=== PATIENT | male | born 2000 | race Caucasian/White ===

== ENCOUNTER → 2024-12-09 | Outpatient (CLI) | payer MEDICAID, SELFPAY ==
[2024-12-09 12:47] LABS: Hematocrit 39.8 % (40-54); Hemoglobin 13.5 g/dL (13.0-16.5); Immature Granulocytes Count 0.010 X10^3/uL (0.0-0.0); Mean Corp Hgb Conc 33.9 g/dL (32-36); Mean Corpuscular Volume 87.3 fL (80-94); Mean Platelet Vol. 11.1 fl (6.2-12.0); NRBC Flagged by Analyzer 0 % (0-5); Platelet Count 222 K/mm3 (150-450); RBC Distribution Width CV 13.4 % (11.6-14.6); RBC Distribution Width SD 43.0 fl (35.1-43.9); Red Blood Count 4.56 M/mm3 (4.6-6.2); White Blood Count 3.3 K/mm3 (4.4-11.0)
[2024-12-09 13:36] LABS: AST(SGOT) 21 U/L (<=37); Alanine Aminotransfer ALT/SGPT 11 U/L (<=46); Albumin, Serum 4.4 g/dL (3.5-5.0); Alkaline Phosphatase 80 U/L (40-129); Anion Gap 10 (5-15); BUN 10 mg/dL (4-19); BUN/Creat Ratio 13.2 RATIO (10-20); Calcium,Total 9.3 mg/dL (7.6-11.0); Carbon Dioxide 26.1 mmol/L (21.0-32.0); Chloride 104 mmol/L (98-108); Cholesterol 100 mg/dL (<=200); Globulin 3.2 g/dL (2.2-4.2); Glucose 78 mg/dL (70-99); Low Density Lipoprotein Calc. 45 mg/dL; Magnesium 2.0 mg/dL (1.5-2.2); Potassium 3.5 mmol/L (3.3-5.1); Triglycerides 78 mg/dL; Very Low Density Lipoprotein 16 mg/dL (5-40); cholesterol:hdl ratio screen 2.53
[2024-12-09 13:39] LABS: Ferritin 120 ng/mL (37-417); Vitamin B12 385 pg/mL (180-914); Vitamin D,25 Hydroxy 30.4 ng/mL (30-100)
== END | disposition home or self-care (01) ==
PROVIDERS: PCP Family Medicine; Visit Provider Family Medicine
DX: Z13.6 Encounter for screening for cardiovascular disorders (principal); R53.83 Other fatigue
CPT/HCPCS: 36415; 80053; 80061; 82306; 82607; 82728; 83036; 83735; 84402; 84403; 84443; 85025

== ENCOUNTER 2024-12-28 15:21 | Observation (INO) | payer MEDICAID, SELFPAY ==
[2024-12-28 15:22] VITALS: BP 128/86; PULSE 116; RESP 18; TEMP 36.8; O2SAT 95; BMI 20.2
--- OUTSIDE RECORDS SUMMARY | 2024-12-28 15:59 | XMS RPT_ITS | CCD ---
Author Organization [facility] Care Team Providers Care Assistant Chief Train Dispatcher Name Role Phone PROVIDER, UNKNOWN Unavailable Unavailable Brett Levin Unavailable Unavailable JAY FIERRO Unavailable Unavailable Mandeep Alvarez Primary Care Provider [phone] Mandeep Alvarez Primary Care Provider Juanyu Mandeep WISEMAN Primary Care Provider [phone] MANDEEP ALVAREZ Primary Care Unavailable Marcelino Meredith DO Primary Care Provider Unavailable Primary Care Provider UnavailJessica Rodriguez Primary Care Provider Unav ailable Cesar Bone DO Primary Care Provider CESAR BONE Primary Care Unavailable CESAR BONE Primary Care Unavailable EMY JACKSON Attending Unavailable SHAHNAZ HERNANDEZ Attending Unavailable CESAR BONE Primary Care Unavailable CESAR BONE Primary Care Unavailable JAYLEN GALLOWAY Admitting Unavailable JAYLEN GALLOWAY Attending Unavailable Unavailable Primary Care Provider UnavailHeather Spear DO Primary Care Provider Heather Lo DO Attending Provider Heather Fitzpatrick Attending Unavailable Heather Fitzpatrick Primary Care Unavailable DIOGENES BANKS Attending Unavailable Medications Current Medications Medication Drug Class(es) Dates Sig (Normalized) Sig (Original) acetaminophen 325 mg / oxyCODONE hydrochloride 5 mg oral tablet (12 sources) Opioid Agonist Start: 05-11-2023 End: 05-30-2023 take 1 tablet by mouth every six hours as needed for pain oxyCODONE-acetam inophen (Percocet) 5-325 MG tablet Indications: Pilonidal cyst Take 1 tablet by mouth every 6 hours as needed (Post-op pain) for up to 7 days. 28 tablet 0 05/23/2023 05/30/2023 Active amoxicillin 875 mg / clavulanate 125 mg oral tablet (3 sources) Penicillin-class Antibacterial Start: 03-31-2023 End: 04-07-2023 take 1 tablet by mouth twice daily amoxicillin-clav ulanate (Augmentin) 875-125 MG tablet Take 1 tablet by mouth 2 times daily for 7 days. 14 tablet 0 03/31/2023 04/07/2023 Active Start: 03-31-2021 End: 04-10-2021 take 1 tablet by mouth twice daily amoxicillin-clavulanate (AUGMENTIN) 875-125 MG per tablet Indications: Acute pharyngitis, unspecified etiology , Acute otitis media, bilateral Take 1 tablet by mouth 2 times daily for 10 days 20 tablet 0 03/31/2021 04/10/2021 Active 1.5 ml buprenorphine 200 mg/ml prefilled syringe (17 sources) Partial Opioid Agonist Start: 07-17-2024 SUBLOCADE 300 mg/1.5 mL injection 07/17/2024 Active Start: 02-11-2021 SUBLOCADE 100 mg/0.5 mL injection 02/11/2021 Active buprenorphine ER (Sublocade) 100 mg/0.5mL injection Inject 1 each under the skin every month to absorb continually. Was supposed to receive Monday/ Active Buprenorphine (S UBLOCADE SC) Inject into the skin every 30 days 0 Active cephalexin 500 mg oral capsule (8 sources) Cephalosporin Antibacterial Start: 03-07-2023 End: 03-17-2023 cephalexin (Keflex) 500 MG capsule Take 1 capsule (500 mg) by mouth in the morning and 1 capsule (500 mg) at noon and 1 capsule (500 mg) in the evening and 1 capsule (500 mg) before bedtime. Do all this for 10 days. 40 capsule 0 03/07/2023 03/17/2023 Active famotidine 20 mg oral tablet (10 sources) Histamine-2 Receptor Antagonist Start: 02-07-2021 End: 05-11-2023 take 1 tablet by mouth twice daily famotidine (PEPCID) 20 mg tablet Take 20 mg by mouth twice daily. 02/07/2021 Active Start: 01-31-2021 famotidine (PE PCID) tablet 20 mg Comment on above: Take 20 mg by mouth twice daily. metroNIDAZOLE 500 mg oral tablet (8 sources) Nitroimidazole Antimicrobial Start: End: take 1 tablet by mouth three times daily metroNIDAZOLE (Flagyl) 500 MG tablet Take 1 tablet (500 mg) by mouth 3 times daily for 10 days. 30 tablet 0 03/07/2023 03/17/2023 Active naproxen 500 mg oral tablet (4 sources) Nonsteroidal Anti-inflammatory Drug Start: End: take 1 tablet by mouth twice daily as needed for pain naproxen (Naprosyn) 500 MG tablet Take 1 tablet (500 mg) by mouth 2 times daily as needed for mild pain (1-3) for up to 15 days. 30 tablet 01/03/2024 01/18/2024 Active ofloxacin 3 mg/ml ophthalmic solution (1 source) Quinolone Antimicrobial Start: End: ofloxacin (Ocuflox) 0.3 % ophthalmic solution Indications: Acute conjunctivitis of left eye, unspecified acute conjunctivitis type Administer 1 drop into the left eye in the morning and 1 drop at noon and 1 drop in the evening and 1 drop before bedtime. Do all this for 7 days. 10 mL 11/12/2023 11/19/2023 Active penicillin v potassium 250 mg oral tablet (1 source) Start: End: take 2 tablets by mouth twice daily penicillin v potassium (VEETID) 250 MG tablet Take 2 tablets by mouth 2 times daily for 10 days 40 tablet 0 05/17/2020 05/27/2020 Active polyethylene glycol 3350 86271 mg powder for oral solution (2 sources) Osmotic Laxative Start: End: polyethylene glycol, PEG, 3350 (Glycolax) 17 GM/SCOOP powder Take 17 g by mouth daily for 7 days. 119 g 0 05/11/2023 05/18/2023 Active sulfamethoxazole 800 mg / trimethoprim 160 mg oral tablet (2 sources) Dihydrofolate Reductase Inhibitor Antibacterial, Sulfonamide Antimicrobial Start: take 1 tablet by mouth twice daily sulfamethoxazole-tri methoprim (BACTRIM DS;SEPTRA DS) 800-160 MG per tablet take 1 tablet by mouth twice a day 0 02/16/2021 Active thiamine 100 mg oral tablet (5 sources) Start: 017 take 1 tablet by mouth once daily thiamine 100 MG tablet Take 1 tablet by mouth daily 60 tablet 2 02/06/2017 Active Completed/Discontinued Medications Medication Drug Class(es) Dates Sig (Normalized) Sig (Original) acetaminophen 500 mg oral tablet (6 sources) Start: 05-11-2023 End: 05-11-2023 acetaminophen (Tylenol) tablet 1,000 mg Start: 01-25-2023 End: 01-25-2023 acetaminophen (Tylenol) tabl et 1,000 mg Start: 04-09-2021 End: 04-09-2021 acetaminophen (TYLENOL) tabl et 1,000 mg ALPRAZolam 0.25 mg disintegrating oral tablet (2 sources) Benzodiazepine Start: 05-11-2023 End: 05-11-2023 ALPRAZolam (Xanax) disintegrating tablet 0.25 mg baclofen 10 mg oral tablet (8 sources) gamma-Aminobutyric Acid-ergic Agonist Start: 07-26-2024 End: 07-29-2024 take 10 mg by mouth three times daily 10 mg, Oral, 3 times daily, First dose (after last modification) on Mon07/26/24 at 1400 Start: 08-22-2019 take 1 tablet by kendall th three times daily baclofen (LIORESAL) 10 MG tablet Take 1 tablet by mouth 3 times daily 21 tablet 0 08/22/2019 Active buprenorphine 8 mg / naloxone 2 mg sublingual film (10 sources) Partial Opioid Agonist, Opioid Antagonist Start: 03-08-2023 End: 03-15-2023 buprenorphine-naloxone (Suboxone) 8-2 MG per sublingual film Indications: Opioid use disorder Place 2 Film under the tongue daily for 7 days. 14 Film 0 03/08/2023 03/15/2023 Start: 03-08-2023 End: 03-08-2023 buprenorphine-naloxone (Subo xone) 8-2 MG per sublingual film 2 Film Start: 03-07-2023 End: 03-07-2023 buprenorphine-naloxone (Subo xone) 2-0.5 MG per sublingual film 2 Film calcium chloride 0.0014 meq/ml / potassium chloride 0.004 meq/ml / sodium chloride 0.103 meq/ml / sodium lactate 0.028 meq/ml injectable solution (4 sources) Start: 05-11-2023 End: 05-11-2023 lactated ringers infusion Cannabinoids (medical cannabis) (20 sources) End: 07-26-2024 take 1 dose by mouth once daily Cannabinoids (medical cannabis) Take 1 each by mouth 1 (one) time each day. 07/26/2024 Discontinued (Therapy completed) take 1 dose by mouth once daily Cannabinoids (medical cannabis) Take 1 each by mouth 1 (one) time each day. Active take 1 dose by mouth once daily Cannabinoids (medical cannabis) Take 1 each by mouth 1 (one) time each day. 0 Active cloNIDine hydrochloride 0.1 mg oral tablet (9 sources) Central alpha-2 Adrenergic Agonist Start: 07-26-2024 End: 07-29-2024 take 1 tablet by mouth every eight hours 0.1 mg, Oral, Every 8 hours, First dose (after last modification) on Mon07/26/24 at 1400, Hold if SBP Start: 07-26-2024 End: 07-26-2024 take 1 tablet by mouth every six hours as needed 0.1 mg, Oral, Every 6 hours PRN, withdrawal associated agitation, Starting on Mon07/26/24 at 0414, Hold for SBP LESS than 90 mmHg. Start: 07-26-2024 End: 07-26-2024 take 0.1 mg by mouth once 0.1 mg, Oral, Once, On Mon at 0020, For 1 dose Start: 08-10-2020 End: 08-10-2020 cloNIDine (CATAPRES) tablet 0.1 mg 1 ml dexamethasone phosphate 4 mg/ml injection (1 source) Corticosteroid Start: 05-17-2020 End: 05-17-2020 dexamethasone (DECADRON) injection 4 mg dicyclomine hydrochloride 20 mg oral tablet (3 sources) Anticholinergic Start: 07-26-2024 End: 07-29-2024 take 1 tablet by mouth every six hours as needed 20 mg, Oral, Every 6 hours PRN, abdominal cramping, Starting on Mon07/26/24 at 0414 Start: 08-10-2020 End: 08-10-2020 dicyclomine (BENTYL) capsule 10 mg 1 ml diphenhydrAMINE hydrochloride 50 mg/ml cartridge (2 sources) Histamine-1 Receptor Antagonist Start: 05-11-2023 End: 05-11-2023 diphenhydrAMINE (BENADryl) injection 12.5 mg 2 ml fentaNYL 0.05 mg/ml injection (4 sources) Opioid Agonist Start: 05-11-2023 End: 05-11-2023 fentaNYL (Sublimaze) injection 50 mcg Start: 05-11-2023 End: 05-11-2023 fentaNYL (Sublimaze) injecti on 25 mcg folic acid 1 mg oral tablet (2 sources) Start: 02-06-2017 End: 08-22-2019 take 1 tablet by mouth once daily folic acid (FOLVITE) 1 MG tablet Take 1 tablet by mouth daily 60 tablet 1 02/06/2017 08/22/2019 Discontinued (Stop Taking at Discharge) gabapentin 300 mg oral capsule (6 sources) Anti-epilepti c Agent Start: 07-26-2024 End: 07-29-2024 take 1 capsule by mouth every eight hours as needed 300 mg, Oral, Every 8 hours PRN, Neuropathic Pain, Starting on Mon07/26/24 at 0414 Start: 05-11-2023 End: 05-11-2023 gabapentin (Neurontin) capsu le 100 mg Start: 03-23-2017 End: 08-22-2019 take 1 capsule by mouth three times daily gabapentin (NEURONTIN) 300 MG capsule Take 1 capsule by mouth 3 times daily 90 capsule 0 03/23/2017 08/22/2019 Discontinued (Stop Taking at Discharge) hydrOXYzine pamoate 50 mg oral capsule (8 sources) Antihistamine Start: 07-26-2024 End: 07-29-2024 take 1 capsule by mouth every eight hours as needed for anxiety 50 mg, Oral, Every 8 hours PRN, anxiety, Lacrimation, Rhinorrhea, Starting on Mon07/26/24 at 0414 Start: 08-22-2019 take 1 tablet by kendall th every eight hours as needed for anxiety hydrOXYzine (ATARAX) 25 MG tablet Take 1 tablet by mouth every 8 hours as needed for Anxiety 30 tablet 0 08/22/2019 Active take 1 capsule by mo uth three times daily as needed hydrOXYzine (VISTARIL) 25 MG capsule Take 25 mg by mouth 3 times daily as needed for Itching 0 Active ibuprofen 400 mg oral tablet (8 sources) Nonsteroidal Anti-inflammatory Drug Start: 07-26-2024 End: 07-29-2024 take 1 tablet by mouth every eight hours as needed for pain 800 mg, Oral, Every 8 hours PRN, mild pain (1-3), myalgia, Starting on Mon07/26/24 at 0414, Administer with food. Start: 05-19-2023 End: 05-19-2023 ibuprofen tablet 600 mg Start: 01-25-2023 End: 01-25-2023 ibuprofen tablet 600 mg Start: 04-09-2021 End: 05-09-2021 take 1 tablet by mouth every six hours as needed for pain ibuprofen (IBU) 600 MG tablet Take 1 tablet by mouth every 6 hours as needed for Pain 20 tablet 0 04/09/2021 05/09/2021 Active iopamidol (Isovue-370) 76 % injection 100 mL (2 sources) Start: 01-25-2023 End: 01-25-2023 iopamidol (Isovue-370) 76 % injection 100 mL labetalol (Normodyne,Trandate) injection 5 mg (2 sources) Start: 05-11-2023 End: 05-11-2023 labetalol (Normodyne,Trandate) injection 5 mg 10 ml lidocaine hydrochloride 20 mg/ml injection (2 sources) Antiarrhythmic, Amide Local Anesthetic Start: 03-07-2023 End: 03-07-2023 lidocaine PF (Xylocaine) 2 % injection 10 mL loperamide hydrochloride 2 mg oral capsule (2 sources) Opioid Agonist Start: 07-26-2024 End: 07-29-2024 take 2 mg by mouth twice daily as needed for diarrhea 2 mg, Oral, 2 times daily PRN, diarrhea, Starting on Mon07/26/24 at 0415 methocarbamol 750 mg oral tablet (2 sources) Muscle Relaxant Start: 07-26-2024 End: 07-29-2024 take 1 tablet by mouth every six hours as needed 750 mg, Oral, Every 6 hours PRN, muscle spasms, myalgia, Starting on Mon07/26/24 at 0414 24 hr methylphenidate hydrochloride 18 mg extended release oral tablet (7 sources) Central Nervous System Stimulant End: 07-26-2024 take 1 tablet by mouth once daily in the morning methylphenidate ER (Concerta) 18 MG CR tablet Take 18 mg by mouth every morning. Do not crush, chew, or split. 07/26/2024 Discontinued (Therapy completed) 1 ml naloxone hydrochloride 0.4 mg/ml injection (6 sources) Opioid Antagonist Start: 07-26-2024 End: 07-29-2024 0.4 mg, IntraVENous, Every 5 min PRN, opioid reversal, respiratory depression, Starting on Mon07/26/24 at 0424, +++ For RR Start: 03-08-2023 End: 03-08-2023 naloxone (Narcan) 4 mg/0.1 m L nasal spray Administer 1 spray (4 mg) into affected nostril(s) Once for 1 dose. May repeat every 2-3 minutes if needed, alternating nostrils, until medical assistance becomes available. 1 each 0 03/08/2023 03/08/2023 Active NALOXONE OPIATE OVERDOSE KIT 1 each (1 source) Start: 08-10-2020 End: 08-10-2020 NALOXONE OPIATE OVERDOSE KIT 1 each 24 hr nicotine 0.583 mg/hr transdermal system (2 sources) Cholinergic Nicotinic Agonist Start: 07-26-2024 End: 07-29-2024 apply 1 dose transdermal route once daily at bedtime 1 patch, TransDERmal, Administer over 24 Hours, Daily, First dose on Mon07/26/24 at 1430, Apply new patch to nonhairy, clean, dry skin on the upper body or upper outer arm. Rotate patch sites. Notify Pharmacy if patient or provider prefers patch to be removed at bedtime and replaced in the morning. 2 ml ondansetron 2 mg/ml injection (3 sources) Serotonin-3 Receptor Antagonist Start: 05-11-2023 End: 05-11-2023 ondansetron (Zofran) injection 4 mg Start: 08-10-2020 End: 08-10-2020 ondansetron (ZOFRAN-ODT) dis integrating tablet 4 mg oxyCODONE hydrochloride 5 mg oral tablet (4 sources) Opioid Agonist Start: 05-11-2023 End: 05-11-2023 take 1 tablet by mouth every six hours as needed for pain oxyCODONE (Roxicodone) 5 MG immediate release tablet Indications: Pilonidal cyst Take 1 tablet (5 mg) by mouth every 6 hours as needed for severe pain (7-10) for up to 5 days. 15 tablet 0 05/11/2023 05/11/2023 Discontinued (Stop taking at discharge) Start: 05-11-2023 End: 05-11-2023 oxyCODONE (Roxicodone) immed iate release tablet 5 mg promethazine hydrochloride 25 mg oral tablet (2 sources) Phenothiazine Start: 07-26-2024 End: 07-29-2024 take 1 tablet by mouth every six hours as needed for nausea 25 mg, Oral, Every 6 hours PRN, nausea, Restless Leg Symptoms, Starting on Mon07/26/24 at 0414 5 ml sodium chloride 9 mg/ml injection (20 sources) Start: 05-11-2023 End: 05-11-2023 sodium chloride 0.9% (NS) flush 10 mL Start: 05-11-2023 End: 05-11-2023 sodium chloride 0.9% (NS) fl ush 10 mL Start: 05-11-2023 End: 05-11-2023 sodium chloride 0.9 % bolus 500 mL Start: 05-11-2023 End: 05-11-2023 sodium chloride 0.9 % infusi on Start: 05-11-2023 End: 05-11-2023 sodium chloride 0.9% (NS) fl ush 10 mL traZODone hydrochloride 50 mg oral tablet (6 sources) Serotonin Reuptake Inhibitor Start: 07-26-2024 End: 07-29-2024 take 50 mg by mouth once daily as needed for sleep 50 mg, Oral, Nightly PRN, sleep, Starting on Mon07/26/24 at 0414 Start: 08-22-2019 take 1 tablet by kendall th once daily as needed for sleep traZODone (DESYREL) 100 MG tablet Take 1 tablet by mouth nightly as needed for Sleep 30 tablet 0 08/22/2019 Active UNABLE TO FIND (20 sources) End: 07-26-2024 take 20 mg by mouth once daily, then take 20 mg by mouth once daily UNABLE TO FIND Take 20 mg by mouth daily. Suboxone 20 mg po daily 07/26/2024 Discontinued (Therapy completed) take 20 mg by mouth once daily, then take 20 mg by mouth once daily UNABLE TO FIND Take 20 mg by mouth daily . Suboxone 20 mg po daily Active take 20 mg by mouth once daily, then take 20 mg by mouth once daily UNABLE TO FIND Take 20 mg by mouth daily . Suboxone 20 mg po daily 0 Active Problems Active Problems Problem Classification Problem Date Documented Date Episodic/Chronic Acute and unspecified renal failure (5 sources) Acute injury of kidney; Translations: [LISA (acute kidney injury)] 01-27-2017 Delirium, dementia, and amnestic and other cognitive disorders (2 sources) Postconcussion syndrome; Translations: [Postconcussional syndrome] Onset: 03-06-2013 07-26-2024 Chronic Fracture of lower limb (2 sources) Closed fracture of metatarsal bone of left foot; Translations: [Fracture of unspecified metatarsal bone(s), left foot, initial encounter for closed fracture] Episodic Genitourinary symptoms and ill-defined conditions (9 sources) Pain in urethra; Translations: [Other symptoms and signs involving the genitourinary system] Onset: 02-23-2021 Episodic Mood disorders (2 sources) Episodic mood disorder; Translations: [Unspecified mood [affective] disorder] Onset: 01-07-2014 07-26-2024 Chronic Nausea and vomiting (1 source) Nausea, vomiting and diarrhea; Translations: [Nausea with vomiting, unspecified] Episodic Other aftercare (2 sources) Surgical follow-up; Translations: [Encounter for follow-up examination after completed treatment for conditions other than malignant neoplasm] 05-19-2023 Episodic Other infections; including parasitic (1 source) Worms in stool; Translations: [Helminthiasis, unspecified] Episodic Other nervous system disorders (2 sources) Poor concentration; Translations: [Attention and concentration deficit] Onset: 03-06-2013 07-26-2024 Chronic Other screening for suspected conditions (not mental disorders or infectious disease) (1 source) Encounter for screening for cardiovascular disorders; Translations: [Encounter for screening for cardiovascular disorders] Onset: 12-12-2024 Episodic Other skin disorders (2 sources) Localized swelling, mass and lump, neck; Translations: [Localized swelling, mass and lump, neck] Onset: 07-25-2024 Episodic Other skin disorders (8 sources) Mass of neck; Translations: [Localized swelling, mass and lump, neck] Onset: 07-26-2024 07-29-2024 Episodic Other skin disorders (5 sources) Generalized rash; Translations: [Generalized rash] 01-30-2017 Other upper respiratory infections (3 sources) Streptococcal sore throat; Translations: [Viral upper respiratory tract infection] 05-19-2023 Episodic Residual codes; unclassified (3 sources) Requires vaccination; Translations: [Need for immunization against viral hepatitis] Onset: 02-06-2017 02-06-2017 Skin and subcutaneous tissue infections (15 sources) Abscess; Translations: [Cutaneous abscess, unspecified] 01-25-2023 Episodic Substance-related disorders (20 sources) Intravenous drug user; Translations: [Polysubstance dependence] Onset: 01-25-2017 01-25-2017 Chronic Substance-related disorders (20 sources) Overdose of opiate; Translations: [Intravenous drug user] Onset: 01-25-2017 01-25-2017 Episodic Superficial injury; contusion (1 source) Contusion of hand; Translations: [Contusion of right hand, initial encounter] Episodic Unclassified (20 sources) Sepsis; Translations: [Blood poisoning] Onset: 01-26-2017 01-26-2017 Urinary tract infections (1 source) Recurrent urinary tract infection; Translations: [Urinary tract infection, site not specified] Episodic Past or Other Problems Problem Classification Problem Date Documented Date Episodic/Chronic Acute and unspecified renal failure (20 sources) Acute injury of kidney; Translations: [Acute kidney failure, unspecified] Onset: 01-27-2017 01-27-2017 Episodic Coma; stupor; and brain damage (20 sources) Drowsy; Translations: [Stupor] Onset: 01-26-2017 01-26-2017 Episodic Fluid and electrolyte disorders (20 sources) Hyponatremia; Translations: [Hypo-osmolality and hyponatremia] Onset: 01-24-2017 01-24-2017 Episodic Fracture of lower limb (20 sources) Closed fracture of fifth metatarsal bone; Translations: [Nondisplaced fracture of fifth metatarsal bone, right foot, subsequent encounter for fracture with routine healing] Onset: 04-20-2021 03-07-2022 Episodic Headache; including migraine (2 sources) Posttraumatic headache; Translations: [Post-traumatic headache, unspecified, not intractable] Onset: 03-06-2013 07-26-2024 Episodic Immunizations and screening for infectious disease (20 sources) Encounter for immunization; Translations: [Requires vaccination against viral hepatitis] Onset: 02-06-2017 02-06-2017 Episodic Inflammation; infection of eye (except that caused by tuberculosis or sexually transmitteddisease) (3 sources) Acute conjunctivitis of left eye; Translations: [Unspecified acute conjunctivitis, left eye] Onset: 11-12-2023 11-12-2023 Episodic Intracranial injury (2 sources) Concussion injury of body structure; Translations: [Concussion] Onset: 04-03-2013 07-26-2024 Episodic Mood disorders (2 sources) Mood disorders Onset: 07-26-2024 07-26-2024 Other connective tissue disease (20 sources) Traumatic rhabdomyolysis; Translations: [Traumatic ischemia of muscle, initial encounter] Onset: 01-27-2017 01-27-2017 Episodic Other liver diseases (20 sources) Elevated liver enzymes level; Translations: [Abnormal levels of other serum enzymes] Onset: 01-25-2017 01-25-2017 Episodic Other liver diseases (20 sources) Enzyme level - finding; Translations: [Transaminitis] Onset: 01-25-2017 01-25-2017 Episodic Other non-traumatic joint disorders (20 sources) Hip pain; Translations: [Pain in right hip] Onset: 01-24-2017 01-30-2017 Episodic Other skin disorders (20 sources) Drug-induced dermatosis; Translations: [Generalized skin eruption due to drugs and medicaments taken internally] Onset: 01-27-2017 01-27-2017 Episodic Other skin disorders (20 sources) Generalized rash; Translations: [Rash and other nonspecific skin eruption] Onset: 01-30-2017 01-30-2017 Episodic Other skin disorders (7 sources) Skin tag; Translations: [Other hypertrophic disorders of the skin] Onset: 02-23-2021 Episodic Poisoning by other medications and drugs (20 sources) Narcotic poisoning of undetermined intent; Translations: [Poisoning by unspecified narcotics, accidental (unintentional), initial encounter] Onset: 06-03-2018 06-03-2018 Episodic Residual codes; unclassified (20 sources) Altered mental status; Translations: [Altered mental status, unspecified] Onset: 01-24-2017 01-24-2017 Episodic Septicemia (except in labor) (20 sources) Sepsis; Translations: [Sepsis, unspecified organism] Onset: 01-24-2017 01-26-2017 Episodic Sexually transmitted infections (not HIV or hepatitis) (20 sources) Gonorrhea; Translations: [Gonococcal infection, unspecified] Onset: 01-27-2017 01-27-2017 Episodic Spondylosis; intervertebral disc disorders; other back problems (3 sources) Pain in the coccyx; Translations: [Sacrococcygeal disorders, not elsewhere classified] Onset: 11-21-2023 11-21-2023 Episodic Sprains and strains (4 sources) Sprain of right wrist; Translations: [Unspecified sprain of right wrist, initial encounter] Onset: 01-03-2024 01-03-2024 Episodic Viral infection (17 sources) Disease caused by 2019-nCoV; Translations: [COVID-19] Onset: 05-24-2023 05-24-2023 Episodic Results Test Name Value Interpretation Reference Range Facility [facility]ER[facility]DINE [facility] ([id number]) 2000 M Date Time Provider Department 12/19/24 SHELLEY LOYD During your visit today, we recorded the following information about you: Darrell Hoffmann LPN 12/19/2024 2:47 PM Signed New Pt to Neurology. Scheduled for Jan 22. Records scanned in chart, from Blanca Wray . Darrell Hoffmann LPN Allergies As of Date: 12/19/2024 (No Known Allergies) Date Reviewed: 10/31/2024 Reviewed by: Sary Sol MA - Fully Assessed Prescriptions as of 12/19/2024 - SUBLOCADE 300 mg/1.5 mL injection - famotidine (PEPCID) 20 mg tablet Take 20 mg by mouth twice daily. - SUBLOCADE 100 mg/0.5 mL injection Problem List As Of Date 12/19/2024 Noted Resolved Urethral pain [R39.89] 02/23/2021 Cutaneous skin tags [L91.8] 02/23/2021 Encounter Status:Closed by DARRELL HOFFMANN on 12/19/24 Normal [facility] Testosterone, Total / Freeon 12-16-2024 TESTOSTER,FREE 24.09 ng/dL Abnormal 5.00-21.00 [facility] Comment on above: Order Comment: N Performed By: #### L 500.4100, L501.9985, L506.1001, L503.6550, L501.5200, L3100.5310, L501.9520, L503.0106, L100.0100, L500.4050 #### [facility] [address] [place], [place], [phone] ([phone] TESTOSTER,TOTAL 1043 ng/dL High 264-916 [facility] Comment on above: Order Comment: N Result Comment: Adul t male reference interval is based on a population of healthy nonobese males (BMI <30) between 19 and 39 years old. Brett et.al. JCEM 2017,102;4769-0433. PMID: [id number]. Performed By: #### L 500.4100, L501.9985, L506.1001, L503.6550, L501.5200, L3100.5310, L501.9520, L503.0106, L100.0100, L500.4050 #### [facility] [address] [place], [place], [id number] TESTOSTERONE,%F 2.31 Normal 1.50-4.20 [facility] Comment on above: Order Comment: N Result Comment: Perf ormed at: [address] [id number] [employer]erial Installer: Reilly Garcias PhD, Phone: [phone] Performed at: [facility] [address] [id number] [employer] Installer: Itz Stanford MD, Phone: [phone] Performed By: #### L 500.4100, L501.9985, L506.1001, L503.6550, L501.5200, L3100.5310, L501.9520, L503.0106, L100.0100, L500.4050 #### [facility] [address] [place], [place], [id number] Absolute lymphocyte countOrd ered By: Heather Lo on 12-09-2024 Lymphocytes Auto (Unsp spec) [#/Vol] 1.51 10*3/uL 0.83-4.51 [facility] Absolute neutrophil countOrd ered By: Heather Lo on 12-09-2024 Neutrophils (Bld) [#/Vol] 1.2 10*3/uL Low 2.0-7.7 [facility] Anion gap in Serum or Plasma Ordered By: Heather Lo on 12-09-2024 Anion gap [Moles/Vol] 10 mmol/L 5-15 [facility] Automated lymphocyte count a s percentage of total leukocytesOrdered By: Heather Lo on 12-09-2024 Lymphocytes/100 WBC Auto (Unsp spec) 45.6 % High 19-41 [facility] BUN/creatinine ratioOrdered By: Heather Lo on 12-09-2024 Urea nitrogen/Creatinine [Mass ratio] 13.2 mg/mg 10-20 [facility] Basophil percentageOrdered B y: Heather Lo on 12-09-2024 Basophils/100 WBC (Bld) 2.1 % High 0-1 [facility] Bilirubin, totalOrdered By: Heather Lo on 12-09-2024 Bilirubin [Mass/Vol] 0.59 mg/dL 0.00-1.30 [facility] CBC W/Diff, Automatedon 11-20 Absolute Lymph 1.51 X10 3/uL Normal 0.83-4.51 [facility] Comment on above: Performed By: #### L 500.4100, L501.9985, L506.1001, L503.6550, L501.5200, L3100.5310, L501.9520, L503.0106, L100.0100, L500.4050 #### [facility] [address] [place], [address] ( Absolute Neut 1.2 X10 3/uL Low 2.0-7.7 [facility] Comment on above: Performed By: #### L 500.4100, L501.9985, L506.1001, L503.6550, L501.5200, L3100.5310, L501.9520, L503.0106, L100.0100, L500.4050 #### [facility] [address] [facility] [place], [address] (610) Basophils/100 WBC (Bld) 2.1 % High 0-1 [facility] Comment on above: Performed By: #### L 500.4100, L501.9985, L506.1001, L503.6550, L501.5200, L3100.5310, L501.9520, L503.0106, L100.0100, L500.4050 #### [facility] [address] [facility] [place], [address] (155) Eosinophils/100 WBC (Bld) 4.8 % Normal 0-5 [facility] Comment on above: Performed By: #### L 500.4100, L501.9985, L506.1001, L503.6550, L501.5200, L3100.5310, L501.9520, L503.0106, L100.0100, L500.4050 #### [facility] [address] [facility] [place], [address] (557) Erythrocyte distribution width (RBC) [Ratio] 13.4 % Normal 11.6-14.6 [facility] Comment on above: Performed By: #### L 500.4100, L501.9985, L506.1001, L503.6550, L501.5200, L3100.5310, L501.9520, L503.0106, L100.0100, L500.4050 #### [facility] [address] [place], [address] Hematocrit (Bld) [Volume fraction] 39.8 % Low 40-54 [facility] Comment on above: Performed By: #### L 500.4100, L501.9985, L506.1001, L503.6550, L501.5200, L3100.5310, L501.9520, L503.0106, L100.0100, L500.4050 #### [facility] [address] [facility] [place], [address] Hemoglobin (Bld) [Mass/Vol] 13.5 g/dL Normal 13.0-16.5 [facility] Comment on above: Performed By: #### L 500.4100, L501.9985, L506.1001, L503.6550, L501.5200, L3100.5310, L501.9520, L503.0106, L100.0100, L500.4050 #### [facility] [address] [facility] [place], [address] IG% 0.300 Normal 0.0-0.9 [facility] Comment on above: Result Comment: IG% - Immature Granulocytes (promyelocytes, myelocytes and metamyelocytes) > 1% indicates that a LEFT SHIFT is Present. Performed By: #### L 500.4100, L501.9985, L506.1001, L503.6550, L501.5200, L3100.5310, L501.9520, L503.0106, L100.0100, L500.4050 #### [facility] [address] [place], [address] Lymphocytes/100 WBC (Bld) 45.6 % High 19-41 [facility] Comment on above: Performed By: #### L 500.4100, L501.9985, L506.1001, L503.6550, L501.5200, L3100.5310, L501.9520, L503.0106, L100.0100, L500.4050 #### [facility] [address] [place], [address] MCH (RBC) [Entitic mass] 29.6 pg Normal 27.0-32.0 [facility] Comment on above: Performed By: #### L 500.4100, L501.9985, L506.1001, L503.6550, L501.5200, L3100.5310, L501.9520, L503.0106, L100.0100, L500.4050 #### [facility] [address] [facility] [place], [address] MCHC (RBC) [Mass/Vol] 33.9 g/dL Normal 32-36 [facility] Comment on above: Performed By: #### L 500.4100, L501.9985, L506.1001, L503.6550, L501.5200, L3100.5310, L501.9520, L503.0106, L100.0100, L500.4050 #### [facility] [address] [facility] [place], [address] MCV (RBC) [Entitic vol] 87.3 fL Normal 80-94 [facility] Comment on above: Performed By: #### L 500.4100, L501.9985, L506.1001, L503.6550, L501.5200, L3100.5310, L501.9520, L503.0106, L100.0100, L500.4050 #### [facility] [address] [place], [address] Monocytes/100 WBC (Bld) 11.5 % High 0-10 [facility] Comment on above: Performed By: #### L 500.4100, L501.9985, L506.1001, L503.6550, L501.5200, L3100.5310, L501.9520, L503.0106, L100.0100, L500.4050 #### [facility] [address] [place], [address] Neutrophils/100 WBC (Bld) 35.7 % Low 47-70 [facility] Comment on above: Performed By: #### L 500.4100, L501.9985, L506.1001, L503.6550, L501.5200, L3100.5310, L501.9520, L503.0106, L100.0100, L500.4050 #### [facility] [address] [facility] [place], [address] ([phone] Nucleated RBC (Bld) [#/Vol] 0 10*3/uL Normal 0-5 [facility] Comment on above: Performed By: #### L 500.4100, L501.9985, L506.1001, L503.6550, L501.5200, L3100.5310, L501.9520, L503.0106, L100.0100, L500.4050 #### [facility] [address] [facility] [place], [address] Platelet mean volume (Bld) [Entitic vol] 11.1 fL Normal 6.2-12.0 [facility] Comment on above: Performed By: #### L 500.4100, L501.9985, L506.1001, L503.6550, L501.5200, L3100.5310, L501.9520, L503.0106, L100.0100, L500.4050 #### [facility] [address] [facility] [place], [address] ([phone] Platelets (Bld) [#/Vol] 222 10*3/uL Normal 150-450 [facility] Comment on above: Performed By: #### L 500.4100, L501.9985, L506.1001, L503.6550, L501.5200, L3100.5310, L501.9520, L503.0106, L100.0100, L500.4050 #### [facility] [address] [place], [address] RBC (Bld) [#/Vol] 4.56 10*6/uL Low 4.6-6.2 [facility] Comment on above: Performed By: #### L 500.4100, L501.9985, L506.1001, L503.6550, L501.5200, L3100.5310, L501.9520, L503.0106, L100.0100, L500.4050 #### [facility] [address] [place], [address] (183) RDW SD 43.0 fl Normal 35.1-43.9 [facility] Comment on above: Performed By: #### L 500.4100, L501.9985, L506.1001, L503.6550, L501.5200, L3100.5310, L501.9520, L503.0106, L100.0100, L500.4050 #### [facility] [address] [place], [place], [phone] (303) WBC (Bld) [#/Vol] 3.3 10*3/uL Low 4.4-11.0 [facility] Comment on above: Performed By: #### L 500.4100, L501.9985, L506.1001, L503.6550, L501.5200, L3100.5310, L501.9520, L503.0106, L100.0100, L500.4050 #### [facility] [address] [facility] [place], [place], [phone] (720) Calculated very low density lipoprotein (VLDL) cholesterol measurementOrdered By: Heather Lo on 12-09-2024 Calculated very low density lipoprotein (VLDL) cholesterol measurement 16 mg/dL 5-40 [facility] Carbon dioxide, total [Moles /volume] in Central venous bloodOrdered By: Heather Lo on 12-09-2024 CO2 [Moles/Vol] 26.1 mmol/L 21.0-32.0 [facility] Chloride assayOrdered By: Andrew Lo on 12-09-2024 Chloride [Moles/Vol] 104 mmol/L 98-108 [facility] Comprehensive Metabolic Prof ilon 12-09-2024 Albumin [Mass/Vol] 4.4 g/dL Normal 3.5-5.0 [facility] Comment on above: Performed By: #### L 500.4100, L501.9985, L506.1001, L503.6550, L501.5200, L3100.5310, L501.9520, L503.0106, L100.0100, L500.4050 #### [facility] [address] [place], [place], [id number] Albumin/Globulin [Mass ratio] 1.4 {ratio} Normal 0.9-2.4 [facility] Comment on above: Performed By: #### L 500.4100, L501.9985, L506.1001, L503.6550, L501.5200, L3100.5310, L501.9520, L503.0106, L100.0100, L500.4050 #### [facility] [address] [place], [place], [id number] ALK PHOS 80 U/L Normal 40-129 [facility] Comment on above: Performed By: #### L 500.4100, L501.9985, L506.1001, L503.6550, L501.5200, L3100.5310, L501.9520, L503.0106, L100.0100, L500.4050 #### [facility] [address] [place], [place], [id number] ALT [Catalytic activity/Vol] 11 U/L Normal <=46 [facility] Comment on above: Performed By: #### L 500.4100, L501.9985, L506.1001, L503.6550, L501.5200, L3100.5310, L501.9520, L503.0106, L100.0100, L500.4050 #### [facility] [address] [place], [address] AST [Catalytic activity/Vol] 21 U/L Normal <=37 [facility] Comment on above: Performed By: #### L 500.4100, L501.9985, L506.1001, L503.6550, L501.5200, L3100.5310, L501.9520, L503.0106, L100.0100, L500.4050 #### [facility] [address] [place], [address] Bilirubin [Mass/Vol] 0.59 mg/dL Normal 0.00-1.30 [facility] Comment on above: Performed By: #### L 500.4100, L501.9985, L506.1001, L503.6550, L501.5200, L3100.5310, L501.9520, L503.0106, L100.0100, L500.4050 #### [facility] [address] [place], [address] BUN/CRE 13.2 RATIO Normal 10-20 [facility] Comment on above: Performed By: #### L 500.4100, L501.9985, L506.1001, L503.6550, L501.5200, L3100.5310, L501.9520, L503.0106, L100.0100, L500.4050 #### [facility] [address] [place], [address] Calcium [Mass/Vol] 9.3 mg/dL Normal 7.6-11.0 [facility] Comment on above: Performed By: #### L 500.4100, L501.9985, L506.1001, L503.6550, L501.5200, L3100.5310, L501.9520, L503.0106, L100.0100, L500.4050 #### [facility] [address] [place], [address] Chloride [Moles/Vol] 104 mmol/L Normal 98-108 [facility] Comment on above: Performed By: #### L 500.4100, L501.9985, L506.1001, L503.6550, L501.5200, L3100.5310, L501.9520, L503.0106, L100.0100, L500.4050 #### [facility] [address] [place], [place], [phone] (640) CO2 [Moles/Vol] 26.1 mmol/L Normal 21.0-32.0 [facility] Comment on above: Performed By: #### L 500.4100, L501.9985, L506.1001, L503.6550, L501.5200, L3100.5310, L501.9520, L503.0106, L100.0100, L500.4050 #### [facility] [address] [place], [place], [phone] (514) Creatinine [Mass/Vol] 0.74 mg/dL Normal 0.70-1.20 [facility] Comment on above: Performed By: #### L 500.4100, L501.9985, L506.1001, L503.6550, L501.5200, L3100.5310, L501.9520, L503.0106, L100.0100, L500.4050 #### [facility] [address] [place], [address] GAP 10 Normal 5-15 [facility] Comment on above: Performed By: #### L 500.4100, L501.9985, L506.1001, L503.6550, L501.5200, L3100.5310, L501.9520, L503.0106, L100.0100, L500.4050 #### [facility] [address] [place], [address] GFR/1.73 sq M.predicted among non-blacks MDRD (S/P/Bld) [Vol rate/Area] 128 mL/min/{1.73_m2} Normal >60 [facility] Comment on above: Result Comment: mL/m in/1.73m2 CKD-EPI Creatinine Equation (2020) Performed By: #### L 500.4100, L501.9985, L506.1001, L503.6550, L501.5200, L3100.5310, L501.9520, L503.0106, L100.0100, L500.4050 #### [facility] [address] [place], [address] Globulin (S) [Mass/Vol] 3.2 g/dL Normal 2.2-4.2 [facility] Comment on above: Performed By: #### L 500.4100, L501.9985, L506.1001, L503.6550, L501.5200, L3100.5310, L501.9520, L503.0106, L100.0100, L500.4050 #### [facility] [address] [place], [address] Glucose [Mass/Vol] 78 mg/dL Normal 70-99 [facility] Comment on above: Performed By: #### L 500.4100, L501.9985, L506.1001, L503.6550, L501.5200, L3100.5310, L501.9520, L503.0106, L100.0100, L500.4050 #### [facility] [address] [place], [address] Potassium [Moles/Vol] 3.5 mmol/L Normal 3.3-5.1 [facility] Comment on above: Performed By: #### L 500.4100, L501.9985, L506.1001, L503.6550, L501.5200, L3100.5310, L501.9520, L503.0106, L100.0100, L500.4050 #### [facility] [address] [place], [place], [id number] Sodium [Moles/Vol] 140 mmol/L Normal 133-145 [facility] Comment on above: Performed By: #### L 500.4100, L501.9985, L506.1001, L503.6550, L501.5200, L3100.5310, L501.9520, L503.0106, L100.0100, L500.4050 #### [facility] [address] [place], [address] T PROT 7.5 g/dL Normal 5.9-8.4 [facility] Comment on above: Performed By: #### L 500.4100, L501.9985, L506.1001, L503.6550, L501.5200, L3100.5310, L501.9520, L503.0106, L100.0100, L500.4050 #### [facility] [address] [place], [place], [id number] Urea nitrogen [Mass/Vol] 10 mg/dL Normal 4-19 [facility] Comment on above: Performed By: #### L 500.4100, L501.9985, L506.1001, L503.6550, L501.5200, L3100.5310, L501.9520, L503.0106, L100.0100, L500.4050 #### [facility] [address] [place], [place], [id number] Eosinophil percentageOrdered By: Heather Lo on 07-21-2025 Eosinophils/100 WBC (Bld) 4.8 % 0-5 [facility] Erythrocyte distribution wid th ratioOrdered By: Heather Lo on 12-09-2024 Erythrocyte distribution width (RBC) [Ratio] 13.4 % 11.6-14.6 [facility] Erythrocyte distribution wid th standard deviationOrdered By: Heathererin Lo on 12-09-2024 Erythrocyte distribution width (RBC) [Ratio] 43.0 fl 35.1-43.9 [facility] Ferritinon 12-09-2024 Ferritin [Mass/Vol] 120 ng/mL Normal 37-417 [facility] Comment on above: Performed By: #### L 500.4100, L501.9985, L506.1001, L503.6550, L501.5200, L3100.5310, L501.9520, L503.0106, L100.0100, L500.4050 #### [facility] [address] [place], [place], [id number] Glomerular filtration rate ( GFR) estimation/1.73 sq m using serum, plasma, or whole bOrdered By: Heather Lo on 12-09-2024 GFR/1.73 sq M.predicted among non-blacks MDRD (S/P/Bld) [Vol rate/Area] 128 mL/min/{1.73_m2} >60 [facility] Comment on above: mL/min/1.73m2 CKD-EP I Creatinine Equation (2020) Hematocrit Auto (Bld) [Volum e fraction]Ordered By: Heather Lo on 12-09-2024 Hematocrit (Bld) [Volume fraction] 39.8 % Low 40-54 [facility] Hemoglobin A1con 12-09-2024 HbA1c (Bld) [Mass fraction] 4.8 % Normal <=5.6 [facility] Comment on above: Result Comment: Norm al < 5.7 % Prediabetic 5.7 - 6.4 % Diabetic >or= 6.5 % Please note range changes. Performed By: #### L 500.4100, L501.9985, L506.1001, L503.6550, L501.5200, L3100.5310, L501.9520, L503.0106, L100.0100, L500.4050 #### [facility] [address] [place], [place], [phone] Hemoglobin A1c percentageOrd ered By: Heather Lo on 12-09-2024 HbA1c (Bld) [Mass fraction] 4.8 % <5.7 [facility] Comment on above: Normal < 5.7 % Predi abetic 5.7 - 6.4 % Diabetic >or= 6.5 % Please note range changes. Hemoglobin measurementOrdere d By: Heather oL on 12-09-2024 Hemoglobin (Bld) [Mass/Vol] 13.5 g/dL 13.0-16.5 [facility] Immature granulocytes/100 WB C Auto (Bld)Ordered By: Heather Lo on 12-09-2024 Immature granulocytes/100 WBC (Bld) 0.300 % 0.0-0.9 [facility] Comment on above: IG% - Immature Granu locytes (promyelocytes, myelocytes and metamyelocytes) > 1% indicates that a LEFT SHIFT is Present. LDL calc ser/plasOrdered By: Heather Lo on 12-09-2024 Cholesterol in LDL [Mass/Vol] 45 mg/dL [facility] Comment on above: Xgixemfumg=449-671 m g/dL & Higher Gbwk=158 mg/dL or greater Laboratory - Chemistry and C hemistry - challengeOrdered By: Heather Lo on 12-09-2024 AST [Catalytic activity/Vol] 21 U/L <38 [facility] Lipid Profileon 12-09-2024 CHOL:HDL 2.53 Normal [facility] Comment on above: Performed By: #### L 500.4100, L501.9985, L506.1001, L503.6550, L501.5200, L3100.5310, L501.9520, L503.0106, L100.0100, L500.4050 #### [facility] [address] [place], [place], [id number] Cholesterol [Mass/Vol] 100 mg/dL Normal <=200 [facility] Comment on above: Result Comment: Chol esterol level, Desirable <200 mg/dL Borderline high cholesterol 200-239 mg/dL High cholesterol >=240 mg/dL Recommendations of the NCEP Adult Treatment Panel for the following risk-cutoff thresholds for the [place] population. Performed By: #### L 500.4100, L501.9985, L506.1001, L503.6550, L501.5200, L3100.5310, L501.9520, L503.0106, L100.0100, L500.4050 #### [facility] [address] [place], [place], [phone] (534) Cholesterol in HDL [Mass/Vol] 40 mg/dL Normal [facility] Comment on above: Result Comment: Stella onal Cholesterol Education Program (NCEP) guidelines: <40 mg/dL: Low HDL-cholesterol (major risk factor for CHD) >= 60 mg/dL: High HDL-cholesterol (negative risk factor for CHD) HDL-cholesterol is affected by a number of factors, e.g. smoking, exercise, hormones, sex and age. Performed By: #### L 500.4100, L501.9985, L506.1001, L503.6550, L501.5200, L3100.5310, L501.9520, L503.0106, L100.0100, L500.4050 #### [facility] [address] [place], [place], [phone] (320) Cholesterol in LDL [Mass/Vol] 45 mg/dL Normal [facility] Comment on above: Result Comment: Bord pkkdag=678-105 mg/dL Higher Pbeo=957 mg/dL or greater Performed By: #### L 500.4100, L501.9985, L506.1001, L503.6550, L501.5200, L3100.5310, L501.9520, L503.0106, L100.0100, L500.4050 #### [facility] [address] [place], [place], [phone] (511) Cholesterol in VLDL [Mass/Vol] 16 mg/dL Normal 5-40 [facility] Comment on above: Performed By: #### L 500.4100, L501.9985, L506.1001, L503.6550, L501.5200, L3100.5310, L501.9520, L503.0106, L100.0100, L500.4050 #### [facility] [address] [place], [place], [phone] (555) Triglyceride [Mass/Vol] 78 mg/dL Normal [facility] Comment on above: Result Comment: The drugs N-Acetylcysteine and Metamizole may falsely depress this assay. Normal range: <150 mg/dL Borderline High: 150-199 mg/dL High: 200-499 mg/dL Very High: >500 mg/dL Performed By: #### L 500.4100, L501.9985, L506.1001, L503.6550, L501.5200, L3100.5310, L501.9520, L503.0106, L100.0100, L500.4050 #### [facility] [address] [place], [address] MCV (mean corpuscular volume ) determinationOrdered By: Heather Lo on 12-09-2024 MCV (RBC) [Entitic vol] 87.3 fL 80-94 [facility] Magnesiumon 12-09-2024 Magnesium [Mass/Vol] 2.0 mg/dL Normal 1.5-2.2 [facility] Comment on above: Performed By: #### L 500.4100, L501.9985, L506.1001, L503.6550, L501.5200, L3100.5310, L501.9520, L503.0106, L100.0100, L500.4050 #### [facility] [address] [place], [place], [id number] Magnesium measurement (mass/ volume)Ordered By: Heather Lo on 07-21-2025 Magnesium (Unsp spec) [Mass/Vol] 2.0 mg/dL 1.5-2.2 [facility] Mean corpuscular hemoglobin (MCH) determinationOrdered By: Heather Lo on 12-09-2024 MCH (RBC) [Entitic mass] 29.6 pg 27.0-32.0 [facility] Mean corpuscular hemoglobin concentration (MCHC) determinationOrdered By: Heather Lo on 12-09-2024 MCHC (RBC) [Mass/Vol] 33.9 g/dL 32-36 [facility] Mean platelet volume determi nationOrdered By: Heather Lo on 12-09-2024 Platelet mean volume (Bld) [Entitic vol] 11.1 fL 6.2-12.0 [facility] Monocyte percentageOrdered B y: Heather Lo on 12-09-2024 Monocytes/100 WBC (Bld) 11.5 % High 0-10 [facility] Neutrophil percentageOrdered By: Heather Lo on 12-09-2024 Neutrophils/100 WBC (Bld) 35.7 % Low 47-70 [facility] Nucleated red blood cell per centageOrdered By: Heather Lo on 12-09-2024 Nucleated RBC/100 WBC (Bld) [Ratio] 0 % 0-5 [facility] Platelet countOrdered By: Andrew Lo on 12-09-2024 Platelets (Bld) [#/Vol] 222 10*3/uL 150-450 [facility] Potassium measurement (mass/ volume)Ordered By: Heather Lo on 12-09-2024 Potassium (Unsp spec) [Mass/Vol] 3.5 mmol/L 3.3-5.1 [facility] RBC Auto (Bld) [#/Vol]Ordere d By: Heather Lo on 12-09-2024 RBC (Bld) [#/Vol] 4.56 10*6/uL Low 4.6-6.2 [facility] Screening total cholesterol/ high density lipoprotein (HDL) cholesterol ratioOrdered By: Heather Lo on 12-09-2024 Cholesterol.total/Choles terol in HDL [Mass ratio] 2.53 {ratio} [facility] Serum creatinine measurement (mass/volume)Ordered By: Heather Lo on 12-09-2024 Creatinine [Mass/Vol] 0.74 mg/dL 0.70-1.20 [facility] Serum globulin measurementOr dered By: Heather Lo on 12-09-2024 Globulin (S) [Mass/Vol] 3.2 g/dL 2.2-4.2 [facility] Serum glucose measurement (m ass/volume)Ordered By: Heather Lo on 12-09-2024 Glucose [Mass/Vol] 78 mg/dL 70-99 [facility] Serum or plasma alanine hol[place] otransferase (ALT) measurementOrdered By: Heather Lo on 12-09-2024 ALT [Catalytic activity/Vol] 11 U/L <47 [facility] Serum or plasma albumin stewart urement (mass/volume)Ordered By: Heather Lo on 12-09-2024 Albumin [Mass/Vol] 4.4 g/dL 3.5-5.0 [facility] Serum or plasma albumin/glob ulin mass ratioOrdered By: Heather Lo on 12-09-2024 Albumin/Globulin [Mass ratio] 1.4 {ratio} 0.9-2.4 [facility] Serum or plasma alkaline lauren sphatase measurementOrdered By: Heather Lo on 12-09-2024 ALP [Catalytic activity/Vol] 80 U/L 40-129 [facility] Serum or plasma calcium stewart urement (mass/volume)Ordered By: Heather Lo on 12-09-2024 Calcium [Mass/Vol] 9.3 mg/dL 7.6-11.0 [facility] Serum or plasma cholesterol in HDL measurement (mass/volume)Ordered By: Heather Lo on 12-09-2024 Cholesterol in HDL [Mass/Vol] 40 mg/dL >40 [facility] Comment on above: National Cholesterol Education Program (NCEP) guidelines:<40 mg/dL: Low HDL-cholesterol (major risk factor for CHD)>= 60 mg/dL: High HDL-cholesterol (negative risk factor for CHD)HDL-cholesterol is affected by a number of factors, e.g. smoking, exercise, hormones, sex and age. Serum or plasma cholesterol measurement (mass/volume)Ordered By: Heather Lo on 12-09-2024 Cholesterol [Mass/Vol] 100 mg/dL <201 [facility] Comment on above: Cholesterol level, D esirable <200 mg/dLBorderline high cholesterol 200-239 mg/dLHigh cholesterol >=240 mg/dLRecommendations of the NCEP Adult Treatment Panel for the following risk-cutoff thresholds for the [place] population. Serum or plasma ferritin davey surement (mass/volume)Ordered By: Heather Lo on 12-09-2024 Ferritin [Mass/Vol] 120 ng/mL 37-417 [facility] Serum or plasma urea nitroge n measurement (mass/volume)Ordered By: Heather Lo on 12-09-2024 Urea nitrogen [Mass/Vol] 10 mg/dL 4-19 [facility] Sodium levelOrdered By: Andrew Lo on 12-09-2024 Sodium [Moles/Vol] 140 mmol/L 133-145 [facility] TSH DL <= 0.005 mIU/L QnOrde red By: Heather Lo on 12-09-2024 TSH Qn 2.240 uIU/mL 0.300-4.200 [facility] Thyroid Stim Hormone (TSH)on 12-09-2024 TSH 2.240 uIU/mL Normal 0.300-4.200 [facility] Comment on above: Performed By: #### L 500.4100, L501.9985, L506.1001, L503.6550, L501.5200, L3100.5310, L501.9520, L503.0106, L100.0100, L500.4050 #### [facility] [place], [address] Total proteinOrdered By: Nohemi Lo on 12-09-2024 Protein [Mass/Vol] 7.5 g/dL 5.9-8.4 [facility] Triglycerides measurementOrd ered By: Heather Lo on 12-09-2024 Triglyceride [Mass/Vol] 78 mg/dL <199 [facility] Comment on above: The drugs N-Acetylcy steine and Metamizole may falsely depress this assay. Normal range: <150 mg/dLBorderline High: 150-199 mg/dLHigh: 200-499 mg/dLVery High: >500 mg/dL Vitamin B12on 12-09-2024 Cobalamin (Vitamin B12) [Mass/Vol] 385 pg/mL Normal 180-914 [facility] Comment on above: Performed By: #### L 500.4100, L501.9985, L506.1001, L503.6550, L501.5200, L3100.5310, L501.9520, L503.0106, L100.0100, L500.4050 #### [facility] [address] [place], [address] Vitamin B12 ser/plasOrdered By: Heather Lo on 12-09-2024 Cobalamin (Vitamin B12) [Mass/Vol] 385 pg/mL 180-914 [facility] Vitamin D,25 Hydroxyon 12-09 Vitamin D 25-OH 30.4 ng/mL Normal 30-100 [facility] Comment on above: Result Comment: Jessika min D Status Deficiency: <20 ng/mL (50nmol/L) Insufficiency: 20-30 ng/mL (50-75 nmol/L) Sufficiency: 30-100 ng/mL (75-250 nmol/L) Toxicity: >100 ng/mL (>250 nmol/L) Performed By: #### L 500.4100, L501.9985, L506.1001, L503.6550, L501.5200, L3100.5310, L501.9520, L503.0106, L100.0100, L500.4050 #### [facility] [address] [place], [place], [id number] White blood cell (WBC) count Ordered By: Heather Lo on 12-09-2024 WBC (Bld) [#/Vol] 3.3 10*3/uL Low 4.4-11.0 [facility] Bacteria Ur Culton Bacteria identified Cx Nom (U) CULTURE, URINE: No growth (<1,000 CFU/ml) Normal [facility] Comment on above: Performed By: #### 6 30-4 #### [facility] CLIA [id number] [address] [place] [address] [facility] C. trachomatis+N. gonorrhoea e DNA JAZMIN+probe Ql (Unsp spec)on 10-31-2024 C. trachomatis rRNA JAZMIN+probe Ql (Unsp spec) Not detected Normal Not detected [facility] Comment on above: Order Comment: Speci men Type: URINE SPECIMEN Ordering Facility: [facility] Address: [address] [place] [address] Performed By: #### T RVAMP, 26435-0 #### [facility] CLIA [id number] [address] [place] [address] [place] N. gonorrhoeae rRNA JAZMIN+probe Ql (Unsp spec) Not detected Normal Not detected [facility] Comment on above: Order Comment: Speci men Type: URINE SPECIMEN Ordering Facility: [facility] Address: [address] [place] [address] Performed By: #### T RVAMP, 21569-3 #### [facility] CLIA [id number] [address] [place] [address] [place] CNOVon 10-31-2024 CNOV Office Visit (UCWSTR ) GERALDINE KAISER ([id number]) 2000 M Date Time Provider Department 10/31/24 4:30 PM [facility] During your visit today, we recorded the following information about you: Temperature Pulse Respiration Blood pressure 98.8 degrees 104/minute 18/minute 111/80 Weight 72.8 kg Doigenes Banks APRN.[employer]BAN REDEVELOPMENT SPECIALIST 10/31/2024 4:55 PM Signed [facility] Subjective Geraldinelorelei Kaiser is a 24 year old male. Patient presents with: Urinary Problem: Cloudy urine, burning with urination, lower abd pain x2 days HPI Dysuria: - Onset: Recent. - Denies any associated discharge or odor. - Recent unprotected sexual intercourse with a known partner 3 weeks ago. - Denies known STIs in partner. Abdominal Pain: - Dull, crampy pain localized to the abdomen. - No other associated symptoms reported. Review of Systems Gastrointestinal: (+) abdominal pain Genitourinary: (+) dysuria, (-) genital discharge, (-) genital odor Objective BP 111/80 Pulse 104 Temp 37.1 ?C (98.8 ?F) Resp 18 Wt 72.8 kg (160 lb 7.9 oz) SpO2 98% BMI 20.06 kg/m? Physical Exam General: No acute distress. CV: Heart sounds normal. Resp: Breath sounds normal. Abd: Tenderness to palpation. on in mid lower and its a dull ache {1. Burning with urination (R30.0) - Dysuria and abdominal pain noted; no discharge or odor reported. - Recent history of unprotected sexual intercourse with a known partner; no known STIs in partner, but latency periods discussed. - Urinalysis dipstick test normal. - Ordered nucleic acid amplification tests (NAAT) for Chlamydia trachomatis, Neisseria gonorrhoeae, and Trichomonas vaginalis. - Advised patient to monitor for worsening abdominal pain and to seek emergency care if symptoms escalate. - Will initiate appropriate antimicrobial therapy if any STI tests return positive. - Patient understands and agrees with the plan. and Recording using ambient [employer] software for draft documentation of the visit was discussed with the patient/authorized publications sales representative; all questions welcomed and answered. Patient/authorized publications sales representative agreed to proceed History and Record Review External record(s) reviewed: no prior records. Disposition The patient was discharged. Procedures Allergies As of Date: 10/31/2024 (No Known Allergies) Date Reviewed: 10/31/2024 Reviewed by: Sary Sol MA - Fully Assessed Reason for Visit: Urinary Problem [252] Cmt: Cloudy urine, burning with urination, lower abd pain x2 days Primary Visit Diagnosis:Burning with urination [R30.0] Order(s):UA DIP, URINE (POC) [9439923] Order #: [id number]. #:[id number] BACTERIAL CULTURE, URINE [SQURCUL] Order #: [id number]. #:[id number] GONORRHEA/CHLAMYDIA NAAT [SQGCCT] Order #: [id number]. #:[id number] TRICHOMONAS VAGINALIS NAAT [SQTRVAMP] Order #: [id number] FUTURE TRICHOMONAS VAGINALIS NAAT [SQTRVAMP] Order #: [id number]. #:[id number] Prescriptions as of 10/31/2024 - SUBLOCADE 300 mg/1.5 mL injection - famotidine (PEPCID) 20 mg tablet Take 20 mg by mouth twice daily. - SUBLOCADE 100 mg/0.5 mL injection Problem List As Of Date 10/31/2024 Noted Resolved Urethral pain [R39.89] 02/23/2021 Cutaneous skin tags [L91.8] 02/23/2021 Encounter Status:Closed by DIOGENES BANKS on 10/31/24 Normal [facility] TRICHOMONAS VAGINALIS NAATon 10-31-2024 T. vaginalis DNA JAZMIN+probe Ql (Unsp spec) Not detected Normal Not detected [facility] Comment on above: Order Comment: Speci men Type: URINE SPECIMEN Ordering Facility: [facility] Address: [address] [place] [address] Performed By: #### T RVAMP, 69211-7 #### [facility] CLIA [id number] [address] [place] [address] [place] UA DIP, URINE (POC)on 2024 BILIRUBIN UA (POCT) Negative Negative [facility] CLARITY UA (POCT) Clear [facility] COLOR UA (POCT) Yellow [facility] GLUCOSE UA (POCT) Negative Negative mg/dL [facility] Hemoglobin Ql (U) Negative Negative [facility] KETONE UA (POCT) Negative Negative mg/dL [facility] LEUKOCYTES UA (POCT) Negative [facility] NIT[facility] (PO[facility]) Negative Negative [facility] PH UA (POCT) 7 4.5 - 8.0 [facility] Protein Ql (U) Negative Negative mg/dL [facility] SPECIFIC GRAVITY UA (POCT) 1.015 1.005 - 1.030 [facility] UROBILINOGEN UA (POCT) 0.2 Ignacia l E.U./dL [facility] Location:[facility], [address] [place] [address], [place], [place], [id number] [place] [address] POINT OF CARE [facility] [id number] 07-29-2024 [id number] RISK LEAD saw patient to discuss aftercare plans and treatment post discharge. Patient was reminded about appointments. Patient was provided information for [facility] to complete walk-in assessment and updated diagnostic assessment. Patient also provided phone number for [facility] and encouraged to make phone call in order to handle ongoing legal issues as well. Patient denied anything further at current time. Patient denied current SI/HI/AVH. Patient reported that their child's mother would be picking them up from the hospital and taking them back home. Patient denied needing anything further from [facility] at the time. YORDY informed patient's nurse about conversation. [facility] [phone] Social work consult placed for patient. After discussion of the 5 areas of SDH noted at current time. Social work consult cleared. [facility] - Microbiology an d Antimicrobial susceptibilityOrdered By: Mily Mcgregor on 07-29-2024 Reagin Ab RPR Ql (S) Non-Reactive Nonreactive S [facility] Nursing Noteon 07-29-2024 Nursing Note 1220pm: Patient discharged home at this time. Personal belongings returned and paperwork signed. Patient GF picking him up. Patein given follow up numbers for inpatient rehab, states he will do it himself. Denied SI/HI/AVH. Educated on increased risk of od due to medications in system, understands. No further questions at this time Left the unit ambulatory with staff. Normal [facility] Nursing Note Patient withdrawn to room. Independent with ADLs and ambulation, A&Ox4. Patient denies SI/HI/AVH thus far. Appetite, hygiene and sleep poor. Patient compliant with medications and treatment offered. Band aid to L side of neck covering mole patient is picking at and abrasion to R 2nd toe. Patient encouraged to attend meetings and alert staff to any changes or concerns. Will continue to monitor for safety. [facility] Reagin Ab RPR Ql (S)Ordered By: Mily Mcgregor on 07-29-2024 Interpretation and review of laboratory results [facility] 30on 07-28-2024 30 Problem: Potential for Substance Withdrawal Goal: Verbalizes signs/symptoms of withdrawal Outcome: Progressing Goal: Reports signs/symptoms of withdrawal Outcome: Progressing Goal: Free of withdrawal symptoms Outcome: Progressing Problem: Drug Abuse/Detox Goal: Will have no detox symptoms and will verbalize plan for changing drug-related behavior Outcome: Progressing Problem: Knowledge Deficit Goal: Patient/family/caregi tristin demonstrates understanding of disease process, treatment plan, medications, and discharge instructions Outcome: Progressing Problem: Potential for Compromised Skin Integrity Goal: Skin Integrity is Maintained or Improved Outcome: Progressing Goal: Nutritional status is improving Outcome: Progressing Problem: Urinary Incontinence Goal: Perineal skin integrity is maintained or improved Outcome: Progressing Normal [facility] Nursing Noteon 07-28-2024 Nursing Note Pt up independently. Mostly withdrawn to room except to use the phone. Pt calm and cooperative. No safety concerns noted. Pt denies SI/HI/AVH. Pt denies symptoms of withdrawal. Appetite good. Pt agreeable to make needs known to staff. COWS monitored. Safety checks continued. Normal [facility] Nursing Note Patient is A&O x4, cooperative, withdrawn to room. He is up steady, eating fair, compliant with medications. Activities encouraged. COWS monitored. Normal [facility] Nursing Note Pt remains withdrawn to room. Pt A&O X4 and independent. Pt cooperative with assessment and compliant with scheduled medication. Clonidine held d/t BP parameters. Appetite improving. Pt encouraged to make needs known to staff. COWS monitored. Safety checks continued. [facility] 30on 07-27-2024 30 Problem: Potential for Substance Withdrawal Goal: Verbalizes signs/symptoms of withdrawal Outcome: Progressing Goal: Reports signs/symptoms of withdrawal Outcome: Progressing Goal: Free of withdrawal symptoms Outcome: Progressing Problem: Drug Abuse/Detox Goal: Will have no detox symptoms and will verbalize plan for changing drug-related behavior Outcome: Progressing Problem: Knowledge Deficit Goal: Patient/family/caregi tristin demonstrates understanding of disease process, treatment plan, medications, and discharge instructions Outcome: Progressing Problem: Potential for Compromised Skin Integrity Goal: Skin Integrity is Maintained or Improved Outcome: Progressing Goal: Nutritional status is improving Outcome: Progressing Problem: Urinary Incontinence Goal: Perineal skin integrity is maintained or improved Outcome: Progressing Normal [facility] CHLAMYDIA/GONORRHEAon 2024 CHLAMYDIA/GONORRHEA NEISSERIA GONORRHOEA E DNA PROBE Reference Not Detected Not Detected CHLAMYDIA TRACHOMATIS DNA PROBE Reference Not Detected Not Detected ORDER COMMENTS: Methodology: real-time PCR This test is intended for medical purposes only and is not intended for the evaluation of suspected sexual abuse or for other forensic purposes. In certain contexts, culture may be required to meet applicable laws and regulations for diagnosis of C. trachomatis and N. gonorrhoeae infections. Per 2014 CDC recommmendations, this test does not include confirmation of positive results by an alternative nucleic acid target. A negative result does not exclude the possibility of infection. A result of invalid indicates that a new specimen should be collected if clinically indicated. Normal [facility] Comment on above: Performed By: #### L [id number] ####Gathering Machine Setter: KATINA SURESH ([id number])[facility] ([address] N. gonorrhoeae DNA JAZMIN+probe Ql (Cervical mucus)on 07-27-2024 C. trachomatis DNA JAZMIN+probe Ql (Unsp spec) Not detected Not Detected [facility] Interpretation and review of laboratory results Normal [place] N gonorrhoeae, DNA Probe Not detected Not Detec loco [place] Methodology: real-time PCR This test is intended for medical purposes only and is not intended for the evaluation of suspected sexual abuse or for other forensic purposes. In certain contexts, culture may be required to meet applicable laws and regulations for diagnosis of C. trachomatis and N. gonorrhoeae infections. Per 2014 CDC recommmendations, this test does not include confirmation of positive results by an alternative nucleic acid target. A negative result does not exclude the possibility of infection. A result of invalid indicates that a new specimen should be collected if clinically indicated. [facility] Nursing Noteon 07-27-2024 Nursing Note Patient is A&O x4, cooperative, withdrawn to room. He is up steady, eating fair, compliant with medications. Lab drawn and urine collected per order. Activities encouraged. COWS monitored. Normal [facility] Progress Noteon 07-27-2024 Progress Note Nutrition rescreen completed. Patient assigned a level 1. Normal [facility] RPR WITH REFLEX QUANTon RPR Non-Reactive Normal Nonreactive [facility] Comment on above: Performed By: #### L [id number] ####Gathering Machine Setter: KATINA SURESH ([id number])[facility] ([facility])[address] [place] [address] [id number] 07-26-2024 [id number] Behavioral Health Psycho-Social Assessment (Social Work) Date: 07/26/2024 Patient Name: Geraldine Kaiser : 2000 Identifying Information: Patient is a 24 year old male who was admitted for meth and fentanyl dependence and withdrawal. Presenting Problem: Patient has been using substances and was given an ultimatum that he would no longer have a place to stay if he did not get sober. Psychiatric History: Patient denied any psychiatric history. Substance Abuse/Use: Patient has a history of outpatient treatment and [facility] due to substance use. At age 20 he was admitted to [facility] for detox. As well as [facility]. He has not been able to maintain sobriety. Patient has been using fentanyl daily for the last 2 weeks 1-2 grams per day. Injecting in his arms. He swallowed a bag of fentanyl yesterday. He has also been using meth 2-3 grams per day. He used Klonopin once and smokes and vapes. He has a history of opiate use from the past. Patient first started using at age 12. Medical/Self-care Issues: Mass on left side of neck. Legal/Trauma/ History: Patient is currently charged with an F5 for Possession. He has been in and out of [facility] and [facility] for the last 12 months. No trauma or service. Family Constellation/Childho od History: Patient grew up in [place] with his parents and his 2 sisters. He is currently bouncing from couch to couch and was given an ultimatum that he needs to get sober if he wants to continue to have a place to stay. Education/Work: Client completed 9th grade. He is currently unemployed. Cultural/Spirituality /Leisure: Patient denied any christian affiliation. He enjoys hanging out with friends and playing with his son. Support Systems/Collateral Information: Patient identified his son's mom and his parents. C-SSRS Actual Attempt (Past 3 Months): No (No) Actual Attempt (Lifetime): No (No) Interrupted Attempts (Past 3 Months): No (No) Interrupted Attempts (Lifetime): No (No) Aborted or Self-Interrupted Attempt (Past 3 Months): No (No) Aborted or Self-Interrupted Attempt (Lifetime): No (No) Preparatory Acts or Behavior (Past 3 Months): No (No) Preparatory Acts or Behavior (Lifetime): No (No) Has subject engaged in non-suicidal self-injurious behavior? (Past 3 Months): No (No) Has subject engaged in non-suicidal self-injurious behavior? (Lifetime): No (No) Suicidal Ideation: (Patient denies being suicidal) Activating Events (Recent): Recent loss(es) or other significant negative event(s) (legal, financial, relationship, etc.) (Patient has been couch surfing and has been given an ultimatum to get sober.) Describe:: Patient has been couch surfing and has been given an ultimatum to get sober. (Patient has been couch surfing and has been given an ultimatum to get sober.) Treatment History: Not receiving treatment (Patient not recieving treatment.) Other Risk Factors: Patient could relapse. (Patient could relapse.) Clinical Status (Recent): Substance abuse or dependence (Patient has been using Fentanyl and Meth.) Protective Factors (Recent): Identifies reasons for living, Supportive social network or family (Patient identifies reasons for living.) Describe any suicidal, self-injurious or aggressive behavior (include dates): Patient denies suicidal ideations. No Homicidal ideations. (Patient denies suicidal ideations. No Homicidal ideations.) Plan: Patient would like to go to [facility]. He has made contact with them already. He is not amenable to going to others facilities. Patient encouraged to engage in all activities that are offered to them while they are on the unit. RISK LEAD will work to coordinate placement into [facility]. Comment: Please note this report has been produced using speech recognition software and may contain errors related to that system including errors in grammar, punctuation, and spelling, as well as words and phrases that may be inappropriate. If there are any questions or concerns please feel free to contact the dictating provider for clarification. Normal [facility] BUPRENORPHINE SCREENon 07-26 BUPRENORPHINE SCREEN-BUPR Positive Normal Negative [facility] Comment on above: Result Comment: DIAMOND Yang COMMENTS: Buprenorphine (Suboxone) has been screened for by Immunoassay at 5 ng/mL threshold. POSITIVE results are not confirmed by a more specific alternative method unless requested. If confirmation is needed, request confirmation under separate order. NOTE: These results are for medical treatment only. Analysis performed using non-forensic procedures. Performed By: #### L [id number] ####Gathering Machine Setter: KATINA SURESH ([id number])[facility] ([facility])[address] [place] [address] COMPLETE URINALYSISon 2024 BACTERIA (#/HPF) IN URINE Negative Normal Negative [facility] Comment on above: Performed By: #### L [id number] ####Gathering Machine Setter: KATINA SURESH ([id number])[facility] ([facility])[address] [place] [address] BILIRUBIN, TOTAL PRESENCE IN URINE Negative Normal Negative [facility] Comment on above: Performed By: #### L [id number] ####Gathering Machine Setter: KATINA SURESH ([id number])[facility] ([facility])[address] [place] [address] CALCIUM OXALATE CRYSTALS (#/HPF) IN URINE Few Abnormal Negative [facility] Comment on above: Performed By: #### L [id number] ####Gathering Machine Setter: KATINA SURESH ([id number])[facility] [place] [address] Clarity (U) Clear Normal Clear [facility] Comment on above: Performed By: #### L [id number] ####Gathering Machine Setter: KATINA SURESH ([id number])[facility] ([facility])[address] [place] [address] Color (U) Yellow Normal Lt. Yellow [facility] Comment on above: Performed By: #### L [id number] ####Gathering Machine Setter: KATINA SURESH ([id number])[facility] ([facility])[address] [place] [address] GLUCOSE (MG/DL) IN URINE Normal Normal Normal (<70 ) [facility] Comment on above: Performed By: #### L [id number] ####Gathering Machine Setter: KATINA SURESH ([id number])[facility] ([facility])[address] [place] [address] HEMOGLOBIN PRESENCE IN URINE Negative Normal Negative [facility] Comment on above: Performed By: #### L [id number] ####Gathering Machine Setter: KATINA SURESH ([id number])[facility] ([facility])[address] [place] [address] HYALINE CASTS (#/LPF) IN URINE SEDIMENT BY MICROSCOPY Negative Normal Negative [facility] Comment on above: Performed By: #### L [id number] ####Gathering Machine Setter: KATINA SURESH ([id number])[facility] ([facility])[address] [place] [address] Ketones Ql (U) Negative Normal Negative [facility] Comment on above: Performed By: #### L [id number] ####Gathering Machine Setter: KATINA SURESH ([id number])[facility] ([facility])[address] [place] [address] LEUKOCYTE ESTERASE PRESENCE IN URINE BY TEST STRIP 75 Cindy/uL Abnormal Negative [facility] Comment on above: Performed By: #### L [id number] ####Gathering Machine Setter: KATINA SURESH ([id number])[facility] [place] [address] [place] MUCUS (#/LPF) IN URINE SEDIMENT Few Normal Negative [facility] Comment on above: Performed By: #### L [id number] ####Gathering Machine Setter: KATINA SURESH ([id number])[facility] ([facility])[address] [place] [address] NITRITE PRESENCE IN URINE Negative Normal Negative [place] [facility] Comment on above: Performed By: #### L [id number] ####Gathering Machine Setter: KATINA SURESH ([id number])[facility] ([facility])[address] [place] [address] pH (U) 6.0 [pH] Normal 5.0-8.0 [place] [facility] Comment on above: Performed By: #### L [id number] ####Gathering Machine Setter: KATINA SURESH ([id number])[facility] ([facility])[address] [place] [address] Protein (U) [Mass/Vol] 30 mg/dL Abnormal Negative [facility] Comment on above: Performed By: #### L [id number] ####Gathering Machine Setter: KATINA SURESH ([id number])[facility] ([facility])[address] [place] [address] [place] RBC (#/HPF) IN URINE SEDIMENT 3-5 Abnormal 0-2 [place] [facility] Comment on above: Performed By: #### L [id number] ####Gathering Machine Setter: KATINA SURESH ([id number])[facility] ([facility])[address] [place] [address] Specific gravity (U) [Rel density] 1.018 Normal 1.005-1.030 [facility] Comment on above: Performed By: #### L [id number] ####Gathering Machine Setter: KATINA SURESH ([id number])[facility] ([facility])[address] [place] [address] [place] SPERMATOZOA (#/HPF) IN URINE SEDIMENT Many Abnormal Negative [place] [facility] Comment on above: Performed By: #### L [id number] ####Gathering Machine Setter: KATINA SURESH ([id number])[facility] ([facility])[address] [place] [address] [place] SQUAMOUS EPITHELIAL CELLS (#/HPF) IN URINE SEDIMENT Negative Normal 3-5 [facility] Comment on above: Performed By: #### L [id number] ####Gathering Machine Setter: KATINA SURESH ([id number])[facility] ([facility])[address] [place] [address] UROBILINOGEN (MG/DL) IN URINE Normal Normal Normal (0-1) [facility] Comment on above: Performed By: #### L [id number] ####Gathering Machine Setter: KATINA SURESH ([id number])[facility] ([facility])[address] [place] [address] WBC (LEUKOCYTE) (#/HPF) IN URINE SEDIMENT 6-10 Abnormal 0-5 [facility] Comment on above: Performed By: #### L [id number] ####Gathering Machine Setter: KATINA SURESH ([id number])[facility] ([facility])[address] [place] [address] DRUGS OF ABUSEon 07-26-2024 AMPHETAMINE SCREEN Positive Normal [facility] Comment on above: Performed By: #### L [id number] ####Gathering Machine Setter: KATINA SURESH ([id number])[facility] ([facility])[address] [place] [address] BARBITURATES SCREEN Negative Normal [facility] Comment on above: Performed By: #### L [id number] ####Gathering Machine Setter: KATINA SURESH ([id number])[facility] ([facility])[address] [place] [address] BENZODIAZEPINE SCREEN Negative Normal [facility] Comment on above: Performed By: #### L [id number] ####Gathering Machine Setter: KATINA SURESH ([id number])[facility] ([facility])[address] [place] [address] COCAINE METAB. SCREEN Negative Normal [facility] Comment on above: Performed By: #### L [id number] ####Gathering Machine Setter: KATINA SURESH ([id number])[facility] ([facility])[address] [place] [address] FENTANYL SCREEN, UR QUAL Positive Normal [facility] Comment on above: Result Comment: DIAMOND R COMMENTS: The expected value for all of the drugs listed above is Negative. The following drugs or drug groups have been screened for by Immunoassay at the following thresholds: Amphetamine class (1000 ng/mL) Barbiturates (200 ng/mL) Benzodiazepines (200 ng/mL) Cocaine (300 ng/mL) Methadone (300 ng/mL) Opiates (300 ng/mL) Oxycodone (100 ng/mL) PCP (25 ng/mL) Fentanyl (1.0 ng/ml) NOTE: These results are for medical treatment only. Analysis performed using non-forensic procedures. POSITIVE results are NOT confirmed by a more specific alternative method unless requested. If confirmation is needed, request confirmation under separate order. Performed By: #### L [id number] ####Gathering Machine Setter: KATINA SURESH ([id number])[facility] ([facility])[address] [place] [address] METHADONE SCREEN Negative [facility] Comment on above: Performed By: #### L [id number] ####Gathering Machine Setter: KATINA SURESH ([id number])[facility] ([facility])[address] [place] [address] OPIATES SCREEN Negative Normal [facility] Comment on above: Performed By: #### L [id number] ####Gathering Machine Setter: KATINA SURESH ([id number])[facility] ([facility])[address] [place] [address] OXYCODONE SCREEN Negative Normal [facility] Comment on above: Performed By: #### L [id number] ####Gathering Machine Setter: KATINA SURESH ([id number])[facility] ([facility])[address] [place] [address] PHENCYCLIDINE SCREEN Negative Normal [facility] Comment on above: Performed By: #### L [id number] ####Gathering Machine Setter: KATNIA SURESH ([id number])[facility])[address] [place] [address] ECG 12-LEADon 07-26-2024 ECG 12-LEAD IMPRESSION: Sinus tachycardia No change compared to previous ekg Electronically Signed On 07-26-2024 01:40:24 EST by Floyd Sweet [facility] ED Nursing Noteon 07-26-2024 ED Nursing Note Patient transported to 4E detox with protective services and transportation engineer. Stable on departure from Ed [facility] ED Nursing Note Transport present, protective services called for belongings check and transport to 4E [facility] ED Nursing Note Report called to KIM Wiggins on 4E Detox [facility] ED Nursing Note Warm blanket and pillow provided to patient Normal [facility] Hepatitis 1996 panel (S)on 0 07-26-2024 HAV IgM IA Ql Not detected Not Detected [facility] ealt HBV core IgM IA Ql Not detected Not Detected [facility] HBV surface Ag IA Ql Not detected Not Detected [place] HCV Ab IA Ql Not detected Not Detected [facility] alth Comment on above: Patients with DETECT ED Hepatitis C Ab results should have a new specimen submitted for supplemental testing with a Hepatitis C Quantitative RNA assay (viral load), if clinically indicated. Laboratory - Drug toxicology on 07-26-2024 Amphetamines Screen method >1000 ng/mL Ql (U) Positive [place] Barbiturates Screen method >200 ng/mL Ql (U) Negative [facility] Benzodiazepines Ql (U) Negative [facility] Methadone Screen Ql (U) Negative [facility] Opiates Screen Ql (U) Negative [facility] oxyCODONE Ql (U) Negative [facility] alth Phencyclidine Ql (U) Negative [facility] Laboratory - Microbiology an d Antimicrobial susceptibilityon 07-26-2024 HIV 1+2 Ab+HIV1 p24 Ag IA Ql Non-Reactive Nonreactive [place] Comment on above: The specimen was non -reactive for HIV-1 and HIV-2 antibodies and p24 antigen using an FDA-cleared 4th generation HIV test. Based on this non-reactive screen result, further reflexive testing was not indicated and was, therefore, not performed. No Panel Informationon 07-26 Interpretation and review of laboratory results Normal [facility] COCAINE METAB. SCREEN Negative [facility] FENTANYL SCREEN, UR QUAL Positive [place] The expected value for all of the drugs listed above is Negative. The following drugs or drug groups have been screened for by Immunoassay at the following thresholds: Amphetamine class (1000 ng/mL) Barbiturates (200 ng/mL) Benzodiazepines (200 ng/mL) Cocaine (300 ng/mL) Methadone (300 ng/mL) Opiates (300 ng/mL) Oxycodone (100 ng/mL) PCP (25 ng/mL) Fentanyl (1.0 ng/ml) NOTE: These results are for medical treatment only. Analysis performed using non-forensic procedures. POSITIVE results are NOT confirmed by a more specific alternative method unless requested. If confirmation is needed, request confirmation under separate order. [facility] P [place] 66 degrees [place] Interval 144 ms [place] QRS [place] 70 degrees [place] QRSD Interval 80 ms [facility] QT Interval 337 ms [place] QTC Interval 454 ms [place] T Wave [place] 59 degrees [place] Sinus tachycardia No change compared to previous ekg Electronically Signed On 07-26-2024 01:40:24 EST by Floyd Cobb M D - 07/26/2024 IMPRESSION: Sinus tachycardia No change compared to previous ekg Electronically Signed On 07-26-2024 01:40:24 EST by Floyd Sweet [facility] No Panel InformationOrdered By: Fabian Mai on 07-26-2024 BUPRENORPHINE SCREEN Positive Negative [facility] Buprenorphine (Suboxone) has been screened for by Immunoassay at 5 ng/mL threshold. POSITIVE results are not confirmed by a more specific alternative method unless requested. If confirmation is needed, request confirmation under separate order. NOTE: These results are for medical treatment only. Analysis performed using non-forensic procedures. [facility] Nursing Noteon 07-26-2024 Nursing Note Pt withdrawn to room , approached resting in bed. Pt A&O X4. Pt cooperative with assessment and compliant with scheduled medication. Clonidine held at this time, order parameters not met. Pt denies SI/HI/AVH. Pt independent with ADLs. Pt encouraged to make needs known to staff and notify nurse of changes in symptoms. COWS monitored. Safety checks continued. Normal [facility] Nursing Note Patient withdrawn to room. Patient startles easily, restless and has a difficult time keeping eyes open. Patient currently sitting on edge of bed rocking self. Denies SI/HI/AVH thus far. Compliant with medications and treatment offered. Appetite and sleep poor, hygiene adequate. Encouraged to approach staff with any changes or concerns. Will continue to monitor for safety. Normal [facility] Nursing Note Pt arrived from ER via wheelchair accompanied by security and transport. Pt steady on his feet at this time, Pt skin check completed upon arrival to unit. Pts skin check completed upon arrival to the unit, left 2nd toe has an abrasion covered with bandaid, and left side of neck has a mole that is sore and red that pt states he was picking at. Pt has been using fentanyl daily for the past 2 weeks unsure of how much but has been using it IN and injecting in bilateral arms, states he swallowed a bag of fentanyl yesterday and uses meth occasionally and vapes all day, states used klonopin one time and denies drinking for quite some time. Pt scores a COWS of 11 at this time medicated with clonidine, baclofen, gabapentin, and phenergan for symptoms. Pt denies any other current drug use , pt currently smokes cigarettes daily as well as vaping. Pt not feeling up to being oriented to unit at this time, ordered his breakfast and wants to lay down, pt can't remember the last time he has slept or had a BM. Pt educated to use the call light if he needs anything. Pt alert and oriented, med compliant, pt denies SI/HI/AVH, V&D. Pt encouraged to update staff with any change in condition. Will monitor pt for safety. Normal [facility] Urinalysis complete panel (U )Ordered By: Sunitha Street on 07-26-2024 Bacteria LM.HPF (Urine sed) [#/Area] Negative Negative /HPF [facility] Bilirubin Ql (U) Negative Negative mg/dL [place] Calcium oxalate crystals LM.HPF (Urine sed) [#/Area] Few Abnormal Negative /HPF [facility] Clarity (U) Clear Clear [facility] Color (U) Yellow Lt. Yellow [place] Epithelial cells.squamous LM.HPF (Urine sed) [#/Area] Negative [facility] Glucose Ql (U) Normal Normal (<70) mg/dL [place] Hemoglobin Ql (U) Negative Negative mg/dL [place] Hyaline casts Auto (Urine sed) [#/Area] Negative Negative /LPF [facility] Interpretation and review of laboratory results Abnormal [place] Ketones (U) [Mass/Vol] Negative Negat carlitos mg/dL [place] Leukocyte esterase Test strip Ql (U) 75 Abnormal Negative Cindy/uL [place] Mucus LM.HPF (Urine sed) [#/Area] Few Negative /LPF [place] Nitrite Ql (U) Negative Negative [facility] th pH (U) 6.0 [pH] 5.0 - 8.0 pH [place] Protein (U) [Mass/Vol] 30 mg/dL Abnormal Negative [facility] RBC LM.HPF (Urine sed) [#/Area] 3-5 Abnormal [place] Specific gravity (U) [Rel density] 1.018 1.005 - 1.030 [place] Spermatozoa LM.HPF (Urine sed) [#/Area] Many Abnormal Negative /HPF [facility] Urobilinogen (U) [Mass/Vol] Normal Normal (0-1) mg/dL [place] WBC LM.HPF (Urine sed) [#/Area] 6-10 Abnormal [facility] Vital signson 07-26-2024 Heart rate 109 /min bpm [place] BASIC METABOLIC PANELon Anion gap [Moles/Vol] 8 mmol/L Normal 3-13 [facility] Comment on above: Performed By: #### L [id number], LAB20, LAB15 ####Gathering Machine Setter: KATINA SURESH ([id number])[facility])[address] [place] [address] Calcium [Mass/Vol] 8.9 mg/dL Normal 8.4-10.2 [facility] Comment on above: Performed By: #### L AB46, LAB20, LAB15 ####Gathering Machine Setter: KATINA SURESH ([id number])[facility] ([facility])[address] [place] [address] [place] Chloride [Moles/Vol] 101 mmol/L Normal 98-107 [facility] Comment on above: Performed By: #### L AB46, LAB20, LAB15 ####Gathering Machine Setter: KATINA SURESH ([id number])[facility] ([facility])[address] [place] [address] [place] CO2 [Moles/Vol] 23 mmol/L Normal 22-29 [facility] Comment on above: Performed By: #### L AB46, LAB20, LAB15 ####Gathering Machine Setter: KATINA SURESH ([id number])[facility])[address] [place] [address] Creatinine [Mass/Vol] 0.83 mg/dL Normal 0.72-1.25 [facility] Comment on above: Performed By: #### L AB46, LAB20, LAB15 ####Gathering Machine Setter: KATINA SURESH ([id number])[facility])[address] [place] [address] GLOMERULAR FILTRATION RATE ML/MIN/1.73 SQ M.PREDICTED >90.0 Normal >60.0 [facility] Comment on above: Result Comment: Calc ulation based on the Chronic Kidney Disease Epidemiology Collaboration (CKD-EPI) equation refit without adjustment for race Performed By: #### L AB46, LAB20, LAB15 ####Gathering Machine Setter: KATINA SURESH ([id number])[facility])[address] [place] [address] Glucose [Mass/Vol] 115 mg/dL High 74-100 [facility] Comment on above: Performed By: #### L AB46, LAB20, LAB15 ####Gathering Machine Setter: KATINA SURESH ([id number])[address] Potassium [Moles/Vol] 3.8 mmol/L Normal 3.5-5.1 [facility] Comment on above: Result Comment: [facility] potassium values may be up to 0.5 mmol/L lower than serum values. Performed By: #### L AB46, LAB20, LAB15 ####Gathering Machine Setter: KATINA SURESH ([id number])[facility])[address] [place] [address] [place] Sodium [Moles/Vol] 132 mmol/L Low 136-145 [facility] Comment on above: Performed By: #### L AB46, LAB20, LAB15 ####Gathering Machine Setter: KATINA SURESH ([id number])[facility])[address] [place] [address] [place] Urea nitrogen [Mass/Vol] 11 mg/dL Normal 8-21 [place] [facility] Comment on above: Performed By: #### L AB46, LAB20, LAB15 ####Gathering Machine Setter: KATINA SURESH ([id number])[facility] ([facility])[address] Basic metabolic 1998 panelon 07-25-2024 Anion gap [Moles/Vol] 8 mmol/L 3 - 13 mmol/L [place] Calcium [Mass/Vol] 8.9 mg/dL 8.4 - 10. 2 mg/dL [place] Chloride [Moles/Vol] 101 mmol/L 98 - 10 7 mmol/L [place] CO2 [Moles/Vol] 23 mmol/L 22 - 29 mmol/L [place] Creatinine [Mass/Vol] 0.83 mg/dL 0.72 - 1.25 mg/dL [place] GFR/1.73 sq M.predicted (S/P/Bld) [Vol rate/Area] - PINF [place] Comment on above: Calculation based on the Chronic Kidney Disease Epidemiology Collaboration (CKD-EPI) equation refit without adjustment for race Glucose [Mass/Vol] 115 mg/dL High 74 - 100 mg/dL [place] Interpretation and review of laboratory results Abnormal [place] Potassium [Moles/Vol] 3.8 mmol/L 3.5 - 5.1 mmol/L [place] Comment on above: Plasma potassium june ues may be up to 0.5 mmol/L lower than serum values. Sodium [Moles/Vol] 132 mmol/L Low 136 - 145 mmol/L [facility] Urea nitrogen [Mass/Vol] 11 mg/dL 8 - 21 mg/d L [place] CBC W Auto Differential pane l (Bld)on 07-25-2024 Basophils (Bld) [#/Vol] 0 10*3/uL 0.0 - 0.2 10*3/uL [place] Basophils/100 WBC (Bld) 0.7 % 0.0 - 2.0 % [place] Eosinophils (Bld) [#/Vol] 0.1 10*3/uL 0.0 - 0.5 10*3/uL [place] Eosinophils/100 WBC (Bld) 1.6 % 0.0 - 6.0 % [facility] Erythrocyte distribution width (RBC) [Ratio] 13.5 % 11.5 - 15.0 % [place] Hematocrit (Bld) [Volume fraction] 38.1 % Low 40.0 - 52.0 % [place] Hemoglobin (Bld) [Mass/Vol] 12.9 g/dL Low 13.0 - 18.0 g/dL [place] Immature granulocytes (Bld) [#/Vol] 0 10*3/uL NINF - 0.1 10*3/uL [facility] Immature granulocytes/100 WBC (Bld) 0.2 % 0.0 - 2.0 % [place] Interpretation and review of laboratory results Abnormal [place] Lymphocytes (Bld) [#/Vol] 1.2 10*3/uL 1.0 - 4.3 10*3/uL [facility] Lymphocytes/100 WBC (Bld) 21.2 % 15.0 - 45.0 % [place] MCH (RBC) [Entitic mass] 29.3 pg 26. 0 - 34.0 pg [place] MCHC (RBC) [Mass/Vol] 33.9 % 30.5 - 36.0 % [place] MCV (RBC) [Entitic vol] 86.6 fL 77.0 - 99.0 fL [place] Monocytes (Bld) [#/Vol] 0.5 10*3/uL 0.0 - 0.9 10*3/uL [facility] Monocytes/100 WBC (Bld) 9.1 % 5.0 - 13.0 % [place] Neutrophils (Bld) [#/Vol] 3.7 10*3/uL 1.8 - 7.5 10*3/uL [facility] Neutrophils/100 WBC (Bld) 67.2 % 38.0 - 82.0 % [place] Nucleated RBC/100 WBC (Bld) [Ratio] 0 % [place] Platelet mean volume (Bld) [Entitic vol] 9.5 fL 9.0 - 12.7 fL [place] Platelets (Bld) [#/Vol] 190 10*3/uL 140 - 440 10*3/uL [place] RBC (Bld) [#/Vol] 4.4 10*6/uL 4.40 - 5.9 0 10*6/uL [facility] WBC (Bld) [#/Vol] 5.5 10*3/uL 3.6 - 10.7 10*3/uL [facility] CBC WITH AUTO DIFFERENTIALon 07-25-2024 Basophils (Bld) [#/Vol] 0.0 10*3/uL Normal 0.0-0.2 [facility] Comment on above: Performed By: #### L [id number] ####Gathering Machine Setter: KATINA SURESH ([id number])[facility])[address] [place] [address] Basophils/100 WBC (Bld) 0.7 % Normal 0.0-2.0 [facility] Comment on above: Performed By: #### L [id number] ####Gathering Machine Setter: KATINA SURESH ([id number])[facility])[address] [place] [address] Eosinophils (Bld) [#/Vol] 0.1 10*3/uL Normal 0.0-0.5 [facility] Comment on above: Performed By: #### L [id number] ####Gathering Machine Setter: KATINA SURESH ([id number])[facility])[address] [place] [address] Eosinophils/100 WBC (Bld) 1.6 % Normal 0.0-6.0 [facility] Comment on above: Performed By: #### L [id number] ####Gathering Machine Setter: KATINA SURESH ([id number])[facility])[address] [place] [address] Erythrocyte distribution width (RBC) [Ratio] 13.5 % Normal 11.5-15.0 [facility] Comment on above: Performed By: #### L [id number] ####Gathering Machine Setter: KATINA SURESH ([id number])[facility])[address] [place] [address] Hematocrit (Bld) [Volume fraction] 38.1 % Low 40.0-52.0 [facility] Comment on above: Performed By: #### L [id number] ####Gathering Machine Setter: KATINA [id number])[facility])[address] [place] [address] Hemoglobin (Bld) [Mass/Vol] 12.9 g/dL Low 13.0-18.0 [facility] Comment on above: Performed By: #### L [id number] ####Gathering Machine Setter: KATINA SURESH ([id number])[facility])[address] [place] [address] IMMATURE GRANS % 0.2 % Normal 0.0-2.0 [facility] Comment on above: Performed By: #### L [id number] ####Gathering Machine Setter: KATINA SURESH ([id number])[facility])[address] [place] [address] IMMATURE GRANS ABSOLUTE 0.0 10*3/uL Normal <0.1 [facility] Comment on above: Performed By: #### L [id number] ####Gathering Machine Setter: KATINA SURESH ([id number])[facility])[address] [place] [address] Lymphocytes (Bld) [#/Vol] 1.2 10*3/uL Normal 1.0-4.3 [facility] Comment on above: Performed By: #### L [id number] ####Gathering Machine Setter: KATINA SURESH ([id number])[facility])[address] [place] [address] Lymphocytes/100 WBC (Bld) 21.2 % Normal 15.0-45.0 [facility] Comment on above: Performed By: #### L [id number] ####Gathering Machine Setter: KATINA SURESH ([id number])[facility])[address] [place] [address] MCH (RBC) [Entitic mass] 29.3 pg Normal 26.0-34.0 [facility] Comment on above: Performed By: #### L [id number] ####Gathering Machine Setter: KATINA SURESH ([id number])[facility])[address] [place] [address] MCHC 33.9 % Normal 30.5-36.0 [facility] Comment on above: Performed By: #### L [id number] ####Gathering Machine Setter: KATINA SURESH ([id number])[facility] ([facility])[address] [place] [address] MCV (RBC) [Entitic vol] 86.6 fL Normal 77.0-99.0 [facility] Comment on above: Performed By: #### L [id number] ####Gathering Machine Setter: KATINA SURESH ([id number])[facility] ([facility])[address] [place] [address] Monocytes (Bld) [#/Vol] 0.5 10*3/uL Normal 0.0-0.9 [facility] Comment on above: Performed By: #### L [id number] ####Gathering Machine Setter: KATINA SURESH ([id number])[facility] ([facility])[address] [place] [address] Monocytes/100 WBC (Bld) 9.1 % Normal 5.0-13.0 [facility] Comment on above: Performed By: #### L [id number] ####Gathering Machine Setter: KATINA SURESH ([id number])[facility] ([facility])[address] [place] [address] NEUTROPHILS ABSOLUTE 3.7 10*3/uL Normal 1.8-7.5 [facility] Comment on above: Performed By: #### L [id number] ####Gathering Machine Setter: KATINA SURESH ([id number])[facility] ([facility])[address] [place] [address] Neutrophils/100 WBC (Bld) 67.2 % Normal 38.0-82.0 [facility] Comment on above: Performed By: #### L [id number] ####Gathering Machine Setter: KATINA SURESH ([id number])[facility])[address] [place] [address] NRBC 0.0 /100 WBCs Normal 0.0-2.0 [facility] Comment on above: Performed By: #### L [id number] ####Gathering Machine Setter: KATINA SURESH ([id number])[facility] ([facility])[address] [place] [address] Platelet mean volume (Bld) [Entitic vol] 9.5 fL Normal 9.0-12.7 [facility] Comment on above: Performed By: #### L [id number] ####Gathering Machine Setter: KATINA SURESH ([id number])[facility] ([facility])[address] [place] [address] Platelets (Bld) [#/Vol] 190 10*3/uL Normal 140-440 [facility] Comment on above: Performed By: #### L [id number] ####Gathering Machine Setter: KATINA SURESH ([id number])[facility] ([facility])[address] [place] [address] RBC (Bld) [#/Vol] 4.40 10*6/uL Normal 4.40-5.90 [facility] Comment on above: Performed By: #### L [id number] ####Gathering Machine Setter: KATINA SRUESH ([id number])[facility])[address] [place] [address] WBC (Bld) [#/Vol] 5.5 10*3/uL Normal 3.6-10.7 [facility] Comment on above: Performed By: #### L [id number] ####Gathering Machine Setter: KATINA SURESH ([id number])[facility])[address] [place] [address] ED Provider Noteon ED Provider Note Emergency Department Encounter [facility] EMERGENCY DEPT Patient: Geraldine Kaiser : 2000 Date of Evaluation: 07/25/2024 ED Supervising Physician: Floyd Sweet MD I personally evaluated Geraldine Kaiser and made/approved the management plan and take responsibility for the patient management. This will serve as my Supervisory note and shared attestation. I did perform a substantive portion of the visit including all aspects of the Medical Decision Making. I wore appropriate PPE for the entirety of this encounter. In brief, Geraldine Kaiser is a 24 y.o. that presents to the emergency department wanting detox from fentanyl, last use earlier today Focused exam: Heart tachycardic, appears fidgety Brief ED course/MDM: Medically cleared for detox admission Diagnostics interpreted by me: none I personally discussed the patient's management with other clinicians: Admitting team detox All diagnostic, treatment, and disposition decisions were made by myself in conjunction with the [facility]. For all further details of the patient's emergency department visit, please see their documentation. (Comment: Please note this report has been produced using speech recognition software and may contain errors related to that system including errors in grammar, punctuation, and spelling, as well as words and phrases that may be inappropriate. If there are any questions or concerns please feel free to contact the dictating provider for clarification.) Floyd Sweet MD [facility] Floyd Sweet MD 07/25/24 6590 [facility] ED Provider Note EMERGENCY DEPARTMENT ENCOUNTER Pt Name: Geraldine Kaiser Birthdate 2000 Date of evaluation: 07/25/2024 ED Provider: Marcelino Mathias, V[facility] - [employer] EDcare was supervised by Dr. Sweet who independently examined and evaluated the patient. Please see their attestation note for further details. CHIEF COMPLAINT Fentanyl detox Chief Complaint Patient presents with Addiction Problem Pt requesting detox from fentanyl last use was earlier today HISTORY OF PRESENT ILLNESS (Location/Symptom, Timing/Onset, Context/Setting, Quality, Duration, Modifying Factors, Severity) Note limiting factors. I wore appropriate PPE for the entirety of this encounter. HPI Geraldine Kaiser is a 24 y.o. who presents to the emergency department for evaluation treatment patient reported that he is seeking detox from fentanyl he last used earlier today he states that he normally snorts or smokes his of fentanyl and last normally uses about a half a gram to a gram a day. He denies any withdrawal symptoms such as nausea vomiting diarrhea. Patient has a history of drug abuse as well as polysubstance abuse rhabdomyolysis. He denies any other injury or illness. He denies any chest pain or shortness of breath he speaking in full sentences able to swallow his own secretions. Denies any fever or chills. Patient reports that he does not smoke cigarettes denies any alcohol or any illicit drug use with exception of polysubstance abuse and fentanyl. Nursing Notes were reviewed. Limitations to history: None Outside historians: None REVIEW OF SYSTEMS Review of Systems GENERAL: Denies weight change, fatigue, weakness, fever HEENT: Denies trauma, headache, dizziness, visual change, ear pain, hearing change, tinnitus, rhinorrhea CARDIAC: Denies hypertension, murmur, angina, palpations, dyspnea on exertion, edema RESPIRATORY: Denies shortness of breath, wheezing, cough, sputum, asthma, COPD GI: Denies nausea, vomiting, change in bowels, abdominal pain URINARY: Denies changes in frequency/urgency, hematuria, incontinence, flank pain MUSCULOSKELETAL: Denies weakness, pain, change in ROM, redness, swelling NEURO: Denies loss in sensation, tingling, tremors, weakness, fainting or seizures ENDO: Denies heat/cold intolerance, polyuria, polydipsia, or swelling around neck PSYCH: Denies changes in mood, anxiety, depression, tension, memory Pertinent positives and negatives as per HPI. PAST MEDICAL HISTORY Past Medical History: Diagnosis Date Drug abuse ([facility]) ([facility]) Polysubstance abuse ([facility]) ([facility]) Rhabdomyolysis 01/2017 SURGICAL HISTORY Past Surgical History: Procedure Laterality Date FOOT SURGERY Right pinning OTHER SURGICAL HISTORY 05/11/2023 PILONIDAL CYSTECTOMY VASCULAR SURGERY blood vessel on head WISDOM TOOTH EXTRACTION CURRENT MEDICATIONS Previous Medications CANNABINOIDS (MEDICAL CANNABIS) Take 1 each by mouth 1 (one) time each day. METHYLPHENIDATE ER (CONCERTA) 18 MG CR TABLET Take 18 mg by mouth every morning. Do not crush, chew, or split. UNABLE TO FIND Take 20 mg by mouth daily. Suboxone 20 mg po daily ALLERGIES Patient has no known allergies. FAMILY HISTORY Family History Problem Relation Name Age of Onset No Known Problems Mother No Known Problems Father Substance Abuse Mother's Brother SOCIAL HISTORY Social History Socioeconomic History Marital status: Single Tobacco Use Smoking status: Every Day Current packs/day: 0.50 Average packs/day: 0.5 packs/day for 8.0 years (4.0 ttl pk-yrs) Types: Cigarettes Smokeless tobacco: Never Tobacco comments: Quit smokinppd Vaping Use Vaping status: Every Day Substances: Nicotine Devices: Disposable Substance and Sexual Activity Alcohol use: Not Currently Drug use: Yes Frequency: 7.0 times per week Types: Opiates, Marijuana, Methamphetamines Comment: medical marijuana card; last opiate 03/03/2023, meth years Social History Narrative Merged History Encounter SCREENINGS PHYSICAL EXAM ED Triage Vitals Temp Pulse Resp BP -- -- -- -- SpO2 Temp src Heart Rate Source Patient Position -- -- -- -- BP Location FiO2 (%) -- -- Physical Exam Constitutional: Well developed, well nourished, no acute distress, non-toxic appearance Eyes: PERRL, conjunctiva normal HENT: Atraumatic, external ears normal, nose normal, oropharynx moist, no pharyngeal exudates. Neck- normal range of motion, no tenderness, supple Respiratory: No respiratory distress, normal breath sounds, no rales, no wheezing Cardiovascular: Normal rate, normal rhythm, no murmurs, no gallops, no rubs GI: Soft, nondistended, normal bowel sounds, nontender, no organomegaly, no mass, no rebound, no guarding : No costovertebral angle tenderness Musculoskeletal: No edema, no tenderness, no deformities. Back- no tenderness Integument: Well hydrated, no rash Lymphatic: No lymphadenopathy no (more content not included)... Normal [facility] ETHANOLon 07-25-2024 ETHANOL IN SER/PLAS <10 Normal <10 [facility] Comment on above: Result Comment: DIAMOND Yang COMMENTS: BAG GRADER depression is seen >100 mg/dL. NOTE: This result is for medical treatment only. Analysis performed using non-forensic procedures. Performed By: #### L AB46, LAB20, LAB15 ####Gathering Machine Setter: KATINA SURESH ([id number])[facility] ([address] Ethanol (Bld) [Mass/Vol]on 0 07-25-2024 Ethanol [Mass/Vol] mg/dL NINF - 10 mg/dL [place] Interpretation and review of laboratory results Normal [place] BAG GRADER depression is seen >100 mg/dL. NOTE: This result is for medical treatment only. Analysis performed using non-forensic procedures. [place] HEPATIC FUNCTION PANELon Albumin [Mass/Vol] 4.0 g/dL Normal 3.5-5.0 [facility] Comment on above: Performed By: #### L AB46, LAB20, LAB15 ####Gathering Machine Setter: KATINA SURESH ([id number])[facility] ([facility])[address] [place] [address] ALP [Catalytic activity/Vol] 53 U/L Normal 40-150 [facility] Comment on above: Performed By: #### L AB46, LAB20, LAB15 ####Gathering Machine Setter: KATINA SURESH ([id number])[facility] ([facility])[address] [place] [address] ALT [Catalytic activity/Vol] 21 U/L Normal <40 [facility] Comment on above: Performed By: #### L AB46, LAB20, LAB15 ####Gathering Machine Setter: KATINA SURESH ([id number])[facility] ([facility])[address] [place] [address] AST [Catalytic activity/Vol] 40 U/L High <34 [facility] Comment on above: Performed By: #### L AB46, LAB20, LAB15 ####Gathering Machine Setter: KATINA SURESH ([id number])[facility] ([facility])[address] [place] [address] Bilirubin [Mass/Vol] 0.8 mg/dL Normal <1.2 [facility] Comment on above: Performed By: #### L AB46, LAB20, LAB15 ####Gathering Machine Setter: KATINA SURESH ([id number])[facility] ([facility])[address] [place] [address] Bilirubin.indirect [Mass/Vol] 0.3 mg/dL Normal <0.5 [facility] Comment on above: Performed By: #### L AB46, LAB20, LAB15 ####Gathering Machine Setter: KATINA SURESH ([id number])[facility])[address] [place] [address] Protein [Mass/Vol] 7.2 g/dL Normal 6.4-8.3 [facility] Comment on above: Result Comment: Seru m protein values are higher than plasma values. Samples from recumbent persons are lower by up to 0.5 g/dL as compared to ambulatory persons. After 60 years values are lower by up to 0.2 g/dL. Performed By: #### L AB46, LAB20, LAB15 ####Gathering Machine Setter: KATINA SURESH ([id number])[facility])[address] [place] [address] HEPATITIS PANEL, ACUTEon HCV Ab IA Ql Not detected Normal Not Detected [facility] Comment on above: Result Comment: Xin ents with DETECTED Hepatitis C Ab results should have a new specimen submitted for supplemental testing with a Hepatitis C Quantitative RNA assay (viral load), if clinically indicated. Performed By: #### L [id number] ####Gathering Machine Setter: KATINA SURESH ([id number])[facility])[address] [place] [address] HEPATITIS A VIRUS AB, IGM Not detected Normal Not Detected [facility] Comment on above: Performed By: #### L [id number] ####Gathering Machine Setter: KATINA SURESH ([id number])[facility])[address] [place] [address] HEPATITIS B VIRUS CORE IGM AB Not detected Normal Not Detected [facility] Comment on above: Performed By: #### L AB551 ####Gathering Machine Setter: KATINA SURESH ([id number])[address] HEPATITIS B VIRUS SURFACE AG Not detected Normal Not Detected [facility] Comment on above: Performed By: #### L AB551 ####Gathering Machine Setter: KATINA SURESH ([id number])[facility])[address] [place] [address] HIV1,2 COMBO ANTIGEN-ANTIBOD Y SCREENon 07-25-2024 HIV 1,2 COMBO ANTIGEN/ANTIBODY Non-Reactive Normal Nonreactive [facility] Comment on above: Result Comment: The specimen was non-reactive for HIV-1 and HIV-2 antibodies and p24 antigen using an FDA-cleared 4th generation HIV test. Based on this non-reactive screen result, further reflexive testing was not indicated and was, therefore, not performed. Performed By: #### L [id number] ####Gathering Machine Setter: KATINA SURESH ([id number])[facility] ([facility])[address] [place] [address] Hepatic function 2000 panelo n 07-25-2024 Albumin [Mass/Vol] 4 g/dL 3.5 - 5.0 g/dL [place] ALP [Catalytic activity/Vol] 53 U/L 40 - 150 U/L [place] ALT [Catalytic activity/Vol] 21 U/L NINF - 40 U/L [place] AST [Catalytic activity/Vol] 40 U/L High NINF - 34 U/L [place] Bilirubin [Mass/Vol] 0.8 mg/dL NINF - 1.2 mg/dL [place] Bilirubin.conjugated [Mass/Vol] 0.3 mg/dL [facility] - [facility] mg/dL [place] Interpretation and review of laboratory results Abnormal [place] Protein [Mass/Vol] 7.2 g/dL 6.4 - 8.3 g/dL [place] Comment on above: Serum protein values are higher than plasma values. Samples from recumbent persons are lower by up to 0.5 g/dL as compared to ambulatory persons. After 60 years values are lower by up to 0.2 g/dL. [place] [facility] - Microbiology an d Antimicrobial susceptibilityOrdered By: Jacquelyn Kam on 07-25-2024 SARS-CoV-2 (COVID-19) Ag IA.rapid Ql (Resp) Negative Negative [place] Comment on above: A negative result do es not rule out the possibility of SARS-CoV-2 infection. NAAT-based methods should be considered for symptomatic patients presenting greater than seven days after onset of symptoms. Method: Lateral flow immunoassay. Fact sheets for healthcare providers and patients can be found at the following sites: https://www.fda.gov/media/437649/download https://www.fda.gov/media/652698/download No Panel Informationon 07-25 [place] SARS-COV-2 ANTIGENon 025 SARS-COV-2 ANTIGEN SARS-COV-2 ANTIGEN -BINAX Reference Negative Negative A negative result does not rule out the possibility of SARS-CoV-2 infection. NAAT-based methods should be considered for symptomatic patients presenting greater than seven days after onset of symptoms. Method: Lateral flow immunoassay. Fact sheets for healthcare providers and patients can be found at the following sites: https://www.[facility].gov/m edia/609288/download https://www.[facility].gov/ edia/313813/download [facility] Comment on above: Performed By: #### L [id number] ####Gathering Machine Setter: KATINA SURESH ([id number])[facility] ([facility])[address] [place] [address] SARS-CoV-2 (COVID-19) Ag IA. rapid Ql (Resp)Ordered By: Jacquelyn Kam on 07-25-2024 Interpretation and review of laboratory results [facility] Progress Noteon 01-04-2024 Progress Note Geraldine Kaiser was seen in [facility] ED on 01/03/2024 Reason:Sprain of right wrist ED visits in last yr:6 Hosp/ED adm risk %:69 Last [facility] Appointment: 05/24/2023 Next [facility] Appointment: Visit date not found Per ED discharge instructions: Take prescribed medications as ordered, follow up with PCP in three days Attempted to contact patient, check status and assist with follow up per discharge instructions with the following results: Sent [employer] message to patient [facility] ED Nursing Noteon 01-03-2024 ED Nursing Note Pt presents to ED c/ o right wrist pain after falling on his wrist one week ago. Normal [facility] ED Provider Noteon ED Provider Note [facility] ED eMERGENCY dEPARTMENT eNCOUnter Pt Name: Geraldine Kaiser Birthdate 2000 Date of evaluation: 01/03/2024 Provider: Katina Tavera PA-C CHIEF COMPLAINT Chief Complaint Patient presents with Wrist Injury Right Wrist HISTORY OF PRESENT ILLNESS (Location/Symptom, Timing/Onset,Context/ Setting, Quality, Duration, Modifying Factors, Severity) Note limiting factors. HPI Geraldine Kaiser is a 23 y.o. male who presents to the emergency department complaining of injury to the right wrist. Patient states he initially injured it about a month ago when he fell. He states it was only sore at the time and it was doing better until today when he was pulling out a heavy object and felt a snap in the wrist. He is now complaining of pain over the dorsal mid wrist. He is right-hand dominant. He has otherwise, recently, been well. Nursing Notes were reviewed. REVIEW OF SYSTEMS (2+ for4; 10+ for level 5) Review of Systems Constitutional: Negative for chills and fever. HENT: Negative for ear pain and sore throat. Eyes: Negative for pain and visual disturbance. Respiratory: Negative for cough and shortness of breath. Cardiovascular: Negative for chest pain and palpitations. Gastrointestinal: Negative for abdominal pain and vomiting. Genitourinary: Negative for dysuria and hematuria. Musculoskeletal: Negative for arthralgias and back pain. See history of present illness. Skin: Negative for color change and rash. Neurological: Negative for seizures and syncope. All other systems reviewed and are negative. PAST MEDICAL HISTORY Past Medical History: Diagnosis Date Drug abuse ([facility]) ([facility]) Polysubstance abuse ([facility]) ([facility]) Rhabdomyolysis 01/2017 SURGICALHISTORY Past Surgical History: Procedure Laterality Date FOOT SURGERY Right pinning OTHER SURGICAL HISTORY 05/11/2023 PILONIDAL CYSTECTOMY VASCULAR SURGERY blood vessel on head WISDOM TOOTH EXTRACTION CURRENT MEDICATIONS Discharge Medication List as of 01/03/2024 6:04 PM CONTINUE these medications which have NOT CHANGED Details Cannabinoids (medical cannabis) Take 1 each by mouth 1 (one) time each day., Historical Med methylphenidate ER (Concerta) 18 MG CR tablet Take 18 mg by mouth every morning. Do not crush, chew, or split., Historical Med UNABLE TO FIND Take 20 mg by mouth daily. Suboxone 20 mg po daily, Historical Med Patient has no known allergies. FAMILY HISTORY Family History Problem Relation Name Age of Onset No Known Problems Mother No Known Problems Father Substance Abuse Mother's Brother SOCIAL HISTORY Social History Socioeconomic History Marital status: Single Tobacco Use Smoking status: Every Day Current packs/day: 0.50 Average packs/day: 0.5 packs/day for 8.0 years (4.0 ttl pk-yrs) Types: Cigarettes Smokeless tobacco: Never Tobacco comments: Quit smokinppd Vaping Use Vaping status: Every Day Substances: Nicotine Devices: Disposable Substance and Sexual Activity Alcohol use: Not Currently Drug use: Yes Frequency: 7.0 times per week Types: Opiates, Marijuana, Methamphetamines Comment: medical marijuana card; last opiate 03/03/2023, meth years Social History Narrative Merged History Encounter SCREENINGS PHYSICAL EXAM (5+ for level 4, 8+ for level 5) @EDTRIAGEVSS@ Physical Exam Vitals and nursing note reviewed. Constitutional: General: He is not in acute distress. Appearance: Normal appearance. He is well-developed. HENT: Head: Normocephalic and atraumatic. Eyes: Conjunctiva/sclera: Conjunctivae normal. Cardiovascular: Rate and Rhythm: Normal rate and regular rhythm. Heart sounds: No murmur heard. Pulmonary: Effort: Pulmonary effort is normal. No respiratory distress. Breath sounds: Normal breath sounds. Musculoskeletal: General: No swelling. Comments: Examination of the right wrist reveals no obvious soft tissue edema or ecchymosis. No palpable bony deformity or crepitus. He has some tenderness on palpation over the middle dorsal wrist. Good range of motion with some discomfort with full extension and flexion. Distal sensory innervation is intact. Skin: General: Skin is warm and dry. Capillary Refill: Capillary refill takes less than 2 seconds. Neurological: Mental Status: He is alert. Psychiatric: Mood and Affect: Mood normal. DIAGNOSTIC RESULTS EKG (Per Emergency Physician): RADIOLOGY (Per EmergencyPhysician): Interpretation per the Radiologist below, if available at the time of this note: @EDRISRSLT@ : Labs Reviewed - No data to display All other labs were within normal range or not returned as of this dictation. EMERGENCY DEPARTMENT COURSE and DIFFERENTIALDIAGNOSIS /MDM: Vitals: Vitals: 01/03/24 1722 BP: 104/66 BP Location: Right arm Patient Position: Sitting Pulse: 75 Resp: 18 Temp: 37 ?C (98.6 ?F) TempSrc: Temporal SpO2: 98% Medications - No d (more content not included)... Normal [facility] XR Wrist - right 3 Viewson 0 01-03-2024 1. No acute osseous abnormality. Report Dictated on Electronically Signed By: Prasanth Mosqueda MD Electronically Signed Date/Time: 01/03/2024 5:42 PM EDT [facility] Patient Name: GERALDINE KAISER : 2000 Exam Date/Time: 01/03/2024 17:41 Procedure: XR WRIST 3+ VIEWS RIGHT Ordering Provider: TAVERA AMY Reason For Exam: TRAUMA RIGHT WRIST 3 VIEWS CLINICAL INDICATION: TRAUMA TECHNIQUE: 3 views of the right wrist. COMPARISON: None. FINDINGS: No acute fracture or dislocation. Probable old and healed fracture deformity in little finger metacarpal neck. Joint spaces maintained. Soft tissues grossly unremarkable. [facility] Prasanth Mosqueda MD - 01/03/2024 Patient Name: GERALDINE KAISER : 2000 Exam Date/Time: 01/03/2024 17:41 Procedure: XR WRIST 3+ VIEWS RIGHT Ordering Provider: TAVERA AMY Reason For Exam: TRAUMA RIGHT WRIST 3 VIEWS CLINICAL INDICATION: TRAUMA TECHNIQUE: 3 views of the right wrist. COMPARISON: None. FINDINGS: No acute fracture or dislocation. Probable old and healed fracture deformity in little finger metacarpal neck. Joint spaces maintained. Soft tissues grossly unremarkable. IMPRESSION: 1. No acute osseous abnormality. Report Dictated on Electronically Signed By: Prasanth Mosqueda MD Electronically Signed Date/Time: 01/03/2024 5:42 PM EDT [place] Radiology Study observation (narrative) [facility] alth XR Wrist - right 3 ViewsOrde red By: Prasanth Mosqueda on 01-03-2024 [facility] Work Phone: Office Visiton 11-21-2023 Follow-up visit [id number] Geraldine Kaiser Andreia 2000 M Date Provider Department Center 11/21/2023 [id number] HERNANDEZ [facility] COL None Family History Problem Relation Age of Onset No Known Problems Mother No Known Problems Father Substance Abuse Mother's Brother Family Status - Relation Status Age at Mother Alive Father Alive Mother's Brother Level of Service:10268 [place] OFFICE/OUTPATIENT ESTABLISHED LOW MDM 20 MIN Reason for Visit and Comments: Follow-up [013371] - Evaluation for pilonidal abscess OTHER [Other] - Pt unaccompanied Normal [facility] PATINSon 11-21-2023 PATINS -On exam do not see or feel an abscess. -no swelling, redness. -could be pain from scar -can soak in warm shower or bath, apply heat or ice as needed. -sitting for long periods sit on flat cushion or pillow -try to sit offsetting the area -do not recommend taking the antibiotics -if you notice redness, swelling, drainage, fevers contact office. Normal [facility] Progress Noteon 11-21-2023 Progress Note Onset pain for 2 weeks. Describes 2/10 on pain scale. Denies fevers, drainage. Normal [facility] Progress Note COLORECTAL SURGERY OFFICE VISIT PATIENT NAME: Geraldine Kaiser : 2000 TODAY'S DATE: 11/21/2023 Chief Complaint Patient presents with Follow-up Evaluation for pilonidal abscess OTHER Pt unaccompanied SUBJECTIVE: Geraldine Kaiser is a 23 y.o. male s/p pilonidal surgery 05/11/23 Has recurrent tailbone pain Onset pain for 2 weeks. Describes 2/10 on pain scale. Denies fevers, drainage. Review of Systems as documented Past Medical History: Diagnosis Date Drug abuse ([facility]) ([facility]) Polysubstance abuse ([facility]) ([facility]) Rhabdomyolysis 01/2017 Past Surgical History: Procedure Laterality Date FOOT SURGERY Right pinning OTHER SURGICAL HISTORY 05/11/2023 PILONIDAL CYSTECTOMY VASCULAR SURGERY blood vessel on head WISDOM TOOTH EXTRACTION Current Outpatient Medications on File Prior to Visit Medication Sig Dispense Refill Cannabinoids (medical cannabis) Take 1 each by mouth 1 (one) time each day. methylphenidate ER (Concerta) 18 MG CR tablet Take 18 mg by mouth every morning. Do not crush, chew, or split. UNABLE TO FIND Take 20 mg by mouth daily. Suboxone 20 mg po daily [] ofloxacin (Ocuflox) 0.3 % ophthalmic solution Administer 1 drop into the left eye in the morning and 1 drop at noon and 1 drop in the evening and 1 drop before bedtime. Do all this for 7 days. 10 mL 0 No current facility-administered medications on file prior to visit. Social History Socioeconomic History Marital status: Single Spouse name: Not on file Number of children: Not on file Years of education: Not on file Highest education level: Not on file Occupational History Not on file Tobacco Use Smoking status: Every Day Current packs/day: 0.50 Average packs/day: 0.5 packs/day for 8.0 years (4.0 ttl pk-yrs) Types: Cigarettes Smokeless tobacco: Never Tobacco comments: Quit smokinppd Vaping Use Vaping status: Every Day Substances: Nicotine Devices: Disposable Substance and Sexual Activity Alcohol use: Not Currently Drug use: Yes Frequency: 7.0 times per week Types: Opiates, Marijuana, Methamphetamines Comment: medical marijuana card; last opiate 03/03/2023, meth years Sexual activity: Not on file Other Topics Concern Not on file Social History Narrative Merged History Encounter Social Determinants of Health Financial Resource Strain: Not on file Food Insecurity: Not on file Transportation Needs: Not on file Physical Activity: Not on file Stress: Not on file Social Connections: Not on file Intimate Partner Violence: Not on file Housing Stability: Not on file Family History Problem Relation Name Age of Onset No Known Problems Mother No Known Problems Father Substance Abuse Mother's Brother Allergies: No Known Allergies OBJECTIVE: BP 122/78 (BP Location: Right arm, Patient Position: Sitting, BP Cuff Size: Small adult) Temp 36.9 ?C (98.5 ?F) (Oral) Ht 6' 2 (1.88 m) Wt 154 lb 9.6 oz (70.1 kg) BMI 19.85 kg/m? Physical Examination GENERAL: NAD, alert, oriented HEENT: Pupils equal, normal conjunctivae without scleral icterus PULMONARY: Normal respiratory effort, chest non-tender CARDIO: no edema PSYCHIATRIC: appropriate mood and judgement Tailbone: well healed scar from surgery No erythema No fluctuance No pain Exam chaperoned by female shipping and receiving assistant. ASSESSMENT/PLAN: Diagnosis Plan 1. Coccydynia S/p pilonidal surgery 05/11/23 Well healed scar No signs of infection or recurrent cyst/abscess Recommend not taking antibiotics rx'd elsewhere Ice or heating pad Soft cushion Tylenol/ibuprofen for pain Follow up if symptoms worsen or fail to improve. Shahnaz Hernandez MD [facility] Colorectal Surgery [address], [address] [place] [id number] p [phone] f [phone] [facility] 36on 11-17-2023 36 Patient contacted office, related recommendation patient verbalized understanding and will proceed as discussed. [facility] 36 Patient contacted office requesting an appointment. Per patient states his pilonidal has flared up. Patient c/o of pain, drainage, and discomfort. Per patient states he is in a rehab facility, and was advised to contact our office for an appt JACINTO. Patient currently on Z-pack for sinus infection. Informed patient that both our providers are in OR, and I would review with them and return call. Patient verbalized understanding and can be reached at [phone] ext. [phone] [facility] ED NOTEon 11-17-2023 ED NOTE HNO ID: [id number] Author: JOSUÉ TOVAR RN Service: ? Author Type: Registered Nurse Type: ED Notes Filed: 11/17/2023 11:38 Note Text: [facility] Expected date: Expected time: Means of arrival: Comments: CLOSED [facility] ED PROV NOTEon 11-17-2023 ED PROV NOTE HNO ID: [id number] Author: VIJI MARIE PA-C Service: Emergency Medicine Author Type: Physician Coal Loader Type: ED Provider Notes Filed: 11/17/2023 12:11 Note Text: ED Provider Note Patient Name: Geraldine Kaiser : 2000 SERVICE DATE: 11/17/23 History Patient presents with: Cyst: Pt presents to triage from drug rehab for pilonidal cyst. Pt says he has had this before and had it drained in April. Pt says that the rehab facility was putting it off until it was bad enough to be seen. Pt is having a hard time sitting down HPI patient is a 23-year-old male presenting to the emergency department with complaint of pilonidal cyst. He has had these drained in the past and has also had surgery. He states that he feels it is coming back as it is slightly painful again. He currently is in a rehab facility. He was placed on a Z-Garo but is aware that this will not improve the abscess. He thinks that he was called in another antibiotic by the physician at the rehab facility but is unsure of which kind and has not started it or filled it. He denies any fever chills nausea or vomiting. The area is not draining. No past medical history on file. No past surgical history on file. No family history on file. Social History Tobacco Use Smoking status: Every Day Smokeless tobacco: Never Substance and Sexual Activity Alcohol use: Not Currently Drug use: Not Currently Sexual activity: Yes ALLERGIES No Known Allergies Review of Systems Constitutional: Negative for chills and fever. Gastrointestinal: Negative for nausea and vomiting. Skin: Positive for wound. Physical Exam Vitals [11/17/23 1133] BP Pulse Temp Temp src Resp SpO2 Weight Height 122/85 (!) 104 36.7 ?C (98 ?F) Oral 18 99 % 68 kg (150 lb) -- Physical Exam Vitals and nursing note reviewed. Constitutional: General: He is not in acute distress. Appearance: Normal appearance. He is not ill-appearing or toxic-appearing. HENT: Head: Normocephalic. Eyes: Extraocular Movements: Extraocular movements intact. Cardiovascular: Rate and Rhythm: Normal rate. Pulmonary: Effort: Pulmonary effort is normal. Musculoskeletal: Cervical back: Normal range of motion. Skin: General: Skin is warm and dry. Comments: Mild tenderness to palpation and very mild erythema where the patient has an incision site from history of pilonidal cyst removal in the past no current drainage or fluctuance area does not extend to the perirectal region Neurological: General: No focal deficit present. Mental Status: He is alert. Psychiatric: Mood and Affect: Mood normal. Behavior: Behavior normal. Diagnostic Testing ED Labs Ordered and Reviewed - No data to display Procedures ED Course / Clinical Impression Clinical Impressions as of 11/17/23 1157 Pilonidal cyst MDM / Disposition / Plan Differential Diagnoses - pilonidal cyst Disposition The patient was discharged. Counseled patient regarding suspected diagnosis. 23-year-old male presents with concern for pilonidal cyst reappearance. On exam he has very mild tenderness and erythema to this area. There is no fluctuance or significant induration. It is not currently draining. I believe it is just beginning to form again at this time. He will be prescribed Keflex and Bactrim to take for the infection. He can take ibuprofen or Tylenol and apply warm compresses to the area. Follow-up with his surgeon as recommended. If he would develop any new or worsening symptoms he can report back to the emergency department. He was agreeable with the plan and all questions answered. Patient is stable for discharge. SIGNATURE: COSMO Khan KELCIE 11/17/[address] [facility] Office Visiton 11-12-2023 Follow-up visit [id number] Pepper Kaisernathan Andreia 2000 M Date Provider Department Center 11/12/2023 [id number] [facility] None Family History Problem Relation Age of Onset No Known Problems Mother No Known Problems Father Substance Abuse Mother's Brother Family Status - Relation Status Age at Mother Alive Father Alive Mother's Brother Level of Service:62551 [place] OFFICE/OUTPATIENT NEW LOW MDM 30 MINUTES Reason for Visit and Comments: Conjunctivitis [344108] - Left eye, itchy, x5days Normal [facility] Progress Noteon 11-12-2023 Progress Note [facility] [address] [facility] [address] Dept: [phone] Dept Loc: [phone] Subjective Chief Complaint Patient presents with Conjunctivitis Left eye, itchy, x5days Subjective HPI Geraldine Boswell Job is a 23 y.o. year old male who presents with left eye redness, drainage (cloudy and yellow), discomfort and itching for 4-5 days. Getting worse per patient. Using warm compresses. No vision changes. Denies contact lens wear. Review of Systems No Known Allergies Current Outpatient Medications on File Prior to Visit Medication Sig Dispense Refill Cannabinoids (medical cannabis) Take 1 each by mouth 1 (one) time each day. methylphenidate ER (Concerta) 18 MG CR tablet Take 18 mg by mouth every morning. Do not crush, chew, or split. UNABLE TO FIND Take 20 mg by mouth daily. Suboxone 20 mg po daily No current facility-administered medications on file prior to visit. Patient Active Problem List Diagnosis Opioid dependence in remission (HCC) Fentanyl dependence ([facility]) Closed nondisplaced fracture of fifth metatarsal bone of right foot with routine healing Opioid use disorder Opiate withdrawal (HCC) Narcotic overdose (HCC) Elevated liver enzymes Blood poisoning IV drug user Transaminitis Generalized rash Drug dermatitis Sepsis (HCC) Need for immunization against viral hepatitis LISA (acute kidney injury) (HCC) Traumatic rhabdomyolysis (HCC) Somnolence Hyponatremia Altered mental status Hip pain, bilateral Stupor Gonorrhea Polysubstance abuse (CMS/HCC) (HCC) COVID Social History Tobacco Use Smoking status: Every Day Current packs/day: 0.50 Average packs/day: 0.5 packs/day for 8.0 years (4.0 ttl pk-yrs) Types: Cigarettes Smokeless tobacco: Never Tobacco comments: Quit smokinppd Substance Use Topics Alcohol use: Not Currently Objective Objective BP 114/71 (BP Location: Left arm, Patient Position: Sitting, BP Cuff Size: Adult) Pulse 92 Temp 36.7 ?C (98.1 ?F) Ht 6' 2 (1.88 m) Wt 152 lb (68.9 kg) SpO2 100% BMI 19.52 kg/m? Physical Exam Eyes: General: Right eye: No discharge. Left eye: Discharge present. Extraocular Movements: Extraocular movements intact. Conjunctiva/sclera: Right eye: Right conjunctiva is not injected. Left eye: Left conjunctiva is injected. Pupils: Pupils are equal, round, and reactive to light. Assessment/Plan 1. Acute conjunctivitis of left eye, unspecified acute conjunctivitis type - ofloxacin (Ocuflox) 0.3 % ophthalmic solution; Administer 1 drop into the left eye in the morning and 1 drop at noon and 1 drop in the evening and 1 drop before bedtime. Do all this for 7 days., Starting 11/12/2023, Until 11/19/2023, Normal Start drops as above Good hand washing Patient advised to follow up in with ER, UC or PCP for new or worsening symptoms Patient has had multiple bouts of conjunctivitis advised he follow-up with eye specialists for check up Follow-up: Follow up if symptoms worsen or fail to improve. LEILANI Vasquez 11/12/2023 9:54 AM Normal [facility] 36on 08-16-2023 36 08/15/23- Patient reports pulling several hairs from his previous pilonidal surgical site. The area is otherwise doing well without concern. Reviewed behavior of pilonidal disease and instructed patient to continue to monitor the area for additional hairs. Hair removal in the area is recommended to help prevent recurrence. Will discuss with provider to identify the preferred method of hair removal and notify the patient once discussed. Patient verbalizes understanding and will await contact from the office. 08/16/23- Reviewed with provider, topical hair removal cream such as Lama is the recommended form of hair removal. N/A when contacting patient regarding this, LM informing patient that a [employer] message would be sent with the recommendation. Normal [facility] 36on 08-15-2023 36 ----- Message from Filomena Hamilton MA sent at 08/15/2023 11:26 AM EDT ----- Regarding: flare of pilonidal cyst patient of Dr. Hernandez, had surgery in May 13. Has pulled 15 hairs from one pore. Please call Normal [facility] Laboratory - Microbiology an d Antimicrobial susceptibilityon 05-19-2023 FLUAV RNA JAZMIN+probe Ql (Resp) Not detected Not Detected [place] FLUBV RNA JAZMIN+probe Ql (Resp) Not detected Not Detected [place] RSV RNA JAZMIN+probe Ql (Resp) Not detected Not Detected [place] SARS-CoV-2 (COVID-19) RNA JAZMIN+probe Ql (Resp) Detected Abnormal Not Detected [facility] SARS-CoV-2 (COVID-19) RNA JAZMIN+probe Ql (Unsp spec) Methodology: real-time, RT-PCR The SARS-CoV-2, Flu A/B, and RSV Combo assay is intended for in vitro diagnostic use under the FDA Emergency Use Authorization (EUA). This test has not been FDA cleared or approved. In compliance with this authorization, please visit www.fda.gov/media/200 570/download or www.fda.gov/media/844 317/download to access the applicable information sheets. [place] SARS-CoV-2, Flu A/B, and RSV Comboon 05-19-2023 Interpretation and review of laboratory results Abnormal [facility] CBC W Auto Differential pane l (Bld)on 03-07-2023 Basophils (Bld) [#/Vol] 0.1 10*3/uL 0.0 - 0.2 10*3/uL [facility] Basophils/100 WBC (Bld) 1.0 % 0.0 - 2.0 % [facility] Eosinophils (Bld) [#/Vol] 0.1 10*3/uL 0.0 - 0.5 10*3/uL [facility] Eosinophils/100 WBC (Bld) 1.0 % 1.0 - 6.0 % [place] Erythrocyte distribution width (RBC) [Ratio] 14.3 % 11.5 - 14.5 % [place] Hematocrit (Bld) [Volume fraction] 41.6 % 40.0 - 52.0 % [place] Hemoglobin (Bld) [Mass/Vol] 14.1 g/dL 13.0 - 18.0 g/dL [place] Interpretation and review of laboratory results Normal [place] Lymphocytes (Bld) [#/Vol] 2.4 10*3/uL 1.0 - 4.3 10*3/uL [place] Lymphocytes/100 WBC (Bld) 33.7 % 20.0 - 40.0 % [place] MCH (RBC) [Entitic mass] 30.6 pg 26. 0 - 34.0 pg [place] MCHC (RBC) [Mass/Vol] 33.9 % 32.0 - 36.0 % [place] MCV (RBC) [Entitic vol] 90.2 fL 80.0 - 98.0 fL [place] Monocytes (Bld) [#/Vol] 0.6 10*3/uL 0.0 - 0.8 10*3/uL [facility] Monocytes/100 WBC (Bld) 8.1 % 2.0 - 10.0 % [place] Neutrophils (Bld) [#/Vol] 4.0 10*3/uL 1.8 - 7.0 10*3/uL [facility] Neutrophils/100 WBC (Bld) 56.2 % 40.0 - 80.0 % [place] Nucleated RBC/100 WBC (Bld) [Ratio] 0.0 % [place] Platelet mean volume (Bld) [Entitic vol] 7.9 fL 7.4 - 12.4 fL [place] Platelets (Bld) [#/Vol] 223 10*3/uL 140 - 440 10*3/uL [place] RBC (Bld) [#/Vol] 4.61 10*6/uL 4.40 - 5.9 0 10*6/uL [place] WBC (Bld) [#/Vol] 7.1 10*3/uL 3.6 - 10.7 10*3/uL [facility] Comprehensive metabolic 2000 panelon 03-07-2023 Albumin [Mass/Vol] 4.6 g/dL 3.5 - 5.0 g/dL [place] ALP [Catalytic activity/Vol] 59 U/L 38 - 126 U/L [place] ALT [Catalytic activity/Vol] 21 U/L 0 - 49 U/L [place] Anion gap [Moles/Vol] 7 mmol/L 3 - 13 mmol/L [place] AST [Catalytic activity/Vol] 29 U/L 15 - 46 U/L [place] Bilirubin [Mass/Vol] 0.4 mg/dL 0.2 - 1 .3 mg/dL [place] Calcium [Mass/Vol] 8.9 mg/dL 8.4 - 10. 4 mg/dL [place] Chloride [Moles/Vol] 104 mmol/L 98 - 10 7 mmol/L [place] CO2 [Moles/Vol] 29 mmol/L 22 - 30 mmol/L [place] Creatinine [Mass/Vol] 0.70 mg/dL 0.66 - 1.25 mg/dL [place] GFR/1.73 sq M.predicted MDRD (S/P/Bld) [Vol rate/Area] - PINF [place] Comment on above: Calculation based on the Chronic Kidney Disease Epidemiology Collaboration (CKD-EPI) equation refit without adjustment for race Glucose [Mass/Vol] 93 mg/dL 70 - 100 mg/dL [place] Potassium [Moles/Vol] 4.0 mmol/L 3.5 - 5.1 mmol/L [place] Protein [Mass/Vol] 8.0 g/dL 6.3 - 8.2 g/dL [place] Sodium [Moles/Vol] 139 mmol/L 135 - 145 mmol/L [place] Urea nitrogen [Mass/Vol] 14 mg/dL 9 - 20 mg/d L [place] Ethanol (Bld) [Mass/Vol]on 1 Ethanol [Mass/Vol] g/dL 0.000 - 0 .010 g/dL [place] Laboratory - Drug toxicology Ordered By: Karsten Dobson on 03-07-2023 Amphetamines Screen method >1000 ng/mL Ql (U) Negative [place] Barbiturates Screen method >200 ng/mL Ql (U) Negative [facility] Benzodiazepines Ql (U) Negative [facility] Methadone Screen Ql (U) Negative [facility] Opiates Screen Ql (U) Negative [facility] oxyCODONE Ql (U) Negative [facility] Phencyclidine Ql (U) Negative [facility] No Panel InformationOrdered By: Karsten Dobson on 03-07-2023 COCAINE METAB. SCREEN Negative [facility] The expected value for all of the drugs listed above is Negative. The following drugs or drug groups have been screened for by Immunoassay at the following thresholds: Amphetamine class (1000 ng/mL) Barbiturates (200 ng/mL) Benzodiazepines (200 ng/mL) Cocaine (300 ng/mL) Methadone (300 ng/mL) Opiates (300 ng/mL) Oxycodone (100 ng/mL) PCP (25 ng/mL) NOTE: These results are for medical treatment only. Analysis performed using non-forensic procedures. POSITIVE results are NOT confirmed by a more specific alternative method unless requested. If confirmation is needed, request confirmation under separate order. [facility] No Panel Informationon 03-07 Interpretation and review of laboratory results Normal [facility] CBC W Auto Differential pane l (Bld)Ordered By: Karsten Dobson on 01-25-2023 Basophils (Bld) [#/Vol] 0.1 10*3/uL 0.0 - 0.2 10*3/uL [place] Basophils/100 WBC (Bld) 2.1 % High 0.0 - 2.0 % [place] Eosinophils (Bld) [#/Vol] 0.3 10*3/uL 0.0 - 0.5 10*3/uL [place] Eosinophils/100 WBC (Bld) 6.1 % High 1.0 - 6.0 % [place] Erythrocyte distribution width (RBC) [Ratio] 13.5 % 11.5 - 14.5 % [place] Hematocrit (Bld) [Volume fraction] 38.6 % Low 40.0 - 52.0 % [place] Hemoglobin (Bld) [Mass/Vol] 13.5 g/dL 13.0 - 18.0 g/dL [facility] Interpretation and review of laboratory results Abnormal [facility] Lymphocytes (Bld) [#/Vol] 2.4 10*3/uL 1.0 - 4.3 10*3/uL [facility] Lymphocytes/100 WBC (Bld) 44.1 % High 20.0 - 40.0 % [facility] MCH (RBC) [Entitic mass] 31.3 pg 26. 0 - 34.0 pg [facility] MCHC (RBC) [Mass/Vol] 34.9 % 32.0 - 36.0 % [facility] MCV (RBC) [Entitic vol] 89.7 fL 80.0 - 98.0 fL [facility] Monocytes (Bld) [#/Vol] 0.4 10*3/uL 0.0 - 0.8 10*3/uL [facility] Monocytes/100 WBC (Bld) 7.2 % 2.0 - 10.0 % [facility] Neutrophils (Bld) [#/Vol] 2.2 10*3/uL 1.8 - 7.0 10*3/uL [facility] Neutrophils/100 WBC (Bld) 40.5 % 40.0 - 80.0 % [facility] Nucleated RBC/100 WBC (Bld) [Ratio] 0.0 % [facility] Platelet mean volume (Bld) [Entitic vol] 8.5 fL 7.4 - 12.4 fL [facility] Platelets (Bld) [#/Vol] 203 10*3/uL 140 - 440 10*3/uL [facility] RBC (Bld) [#/Vol] 4.31 10*6/uL Low 4.40 - 5.9 0 10*6/uL [facility] WBC (Bld) [#/Vol] 5.5 10*3/uL 3.6 - 10.7 10*3/uL [facility] CT Pelvis W contrast Ot[place] 1. No abscess seen. Report Dictated on Electronically Signed By: Kameron Padilla MD Electronically Signed Date/Time: 01/25/2023 11:30 PM [facility] Patient Name: GERALDINE KAISER : 2000 Exam Date/Time: 01/25/2023 23:20 Procedure: CT PELVIS W IV CONTRAST Ordering Provider: MCGRATH JOSHUA Reason For Exam: Anal/rectal abscess CT PELVIS W IV CONTRAST CLINICAL INDICATION: Anal/rectal abscess TECHNIQUE: IV contrast enhanced CT scan of the pelvis with multiplanar reformations. Dose reduction was employed with automated exposure control. COMPARISON: None FINDINGS: No bowel obstruction. No acute inflammatory process. No perianal or perirectal abscess seen. [facility] Kameron Padilla MD - 01/25/2023 Patient Name: GERALDINE KAISER : 2000 Exam Date/Time: 01/25/2023 23:20 Procedure: CT PELVIS W IV CONTRAST Ordering Provider: MCGRATH JOSHUA Reason For Exam: Anal/rectal abscess CT PELVIS W IV CONTRAST CLINICAL INDICATION: Anal/rectal abscess TECHNIQUE: IV contrast enhanced CT scan of the pelvis with multiplanar reformations. Dose reduction was employed with automated exposure control. COMPARISON: None FINDINGS: No bowel obstruction. No acute inflammatory process. No perianal or perirectal abscess seen. IMPRESSION: 1. No abscess seen. Report Dictated on Electronically Signed By: Kameron Padilla MD Electronically Signed Date/Time: 01/25/2023 11:30 PM EDT [place] Radiology Study observation (narrative) [facility] CT Pelvis W contrast IVOrder ed By: Kameron Padilla on 01-25-2023 [place] Work Phone: Comprehensive metabolic 2000 panelon 01-25-2023 Albumin [Mass/Vol] 4.5 g/dL 3.5 - 5.0 g/dL [place] ALP [Catalytic activity/Vol] 101 U/L 38 - 126 U/L [place] ALT [Catalytic activity/Vol] 19 U/L 0 - 49 U/L [place] Anion gap [Moles/Vol] 6 mmol/L 3 - 13 mmol/L [place] AST [Catalytic activity/Vol] 32 U/L 15 - 46 U/L [place] Bilirubin [Mass/Vol] 0.4 mg/dL 0.2 - 1 .3 mg/dL [place] Calcium [Mass/Vol] 8.8 mg/dL 8.4 - 10. 4 mg/dL [place] Chloride [Moles/Vol] 103 mmol/L 98 - 10 7 mmol/L [place] CO2 [Moles/Vol] 28 mmol/L 22 - 30 mmol/L [place] Creatinine [Mass/Vol] 0.81 mg/dL 0.66 - 1.25 mg/dL [place] GFR/1.73 sq M.predicted MDRD (S/P/Bld) [Vol rate/Area] - PINF [place] Comment on above: Calculation based on the Chronic Kidney Disease Epidemiology Collaboration (CKD-EPI) equation refit without adjustment for race Glucose [Mass/Vol] 73 mg/dL 70 - 100 mg/dL [place] Interpretation and review of laboratory results Normal [place] Potassium [Moles/Vol] 4.5 mmol/L 3.5 - 5.1 mmol/L [place] Protein [Mass/Vol] 7.6 g/dL 6.3 - 8.2 g/dL [place] Sodium [Moles/Vol] 137 mmol/L 135 - 145 mmol/L [place] Urea nitrogen [Mass/Vol] 17 mg/dL 9 - 20 mg/d L [facility] No Panel Informationon 01-25 Darryl Heller DO 01/26/2023 4:00 AM Incision and Drainage Performed by: Darryl Heller DO Authorized by: Karsten Mcgrath MD Consent: Consent obtained: Verbal Consent given by: Patient Risks discussed: Bleeding, incomplete drainage, pain, damage to other organs and infection Alternatives discussed: No treatment [place] protocol: Patient identity confirmed: Verbally with patient Location: Type: Abscess Size: Pustule (2mm) Location: Anogenital Anogenital location: Gluteal cleft Pre-procedure details: Skin preparation: Chlorhexidine with alcohol Sedation: Sedation type: None Anesthesia: Anesthesia method: None Procedure type: Complexity: Simple Procedure details: Ultrasound guidance: no Needle aspiration: yes Needle size: 20 G Drainage: Bloody and purulent Drainage amount: Scant Packing materials: None Post-procedure details: Procedure completion: Tolerated well, no immediate complications [facility] CR Foot Complete 3+ Views Daniel barton 04-09-2021 CR Foot Complete 3+ Views Right Patient Name: GERALDINE [facility] Diagnostic Radiology ACCESSION EXAM DATE/TIME PROCEDURE ORDERING PROVIDER [id number] 04/09/2021 19:07 EST CR Foot Complete 3+ DANIELLA DONOVAN, DAFNE Fan. Views Right CPT code 80728 Reason For Exam (CR Foot Complete 3+ Views Right) fall pain to the lateral aspect of foot pain below 5th Report Examination: Right foot Clinical Indication: fall pain to the lateral aspect of foot pain below 5th Comparison: None Findings: AP, lateral, and oblique views of the right foot. There is nondisplaced but incomplete transverse fracture of the proximal fifth metatarsal diaphysis. Normal age-appropriate bone mineralization. Bones are in normal anatomic alignment. Gross preservation of the tarsal arch. There is no evidence for radiopaque foreign body. There is minimal first metatarsal phalangeal joint space narrowing with tiny osteophytes. The visualized soft tissues are within normal limits. Impression: Transverse nondisplaced proximal diaphysis fracture fifth metatarsal. Report Dictated on Final Dictated: 04/09/2021 7:10 pm Dictating Physician: MD AMAYA ANTHONY J Signed Date and Time: 04/09/2021 7:12 pm Signed by: MD AMAYA ANTHONY J Transcribed Date and Time: 04/09/2021 7:10 Normal [facility] ED Provider [facility] Patient: Grealdine Kaiser : 2000 Date of Evaluation: 04/09/2021 ED [place] Provider: VANITA Gross CNP Chief Complaint Chief Complaint Patient presents with ? Foot Pain patient stepped off mound of dirt and landed wrong on foot. states felt pop and snap, this happened at noon. [place] I was wearing a n95 mask for the entirety of this encounter. Does this patient come from an ECF, SNF, Rehab, Skilled Nursing or other Congregate setting: no (If yes to above patient needs a Covid-19 test) Geraldine Kaiser is a 20 y.o. male who presents to the emergency department patient states today he jumped 4 foot off of a dirt pile and landed on the right lateral aspect of his right foot. He states he has pain in this area. He states the pain is an 8 out of 10 describes it as a dull burning sensation. Patient states that he did not strike his head he is not on blood thinners. ROS: Review of Systems Constitutional: Negative for chills and fever. HENT: Negative for congestion, ear pain and sore throat. Eyes: Negative for visual disturbance. Respiratory: Negative for cough, shortness of breath and wheezing. Gastrointestinal: Negative for abdominal distention, abdominal pain and nausea. Genitourinary: Negative for dysuria, flank pain and frequency. Musculoskeletal: Right foot pain after fall Skin: Negative for color change and rash. Neurological: Negative for dizziness, weakness, numbness and headaches. All other systems reviewed and are negative. At least 10 systemsreviewed and otherwise acutely negative except as in the [place]. Past History Past Medical History: Diagnosis Date ? Drug abuse (HCC) ? Polysubstance abuse (HCC) ? Rhabdomyolysis 01/2017 No past surgical history on file. Social History Socioeconomic History ? Marital status: Single Spouse name: Not on file ? Number of children: 0 ? Years of education: Dropped out in the 9th grade, did get a GED ? Highest education level: Not on file Occupational History Employer: [employer] Tobacco Use ? Smoking status: Current Every Day Smoker Packs/day: 1.00 Types: Cigarettes ? Smokeless tobacco: Never Used ? Tobacco comment: 1ppd Vaping Use ? Vaping Use: Never used Substance and Sexual Activity ? Alcohol use: Not Currently Comment: once a week ? Drug use: Not Currently Types: Opiates , Methamphetamines (Crystal Meth) Comment: fentanyl 01/24/2017, 08/10/20 supposed to be a Xanax bar, 08/11/20- states snorting 0.5g fentanyl daily ? Sexual activity: Yes Other Topics Concern ? Not on file Social History Narrative Merged History Encounter Social Determinants of Health Financial Resource Strain: ? Difficulty of Paying Living Expenses: Not on file Food Insecurity: ? Worried About Running Out of Food in the Last Year: Not on file ? Ran Out of Food in the Last Year: Not on file Transportation Needs: ? Lack of Transportation (Medical): Not on file ? Lack of Transportation (Non-Medical): Not on file Physical Activity: ? Days of Exercise per Week: Not on file ? Minutes of Exercise per Session: Not on file Stress: ? Feeling of Stress : Not on file Social Connections: ? Frequency of Communication with Friends and Family: Not on file ? Frequency of Social Gatherings with Friends and Family: Not on file ? Attends Advent Services: Not on file ? Active Member of Clubs or Organizations: Not on file ? Attends Club or Organization Meetings: Not on file ? Marital Status: Not on file Intimate Partner Violence: ? Fear of Current or Ex-Partner: Not on file ? Emotionally Abused: Not on file ? Physically Abused: Not on file ? Sexually Abused: Not on file Housing Stability: ? Unable to Pay for Housing in the Last Year: Not on file ? Number of Places Lived in the Last Year: Not on file ? Unstable Housing in the Last Year: Not on file Medications/Allergies Previous Medications AMOXICILLIN-CLAVULANA TE (AUGMENTIN) 875-125 MG PER TABLET Take 1 tablet by mouth 2 times daily for 10 days BUPRENORPHINE (SUBLOCADE SC) Inject into the skin every 30 days BUPRENORPHINE 100 MG/0.5ML SOSY INJECTION BUPRENORPHINE ER (BUPRENORPHINE) 100 MG/0.5ML SOSY INJECTION FAMOTIDINE (PEPCID) 20 MG TABLET Take 20 mg by mouth 2 times daily SULFAMETHOXAZOLE-TRIM ETHOPRIM (BACTRIM DS;SEPTRA DS) 800-160 MG PER TABLET take 1 tablet by mouth twice a day No Known Allergies Physical Exam ED Triage Vitals [04/09/21 1748] BP Temp Temp Source Pulse Resp SpO2 Height Weight 122/71 99.5 ?F (37.5 ?C) Temporal 110 18 99 % -- -- Physical Exam Vitals and nursing note reviewed. Constitutional: Appearance: He is well-developed. HENT: Head: Normocephalic. Right Ear: Tympanic membrane normal. Left Ear: Tympanic membrane normal. Nose: Nose normal. Mouth/Throat: Mouth: Mucous membranes are moist. Eyes: Pupils: Pupils are equal (more content not included)... Normal [facility] No Panel Informationon 04-09 Patient Name: GERALDINE [facility] Diagnostic Radiology ACCESSION EXAM DATE/TIME PROCEDURE ORDERING PROVIDER [id number] 04/09/2021 19:07 EST CR Foot Complete 3+ DANIELLA DONOVAN BETH A. Views Right CPT code 27366 Reason For Exam (CR Foot Complete 3+ Views Right) fall pain to the lateral aspect of foot pain below 5th Report Examination: Right foot Clinical Indication: fall pain to the lateral aspect of foot pain below 5th Comparison: None Findings: AP, lateral, and oblique views of the right foot. There is nondisplaced but incomplete transverse fracture of the proximal fifth metatarsal diaphysis. Normal age-appropriate bone mineralization. Bones are in normal anatomic alignment. Gross preservation of the tarsal arch. There is no evidence for radiopaque foreign body. There is minimal first metatarsal phalangeal joint space narrowing with tiny osteophytes. The visualized soft tissues are within normal limits. Impression: Transverse nondisplaced proximal diaphysis fracture fifth metatarsal. Report Dictated on --- Final --- Dictated: 04/09/2021 7:10 pm Dictating Physician: MD AMAYA ANTHONY J Signed Date and Time: 04/09/2021 7:12 pm Signed by: MD AMAYA ANTHONY J Transcribed Date and Time: 04/09/2021 7:10 [facility] Carlos Amaya MD - 04/09/2021 Patient Name: GERALDINE [facility] Diagnostic Radiology ACCESSION EXAM DATE/TIME PROCEDURE ORDERING PROVIDER [id number] 04/09/2021 19:07 EST CR Foot Complete 3+ DANIELLA DONOVAN BETH A. Views Right CPT code 13415 Reason For Exam (CR Foot Complete 3+ Views Right) fall pain to the lateral aspect of foot pain below 5th Report Examination: Right foot Clinical Indication: fall pain to the lateral aspect of foot pain below 5th Comparison: None Findings: AP, lateral, and oblique views of the right foot. There is nondisplaced but incomplete transverse fracture of the proximal fifth metatarsal diaphysis. Normal age-appropriate bone mineralization. Bones are in normal anatomic alignment. Gross preservation of the tarsal arch. There is no evidence for radiopaque foreign body. There is minimal first metatarsal phalangeal joint space narrowing with tiny osteophytes. The visualized soft tissues are within normal limits. Impression: Transverse nondisplaced proximal diaphysis fracture fifth metatarsal. Report Dictated on --- Final --- Dictated: 04/09/2021 7:10 pm Dictating Physician: MD AMAYA ANTHONY J Signed Date and Time: 04/09/2021 7:12 pm Signed by: MD AMAYA ANTHONY J Transcribed Date and Time: 04/09/2021 7:10 [facility] Work Phone: Radiology Study observation (narrative) [facility] Work Phone: No Panel InformationOrdered By: Carlos Amaya on 04-09-2021 [facility] Work Phone: Laboratory - Urinalysison Protein Ql (U) Negative Negative mg/dL [facility] No Panel Informationon 02-23 BILIRUBIN UA (POCT) Negative Negative [facility] CLARITY UA (POCT) Clear [facility] COLOR UA (POCT) Yellow [facility] GLUCOSE UA (POCT) Negative Negative mg/dL [facility] HEMOGLOBIN/BLOOD UA (POCT) Negative Negative [facility] KETONE UA (POCT) Negative Negative mg/dL [facility] LEUKOCYTES UA (POCT) Negative Negative [facility] NITRITE UA (POCT) Negative Negative [facility] PH UA (POCT) 6.0 4.5 - 8.0 [facility] SPECIFIC GRAVITY UA (POCT) 1.015 1.005 - 1.030 [facility] UROBILINOGEN UA (POCT) 0.2 E.U./dL Ignacia l E.U./dL [facility] Ova Parasite Exam, Fecalon 0 02-04-2021 Ova Parasite, Interp Negative Normal Negative [facility] Comment on above: Result Comment: INTE RPRETIVE INFORMATION: Ova and Parasite, Fecal Method for identification of Ova and Parasites includes wet mount and trichrome stains. Due to the various shedding cycles of many parasites, three separate stool specimens collected over a 5-7-day period are recommended for ova and parasite examination. A single negative result does not rule out the possibility of a parasitic infection. The ova and parasite exam does not specifically detect Cryptosporidium, Cyclospora, Cystoisospora, and Microsporidia. For additional test information refer to [employer] consult, [email or web address] Performed By: [employer] [address] [place] [id number] [employer]: Nichelle Vallejo MD Performed By: #### O VPO #### The performing lab is in the report. GASTROINTESTINAL PCR PANELon 02-01-2021 GASTROINTESTINAL PCR PANEL GASTROINTESTINAL PCR PANEL --> Status: F NEGATIVE: No targets were detected by the [employer] Mobile Gastrointestinal PCR Panel. _ The [employer] Gastrointestinal PCR Panel can detect the following targets: Campylobacter, Plesiomonas shigelloides, Salmonella, Vibrio species, Vibrio cholerae, Yersinia enterocolitica, Shiga toxin-producing E coli (STEC) including E coli O157, Enterotoxigenic E coli (ETEC), Shigella/Enteroinvasi ve E coli (EIEC), Cryptosporidium, Cyclospora cayetanensis, Entamoeba histolytica, Giardia lamblia, Adenovirus F 40/41, Astrovirus, Norovirus GI/GII, Rotavirus A, Sapovirus Gastrointestinal PCR Panel. _ The [employer] Gastrointestinal PCR Panel can detect the following targets: Campylobacter, Plesiomonas shigelloides, Salmonella, Vibrio species, Vibrio cholerae, Yersinia enterocolitica, Shiga toxin-producing E coli (STEC) including E coli O157, Enterotoxigenic E coli (ETEC), Shigella/Enteroinvasi ve E coli (EIEC), Cryptosporidium, Cyclospora cayetanensis, Entamoeba histolytica, Giardia lamblia, Adenovirus F 40/41, Astrovirus, Norovirus GI/GII, Rotavirus A, Sapovirus Normal [facility] Comment on above: Performed By: #### B FGI #### [facility] [address] [place] [id number] Comp Metabolic Panelon 01-31 ALT [Catalytic activity/Vol] 16 U/L Normal 0-49 [facility] Comment on above: Result Comment: The ALT test is performed by an updated assay method. Please note that the reference intervals have been changed and are now sex specific. Performed By: #### C MP3, LIPA4, HEMOG #### [facility] [address] [place] [address] Calcium [Mass/Vol] 8.9 mg/dL Normal 8.4-10.4 [facility] Comment on above: Performed By: #### C MP3, LIPA4, HEMOG #### [facility] [address] [place] [address] Glucose [Mass/Vol] 73 mg/dL Normal 70-100 [facility] Comment on above: Performed By: #### C MP3, LIPA4, HEMOG #### [facility] [address] [place] [address] ALP [Catalytic activity/Vol] 60 U/L Normal 38-126 [facility] Comment on above: Performed By: #### C MP3, LIPA4, HEMOG #### [facility] [address] [place] [address] Anion gap [Moles/Vol] 7 mmol/L Normal 3-13 [facility] Comment on above: Performed By: #### C MP3, LIPA4, HEMOG #### [facility] [address] [place] [address] AST [Catalytic activity/Vol] 32 U/L Normal 15-46 [facility] Comment on above: Performed By: #### C MP3, LIPA4, HEMOG #### [facility] [address] [place] [address] Bilirubin [Mass/Vol] 0.5 mg/dL Normal 0.2-1.3 [facility] Comment on above: Performed By: #### C MP3, LIPA4, HEMOG #### [facility] [address] [place] [address] CO2 [Moles/Vol] 30 mmol/L Normal 22-30 [facility] Comment on above: Performed By: #### C MP3, LIPA4, HEMOG #### [facility] [address] [place] [address] Creatinine [Mass/Vol] 0.74 mg/dL Normal 0.52-1.25 [facility] Comment on above: Performed By: #### C MP3, LIPA4, HEMOG #### [facility] [address] [place] [address] eGFR OTHER > 90.0 Normal >60 [facility] Comment on above: Result Comment: KDIG O guidelines provide the following GFR categories: Stage GFR(ml/min/1.73 m2) Terms G1 >=90 Normal or high G2 60-89 Mildly decreased* G3a 45-59 Mildly to moderately decreased G3b 30-44 Moderately to severely decreased G4 15-29 Severely decreased G5 <15 Kidney failure *Relative to young adult level. In the absence of evidence of kidney damage, neither GFR category G1 nor G2 fulfill the criteria for CKD. The CKD-EPI equation is validated in individuals 18 years of age and older. Currently the best equation for estimating glomerular filtration rate (GFR) from serum creatinine in children is the Bedside Phillips equation. It is less accurate in patients with extremes of muscle mass, restriction of dietary protein, ingestion of creatine, extra-renal metabolism of creatinine, or treatment with medications that affect renal tubular creatinine secretion. Performed By: #### C MP3, LIPA4, HEMOG #### [facility] [address] [place] [address] GFR/1.73 sq M.predicted among blacks MDRD (S/P/Bld) [Vol rate/Area] mL/min/{1.73_m2} Normal >60 [facility] Comment on above: Performed By: #### C MP3, LIPA4, HEMOG #### [facility] [address] [place] [address] Protein [Mass/Vol] 7.5 g/dL Normal 6.3-8.2 [facility] Comment on above: Performed By: #### C MP3, LIPA4, HEMOG #### [facility] [address] [place] [address] Urea nitrogen [Mass/Vol] 7 mg/dL Normal 7-17 [facility] Comment on above: Performed By: #### C MP3, LIPA4, HEMOG #### [facility] [address] [place] [address] Potassium [Moles/Vol] 4.0 mmol/L Normal 3.5-5.1 [facility] Comment on above: Performed By: #### C MP3, LIPA4, HEMOG #### [facility] [address] [place] [address] Sodium [Moles/Vol] 140 mmol/L Normal 135-145 [facility] Comment on above: Performed By: #### C MP3, LIPA4, HEMOG #### [facility] [address] [place] [address] Albumin [Mass/Vol] 4.3 g/dL Normal 3.5-5.0 [facility] Comment on above: Performed By: #### C MP3, LIPA4, HEMOG #### [facility] [address] [place] [address] Chloride [Moles/Vol] 103 mmol/L Normal 98-107 [facility] Comment on above: Performed By: #### C MP3, LIPA4, HEMOG #### [facility] [address] [place] [address] Comprehensive Metabolic Pane lOrdered By: Mayo Yang on 01-31-2021 Albumin [Mass/Vol] 4.3 g/dL 3.5 - 5.0 g/dL [facility] Work Phone: [phone] ALP (Bld) [Catalytic activity/Vol] 60 U/L 38 - 126 U/L [facility] Work Phone: [phone] ALT [Catalytic activity/Vol] 16 U/L 0 - 49 U/L [facility] Work Phone: [phone] Comment on above: The ALT test is perf ormed by an updated assay method. Please note that the reference intervals have been changed and are now sex specific. Anion gap [Moles/Vol] 7 mmol/L 3 - 13 mmol/L [facility] Work Phone: [phone] AST [Catalytic activity/Vol] 32 U/L 15 - 46 U/L [facility] Work Phone: [phone] Bilirubin [Mass/Vol] 0.5 mg/dL 0.2 - 1 .3 mg/dL [facility] Work Phone: [phone] Calcium [Mass/Vol] 8.9 mg/dL 8.4 - 10. 4 mg/dL [facility] Work Phone: [phone] Chloride [Moles/Vol] 103 mmol/L 98 - 10 7 mmol/L [facility] Work Phone: [phone] [Moles/Vol] 30 mmol/L 22 - 30 mmol/L [facility] Work Phone: [phone] Creatinine [Mass/Vol] 0.74 mg/dL 0.52 - 1.25 mg/dL [facility] Work Phone: [phone] IF NonAfrican Danish >90.0 >60 mL/min [facility] Work Phone: [phone] Comment on above: KDIGO guidelines pro vide the following GFR categories: Stage GFR(ml/min/1.73 m2) Terms G1 >=90 Normal or high G2 60-89 Mildly decreased* G3a 45-59 Mildly to moderately decreased G3b 30-44 Moderately to severely decreased G4 15-29 Severely decreased G5 <15 Kidney failure *Relative to young adult level. In the absence of evidence of kidney damage, neither GFR category G1 nor G2 fulfill the criteria for CKD. The CKD-EPI equation is validated in individuals 18 years of age and older. Currently the best equation for estimating glomerular filtration rate (GFR) from serum creatinine in children is the Bedside Phillips equation. It is less accurate in patients with extremes of muscle mass, restriction of dietary protein, ingestion of creatine, extra-renal metabolism of creatinine, or treatment with medications that affect renal tubular creatinine secretion. Free PSA/Total PSA [Mass fraction] 7.5 g/dL 6.3 - 8.2 g/dL [facility] Work Phone: [phone] GFR/1.73 sq M.predicted among blacks MDRD (S/P/Bld) [Vol rate/Area] mL/min/{1.73_m2} >60 mL/min [facility] Work Phone: [phone] Glucose [Mass/Vol] 73 mg/dL 70 - 100 mg/dL [facility] Work Phone: [phone] Potassium [Moles/Vol] 4.0 mmol/L 3.5 - 5.1 mmol/L [facility] Work Phone: [phone] Sodium [Moles/Vol] 140 mmol/L 135 - 145 mmol/L [facility] Work Phone: Urea nitrogen (BldV) [Mass/Vol] 7 mg/dL 7 - 17 mg/dL [facility] Work Phone: ED Provider Noteon ED Provider Note [facility] Patient: Geraldine Kaiser : 2000 Date of Evaluation: 01/31/2021 ED Provider: Mayo Yang MD Note: I wore a N95 mask and gloves during this encounter CHIEF COMPLAINT: Worm in stool HPI: Geraldine Kaiser is a 20 y.o. male with PMH including polysubstance abuse, currently on Sublocade, denies current drug use, presents with concern for a worm in his stool. Patient reports for last month and a half he has had intermittent nausea and vomiting, as well as watery bowel movement including 1 episode per day, he reports several days ago he appreciated a sec reporting consultant his stool while having a bowel movement, he reports he had to pull a 3 foot white warm out of his rectum while having a bowel movement, it subsequently moved while in the toilet, he presents for evaluation of parasite in his stool. Patient endorses mild epigastric abdominal cramping, otherwise denies abdominal pain, denies hematochezia or melena, denies recent travel, denies chest pain, cough, shortness of breath, palpitations, lightheadedness or dizziness, numbness or weakness throughout the extremities, rash. Patient denies alleviating or exacerbating factors. Patient denies scrotal swelling or testicular pain, denies penile lesions or discharge. REVIEW OF SYSTEMS: 10 systems reviewed and otherwise acutely negative except as per HPI. HISTORIES: PAST MEDICAL HISTORY: as per HPI SOCIAL HISTORY: Endorses history of tobacco use, former opiate and methamphetamine use, denies alcohol use MEDICATIONS: Nursing notes and EMR reviewed ALLERGIES: Nursing notes and EMR reviewed PHYSICAL EXAM: ED Triage Vitals BP Temp Temp src Pulse Resp SpO2 Height Weight -- -- -- -- -- -- -- -- Vital signs: reviewed, as documented General: no apparent distress, well appearing Eyes: no conjunctival injection, eyes tracking HEENT: airway patent, mucous membranes moist Cardiovascular: regular rhythm, normal rate Respiratory: non-labored breathing, breath sounds clear Gastrointestinal: soft, non-distended, non-tender to palpation throughout including epigastric region, no rigidity bending or guarding Extremities: no obvious deformity, non edematous Integumentary: warm, dry Neurologic: alert, no obvious neurologic deficits Medications - No data to display MEDICAL DECISION MAKING: Geraldine Kaiser is a 20 y.o. male who presents as above, with concern for a worm in his stool, as well as 1-1/2 months of nausea vomiting and watery bowel movement, and epigastric cramping. Presentation concerning for possible GI parasite, peptic ulcer, gastritis. Patient's abdominal exam is benign, clinically low suspicion for an acute intra-abdominal process. Patient is having 1 watery bowel movement per day, clinically do not suspect C. difficile colitis. Discussed with patient, will obtain laboratory evaluation including CMP, lipase, CBC, as well as stool studies including ova and parasite. We will treat symptoms with Pepcid. Labs obtained, reviewed, notable for no significant lecture light disturbances, no renal dysfunction, unremarkable LFTs and lipase, no leukocytosis, hemoglobin within normal limits Patient was able to provide a sample for stool studies. Patient informed of findings, management options discussed, patient comfortable and in agreement with plan for discharge, will place GI referral, recommend call tomorrow to arrange an outpatient appointment, additionally recommend follow-up PCP in 3 to 5 days, patient will follow-up on stool studies as an outpatient, with strict return precautions discussed, will prescribe Pepcid, patient in agree with plan, stable for discharge. DIAGNOSIS: Nausea vomiting diarrhea, worms in stool DISPOSITION: Discharged Comment: Please note this report has been produced using speech recognition software and may contain errors related to that system including errors in grammar, punctuation, and spelling, as well as words and phrases that may be inappropriate. If there are any questions or concerns please feel free to contact the dictating provider for clarification. Mayo Yang MD [employer] Mayo Yang MD 01/31/212057 Normal [facility] Hemogramon 01-31-2021 Erythrocyte distribution width (RBC) [Ratio] 14.4 % Normal 11.5-14.5 [facility] [facility] Comment on above: Performed By: #### C MP3, LIPA4, HEMOG #### [facility] [address] [place] [address] Hematocrit (Bld) [Volume fraction] 40.5 % Normal 40.0-52.0 [facility] Comment on above: Performed By: #### C MP3, LIPA4, HEMOG #### [facility] [address] [place] [address] Hemoglobin (Bld) [Mass/Vol] 13.6 g/dL Normal 13.0-18.0 [facility] Comment on above: Performed By: #### C MP3, LIPA4, HEMOG #### [facility] [address] [place] [address] MCH (RBC) [Entitic mass] 30.3 pg Normal 26.0-34.0 [facility] Comment on above: Performed By: #### C MP3, LIPA4, HEMOG #### [facility] [address] [place] [address] MCHC 33.5 % Normal 32.0-36.0 [facility] Comment on above: Performed By: #### C MP3, LIPA4, HEMOG #### [facility] [address] [place] [address] MCV (RBC) [Entitic vol] 90.7 fL Normal 80.0-98.0 [facility] Comment on above: Performed By: #### C MP3, LIPA4, HEMOG #### [facility] [address] [place] [address] Platelet mean volume (Bld) [Entitic vol] 8.4 fL Normal 7.4-10.4 [facility] Comment on above: Performed By: #### C MP3, LIPA4, HEMOG #### [facility] [address] [place] [address] Platelets (Bld) [#/Vol] 218 10*3/uL Normal 140-440 [facility] Comment on above: Performed By: #### C MP3, LIPA4, HEMOG #### [facility] [address] [place] [address] RBC (Bld) [#/Vol] 4.47 10*6/uL Normal 4.40-5.90 [facility] Comment on above: Performed By: #### C MP3, LIPA4, HEMOG #### [facility] [address] [place] [address] WBC (Bld) [#/Vol] 5.2 10*3/uL Normal 3.6-10.7 [email or web address] Comment on above: Performed By: #### C MP3, LIPA4, HEMOG #### [facility] [address] [place] [address] Hemogram (CBC)Ordered By: Senia Yang on 01-31-2021 Hematocrit (Bld) [Volume fraction] 40.5 % 40.0 - 52.0 % [facility] Work Phone: 1 Hemoglobin.gastrointesti nal spec 1 Ql (Stl) 13.6 g/dL 13.0 - 18.0 g/dL [facility] Work Phone: 1) MCH (RBC) [Entitic mass] 30.3 pg 26. 0 - 34.[address] [facility] [facility] Work Phone: MCHC (RBC) [Mass/Vol] 33.5 % 32.0 - 36.0 % [facility] Work Phone: 1 MCV (RBC) [Entitic vol] 90.7 fL 80.0 - 98.0 fL [facility] Work Phone: 1 Platelet distribution width (Bld) [Ratio] 14.4 % 11.5 - 14.5 % [facility] Work Phone: ) Platelet mean volume (Bld) [Entitic vol] 8.4 fL 7.4 - 10.4 fL [facility] Work Phone: 1) 22 Platelets (Bld) [#/Vol] 218 10*3/uL 140 - 440 10*3/uL [facility] Work Phone: ) 22 RBC (Bld) [#/Vol] 4.47 10*6/uL 4.40 - 5.9 0 10*6/uL [facility] Work Phone: WBC (Bld) [#/Vol] 5.2 10*3/uL 3.6 - 10.7 10*3/uL [facility] Work Phone: 1 Test Performed by [facility], [address] [place], [place] [address] [facility] Work Phone: [phone] [facility] Work Phone: Lipaseon 01-31-2021 Lipase [Catalytic activity/Vol] 48 U/L Normal 23-300 [facility] Comment on above: Performed By: #### C MP3, LIPA4, HEMOG #### [facility] [address] [place] [address] LipaseOrdered By: Mayo riggins on 01-31-2021 Lipase [Catalytic activity/Vol] 48 U/L 23 - 300 U/L [facility] Work Phone: [phone] No Panel InformationOrdered By: Mayo Yang on 01-31-2021 Test Performed by [facility], [address] [place], [place] [address] [facility] Work Phone: [phone] [facility] Work Phone: XR HAND RIGHT (MIN 3 VIEWS)o n 09-21-2020 XR HAND RIGHT (MIN 3 VIEWS) EXAMINATION: XR HAND RIGHT (MIN 3 VIEWS) HISTORY: Hand injury. Punched floor. TECHNIQUE: XR HAND RIGHT (MIN 3 VIEWS) COMPARISON: None RESULT: Nondisplaced mildly angulated fracture involving the distal fifth metacarpal neck, which may be have a chronic component. Associated soft tissue swelling. Tiny avulsed fracture fragment adjacent to the fifth MCP joint. No other significant abnormality. IMPRESSION: Fracture involving the distal fifth metacarpal neck, which may have chronic component. Tiny avulsed fracture fragment adjacent to the fifth MCP joint. Interpreted by: Nas Smith MD Signed by: Nas Smith MD 09/21/20 Final result Normal [facility] Add on test from HISon 08-12 Add on test from HIS Accepted Normal [facility] Comment on above: Result Comment: Spec imen available & acceptable for analysis. Performed By: #### A DDON #### [facility] [address] [place] [address] Complete Urinalysison 2020 Appearance (U) Clear Normal Clear [facility] Comment on above: Result Comment: . Performed By: #### D RGA4, ARABELLAU, CUA2 #### [facility] [address] [place], [place] Bilirubin,Urine Negative Normal Negative [facility] Comment on above: Result Comment: . Performed By: #### D RGA4, FENTU, CUA2 #### [facility] [address] [place], [place] Color (U) Light-Yellow Normal Lt. Yellow [facility] Comment on above: Result Comment: . Performed By: #### D RGA4, FENTU, CUA2 #### [place] [address] [address] [place], [place] Glucose Ql (U) Normal Normal Normal (<70) [facility] Comment on above: Result Comment: . Performed By: #### D RGAngelina, ARABELLAU, CUA2 #### [place] [address] [address] [place], [place] Ketone,Urine 20 mg/dL Abnormal Negative [facility] Comment on above: Result Comment: . Performed By: #### D RGAngelina, ARABELLAU, CUA2 #### [place] [address] [address] [place], [place] Leukocytes,Urine Negative Normal Negative [facility] Comment on above: Result Comment: . Performed By: #### D ODILIA, ARABELLAU, CUA2 #### [place] [address] [address] [place], [place] Nitrites,Urine Negative Normal Negative [facility] Comment on above: Result Comment: . Performed By: #### Andreia HARTLEY, ARABELLAU, CUA2 #### [place] [address] [address] [place], [place] Occult Blood,Urine Negative Normal Negative [facility] Comment on above: Result Comment: . Performed By: #### D RGAngelina, FENTU, CUA2 #### [place] [address] [address] [place], [place] pH,Urine 6.0 Normal 5.0-8.0 [facility] Comment on above: Result Comment: . Performed By: #### D RGAngelina, ARABELLAU, CUA2 #### [place] [address] [address] [place], [place] Specific [place],Urine 1.007 Normal 1.005 - 1.030 [facility] Comment on above: Result Comment: . Performed By: #### AMANDA PINTO CUA2 #### [facility] [address] [place], [place] Total Protein,Urine Negative Normal Negative [facility] Comment on above: Result Comment: . Performed By: #### AMANDA PINTO CUA2 #### [facility] [address] [place], [place] Urobilinogen,Urine Normal Normal Normal (0-1) [facility] Comment on above: Result Comment: . Performed By: #### AMANDA PINTO CUA2 #### [facility] [address] [place], [place] Drugs of Abuseon 08-12-2020 Phencyclidine (PCP), Ur Negative Normal [facility] Comment on above: Result Comment: The expected value for all of the drugs listed above is Negative. The following drugs or drug groups have been screened for by Immunoassay at the following thresholds: Amphetamine class (1000 ng/mL), Barbiturates (200 ng/mL), Benzodiazepines (200 ng/mL), Cocaine (300 ng/mL), Methadone (300 ng/mL), Opiates (300 ng/mL), Oxycodone (100 ng/mL), and PCP (25 ng/mL). NOTE: These results are for medical treatment only. Analysis performed using non-forensic procedures. POSITIVE results are NOT confirmed by a more specific alternative method unless requested. If confirmation is needed, request confirmation under separate order. Performed By: #### AMANDA PINTO CUA2 #### [facility] [address] [facility], [place] Methadone, Ur Negative Normal [facility] Comment on above: Performed By: #### AMANDA PINTO CUA2 #### [place] [address] [address] [place], [place] Cocaine, Ur Negative Normal [facility] Comment on above: Performed By: #### AMANDA PINTO CUA2 #### [place] [address] [address] [facility], [place] Opiates, Ur Negative Normal [facility] Comment on above: Performed By: #### D RGA4, FENTU, CUA2 #### [facility] [address] [facility], [place] Barbiturates, Ur Negative Normal [facility] Comment on above: Performed By: #### D RGA4, FENTU, CUA2 #### [facility] [address] [facility], [place] Amphetamines, Ur Negative Normal [facility] Comment on above: Performed By: #### D RGA4, FENTU, CUA2 #### [facility] [address] [facility], [place] Benzodiazepines, Ur Negative Normal [facility] Comment on above: Performed By: #### D RGA4, FENTU, CUA2 #### [facility] [address] [facility], [place] Fentanyl Screen, Urineon Fentanyl Screen, Urn Positive Normal Negative [facility] Comment on above: Result Comment: Fent anyl has been screened for by Immunoassay at a 2ng/ml threshold. POSITIVE results are not confirmed by a more specific alternative method unless requested. If confirmation is needed, request confirmation under separate order. NOTE: These results are for medical treatment only. Analysis performed using non-forensic procedures. Performed By: #### D RGA4, FENTU, CUA2 #### [facility] [address] [facility], [place] [id number] 08-12-2020 SARS-CoV-2 (COVID-19) RNA JAZMIN+probe Ql (Unsp spec) SARS-CoV-2 --> Status: F Not Detected. Expected Result: Not Detected _ Real-time, RT-PCR performed on the [employer] System by the [facility]. Negative results do not preclude SARS-CoV-2 infection and should not be used as the sole basis for treatment or other patient management decisions. This assay was developed by [employer] and distributed under an Emergency Use Authorization (EUA) granted by the FDA for the qualitative detection of SARS-CoV-2 nucleic acid. Expected Result: Not Detected _ Real-time, RT-PCR performed on the [employer] System by the [facility]. Negative results do not preclude SARS-CoV-2 infection and should not be used as the sole basis for treatment or other patient management decisions. This assay was developed by [employer] and distributed under an Emergency Use Authorization (EUA) granted by the FDA for the qualitative detection of SARS-CoV-2 nucleic acid. Normal [facility] Comment on above: Performed By: #### C OVID ####[facility] [place], [place] Comp Metabolic Panelon 08-11 ALT [Catalytic activity/Vol] 17 U/L Normal 0-49 [facility] Comment on above: Result Comment: The ALT test is performed by an updated assay method. Please note that the reference intervals have been changed and are now sex specific. Performed By: #### E TOH4, HEMDF, CMP3 #### [facility] [address] [place], [place] Calcium [Mass/Vol] 9.6 mg/dL Normal 8.4-10.4 [facility] Comment on above: Performed By: #### E TOH4, HEMDF, CMP3 #### [facility] [address] [place], [place] Glucose [Mass/Vol] 136 mg/dL High 70-100 [facility] Comment on above: Performed By: #### E TOH4, HEMDF, CMP3 #### [facility] [address] [place], [place] ALP [Catalytic activity/Vol] 65 U/L Normal 38-126 [facility] Comment on above: Performed By: #### E TOH4, HEMDF, CMP3 #### [facility] [address] [place], [place] Anion gap [Moles/Vol] 10 mmol/L Normal 3-13 [facility] Comment on above: Performed By: #### E TOH4, HEMDF, CMP3 #### [facility] [address] [place], [place] AST [Catalytic activity/Vol] 31 U/L Normal 15-46 [facility] Comment on above: Performed By: #### E TOH4, HEMDF, CMP3 #### [facility] [address] [place], [place] Bilirubin [Mass/Vol] 1.4 mg/dL High 0.2-1.3 [facility] Comment on above: Performed By: #### E TOH4, HEMDF, CMP3 #### [facility] [address] [place], [place] CO2 [Moles/Vol] 29 mmol/L Normal 22-30 [facility] Comment on above: Performed By: #### E TOH4, HEMDF, CMP3 #### [place] [address] [address] [place], [place] Creatinine [Mass/Vol] 0.81 mg/dL Normal 0.52-1.25 [facility] Comment on above: Performed By: #### E TOH4, HEMDF, CMP3 #### [place] [address] [address] [place], [place] eGFR OTHER > 90.0 Normal >60 [facility] Comment on above: Result Comment: KDIG O guidelines provide the following GFR categories: Stage GFR(ml/min/1.73 m2) Terms G1 >=90 Normal or high G2 60-89 Mildly decreased* G3a 45-59 Mildly to moderately decreased G3b 30-44 Moderately to severely decreased G4 15-29 Severely decreased G5 <15 Kidney failure *Relative to young adult level. In the absence of evidence of kidney damage, neither GFR category G1 nor G2 fulfill the criteria for CKD. The CKD-EPI equation is validated in individuals 18 years of age and older. Currently the best equation for estimating glomerular filtration rate (GFR) from serum creatinine in children is the Bedside Phillips equation. It is less accurate in patients with extremes of muscle mass, restriction of dietary protein, ingestion of creatine, extra-renal metabolism of creatinine, or treatment with medications that affect renal tubular creatinine secretion. Performed By: #### E TOH4, HEMDF, CMP3 #### [facility] [address] [place], [place] GFR/1.73 sq M.predicted among blacks MDRD (S/P/Bld) [Vol rate/Area] mL/min/{1.73_m2} Normal >60 [facility] Comment on above: Performed By: #### E TOH4 HEMDF, CMP3 #### [place] [address] [address] [place], [place] Protein [Mass/Vol] 8.4 g/dL High 6.3-8.2 [facility] Comment on above: Performed By: #### E TOH4, HEMDF, CMP3 #### [place] [address] [address] [place], [place] Urea nitrogen [Mass/Vol] 15 mg/dL Normal 7-20 [facility] Comment on above: Performed By: #### E TOEdmond HEMDF, CMP3 #### [address] [place], [place] Potassium [Moles/Vol] 3.8 mmol/L Normal 3.5-5.1 [facility] Comment on above: Performed By: #### E TOEdmond HEMDF, CMP3 #### [place] [address] [address] [place], [place] Sodium [Moles/Vol] 137 mmol/L Normal 135-145 [facility] Comment on above: Performed By: #### E TOEdmond HEMMURALI, CMP3 #### [place] [address] [address] [place], [place] Albumin [Mass/Vol] 4.9 g/dL Normal 3.5-5.0 [facility] Comment on above: Performed By: #### E TOEdmond HEMDF, CMP3 #### [place] [address] [address] [place], [place] Chloride [Moles/Vol] 98 mmol/L Normal 98-107 [facility] Comment on above: Performed By: #### E TOEdmond HEMDF, CMP3 #### [address] [place], [place] Drugs of Abuseon 08-11-2020 Oxycodone/Oxymorphine,Ur Negative Normal [facility] Comment on above: Performed By: #### D RGA4, ARABELLAU, CUA2 #### [place] [address] [place] [address] ED Provider Noteon ED Provider Note [facility] EMERGENCY DEPT EMERGENCY DEPARTMENT ENCOUNTER Pt Name: Geraldine Kaiser Birthdate 2000 Date of evaluation: 08/11/2020 Provider: Tali Anderson PA-C ED care was supervised by Dr. Mcghee who independently examined and evaluated the patient. Please see their attestation note for further details. CHIEF COMPLAINT Chief Complaint Patient presents with ? Addiction Problem pt would like help with detox from fentanyl. pt states last use was Monday night. pt states snorting appox 0.5g per day. HISTORY OF PRESENT ILLNESS I wore a N95 respirator covered by a surgical mask and gloves for the entirety of this encounter. HPI Geraldine Kaiser is a 20 y.o. 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 Patient states that he utilizes approximately 0.5 g of fentanyl intranasally daily. He states that last use occurred x2 days ago. He has been using fentanyl for multiple years. He has underwent inpatient detox in the past, approximately 1 year ago at [facility]. He is experiencing symptoms of withdrawal at this time including restlessness, restless legs, yawning, chills. Aside from fentanyl use, patient does utilize daily tobacco as well as intermittent alcohol consumption. He denies any daily alcohol use. Denies any additional illicit substance use or IV drug use. Denies any suicidal homicidal ideation. No auditory or visual hallucinations. Patient denies any additional systemic concerns at this time. Denies fever, chest pain, dyspnea, cough, hemoptysis, palpitations, abdominal pain, nausea, vomiting, diarrhea, headache, dizziness or syncope. No additional concern. Nursing Notes were reviewed and confirmed as correct. REVIEW OF SYSTEMS Review of Systems This patient's personal and family past medical history as stated in HPI and otherwise negative. ROS as stated in HPI otherwise negative, a total of 10 systems reviewed. PAST MEDICAL HISTORY Past Medical History: Diagnosis Date ? Drug abuse (HCC) ? Polysubstance abuse (HCC) ? Rhabdomyolysis 01/2017 SURGICAL HISTORY History reviewed. No pertinent surgical history. CURRENTMEDICATIONS Previous Medications BACLOFEN (LIORESAL) 10 MG TABLET Take 1 tablet by mouth 3 times daily HYDROXYZINE (ATARAX) 25 MG TABLET Take 1 tablet by mouth every 8 hours as needed for Anxiety THIAMINE 100 MG TABLET Take 1 tablet by mouth daily TRAZODONE (DESYREL) 100 MG TABLET Take 1 tablet by mouth nightly as needed for Sleep ALLERGIES Patient has no known allergies. FAMILY HISTORY Family History Problem Relation Age of Onset ? Substance Abuse Maternal Uncle SOCIAL HISTORY Social History Socioeconomic History ? Marital status: Single Spouse name: None ? Number of children: 0 ? Years of education: Dropped out in the 9th grade, did get a GED ? Highest education level: None Occupational History Employer: [employer] Social Needs ? Financial resource strain: None ? Food insecurity Worry: None Inability: None ? Transportation needs Medical: None Non-medical: None Tobacco Use ? Smoking status: Current Every Day Smoker Packs/day: 1.00 Types: Cigarettes ? Smokeless tobacco: Never Used ? Tobacco comment: 1ppd Substance and Sexual Activity ? Alcohol use: Not Currently Comment: once a week ? Drug use: Yes Types: Opiates , Methamphetamines Comment: fentanyl 01/24/2017, 08/10/20 supposed to be a [employer], 08/11/20- states snorting 0.5g fentanyl daily ? Sexual activity: Yes Lifestyle ? Physical activity Days per week: None Minutes per session: None ? Stress: None Relationships ? Social connections Talks on phone: None Gets together: None Attends christian service: None Active member of club or organization: None Attends meetings of clubs or organizations: None Relationship status: None ? Intimate partner violence Fear of current or ex partner: None Emotionally abused: None Physically abused: None Forced sexual activity: None Other Topics Concern ? None Social History Narrative Merged History Encounter SCREENINGS [place] Coma Scale Eye Opening: Spontaneous Best Verbal Response: Oriented Best Motor Response: Obeys commands [place] Coma Scale Score: 15 PHYSICAL EXAM ED Triage Vitals BP Temp Temp Source Pulse Resp SpO2 Height Weight 08/11/20 1843 08/11/20 18408/11/20 18408/11/20 18408/11/20 1843 08/11/20 1843 08/11/20 1842 08/11/20 184 131/83 98.8 ?F (37.1 ?C) Temporal 106 18 99 % 6' 3 (1.905 m) 180 lb (81.6 kg) Physical Exam Constitutional: Patient is AAO x3. Well-nourished early aged old male who is resting comfortably in bed, no acute distress, non-toxic in appearance. Vitals as stated above. HEENT: Head appears atraumatic and normocephalic. Neck is supple. Mucosa is moist and pink. Uvula and t (more content not included)... Normal [facility] ED Provider Note Emergency Department Encounter [facility] EMERGENCY DEPT Patient: Geraldine Kaiser : 2000 Date of Evaluation: 08/11/2020 ED Supervising Physician: Mariella Mcghee MD I independently examined and evaluated Geraldine Kaiser. In brief, Geraldine Kaiser is a 20 y.o. male that presents to the emergency department for help with detox. He states that he snorts 0.5 g per day of fentanyl. He denies any hallucinations, chest pain, or shortness of breath. He endorses chills, shakes, and feels as if he is withdrawing. His last use was 2 days ago. Focused exam: patient resting comfortably and asleep upon my entry into the room. There is a very slight tremor. Tachycardic. Lungs with good aeration bilaterally. Brief ED course/MDM: MAT nurse asked to evaluate the patient for detox. We'll administer medications and assist with detox. All diagnostic, treatment, and disposition decisions were made by myself in conjunction with the [facility]. For all further details of the patient's emergency department visit, please see their documentation. (Please note that portions of this note may have been completed with a voice recognition program. Efforts were made to edit the dictations but occasionally words are mis-transcribed.) Mraiella Mcghee MD [employer] Mariella Mcghee MD 08/11/20 7257 Normal [facility] Ethanol Serum/Plasmaon 08-11 Ethanol-Serum/Plasma < 0.010 Normal 0.000-0.010 [facility] Comment on above: Result Comment: NOTE : This result is for medical treatment only. Analysis performed using non-forensic procedures. Performed By: #### E TOH4, HEMDF, CMP3 #### [place] [address] [place] [id number] Hemogram w/ Autodiffon 08-11 Abs Baso Cnt 0.1 10*3/uL Normal 0.0-0.2 [facility] Comment on above: Performed By: #### E TOH4, HEMDF, CMP3 #### [place] [address] [address] [place], [place] Abs Neutrophile Cnt 3.5 10*3/uL Normal 1.8-7.0 [facility] Comment on above: Performed By: #### E TOH4, HEMDF, CMP3 #### [address] Basophils/100 WBC (Bld) 1.1 % Normal 0.0-2.0 [facility] Comment on above: Performed By: #### E TOH4, HEMDF, CMP3 #### [address] Eosinophils (Bld) [#/Vol] 0.0 10*3/uL Normal 0.0-0.5 [facility] Comment on above: Performed By: #### E TOH4, HEMDF, CMP3 #### [address] Eosinophils/100 WBC (Bld) 0.3 % Low 1.0-6.0 [facility] Comment on above: Performed By: #### E TOH4, HEMDF, CMP3 #### [address] Erythrocyte distribution width (RBC) [Ratio] 14.6 % High 11.5-14.5 [facility] Comment on above: Performed By: #### E TOH4, HEMDF, CMP3 #### [address] Granulocytes/100 WBC (Bld) 66.2 % Normal 40.0-80.0 [facility] Comment on above: Performed By: #### E TOH4, HEMDF, CMP3 #### [address] Hematocrit (Bld) [Volume fraction] 47.0 % Normal 40.0-52.0 [facility] Comment on above: Performed By: #### E TOEdmond HEMMURALI CMP3 #### [place] [address] [address] [place], [place] Hemoglobin (Bld) [Mass/Vol] 16.2 g/dL Normal 13.0-18.0 [facility] Comment on above: Performed By: #### E TOEdmond HEMMURALI, CMP3 #### [place] [address] [address] [place], [place] Lymphocytes (Bld) [#/Vol] 1.1 10*3/uL Normal 1.0-4.3 [facility] Comment on above: Performed By: #### E TOEdmond HEMMURALI, CMP3 #### [address] Lymphocytes/100 WBC (Bld) 21.7 % Normal 20.0-40.0 [facility] Comment on above: Performed By: #### E TOEdmond HEMMURALI, CMP3 #### [place] [address] [address] [place], [place] MCH (RBC) [Entitic mass] 31.7 pg Normal 26.0-34.0 [facility] Comment on above: Performed By: #### E TOEdmond HEMMURALI, CMP3 #### [place] [address] [address] [place], [place] MCHC 34.6 % Normal 32.0-36.0 [facility] Comment on above: Performed By: #### E TOEdmond HEMMURALI, CMP3 #### [place] [address] [address] [place], [place] MCV (RBC) [Entitic vol] 91.8 fL Normal 80.0-98.0 [facility] Comment on above: Performed By: #### E TOEdmond HEMDF, CMP3 #### [place] [address] [address] [place], [place] Monocytes (Bld) [#/Vol] 0.6 10*3/uL Normal 0.0-0.8 [facility] Comment on above: Performed By: #### E TOH4, HEMDF, CMP3 #### [facility] [address] [place], [place] Monocytes/100 WBC (Bld) 10.7 % High 2.0-10.0 [facility] Comment on above: Performed By: #### E TOH4, HEMDF, CMP3 #### [facility] [address] [place], [place] Platelet mean volume (Bld) [Entitic vol] 8.6 fL Normal 7.4-10.4 [facility] Comment on above: Performed By: #### E TOH4, HEMDF, CMP3 #### [place] [address] [address] [place], [place] Platelets (Bld) [#/Vol] 264 10*3/uL Normal 140-440 [facility] Comment on above: Performed By: #### E TOH4, HEMDF, CMP3 #### [place] [address] [address] [place], [place] RBC (Bld) [#/Vol] 5.11 10*6/uL Normal 4.40-5.90 [facility] Comment on above: Performed By: #### E TOH4, HEMDF, CMP3 #### [place] [address] [place], [place] WBC (Bld) [#/Vol] 5.2 10*3/uL Normal 3.6-10.7 [facility] Comment on above: Performed By: #### E TOH4, HEMDF, CMP3 #### [place] [address] [address] [place], [place] ED Provider Noteon ED Provider Note [facility] ED EMERGENCY DEPARTMENT ENCOUNTER Pt Name: Geraldine Kaiser Birthdate 2000 Date of evaluation: 08/10/2020 Provider: Jose Guardado, DO CHIEF COMPLAINT Chief Complaint Patient presents with ? Drug Overdose HISTORY OF PRESENT ILLNESS (Location/Symptom, Timing/Onset, Context/Setting, Quality, Duration, Modifying Factors, Severity) Note limiting factors. I wore a mask for the entirety of this encounter. Geraldine Kaiser is a 20 y.o. male who presents to the emergency department after opiate overdose. Patient's girlfriend found him cyanotic, agonal respirations, dispatch instructed her to start CPR. PD arrived and administered 4 mg of intranasal Narcan which woke him up. Patient was initially going to refuse transport when EMS arrived so EMS reported that they gave him 2 mg of intramuscular Narcan, which then caused him to have increased withdrawal symptoms. Patient is complaining of chills as well as nausea currently. States he must have used too much. States he snorted the opiates. Denies shooting up. Denies any other chest pain, shortness of breath, fever, chills, weakness, numbness, abdominal pain, nausea, vomiting. Nursing Notes were reviewed. REVIEW OF SYSTEMS (2+ for level 4; 10+ for level 5) 14 systems reviewed and otherwise acutely negative except as in the [place]. PAST MEDICAL HISTORY Past Medical History: Diagnosis Date ? Drug abuse (HCC) ? Polysubstance abuse (HCC) ? Rhabdomyolysis 01/2017 SURGICAL HISTORY History reviewed. No pertinent surgical history. CURRENT MEDICATIONS Current Discharge Medication List CONTINUE these medications which have NOT CHANGED Details traZODone (DESYREL) 100 MG tablet Take 1 tablet by mouth nightly as needed for Sleep Qty: 30 tablet, Refills: 0 Comments: Refills to be directed to PCP baclofen (LIORESAL) 10 MG tablet Take 1 tablet by mouth 3 times daily Qty: 21 tablet, Refills: 0 hydrOXYzine (ATARAX) 25 MG tablet Take 1 tablet by mouth every 8 hours as needed for Anxiety Qty: 30 tablet, Refills: 0 thiamine 100 MG tablet Take 1 tablet by mouth daily Qty: 60 tablet, Refills: 2 ALLERGIES Patient has no known allergies. FAMILY HISTORY Family History Problem Relation Age of Onset ? Substance Abuse Maternal Uncle SOCIAL HISTORY Social History Socioeconomic History ? Marital status: Single Spouse name: None ? Number of children: 0 ? Years of education: Dropped out in the 9th grade, did get a GED ? Highest education level: None Occupational History Employer: [employer] Social Needs ? Financial resource strain: None ? Food insecurity Worry: None Inability: None ? Transportation needs Medical: None Non-medical: None Tobacco Use ? Smoking status: Current Every Day Smoker Packs/day: 1.00 Types: Cigarettes ? Smokeless tobacco: Never Used ? Tobacco comment: 1ppd Substance and Sexual Activity ? Alcohol use: Yes Comment: once a week ? Drug use: Yes Types: Opiates , Methamphetamines Comment: fentanyl 01/24/2017, 08/10/20 supposed to be a Xanax bar ? Sexual activity: Yes Lifestyle ? Physical activity Days per week: None Minutes per session: None ? Stress: None Relationships ? Social connections Talks on phone: None Gets together: None Attends christian service: None Active member of club or organization: None Attends meetings of clubs or organizations: None Relationship status: None ? Intimate partner violence Fear of current or ex partner: None Emotionally abused: None Physically abused: None Forced sexual activity: None Other Topics Concern ? None Social History Narrative Merged History Encounter SCREENINGS [place] Coma Scale Eye Opening: Spontaneous Best Verbal Response: Oriented Best Motor Response: Obeys commands [place] Coma Scale Score: 15 PHYSICAL EXAM (up to 7 for level 4, 8 or more for level 5) ED Triage Vitals [08/10/20 0434] BP Temp Temp Source Pulse Resp SpO2 Height Weight 129/75 98.9 ?F (37.2 ?C) Oral 103 16 100 % 6' 3 (1.905 m) 170 lb (77.1 kg) CONSTITUTIONAL: AOx4, no apparent distress, appears stated age HEAD: normocephalic, atraumatic EYES: PERRL, EOMI ENT: moist mucous membranes, uvula midline NECK: supple, symmetric BACK: symmetric LUNGS: clear to auscultation bilaterally CARDIOVASCULAR: regular rate and rhythm, no murmurs, rubs or gallops ABDOMEN: soft, non-tender, non-distended with normal active bowel sounds : deferred NEUROLOGIC: MAEx4, no focal sensory or motor deficits MUSCULOSKELETAL: no clubbing, cyanosis or edema SKIN: no exposed rash DIAGNOSTIC RESULTS EKG (Per Emergency Physician): RADIOLOGY (Per Emergency Physician): No results found. Interpretation per the Radiologist below, if available at the time of this note: No results found. ED BEDSIDE ULTRASOUND: Performed by ED Physician - none LABS: Labs Reviewed - No data to display All oth (more content not included)... Normal [facility] C. Trachomatis / N. Gonorrho eae, DNAon 01-28-2020 C. trachomatis DNA JAZMIN+probe Ql (Genital specimen) NOT Detected Chlamydia trachomatis Nucleic Acid NOT Detected by DNA Amplification using the Programmrid System. Culture is the only recommended test in medical-legal cases such as suspected child abuse or molestation. [place] N. gonorrhoeae DNA JAZMIN+probe Ql (Unsp spec) NOT Detected Neisseria gonorrhoeae Nucleic Acid NOT Detected by DNA Amplification using the CepLUBB-TEXid System. Culture is the only recommended test in medical-legal cases such as suspected child abuse or molestation. [place] HIV Screenon 01-28-2020 HIV 1+2 [id number] AG, EIA NONREACTIVE Nonreactive NA [place] Comment on above: Results obtained usi ng the FDA cleared 4th generation HIV test. This test detects antibodies to HIV1, HIV2, HIV Group O, and the presence of the HIV-1 p24 antigen. A Non-Reactive re- sult indicates the patient is negative for both HIV antibody and HIV p24 antigen. All reactive results will undergo reflex confirmation testing at an additional charge. Hepatic Function Panelon Albumin [Mass/Vol] 4.1 g/dL 3.5 - 5 g/dL [place] ALP [Catalytic activity/Vol] 75 U/L 38 - 126 U/L [place] ALT [Catalytic activity/Vol] 18 U/L 0 - 49 U/L [place] Comment on above: The ALT test is perf ormed by an updated assay method. Please note that the reference intervals have been changed and are now sex specific. AST [Catalytic activity/Vol] 33 U/L 15 - 46 U/L [place] Bilirubin Ql (U) 0.7 mg/dL 0.2 - 1.3 mg/dL [place] Bilirubin.direct [Mass/Vol] 0.0 mg/dL 0 - 0.3 mg/dL [place] Protein [Mass/Vol] 7.3 g/dL 6.3 - 8.2 g/dL [place] Test Performed by [facility], [address] [place] [address] [place] Otheron 01-28-2020 Test Performed by [facility], [address] [place] [address] [place] Urinalysison 01-28-2020 Appearance (U) Clear Clear NA [place] Comment on above: . Bilirubin Urine Negative Negative mg/dL [place] Comment on above: . Color (U) YELLOW Lt. Yellow NA [place] Comment on above: . Glucose, Ur Normal Normal (<70) mg/dL [place] Comment on above: . Interpretation and review of laboratory results Abnormal [place] Ketones Ql (U) Negative Negative mg/dL [place] Comment on above: . LEUKOCYTES, UA Negative Negative Cindy/uL [place] Comment on above: . Nitrite, Urine Negative Negative [place] Comment on above: . Occult Blood,Urine Negative Negative mg/dL [place] Comment on above: . pH (U) 6.0 [pH] [place] Comment on above: . Protein (U) [Mass/Vol] Negative Negat carlitos mg/dL [place] Comment on above: . Specific [place], Urine <1.005 Abnormal [place] Comment on above: . Urobilinogen, Urine Normal Normal ( 0-1) mg/dL [place] Comment on above: . Test Performed by [facility], [address] [place] [address] [place] CBC Auto Differentialon 04-0 Absolute Baso # 0.1 10*3/uL 0 - 0.2 10*3/uL [place] Absolute Neut # 2.3 10*3/uL 1.8 - 7 10*3/uL [place] Basophils/100 WBC (Bld) 1.3 % 0 - 2 % [place] Eosinophils (Bld) [#/Vol] 0.2 10*3/uL 0 - 0.5 10*3/uL [place] Eosinophils/100 WBC (Bld) 4.7 % 1 - 6 % [place] Erythrocyte distribution width (RBC) [Ratio] 13.7 % 11.5 - 14.5 % [place] Granulocytes/100 WBC (Bld) 44.5 % 40 - 80 % [place] Hematocrit (Bld) [Volume fraction] 44.2 % 40 - 52 % [place] Hemoglobin (Bld) [Mass/Vol] 14.7 g/dL 13 - 18 g/dL [place] Lymphocytes (Bld) [#/Vol] 2.0 10*3/uL 1 - 4.3 10*3/uL [place] Lymphocytes/100 WBC (Bld) 39.5 % 20 - 40 % [place] MCH (RBC) [Entitic mass] 29.9 pg 26 - 34 pg [place] MCHC (RBC) [Mass/Vol] 33.2 % 32 - 36 % [place] MCV (RBC) [Entitic vol] 90.2 fL 80 - 98 fL [place] Monocytes (Bld) [#/Vol] 0.5 10*3/uL 0 - 0.8 10*3/uL [place] Monocytes/100 WBC (Bld) 10.0 % 2 - 10 % [place] Platelet mean volume (Bld) [Entitic vol] 9.1 fL 7.4 - 10.4 fL [place] Platelets (Bld) [#/Vol] 213 10*3/uL 140 - 440 10*3/uL [place] RBC (Bld) [#/Vol] 4.90 10*6/uL 4.4 - 5.9 10*6/uL [place] WBC (Bld) [#/Vol] 5.1 10*3/uL 3.6 - 10.7 10*3/uL [place] Test Performed by [id number] [place] [address] Comprehensive Metabolic Pane l w/ Reflex to MGon 08-22-2019 Albumin [Mass/Vol] 3.7 g/dL 3.5 - 5 g/dL [place] ALP [Catalytic activity/Vol] 75 U/L 38 - 126 U/L [place] ALT [Catalytic activity/Vol] 29 U/L 0 - 49 U/L [place] Comment on above: The ALT test is perf ormed by an updated assay method. Please note that the reference intervals have been changed and are now sex specific. Anion gap [Moles/Vol] 5 mmol/L [place] AST [Catalytic activity/Vol] 67 U/L High 15 - 46 U/L [place] Bilirubin Ql (U) 0.3 mg/dL 0.2 - 1.3 mg/dL [place] Calcium [Mass/Vol] 9.0 mg/dL 8.4 - 10. 4 mg/dL [place] Chloride [Moles/Vol] 105 mmol/L 98 - 10 7 mmol/L [place] CO2 [Moles/Vol] 26 mmol/L 22 - 30 mmol/L [place] Creatinine [Mass/Vol] 0.77 mg/dL 0.52 - 1.25 mg/dL [place] EGFR IF NonAfrican Danish >60.0 >60 mL/min [place] Comment on above: Source- MDRD equatio n with creatinine calibration to IDMS(NKDEP) eGFR not recommended for drug dose adjustment GFR/1.73 sq M predicted among blacks MDRD (S/P/Bld) [Vol rate/Area] mL/min/{1.73_m2} >60 mL/min [place] Glucose [Mass/Vol] 102 mg/dL High 70 - 100 mg/dL [place] Interpretation and review of laboratory results Abnormal [place] Potassium [Moles/Vol] 4.0 mmol/L 3.5 - 5.1 mmol/L [place] Protein [Mass/Vol] 7.2 g/dL 6.3 - 8.2 g/dL [place] Sodium [Moles/Vol] 136 mmol/L 135 - 145 mmol/L [place] Urea nitrogen [Mass/Vol] 10 mg/dL 7 - 20 mg/d L [place] Test Performed by [facility], [address] [place] [address] [place] Basic Metabolic Panelon 07-21 Anion gap [Moles/Vol] 12 mmol/L [place] Calcium [Mass/Vol] 9.3 mg/dL 8.4 - 10. 4 mg/dL [place] Chloride [Moles/Vol] 94 mmol/L Low 98 - 10 7 mmol/L [place] CO2 [Moles/Vol] 26 mmol/L 22 - 30 mmol/L [place] Creatinine [Mass/Vol] 0.92 mg/dL 0.52 - 1.25 mg/dL [place] EGFR IF NonAfrican [place] >60.0 >60 mL/min [place] Comment on above: Source- MDRD equatio n with creatinine calibration to IDMS(NKDEP) eGFR not recommended for drug dose adjustment GFR/1.73 sq M predicted among blacks MDRD (S/P/Bld) [Vol rate/Area] mL/min/{1.73_m2} >60 mL/min [place] Glucose [Mass/Vol] 176 mg/dL High 70 - 100 mg/dL [place] Potassium [Moles/Vol] 3.3 mmol/L Low 3.5 - 5.1 mmol/L [place] Sodium [Moles/Vol] 132 mmol/L Low 135 - 145 mmol/L [place] Urea nitrogen [Mass/Vol] 11 mg/dL 7 - 20 mg/d L [place] CKon 08-17-2019 Total CK 79 U/L 30 - 170 U/L [place] Test Performed by [facility], [address] [place] [address] [place] Ethanolon 08-17-2019 Ethanol Lvl <0.010 0 - 0.01 g/dL [place] Comment on above: NOTE: This result is for medical treatment only. Analysis performed using non-forensic procedures. Fentanyl, Urineon 08-17-2019 Fentanyl Positive Negative NA [place] Comment on above: Fentanyl has been sc reened for by Immunoassay at a 2ng/ml threshold. POSITIVE results are not confirmed by a more specific alternative method unless requested. If confirmation is needed, request confirmation under separate order. NOTE: These results are for medical treatment only. Analysis performed using non-forensic procedures. Test Performed by [facility], [address] [place] [id number] [place] Hepatic Function Panelon Albumin [Mass/Vol] 5.0 g/dL 3.5 - 5 g/dL [place] ALP [Catalytic activity/Vol] 58 U/L 38 - 126 U/L [place] ALT [Catalytic activity/Vol] 18 U/L 0 - 49 U/L [place] Comment on above: The ALT test is perf ormed by an updated assay method. Please note that the reference intervals have been changed and are now sex specific. AST [Catalytic activity/Vol] 27 U/L 15 - 46 U/L [place] Bilirubin Ql (U) 1.4 mg/dL High 0.2 - 1.3 mg/dL [place] Bilirubin.direct [Mass/Vol] 0.0 mg/dL 0 - 0.3 mg/dL [place] Protein [Mass/Vol] 8.3 g/dL High 6.3 - 8.2 g/dL [place] Otheron 08-17-2019 Interpretation and review of laboratory results Abnormal [place] Test Performed by [facility], [address] [place] [address] [place] Urine Drug Screenon 08-17-19 20 Amphetamines, urine Positive [place] Barbiturates, Ur Negative [place] Benzodiazepine Ur Qual Negative [place] Cocaine Metabolites, Ur Negative [place] Methadone, Urine Negative [place] Opiates, Urine Negative [place] Oxycodone Screen, Ur Negative [place] PCP, Urine Negative [place] Comment on above: The expected value f or all of the drugs listed above is Negative. The following drugs or drug groups have been screened for by Immunoassay at the following thresholds: Amphetamine class (1000 ng/mL), Barbiturates (200 ng/mL), Benzodiazepines (200 ng/mL), Cocaine (300 ng/mL), Methadone (300 ng/mL), Opiates (300 ng/mL), Oxycodone (100 ng/mL), and PCP (25 ng/mL). NOTE: These results are for medical treatment only. Analysis performed using non-forensic procedures. POSITIVE results are NOT confirmed by a more specific alternative method unless requested. If confirmation is needed, request confirmation under separate order. [facility] [address] [address] [place] Basic Metabolic Panelon 06-22 Anion gap [Moles/Vol] 10 mmol/L [place] Calcium [Mass/Vol] 9.3 mg/dL 8.4 - 10. 4 mg/dL [place] Chloride [Moles/Vol] 101 mmol/L 98 - 10 7 mmol/L [place] CO2 [Moles/Vol] 28 mmol/L 22 - 30 mmol/L [place] Creatinine [Mass/Vol] 0.81 mg/dL 0.52 - 1.25 mg/dL [place] EGFR IF NonAfrican [place] >60.0 >60 mL/min [place] Comment on above: Source- MDRD equatio n with creatinine calibration to IDMS(NKDEP) eGFR not recommended for drug dose adjustment GFR/1.73 sq M predicted among blacks MDRD (S/P/Bld) [Vol rate/Area] mL/min/{1.73_m2} >60 mL/min [place] Glucose [Mass/Vol] 77 mg/dL 70 - 100 mg/dL [place] Potassium [Moles/Vol] 3.8 mmol/L 3.5 - 5.1 mmol/L [place] Sodium [Moles/Vol] 140 mmol/L 135 - 145 mmol/L [place] Urea nitrogen [Mass/Vol] 12 mg/dL 7 - 20 mg/d L [place] Hematologyon 07-10-2019 Hematocrit (Bld) [Volume fraction] 44.9 % 40 - 52 % [place] Hemoglobin (Bld) [Mass/Vol] 15.2 g/dL 13 - 18 g/dL [place] MCH (RBC) [Entitic mass] 29.9 pg 26 - 34 pg [place] MCV (RBC) [Entitic vol] 88.4 fL 80 - 98 fL [place] Platelets (Bld) [#/Vol] 244 10*3/uL 140 - 440 10*3/uL [place] RBC (Bld) [#/Vol] 5.07 10*6/uL 4.4 - 5.9 10*6/uL [place] WBC (Bld) [#/Vol] 4.3 10*3/uL 3.6 - 10.7 10*3/uL [place] Hepatic Function Panelon Albumin [Mass/Vol] 4.6 g/dL 3.5 - 5 g/dL [place] ALP [Catalytic activity/Vol] 73 U/L 38 - 126 U/L [place] ALT [Catalytic activity/Vol] 29 U/L 13 - 69 U/L [place] AST [Catalytic activity/Vol] 40 U/L 15 - 46 U/L [place] Bilirubin Ql (U) 0.5 mg/dL 0.2 - 1.3 mg/dL [place] Bilirubin.direct [Mass/Vol] 0.0 mg/dL 0 - 0.3 mg/dL [place] Protein [Mass/Vol] 8.2 g/dL 6.3 - 8.2 g/dL [place] Otheron 07-10-2019 HAV IgM IA Qn (S) NOT DETECTED Not-Detect ed [place], [place] Hep B Core Ab, IgM NOT DETECTED Not-Detec loco [place] Hepatitis B Surface Ag NOT DETECTED Not-D etected [place] Hepatitis C Ab NOT DETECTED Not-Detected [place] Comment on above: Patients with DETECT ED Hepatitis C Ab results should have a new specimen submitted for supplemental testing with a Hepatitis C Quantitative RNA assay (viral load), if clinically indicated. Test Performed by [facility], [address] [place] [address] [place] Test Performed by [facility], [address] [place] [address] [place] Erythrocyte distribution width (RBC) [Ratio] 15.2 % High 11.5 - 14.5 % [place] Interpretation and review of laboratory results Abnormal [place] MCHC (RBC) [Mass/Vol] 33.9 % 32 - 36 % [place] Platelet mean volume (Bld) [Entitic vol] 8.1 fL 7.4 - 10.4 fL [place] Test Performed by [facility], [address] [place] [address] [place] CR Chest Portableon 01-24-20 18 CR Chest Portable Patient Name: GERALDINE [facility] Diagnostic Radiology Exam Date/Time 01/23/2018 15:20:55 EDT Exam CR Chest Portable Ordering Physician DANIELLA HERNÁNDEZ DANIEL M Accession Number [id number] CPT4 Codes 26497 () Reason For Exam cough Report PORTABLE CHEST CLINICAL INDICATION: Cough TECHNIQUE: Portable AP COMPARISON: None FINDINGS: No focal consolidation or pulmonary edema. No pleural effusions or pneumothorax. The cardiac and mediastinal silhouettes are normal. The osseous structures are unremarkable. IMPRESSION: No focal consolidation or pulmonary edema. Report Dictated on Final Dictating Physician: MD FUENTES KEVIN Signed Date and Time: 01/23/2018 3:27 pm Signed by: MD FUENTES KEVIN Transcribed Date and Time: 01/23/2018 3:28 Normal [facility] Comp Metabolic Panelon 01-23 ALP enzyme act/vol 71 U/L Normal 38-126 [facility] Comment on above: Performed By: #### H EMD, [facility] ####[place] [address] [place] [address] ALT enzyme act/vol 31 U/L Normal 13-69 [facility] Comment on above: Performed By: #### H EMDF, CMP3 ####[place] [address] [place] [address] Anion gap 3 molar conc 8 Normal [facility] Comment on above: Performed By: #### H EMDF, CMP3 ####[place] [address] [place] [address] AST enzyme act/vol 34 U/L Normal 15-46 [facility] Comment on above: Performed By: #### H EMDF, CMP3 ####[place] [address] [place] [address] Bilirubin mass conc 0.8 mg/dL Normal 0.2-1.3 [facility] Comment on above: Performed By: #### H EMDF, CMP3 ####[place] [address] [place] [address] Calcium mass conc 8.8 mg/dL Normal 8.4-10.4 [facility] Comment on above: Performed By: #### H EMDF, CMP3 ####[place] [address] [place] [address] CO2 molar conc 28 mmol/L Normal 22-30 [facility] Comment on above: Performed By: #### H EMDF, CMP3 ####[place] [address] [place] [address] Creatinine mass conc 1.01 mg/dL Normal 0.52-1.25 [facility] Comment on above: Performed By: #### H EMDF, CMP3 ####[place] [address] [place] [address] GFR/1.73 sq M predicted among blacks MDRD vol rate/area (S/P/Bld) mL/min/{1.73_m2} Normal >60 [facility] Comment on above: Performed By: #### H EMDF, CMP3 ####[place] [address] [place] [address] GFR/1.73 sq M predicted among non-blacks MDRD vol rate/area (S/P/Bld) mL/min/{1.73_m2} Normal >60 [facility] Comment on above: Result Comment: Sour ce- MDRD equation with creatinine calibration to IDMS(NKDEP) eGFR not recommended for drug dose adjustment Performed By: #### H SHARONDA CMP3 ####[place] [address] [place] [address] Glucose mass conc 65 mg/dL Low 70-100 [facility] Comment on above: Performed By: #### H SHARONDA CMP3 ####[place] [address] [place] [address] Protein mass conc 7.7 g/dL Normal 6.3-8.2 [facility] Comment on above: Performed By: #### H SHARONDA CMP3 ####[place] [address] [place] [address] Urea nitrogen mass conc 19 mg/dL Normal 7-20 [facility] Comment on above: Performed By: #### H SHARONDA CMP3 ####[facility] [place] [address] [place] [address] Albumin mass conc 4.5 g/dL Normal 3.5-5.0 [facility] Comment on above: Performed By: #### H SHARONDA CMP3 ####[facility] [place] [address] [place] [address] Chloride molar conc 102 mmol/L Normal 98-107 [facility] Comment on above: Performed By: #### H EMDF, CMP3 ####[place] [address] [place] [address] Potassium molar conc 3.7 mmol/L Normal 3.5-5.1 [facility] Comment on above: Performed By: #### H EMDF, CMP3 ####[facility] [place] [address] [place] [address] Sodium molar conc 138 mmol/L Normal 137-145 [facility] Comment on above: Performed By: #### H EMDF, CMP3 ####[place] [address] [place] [address] Hemogram w/ Autodiffon 01-23 Abs Baso Cnt 0.1 10*3/uL Normal 0.0-0.2 [facility] Comment on above: Performed By: #### H EMDF, CMP3 ####[facility] [place] [address] Abs Neutrophile Cnt 8.1 10*3/uL High 1.8-7.0 [facility] Comment on above: Performed By: #### H EMDF, CMP3 ####[place] [address] [place] [address] Basophils/100 WBC Auto (Bld) 0.7 % Normal 0.0-2.0 [facility] Comment on above: Performed By: #### H EMDF, CMP3 ####[place] [address] [place] [address] Eosinophils Auto #/vol (Bld) 0.1 10*3/uL Normal 0.0-0.5 [facility] Comment on above: Performed By: #### H EMDF, CMP3 ####[place] [address] [place] [address] Eosinophils/100 WBC Auto (Bld) 0.9 % Low 1.0-6.0 [facility] Comment on above: Performed By: #### H EMDF, CMP3 ####[place] [address] [place] [address] Erythrocyte distribution width Auto Ratio (RBC) 13.8 % Normal 11.5-14.5 [facility] Comment on above: Performed By: #### H EMDF, CMP3 ####[place] [address] [place] [address] Granulocytes/100 WBC (Bld) 77.3 % Normal 40.0-80.0 [facility] Comment on above: Performed By: #### H EMDF, CMP3 ####[place] [address] [place] [address] Hematocrit Auto Volume Fraction (Bld) 39.7 % Low 40.0-52.0 [facility] Comment on above: Performed By: #### H EMDF, CMP3 ####[place] [address] [place] [address] Hemoglobin mass conc (Bld) 13.8 g/dL Normal 13.0-18.0 [facility] Comment on above: Performed By: #### H EMDF, CMP3 ####[facility] [id number] [place] [address] Lymphocytes Auto #/vol (Bld) 1.1 10*3/uL Normal 1.0-4.3 [facility] Comment on above: Performed By: #### H EMDF, CMP3 ####[facility] [id number] [place] [address] Lymphocytes/100 WBC Auto (Bld) 10.8 % Low 20.0-40.0 [facility] Comment on above: Performed By: #### H EMDF, CMP3 ####[facility] [id number] [facility] [place] [address] MCH Auto Entitic mass (RBC) 30.7 pg Normal 26.0-34.0 [facility] Comment on above: Performed By: #### H EMDF, CMP3 ####[facility] [id number] [facility] [place] [address] MCHC Auto mass conc (RBC) 34.7 % Normal 32.0-36.0 [facility] Comment on above: Performed By: #### H EMDF, CMP3 ####[facility] Hospital[facility] [id number] [place] [address] MCV Auto Entitic volume (RBC) 88.3 fL Normal 80.0-98.0 [facility] Comment on above: Performed By: #### H EMDF, CMP3 ####[facility] Hospital[facility] [id number] [place] [address] Monocytes Auto #/vol (Bld) 1.1 10*3/uL High 0.0-0.8 [facility] Comment on above: Performed By: #### H EMDF, CMP3 ####[employer] [id number] N[facility]peacehealth [place] [address] Monocytes/100 WBC Auto (Bld) 10.3 % High 2.0-10.0 [facility] Comment on above: Performed By: #### H EMDF, CMP3 ####[employer] [id number] [place] [address] Platelet mean volume Auto Entitic volume (Bld) 8.3 fL Normal 7.4-10.4 [facility] Comment on above: Performed By: #### H EMDF, CMP3 ####[facility] HospitalN[facility] [id number] [place] [address] Platelets Auto #/vol (Bld) 260 10*3/uL Normal 140-440 [facility] Comment on above: Performed By: #### H EMDF, CMP3 ####[employer] [id number] [place] [address] RBC Auto #/vol (Bld) 4.49 10*6/uL Normal 4.40-5.90 [facility] Comment on above: Performed By: #### H EMDF, CMP3 ####[employer] [id number] [place] [address] WBC Auto #/vol (Bld) 10.5 10*3/uL Normal 3.6-10.7 [facility] Comment on above: Performed By: #### H EMDF, CMP3 ####[facility] [id number] [place] [address] No Panel Information [facility] Vital Signs Date Time Vital Sign Value Performing Clinician Facility 10-31-2024 16:33-0400 Body mass index (BMI) [Ratio] 20.06 kg/m2 Diogenes Banks APRN.URBAN REDEVELOPMENT SPECIALIST Work Phone: [facility] 10-31-2024 16:33-0400 Body temperature 98.8 [degF] Diogenes Banks APRN.URBAN REDEVELOPMENT SPECIALIST Work Phone: [facility] 10-31-2024 16:33-0400 Body weight 72.8 kg Diogenes Banks APRN.URBAN REDEVELOPMENT SPECIALIST Work Phone: [facility] 10-31-2024 16:33-0400 Diastolic blood pressure 80 mm[Hg] Diogenes Banks APRN.URBAN REDEVELOPMENT SPECIALIST Work Phone: [facility] 10-31-2024 16:33-0400 Heart rate 104 /min Diogenes Banks APRN.URBAN REDEVELOPMENT SPECIALIST Work Phone: [facility] 10-31-2024 16:33-0400 Respiratory rate 18 /min Diogenes Banks APRN.URBAN REDEVELOPMENT SPECIALIST Work Phone: [facility] 10-31-2024 16:33-0400 SaO2% (BldA) [Mass fraction] 98 % Diogenes Banks APRN.URBAN REDEVELOPMENT SPECIALIST Work Phone: [facility] 10-31-2024 16:33-0400 Systolic blood pressure 111 mm[Hg] Diogenes Banks APRN.URBAN REDEVELOPMENT SPECIALIST Work Phone: [facility] 07-29-2024 10:59-0400 Body temperature 98.29 [degF] Floyd Sweet MD Work Phone: [facility] 07-29-2024 10:59-0400 Diastolic blood pressure 70 mm[Hg] Floyd Sweet MD Work Phone: [facility] 07-29-2024 10:59-0400 Heart rate 95 /min Floyd Sweet MD Work Phone: [facility] 07-29-2024 10:59-0400 Respiratory rate 16 /min Floyd Sweet MD Work Phone: [facility] 07-29-2024 10:59-0400 SaO2% (BldA) [Mass fraction] 99 % Floyd Sweet MD Work Phone: [employer] 07-29-2024 10:59-0400 Systolic blood pressure 106 mm[Hg] Floyd Sweet MD Work Phone: [facility] 07-26-2024 00:52-0500 Body height 188 cm Floyd Sweet MD Work Phone: [employer] 07-26-2024 00:52-0500 Body mass index (BMI) [Ratio] 19.26 kg/m2 Floyd Sweet MD Work Phone: [employer] 07-26-2024 00:52-0500 Body weight 68.04 kg Floyd Sweet MD Work Phone: [employer] 01-03-2024 17:22-0400 Body temperature 98.6 [degF] Cesar Bone DO Work Phone: [employer] 01-03-2024 17:22-0400 Diastolic blood pressure 66 mm[Hg] Cesar Bone DO Work Phone: [facility] 01-03-2024 17:22-0400 Heart rate 75 /min Cesar Bone DO Work Phone: [facility] 01-03-2024 17:22-0400 Respiratory rate 18 /min Cesar Bone DO Work Phone: [facility] 01-03-2024 17:22-0400 SaO2% (BldA) [Mass fraction] 98 % Cesar Bone DO Work Phone: [facility] 01-03-2024 17:22-0400 Systolic blood pressure 104 mm[Hg] Cesar Bone DO Work Phone: [facility] 11-21-2023 08:33-0400 Body height 188 cm Shahnaz Hernandez MD Work Phone: [facility] 11-21-2023 08:33-0400 Body mass index (BMI) [Ratio] 19.85 kg/m2 Shahnaz Hernandez MD Work Phone: [facility] 11-21-2023 08:33-0400 Body temperature 98.49 [degF] Shahnaz Hernandez MD Work Phone: [facility] 11-21-2023 08:33-0400 Body weight 70.13 kg Shahnaz Hernandez MD Work Phone: [facility] 11-21-2023 08:33-0400 Diastolic blood pressure 78 mm[Hg] Shahnaz Hernandez MD Work Phone: [facility] 11-21-2023 08:33-0400 Systolic blood pressure 122 mm[Hg] Shahnaz Hernandez MD Work Phone: [facility] 11-12-2023 09:23-0400 Body height 188 cm Emy DUKE Work Phone: [facility] 11-12-2023 09:23-0400 Body mass index (BMI) [Ratio] 19.52 kg/m2 Emy DUKE Work Phone: [facility] 11-12-2023 09:23-0400 Body temperature 98.1 [degF] Emy Fozia PA Work Phone: [facility] 11-12-2023 09:23-0400 Body weight 68.95 kg Emynehemias Kempcurtiss PA Work Phone: [facility] 11-12-2023 09:23-0400 Diastolic blood pressure 71 mm[Hg] Emy Hatties PA Work Phone: [facility] 11-12-2023 09:23-0400 Heart rate 92 /min Emy Kempramans PA Work Phone: [facility] 11-12-2023 09:23-0400 SaO2% (BldA) [Mass fraction] 100 % Emy Pedramans PA Work Phone: [facility] 11-12-2023 09:23-0400 Systolic blood pressure 114 mm[Hg] Emy Kuhns PA Work Phone: [facility] 06-21-2023 13:08-0500 Body height 188 cm Shahnaz Hernandez MD Work Phone: [facility] 06-21-2023 13:08-0500 Body mass index (BMI) [Ratio] 20.05 kg/m2 Shahnaz Hernandez MD Work Phone: [facility] 06-21-2023 13:08-0500 Body temperature 98.1 [degF] Shahnaz Hernandez MD Work Phone: [facility] 06-21-2023 13:08-0500 Body weight 70.85 kg Shahnaz Hernandez MD Work Phone: [facility] 06-21-2023 13:08-0500 Diastolic blood pressure 80 mm[Hg] Shahnaz Hernandez MD Work Phone: [facility] 06-21-2023 13:08-0500 Systolic blood pressure 124 mm[Hg] Shahnaz Hernandez MD Work Phone: [facility] 05-31-2023 08:58-0500 Body height 188 cm Jose Merino MD Work Phone: [facility] 05-31-2023 08:58-0500 Body mass index (BMI) [Ratio] 19.39 kg/m2 Jose Merino MD Work Phone: [facility] 05-31-2023 08:58-0500 Body weight 68.49 kg Jose Merino MD Work Phone: [facility] 05-31-2023 08:58-0500 Diastolic blood pressure 80 mm[Hg] Jose Merino MD Work Phone: [facility] 05-31-2023 08:58-0500 Heart rate 104 /min Jose Merino MD Work Phone: [facility] 05-31-2023 08:58-0500 Systolic blood pressure 112 mm[Hg] Jose Merino MD Work Phone: [facility] 05-24-2023 08:01-0500 Body height 188 cm Alvarez Eduardo MD Work Phone: [employer] 05-24-2023 08:01-0500 Body mass index (BMI) [Ratio] 19 kg/m2 Alvarez Eduardo MD Work Phone: [employer] 05-24-2023 08:01-0500 Body temperature 97.3 [degF] Alvarez Eduardo MD Work Phone: [employer] 05-24-2023 08:01-0500 Body weight 67.13 kg Alvarez Eduardo MD Work Phone: [employer] 05-24-2023 08:01-0500 Diastolic blood pressure 80 mm[Hg] Alvarez Eduardo MD Work Phone: [employer] 05-24-2023 08:01-0500 Heart rate 95 /min Alvarez Eduardo MD Work Phone: [employer] 05-24-2023 08:01-0500 Systolic blood pressure 107 mm[Hg] Alvarez Eduardo MD Work Phone: [facility] 05-19-2023 00:36-0500 Body height 188 cm Nicola Dyer MD Work Phone: [facility] 05-19-2023 00:36-0500 Body mass index (BMI) [Ratio] 20.54 kg/m2 Nicola Dyer MD Work Phone: [facility] 05-19-2023 00:36-0500 Body temperature 99.1 [degF] Nicola Dyer MD Work Phone: [facility] 05-19-2023 00:36-0500 Body weight 72.58 kg Nicola Dyer MD Work Phone: [facility] 05-19-2023 00:36-0500 Diastolic blood pressure 79 mm[Hg] Nicola Dyer MD Work Phone: [facility] 05-19-2023 00:36-0500 Heart rate 92 /min Nicola Dyer MD Work Phone: [facility] 05-19-2023 00:36-0500 Respiratory rate 16 /min Nicola Dyer MD Work Phone: [facility] 05-19-2023 00:36-0500 SaO2% (BldA) [Mass fraction] 97 % Nicola Dyer MD Work Phone: [facility] 05-19-2023 00:36-0500 Systolic blood pressure 121 mm[Hg] Nicola yDer MD Work Phone: [facility] 05-11-2023 14:30-0500 Heart rate 73 /min Shahnaz Hernandez MD Work Phone: [facility] 05-11-2023 14:30-0500 Respiratory rate 16 /min Shahnaz Hernandez MD Work Phone: [facility] 05-11-2023 14:30-0500 SaO2% (BldA) [Mass fraction] 99 % Shahnaz Hernandez MD Work Phone: [facility] 05-11-2023 14:15-0500 Diastolic blood pressure 73 mm[Hg] Shahnaz Hernandez MD Work Phone: [facility] 05-11-2023 14:15-0500 Systolic blood pressure 114 mm[Hg] Shahnaz Hernandez MD Work Phone: [facility] 05-11-2023 14:00-0500 Body temperature 97.2 [degF] Shahnaz Hernandez MD Work Phone: [facility] 05-11-2023 10:51-0500 Body height 188 cm Shahnaz Hernandez MD Work Phone: [facility] 05-11-2023 10:51-0500 Body mass index (BMI) [Ratio] 19.9 kg/m2 Shahnaz Hernandez MD Work Phone: [facility] 05-11-2023 10:51-0500 Body weight 70.31 kg Shahnaz Hernandez MD Work Phone: [facility] 04-05-2023 14:13-0500 Body height 188 cm Shahnaz Hernandez MD Work Phone: [facility] 04-05-2023 14:13-0500 Body mass index (BMI) [Ratio] 20.59 kg/m2 Shahnaz Hernandez MD Work Phone: [facility] 04-05-2023 14:13-0500 Body temperature 98.91 [degF] Shahnaz Hernandez MD Work Phone: [facility] 04-05-2023 14:13-0500 Body weight 72.76 kg Shahnaz Hernandez MD Work Phone: [facility] 04-05-2023 14:13-0500 Diastolic blood pressure 64 mm[Hg] Shahnaz Hernandez MD Work Phone: [facility] 04-05-2023 14:13-0500 Heart rate 60 /min Shahnaz Hernandez MD Work Phone: [facility] 04-05-2023 14:13-0500 Systolic blood pressure 122 mm[Hg] Shahnaz Hernandez MD Work Phone: [facility] 03-14-2023 10:03-0400 Body height 188 cm Shahnaz Hernandez MD Work Phone: [facility] 03-14-2023 10:03-0400 Body mass index (BMI) [Ratio] 20.44 kg/m2 Shahnaz Hernandez MD Work Phone: [facility] 03-14-2023 10:03-0400 Body temperature 99.19 [degF] Shahnaz Hernandez MD Work Phone: [facility] 03-14-2023 10:03-0400 Body weight 72.21 kg Shahnaz Hernandez MD Work Phone: [facility] 03-14-2023 10:03-0400 Diastolic blood pressure 62 mm[Hg] Shahnaz Hernandez MD Work Phone: [facility] 03-14-2023 10:03-0400 Heart rate 76 /min Shahnaz Hernandez MD Work Phone: [facility] 03-14-2023 10:03-0400 Systolic blood pressure 110 mm[Hg] Shahnaz Hernandez MD Work Phone: [facility] 03-08-2023 14:31-0400 Diastolic blood pressure 76 mm[Hg] Geraldine Hodge MD Work Phone: [facility] 03-08-2023 14:31-0400 Heart rate 89 /min Geraldine Hodge MD Work Phone: [facility] 03-08-2023 14:31-0400 Respiratory rate 16 /min Geraldine Hodge MD Work Phone: [facility] 03-08-2023 14:31-0400 SaO2% (BldA) [Mass fraction] 100 % Geraldine Hodge MD Work Phone: [facility] 03-08-2023 14:31-0400 Systolic blood pressure 105 mm[Hg] Geraldine Hodge MD Work Phone: [facility] 03-08-2023 12:45-0400 Body temperature 99 [degF] Geraldine Hodge MD Work Phone: [facility] 03-08-2023 12:45-0400 Body height 190.5 cm Geraldine Hodge MD Work Phone: [facility] 03-08-2023 12:45-0400 Body mass index (BMI) [Ratio] 20 kg/m2 Geraldine Hodge MD Work Phone: [facility] 03-08-2023 12:45-0400 Body weight 72.58 kg Geraldine Hodge MD Work Phone: [facility] 03-07-2023 07:04-0400 Diastolic blood pressure 60 mm[Hg] Taya Hernandez MD Work Phone: [facility] 03-07-2023 07:04-0400 Heart rate 73 /min Taya Hernandez MD Work Phone: [facility] 03-07-2023 07:04-0400 Respiratory rate 16 /min Taya Hernandez MD Work Phone: [facility] 03-07-2023 07:04-0400 SaO2% (BldA) [Mass fraction] 100 % Taya Hernandez MD Work Phone: [facility] 03-07-2023 07:04-0400 Systolic blood pressure 105 mm[Hg] Taya Hernandez MD Work Phone: [facility] 03-07-2023 00:17-0400 Body temperature 100.8 [degF] Taya Hernandez MD Work Phone: [facility] 03-07-2023 00:10-0400 Body height 190.5 cm Taya Hernandez MD Work Phone: [facility] 03-07-2023 00:10-0400 Body mass index (BMI) [Ratio] 20 kg/m2 Taya Hernandez MD Work Phone: [facility] 03-07-2023 00:10-0400 Body weight 72.58 kg Taya Hernandez MD Work Phone: [facility] 01-26-2023 00:24-0400 Respiratory rate 16 /min Karsten Mcgrath MD Work Phone: [employer] 01-26-2023 00:23-0400 Diastolic blood pressure 76 mm[Hg] Karsten Mcgrath MD Work Phone: [facility] 01-26-2023 00:23-0400 Heart rate 70 /min Karsten Mcgrath MD Work Phone: [facility] 01-26-2023 00:23-0400 SaO2% (BldA) [Mass fraction] 99 % Karsten Mcgrath MD Work Phone: [facility] 01-26-2023 00:23-0400 Systolic blood pressure 95 mm[Hg] Karsten Mcgrath MD Work Phone: [facility] 01-25-2023 20:12-0400 Body temperature 98.29 [degF] Karsten Mcgrath MD Work Phone: [facility] 01-25-2023 20:08-0400 Body mass index (BMI) [Ratio] 20.54 kg/m2 Karsten Mcgrath MD Work Phone: [facility] 01-25-2023 20:08-0400 Body weight 72.58 kg Karsten Mcgrath MD Work Phone: [facility] 04-09-2021 17:48-0500 Body temperature 99.5 [degF] Marcelino Viri DO Work Phone: [facility] 04-09-2021 17:48-0500 Diastolic blood pressure 71 mm[Hg] Marcelino Viri DO Work Phone: [facility] 04-09-2021 17:48-0500 Heart rate 110 /min Marcelino Viri DO Work Phone: [facility] 04-09-2021 17:48-0500 Respiratory rate 18 /min Marcelino Viri DO Work Phone: [facility] 04-09-2021 17:48-0500 SaO2% (BldA) [Mass fraction] 99 % Marcelino Viri DO Work Phone: [facility] 04-09-2021 17:48-0500 Systolic blood pressure 122 mm[Hg] Marcelino Viri DO Work Phone: [facility] 02-23-2021 08:00-0400 Body height 190.5 cm Anna Whitaker FATBACK TRIMMER.URBAN REDEVELOPMENT SPECIALIST Work Phone: [facility] 02-23-2021 08:00-0400 Body weight 72.58 kg Anna Whitaker FATBACK TRIMMER.URBAN REDEVELOPMENT SPECIALIST Work Phone: [facility] 01-31-2021 17:40-0400 Body height 188 cm [facility] Work Phone: 01-31-2021 17:40-0400 Body mass index (BMI) [Ratio] 19.26 kg/m2 Mayo [facility] MD [facility] Work Phone: 01-31-2021 17:40-0400 Body temperature 98.71 [degF] Mayo [facility] MD [facility] Work Phone: 01-31-2021 17:40-0400 Body weight 68.04 kg Mayo [facility] MD [facility] Work Phone: 01-31-2021 17:40-0400 Diastolic blood pressure 79 mm[Hg] Mayo Yang MD Work Phone: [employer] Work Phone: 01-31-2021 17:40-0400 Heart rate 79 /min Mayo [facility] MD [facility] Work Phone: 01-31-2021 17:40-0400 Respiratory rate 16 /min [facility] MD [facility] Work Phone: 01-31-2021 17:40-0400 SaO2% (BldA) [Mass fraction] 98 % Mayo [facility] MD [facility] Work Phone: 01-31-2021 17:40-0400 Systolic blood pressure 116 mm[Hg] Mayo Yang MD Work Phone: [facility] Work Phone: 09-20-2020 22:30-0400 Body height 188 cm Mandeep Alvarez MD Work Phone: [employer] Work Phone: 09-20-2020 22:30-0400 Body mass index (BMI) [Ratio] 20.54 kg/m2 Mandeep Alvarez MD Work Phone: [employer] Work Phone: 09-20-2020 22:30-0400 Body temperature 98.71 [degF] Mandeep Alvarez MD Work Phone: [employer] Work Phone: 09-20-2020 22:30-0400 Body weight 72.58 kg Mandeep Alvarez MD Work Phone: [employer] Work Phone: 09-20-2020 22:30-0400 Diastolic blood pressure 91 mm[Hg] Mandeep Alvarez MD Work Phone: [employer] Work Phone: 09-20-2020 22:30-0400 Heart rate 97 /min Mandeep Alvarez MD Work Phone: [employer] Work Phone: 09-20-2020 22:30-0400 Respiratory rate 16 /min Mandeep Alvarez MD Work Phone: [employer] Work Phone: 09-20-2020 22:30-0400 SaO2% (BldA) [Mass fraction] 96 % Mandeep Alvarez MD Work Phone: [employer] Work Phone: 09-20-2020 22:30-0400 Systolic blood pressure 128 mm[Hg] Mandeep Alvarez MD Work Phone: [employer] Work Phone: 08-10-2020 06:20-0400 Pulse (Heart Rate) 97 /min Jose LOPEZ Work Phone: 08-10-2020 06:20-0400 Pulse Oximetry 96 % Jose LOPEZ Work Phone: 08-10-2020 06:01-0400 BP Diastolic 58 mm[Hg] Jose LOPEZ Work Phone: 08-10-2020 06:01-0400 BP Systolic 100 mm[Hg] Jose LOPEZ Work Phone: 08-10-2020 04:34-0400 BMI (Body Mass Index) 21.25 kg/m2 Jose LOPEZ Work Phone: 08-10-2020 04:34-0400 Body Temperature 98.91 [degF] Jose LOPEZ Work Phone: 08-10-2020 04:34-0400 Body weight 77.11 kg Jose LOPEZ Work Phone: 08-10-2020 04:34-0400 Height 190.5 cm Jose LOPEZ Work Phone: 08-10-2020 04:34-0400 Respiratory Rate 16 /min Jose LOPEZ Work Phone: 05-17-2020 16:05-0500 Body Temperature 97 [degF] [facility] [place] 05-17-2020 16:05-0500 BP Diastolic 74 mm[Hg] [facility] [place] 05-17-2020 16:05-0500 BP Systolic 110 mm[Hg] [facility] [place] 05-17-2020 16:05-0500 Pulse (Heart Rate) 99 /min [facility] [place] 05-17-2020 16:05-0500 Pulse Oximetry 97 % [facility] [place] 05-17-2020 16:05-0500 Respiratory Rate 18 /min Manoj Howard [facility], [place] 08-22-2019 11:46-0400 Body Temperature 99.1 [degF] [facility] [place] 08-22-2019 11:46-0400 BP Diastolic 64 mm[Hg] [facility] 08-22-2019 11:46-0400 BP Systolic 104 mm[Hg] [facility] [place] 08-22-2019 11:46-0400 Pulse (Heart Rate) 104 /min [facility] [place] 08-22-2019 11:46-0400 Pulse Oximetry 97 % [facility] [place] 08-22-2019 11:46-0400 Respiratory Rate 14 /min Mandeep AudNil[place], [place] 08-17-2019 03:28-0400 BMI (Body Mass Index) 23.75 kg/m2 [place] 08-17-2019 03:28-0400 Body weight 83.92 kg [facility]Saint [facility] 08-17-2019 03:28-0400 Height 188 cm [facility] Encounters Encounter Date Encounter Type Care Provider Facility Start: 12-19-2024 End: 12-19-2024 Telephone encounter Shelley Loyd PA-C Work Phone: Neurology Start: 12-09-2024 End: 12-09-2024 ambulatory Heather Wally DO Work Phone: -[facility] Start: 12-09-2024 End: 12-09-2024 Patient encounter procedure Heather Wally DO -[facility] Start: 12-09-2024 End: 12-09-2024 ambulatory Heather Woodarder C Facility:[facility] Start: 11-02-2024 End: 11-02-2024 Follow-up encounter Mac DUKE Work Phone: [facility] Start: 10-31-2024 End: 10-31-2024 Patient encounter procedure Diogenes Banks APRN.CNP Work Phone: [facility] Comment on above: Burning with urinati on (Primary Dx) Start: 10-31-2024 End: 10-31-2024 ambulatory DIOGENES BANKS Facility:[facility] Start: 07-25-2024 End: 07-29-2024 Evaluation and management of inpatient [facility] Comment on above: Mass of left side of neck (Primary Dx); Opiate dependence, continuous (HCC); Fentanyl dependence (HCC) Start: 01-03-2024 End: 01-03-2024 [facility] Comment on above: Sprain of right wris t, initial encounter (Primary Dx) Start: 11-21-2023 End: 11-21-2023 ambulatory SHAHNAZ HERNANDEZ [facility] Start: 11-21-2023 End: 11-21-2023 Office outpatient visit 15 minutes Shahnaz Hernandez MD Work Phone: [facility] Comment on above: Coccydynia (Primary Dx) Start: 11-17-2023 Emergency department patient visit Facility:[facility] Start: 11-12-2023 End: 11-12-2023 Office outpatient new 30 minutes Emy DUKE Work Phone: [facility] Comment on above: Acute conjunctivitis of left eye, unspecified acute conjunctivitis type (Primary Dx) Start: 11-12-2023 End: 11-12-2023 ambulatory [facility] Start: 06-21-2023 End: 06-21-2023 Postop follow up visit related to original px Shahnaz Hernandez MD Work Phone: [facility] Comment on above: Pilonidal cyst (Prim live Dx) Start: 05-31-2023 ambulatory [facility] Start: 05-31-2023 Patient encounter procedure Darlene Lopez Clinical Communication Start: 05-31-2023 End: 05-31-2023 Postop follow up visit related to original px Jose Merino MD Work Phone: [facility] Comment on above: Pilonidal cyst (Prim live Dx) Start: 05-24-2023 End: 05-24-2023 Office outpatient visit 15 minutes Miriam Torrez MD Work Phone: [facility] Comment on above: COVID (Primary Dx); Opioid dependence in remission (HCC) Start: 05-21-2023 ambulatory Linnette Whalen RN [facility] Clinical Communication Start: 05-21-2023 Patient encounter procedure Linnette Whalen RN [facility] Clinical Communication Comment on above: Pilonidal cyst Start: 05-19-2023 End: 05-19-2023 Emergency department patient visit Nicola Dyer MD Work Phone: [facility] Comment on above: Viral upper respirat ory tract infection (Primary Dx); Postoperative examination Start: 05-11-2023 End: 05-11-2023 Subsequent hospital visit by physician Shahnaz Hernandez MD Work Phone: [facility] Comment on above: Pilonidal cyst (Prim live Dx); Pilonidal cyst with abscess Start: 04-05-2023 End: 04-05-2023 Office outpatient visit 15 minutes Shahnaz Hernandez MD Work Phone: [facility] Comment on above: Pilonidal cyst (Prim live Dx) Start: 03-14-2023 End: 03-14-2023 Office outpatient new 30 minutes Shahnaz Hernandez MD Work Phone: [facility] Comment on above: Pilonidal abscess Start: 03-09-2023 Telephone encounter Shahnaz Robert ch, MD Work Phone: [facility] Start: 03-08-2023 End: 03-08-2023 Emergency department patient visit Geraldine Hodge MD Work Phone: [facility] ED Comment on above: Opioid use disorder (Primary Dx) Start: 03-07-2023 End: 03-07-2023 Emergency department patient visit Taya Hernandez MD Work Phone: [facility] ED Comment on above: Pilonidal abscess (P rimary Dx) Start: 01-25-2023 End: 01-26-2023 Emergency department patient visit Karsten Mcgrath MD Work Phone: [facility] ED Comment on above: Abscess (Primary Dx) Start: 04-09-2021 End: 04-09-2021 Emergency department patient visit Marcelino Meredith Work Phone: [facility] Emergency Dept Comment on above: Closed nondisplaced fracture of metatarsal bone of left foot, unspecified metatarsal, initial encounter (Primary Dx) Start: 02-23-2021 End: 02-23-2021 Patient encounter procedure Anna Whitaker APRN.URBAN REDEVELOPMENT SPECIALIST Work Phone: [facility] Comment on above: Recurrent UTI; Urethral pain; Cutaneous skin tags Start: 01-31-2021 End: 01-31-2021 Emergency department patient visit Mayo Yang MD Work Phone: [facility] ED Comment on above: Nausea vomiting and diarrhea (Primary Dx); Worms in stool Start: 09-21-2020 End: 09-21-2020 Emergency department patient visit MANDEEP Ayala [facility] Start: 09-20-2020 End: 09-20-2020 Emergency department patient visit Mandeep Alvarez MD Work Phone: [facility] ED Comment on above: Contusion of right h and including fingers, initial encounter (Primary Dx) Start: 08-10-2020 End: 08-10-2020 Emergency department patient visit Jose Guardado Work Phone: [facility] ED Comment on above: Opiate overdose, acc idental or unintentional, initial encounter (HCC) (Primary Dx) Start: 05-17-2020 End: 05-17-2020 Emergency department patient visit Manoj Howard Work Phone: [facility] Emergency Dept Comment on above: Strep pharyngitis (P rimary Dx) Start: 01-28-2020 End: 01-28-2020 Subsequent hospital visit by physician Shelly Bradshaw [facility] Start: 08-17-2019 [facility] [place] [place] Start: 07-10-2019 End: 07-10-2019 Subsequent hospital visit by physician Shelly Bradshaw [facility] Start: 01-23-2018 Emergency department patient visit UNKNOWN PROVIDER [facility] Procedures Date Procedure Procedure Detail Performing Clinician Start: 12-09-2024 Vitamin D, 25-hydrox y measurement Heather Lo Work Phone: Comment on above: Vitamin D StatusDefi ciency: <20 ng/mL (50nmol/L)Insufficiency: 20-30 ng/mL (50-75 nmol/L)Sufficiency: 30-100 ng/mL (75-250 nmol/L)Toxicity: >100 ng/mL (>250 nmol/L) Start: 10-31-2024 Urnls dip stick/tabl et rgnt auto w/o microscopy Diogenes Banks FATBACK TRIMMER.[employer]BAN REDEVELOPMENT SPECIALIST Work Phone: Start: 07-27-2024 Syphilis test non-treponemal antibody qual Veto Elsa FATBACK TRIMMER - URBAN REDEVELOPMENT SPECIALIST Work Phone: Start: 07-27-2024 Iadna chlamydia trachomatis amplified probe tq Veto Elsa FATBACK TRIMMER - URBAN REDEVELOPMENT SPECIALIST Work Phone: Start: 07-26-2024 BUPRENORPHINE SCREEN Juli Galloway MD Work Phone: Start: 07-26-2024 Drug tst prsmv instr mnt chem analyzers pr date Marcelino Mathias FATBACK TRIMMER - URBAN REDEVELOPMENT SPECIALIST Work Phone: Start: 07-26-2024 Urinalysis complete panel - Urine Marcelino Mathias FATBACK TRIMMER - URBAN REDEVELOPMENT SPECIALIST Work Phone: Start: 07-26-2024 Urnls dip stick/tabl et reagent auto microscopy Marcelino Mathias FATBACK TRIMMER - URBAN REDEVELOPMENT SPECIALIST Work Phone: Start: 07-26-2024 Adult depression scr eening assessment Floyd Sweet MD Work Phone: Start: 07-26-2024 Ecg routine ecg w/le ast 12 lds trcg only w/o i&r Floyd Sweet MD Work Phone: Start: 07-25-2024 Comprehensive metabo lic panel Marcelino Mathias FATBACK TRIMMER - URBAN REDEVELOPMENT SPECIALIST Work Phone: Start: 07-25-2024 Drug test def 1-7 classes Marcelino Mathias FATBACK TRIMMER - URBAN REDEVELOPMENT SPECIALIST Work Phone: Start: 07-25-2024 Iaad ia hiv-1 ag w/h iv-1 & hiv-2 antbdy single Veto Hunter FATBACK TRIMMER - URBAN REDEVELOPMENT SPECIALIST Work Phone: Start: 07-25-2024 SARS-CoV-2 (COVID-19 ) Ag [Presence] in Respiratory specimen by Rapid immunoassay Marcelino Mathias FATBACK TRIMMER - URBAN REDEVELOPMENT SPECIALIST Work Phone: Start: 01-03-2024 Radex wrist complete minimum 3 views Katina Tavera PA-C Work Phone: Start: 05-24-2023 Adult depression scr eening assessment Alvarez Eduardo MD Work Phone: Start: 05-19-2023 SARS-COV-2, FLU A/B, AND RSV COMBO Mann Boyd MD Work Phone: Start: 03-07-2023 Comprehensive metabo lic panel Taya Hernandez MD Work Phone: Start: 03-07-2023 Drug test def 1-7 classes Taya Hernandez MD Work Phone: Start: 01-25-2023 Ct pelvis w/contrast material Anne Marie Henry MD Work Phone: Start: 01-25-2023 Comprehensive metabo lic panel Anne Marie Henry MD Work Phone: Start: 01-25-2023 Incision & drainage abscess simple/single Darryl Alexander Nesheim DO Work Phone: Start: 04-09-2021 Radex foot complete minimum 3 views Dafne Donovan FATBACK TRIMMER - URBAN REDEVELOPMENT SPECIALIST Work Phone: Start: 02-23-2021 BLADDER SCAN Maxine Go rdon MA Start: 02-23-2021 Urnls dip stick/tabl et rgnt auto w/o microscopy Anna Whitaker FATBACK TRIMMER.URBAN REDEVELOPMENT SPECIALIST Work Phone: Start: 01-31-2021 Comprehensive metabo lic panel Mayo Yang MD Work Phone: Start: 01-28-2020 Iadna multiple organ isms direct probe tq Shelly Toledo Augustine Start: 01-28-2020 Antibody hiv-1&hiv-2 single result Shelly Toledo Augustine Start: 01-28-2020 Hepatic function panel Shelly Albertse Bradshaw Start: 01-28-2020 Urnls dip stick/tabl et rgnt auto w/o microscopy Shelly Paris Augustine Start: 08-22-2019 Blood count complete auto&auto difrntl wbc Holli Rominapool Work Phone: Start: 08-17-2019 Drug screen class list a [employer] Work Phone: Start: 08-17-2019 Drug tst prsmv instr mnt chem analyzers pr date [employer] Work Phone: Start: 08-17-2019 Assay of ethanol [employer] Work Phone: Start: 08-17-2019 Basic metabolic pane l calcium total Olivia Bandcamp Work Phone: Start: 08-17-2019 Blood count complete auto&auto difrntl wbc Olivia [employer] Work Phone: Start: 08-17-2019 Creatine kinase total S fredy [employer] Work Phone: Start: 08-17-2019 Hepatic function panel Olivia [employer] Work Phone: Start: 07-10-2019 Acute hepatitis panel B sulaiman Bradshaw Start: 07-10-2019 Basic metabolic pane l calcium total Shelly Bradshaw Start: 07-10-2019 Blood count complete automated Shelly Bradshaw Start: 07-10-2019 Hepatic function panel Shelly Bradshaw Plan of Treatment Date Care Activity Detail Author Start: 2073 RSV Immunization for Adults (1 - 1-dose 75+ series) RSV Immunization for Adults (1 - 1-dose 75+ series) [place] Start: 2058 RSV Immunization aged 60 or older (1 - 1-dose 60+ series) RSV Immunization aged 60 or older (1 - 1-dose 60+ series) [place] Start: 2048 Shingles Vaccine (1 of 2) Shingles Vaccine (1 of 2) Michelle [facility]- [place], [place] Start: 2048 Zoster Vaccines (1 of 2) Zoster Vaccines (1 of 2) [facility] Start: 07-26-2025 Depression Screening Depression Screening [place] Start: 01-22-2025 End: 01-22-2025 Patient encounter procedure 01/22/2025 8:30 AM EDT Office Visit Neurology [address] [place], [place] [id number] Shelley Loyd PA-C [address] [place] [address] Narcolepsy- referral Blanca Arceo. Records scanned in Neurology Comment on above: Narcolepsy- referral Blanca Arceo. Rec ords scanned in Start: 01-20-2025 Influenza vaccination [facility] Start: 10-31-2024 End: 01-30-2025 TRICHOMONAS VAGINALIS NAAT TRICHOMONAS VAGINALIS NAAT Lab Routine Burning with urination Expected: 10/31/2024, Expires: 01/30/2025 [facility] Comment on above: Expected: 10/31/2024, Expires: Start: 05-24-2024 Depression Screening Depression Screening [place] Start: 01-21-2024 COVID-19 Vaccine ( season) COVID-19 Vaccine ( season) [place] Start: 01-21-2024 Influenza vaccination [place] Start: 06-28-2023 End: 06-28-2023 Patient encounter procedure 06/28/2023 3:30 PM EST Office Visit [facility] [address] [facility] [address] [place] [address] Shahnaz Hernandez MD [address] [facility] [address] [place] [address] [facility] Start: 06-27-2023 End: 06-27-2023 Patient encounter procedure 06/27/2023 8:10 AM EST Office Visit [facility] [place] [address] [place] [phone] Cesar Bone DO [address] [place], [place] [id number] [facility] [place] Start: 05-31-2023 End: 05-31-2023 Patient encounter procedure 05/31/2023 9:00 AM EST Office Visit [facility] [place] [address] [place] [phone] Jose Merino MD [address] [facility] [address] [place], [place] [phone] [facility] Start: 05-24-2023 End: 05-24-2023 Patient encounter procedure 05/24/2023 7:50 AM EST Office Visit [facility] [place] [address] [facility] [address] [place] [phone] Alvarez Eduardo MD [address] [place], [place] [id number] [facility] [place] Start: 05-11-2023 End: 05-11-2023 Admission to same day surgery center 05/11/2023 12:00 PM EST - 05/11/2023 1:00 PM EST Surgery [facility] MA[facility] OR [address] [facility] [place] [phone] Shahnaz Hernandez MD [address] [facility] [address] [place] [id number] PILONIDAL CYSTECTOMY [55945 (CPT )] [facility] Comment on above: PILONIDAL CYSTECTOMY [84829 (CPT )] Start: 05-11-2023 End: 05-11-2023 Excision pilonidal cyst/sinus extensive EXCISION OF PILONIDAL CYST OR SINUS EXTENSIVE Pilonidal cyst with abscess 05/11/2023 12:00 PM EST [place] Start: 05-11-2023 Subsequent hospital visit by physician 05/11/2023 12:00 PM EST Hospital Encounter [facility] [address] [place] [phone] Shahnaz Hernandez MD [address] [place] [address] [facility] Start: 05-03-2023 End: 05-03-2023 Admission to establishment 05/03/2023 1:00 PM EST Pre-Admission Testing [facility] Pre-Admit Testing [address] [place] [phone] [facility] Pre-Admit Testing Start: 04-10-2023 End: 04-10-2023 Admission to same day surgery center 04/10/2023 11:00 AM EST - 04/10/2023 12:30 PM EST Surgery [facility] MA[facility] OR [address] [place] [phone] Shahnaz Hernandez MD [address] [place] [id number] PILONIDAL CYSTECTOMY [54073 (CPT )] [facility] Comment on above: PILONIDAL CYSTECTOMY [93146 (CPT )] Start: 04-10-2023 End: 04-10-2023 Excision pilonidal cyst/sinus extensive EXCISION OF PILONIDAL CYST OR SINUS EXTENSIVE Pilonidal cyst with abscess 04/10/2023 11:00 AM EST [facility] Operating Room Start: 04-10-2023 Subsequent hospital visit by physician 04/10/2023 11:00 AM EST Hospital Encounter [facility] [address] [place] [phone] Shahnaz Hernandez MD [address] [place] [address] [facility] OR Start: 04-03-2023 End: 04-03-2023 Admission to establishment 04/03/2023 9:00 AM EST Pre-Admission Testing [facility] Pre-Admit Testing [address] [place] [phone] [facility] Pre-Admit Testing Start: 03-14-2023 End: 03-14-2023 Patient encounter procedure 03/14/2023 10:00 AM EDT Office Visit [facility] [address] [facility] [address] [place] [address] Shahnaz Hernandez MD [address] [facility] [address] [place], [place] [phone] [facility] Start: 01-20-2023 COVID-19 Vaccine ( season) COVID-19 Vaccine ( season) [place] Start: 01-20-2023 Influenza vaccination Influenza Vaccine (#1) [place] Start: 03-23-2022 DTaP/Tdap/Td vaccine (2 - Tdap) DTaP/Tdap/Td vaccine (2 - Tdap) [place] Start: 03-23-2022 DTaP/Tdap/Td vaccine (4 - Tdap) DTaP/Tdap/Td vaccine (4 - Tdap) [facility] Start: 03-23-2022 DTaP/Tdap/Td Vaccines (4 - Tdap) DTaP/Tdap/Td Vaccines (4 - Tdap) [place] Start: 03-23-2022 Urine microalbumin profile DTaP,Tdap,Td Vaccine (4 - Tdap) [facility] Start: 01-20-2021 Influenza vaccination [facility] Start: 01-21-2020 Influenza vaccination [place] Start: 01-20-2019 Influenza vaccination Flu vaccine (#1) [place] Start: 2017 Pneumococcal vaccination Pneumococcal Vaccine (1 of 2 - PCV) [facility] Start: 2017 Pneumococcal Vaccine: Pediatrics (0 to 5 Years) and At-Risk Patients (6 to 49 Years) (1 of 2 - PCV) Pneumococcal Vaccine: Pediatrics (0 to 5 Years) and At-Risk Patients (6 to 49 Years) (1 of 2 - PCV) [place] Start: 2017 Urine microalbumin profile DTAP,TDAP,TD (1 - Tdap) [facility] Start: 03-06-2017 Hepatitis A vaccine (2 of 3 - Hep A Twinrix risk 3-dose series) Hepatitis A vaccine (2 of 3 - Hep A Twinrix risk 3-dose series) [facility] Start: 03-06-2017 Hepatitis A Vaccines (2 of 3 - Hep A Twinrix risk 3-dose series) Hepatitis A Vaccines (2 of 3 - Hep A Twinrix risk 3-dose series) [place] Start: 03-06-2017 Hepatitis B Vaccine (2 of 3 - Hep B Twinrix 3-dose series) Hepatitis B Vaccine (2 of 3 - Hep B Twinrix 3-dose series) [facility] Start: 03-06-2017 Hepatitis B vaccine (2 of 3 - Risk 3-dose series) Hepatitis B vaccine (2 of 3 - Risk 3-dose series) [facility] Start: 03-06-2017 Hepatitis B Vaccines (2 of 3 - Hep B Twinrix 3-dose series) Hepatitis B Vaccines (2 of 3 - Hep B Twinrix 3-dose series) [place] Start: 2016 Anxiety Screening Anxiety Screening [facility] Start: 2016 Depression Screening Depression Screening [facility] Start: 2016 HEPATITIS C SCREENING HEPATITIS C SCREENING [facility] Start: 2016 Hepatitis C screening Hepatitis C Screening [facility] Start: 2016 HIV SCREENING HIV SCREENING [facility] Start: 2016 HIV screening HIV Screening [facility] Start: 2014 COVID-19 Vaccine (1) COVID-19 Vaccine (1) [facility] Work Phone: Start: 2013 HPV Vaccine (1 - Male 3-dose series) HPV Vaccine (1 - Male 3-dose series) [facility] Start: 2013 HPV Vaccines (1 - Male 3-dose series) HPV Vaccines (1 - Male 3-dose series) [place] Start: 2012 Peds To Adult Transition Annual Assessment Peds To Adult Transition Annual Assessment [facility] Start: 2011 Varicella vaccination Varicella Vaccines (1 of 2 - 13+ 2-dose series) [place] Start: 2010 Adult depression screening assessment DEPRESSION SCREENING [place] Start: 2010 COVID-19 Vaccine (1) COVID-19 Vaccine (1) [facility] [employer] Phone: Start: 2010 Peds To Adult Transition Initial Discussion Peds To Adult Transition Initial Discussion [facility] Start: 2009 HPV vaccine (1 - Male 2-dose series) HPV vaccine (1 - Male 2-dose series) [facility] Start: 2009 HPV Vaccines (1 - Male 2-dose series) HPV Vaccines (1 - Male 2-dose series) [place] Start: 2008 MENINGOCOCCAL B: Consider based on risk (1 of 2 - Risk Bexsero 2-dose series) MENINGOCOCCAL B: Consider based on risk (1 of 2 - Risk Bexsero 2-dose series) [facility] Start: 2004 Pneumococcal 0-64 years Vaccine (1 of 1 - PPSV23) Pneumococcal 0-64 years Vaccine (1 of 1 - PPSV23) [place] Start: 2004 Pneumococcal 0-64 years Vaccine (1 of 2 - PPSV23) Pneumococcal 0-64 years Vaccine (1 of 2 - PPSV23) [facility] Start: 2004 Pneumococcal Vaccine: Pediatrics (0 to 5 Years) and At-Risk Patients (6 to 64 Years) (1 - PCV) Pneumococcal Vaccine: Pediatrics (0 to 5 Years) and At-Risk Patients (6 to 64 Years) (1 - PCV) [place] Start: 2004 Pneumococcal Vaccine: Pediatrics (0 to 5 Years) and At-Risk Patients (6 to 64 Years) (1 of 2 - PCV) Pneumococcal Vaccine: Pediatrics (0 to 5 Years) and At-Risk Patients (6 to 64 Years) (1 of 2 - PCV) [place] Start: 02-09-2004 IPV Vaccines (2 of 3 - 4-dose series) IPV Vaccines (2 of 3 - 4-dose series) [place] Start: 02-09-2004 Varicella vaccination Varicella Vaccines (1 of 2 - 2-dose childhood series) [place] Start: 2003 COVID-19 Vaccine (1) COVID-19 Vaccine (1) [facility] Start: 1999 Varicella vaccine (1 of 2 - 2-dose childhood series) Varicella vaccine (1 of 2 - 2-dose childhood series) [facility] Start: 1998 COVID-19 Vaccine (#1) COVID-19 Vaccine (#1) [place] Start: 1998 Lipid panel Lipid Panel [place] Bacteria identified in Urine by Culture BACTERIAL CULTURE, URINE Microbiology Routine Burning with urination Ordered: 10/31/2024 [facility] Work Phone: Comment on above: Ordered: 10/31/2024 Chlamydia trachomatis+Neisseria gonorrhoeae DNA [Presence] in Unspecified specimen by JAZMIN with probe detection GONORRHEA/CHLAMYDIA NAAT Lab Routine Burning with urination Ordered: 10/31/2024 [facility] Comment on above: Ordered: 10/31/2024 Cystourethroscopy CYSTO.PANENDO Procedures Routine Recurrent UTI Ordered: 02/23/2021 [facility] Comment on above: Ordered: 02/23/2021 End: 01-31-2021 Gastrointestinal Panel by DNA Gastrointestinal Panel by DNA Microbiology STAT One Time for 1 Occurrences starting 01/31/2021 until 01/31/2021 [facility] Work Phone: Comment on above: One Time for 1 Occurrences starting 01/20 until 01/31/2021 Gastrointestinal Fuentes el by DNA Gastrointestinal Panel by DNA Microbiology STAT 01/31/2021 6:24 PM EDT [facility] Work Phone: End: 01-31-2021 Ova and Parasite Examination Ova and Parasite Examination Microbiology STAT One Time for 1 Occurrences starting 01/31/2021 until 01/31/2021 [facility] Work Phone: Comment on above: One Time for 1 Occurrences starting 01/20 until 01/31/2021 Ova and Parasite Examination Ova and Parasite Examination Microbiology STAT 01/31/2021 6:24 PM EDT [facility] Work Phone: Serum testosterone measurement [facility] Testosterone Free [Mass/volume] in Serum or Plasma [facility] Testosterone measurement [facility] Tissue exam Tissue exam Path ology and Cytology Timed Pilonidal cyst with abscess Release Upon Ordering for 1 Occurrences starting 05/11/2023 [employer] Work Phone: Comment on above: Release Upon Ordering for 1 Occurrences starting 05/11/2023 End: 09-20-2020 XR HAND RIGHT (MIN 3 VIEWS) XR HAND RIGHT (MIN 3 VIEWS) Imaging Routine Once for 1 Occurrences starting 09/20/2020 until 09/20/2020 [facility] Work Phone: Comment on above: Once for 1 Occurrences starting 09/21/19 21 until 09/20/2020 XR HAND RIGHT (MIN 3 VIEWS) XR HAND RIGHT (MIN 3 VIEWS) Imaging STAT 09/20/2020 10:[address] [facility] Work Phone: [facility] Immunizations Immunization Date Immunization Notes Care Provider Darren sauceda 02-06-2017 hepatitis A and hepatitis B vaccine [facility] 03-23-2012 diphtheria, tetanus toxoids and acellular pertussis [facility] [place] [facility]-2004 diphtheria, tetanus toxoids and acellular pertussis vaccine, unspecified formulation Floyd Sweet MD Work Phone: [place] 01-12-2004 measles, mumps and rubella virus vaccine Floyd Sweet MD Work Phone: [place] 01-12-2004 poliovirus vaccine, inactivated Floyd Sweet MD Work Phone: [place] 01-12-2004 poliovirus vaccine, unspecified formulation Shahnaz Hernandez MD Work Phone: [place] 02-16-2000 diphtheria, tetanus toxoids and acellular pertussis vaccine, unspecified formulation Floyd Sweet MD Work Phone: [place] 02-16-2000 haemophilus influenz ae type b vaccine, HbOC conjugate Floyd Sweet MD Work Phone: [place] 02-16-2000 measles, mumps and rubella virus vaccine Floyd Sweet MD Work Phone: [place] Payers Date Payer Category Payer Self-pay 2022 Medicaid O [facility] [id number] 2022 Medicaid [id number] 2021 Unknown [employer] AGE [employer] [id number] 2021-Present [phone] [address] [place] [address] [id number] 2020 Medicaid [employer] ID [employer] MEDICAID [id number] 2020-Present Medicaid [id number] 2020 Medicaid [id number] 2019 Unknown [employer] ADVANT AGE [employer]ANTAGE xxxxxxxxxxx 2019-Present [phone] [address] [place] [address] xxxxxxxxxxx [id number] 2019 Unknown [id number] 2018 Unknown 2018 Unknown [employer] CARD TRADITIONAL [id number] 2018-Present Indemnity [id number] 2018 Unknown [id number] 1998 Unknown [id number] Unknown [id number] Social History Date Type Detail Facility Start: 06-03-2018 End: 10-31-2024 Tobacco smoking status NHIS Current every day smoker [place], [place] History of tobacco use Cigarette Smoker [place] Start: 06-03-2018 End: 10-31-2024 Cigarettes smoked current (pack per day) - Reported [facility] Start: 06-03-2018 Alcohol intake Current non-dr machine inker of alcohol (finding) [place] Start: 03-23-2017 Tobacco Comment 1ppd Michelle Tse [place], [place] Start: 1998 Sex Assigned At Not on file [place] Exposure to SARS-CoV -2 (event) Unable to assess [place] Start: 06-03-2018 End: 10-31-2024 Tobacco use and exposure Never used [place] Start: 01-15-2023 End: 01-25-2023 Exposure to SARS-CoV-2 (event) Not sure [place] Start: 08-10-2020 Alcohol intake Current drinke r of alcohol (finding) [employer] Phone: Start: 08-10-2020 Alcohol Comment once a week [employer] Phone: Start: 09-20-2020 End: 10-31-2024 Alcohol intake Ex-drinker (finding) [facility] [employer] Phone: Start: 1998 Sex Assigned At Male [facility] Start: 10-11-2022 End: 04-05-2023 Alcohol intake Lifetime non-drinker (finding) [facility] Start: 10-11-2022 End: 10-31-2024 Tobacco use panel [facility] How often to you hav e a drink containing alcohol? Never [facility] How many standard drinks containing alcohol do you have on a typical day? Patient does not drink [facility] Start: 02-20-2021 Gender identity Identifies as male gender (finding) [place] Has the Flight Steward, [employer], or water [employer] threatened to shut off services in your home in past 12Mo No [facility] How hard is it for y ou to pay for the very basics like food, housing, medical care, and heating Not very hard [facility] Do you feel stress - tense, restless, nervous, or anxious, or unable to sleep at night because your mind is troubled all the time - these days [OSQ] To some extent [facility] (I/We) worried wheth er (my/our) food would run out before (I/we) got money to buy more. Never true [facility] Start: 12-20-2021 Sex Male (finding) [facility] Start: 02-20-2021 Sexual orientation Heterosexual (tommy celeste) [facility] [facility] Tobacco smoking stat us DEIS Unknown if ever smoked [facility] Work Phone: Clinical Notes 01-31-2021 to 12-19-2024 Telephone Encounter - Darrell Hoffmann LPN - 12/19/2024 2:45 PM EDTTelephone Encounter - Darrell Hoffmann LPN - 12/19/2024 2:45 PM EDDiogenes Paez APRN.[employer] REDEVELOPMENT SPECIALIST - 10/31/2024 4:37 PM EDTAttachments Note Date & Type Note Facility 12-19-2024 Telephone encounter Note New Pt to Neurology. Scheduled for Jan 22. Records scanned in chart, from Blanca Wray . Darrell Hoffmann LPN [facility] 12-19-2024 Miscellaneous Notes New Pt to Neurology. Scheduled for Jan 22. Records scanned in chart, from Blanca Wray . Darrell Hoffmann LPN documented in this encounter [facility] 11-02-2024 Telephone encounter Note Pt is active on [employer] and message was sent to him with providers message. Pt was active on [employer] 11/01/14. Mariah Smalls LPN [facility] 11-02-2024 Miscellaneous Notes Pt is active on [employer] and message was sent to him with providers message. Pt was active on [employer] 11/01/14. Mariah Smalls LPN Please let patient know urine culture is negative, no UTI documented in this encounter [facility] 11-02-2024 Telephone encounter Note Please let patient know urine culture is negative, no UTI [facility] Work Phone: 10-31-2024 Note HNO ID: [id number] Author: DIOGENES BANKS APRN.URBAN REDEVELOPMENT SPECIALIST Service: ? Author Type: Nurse Practitioner Type: Progress Notes Filed: 10/31/2024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 and verbalizes readiness for discharge. During this admission, pt received testing for multiple sexually transmitted/blood-borne infections based on his history of IVDU and condom-less sexual activity. HIV-1/HIV-2 antigen/antibody screen, hepatitis panel, chlamydia/gonorrhea, and RPR all negative. Results discussed with pt. Pt plans to follow up with [facility] and re-engage [facility] post discharge. Pt states that he will return to his parents home, which is a sober environment. Vitals height is 6' 2 (1.88 m) and weight is 150 lb (68 kg). His temporal temperature is 36.8 ?C (98.3 ?F). His blood pressure is 106/70 and his pulse is 95. His respiration is 16 and oxygen saturation is 99%. Physical Exam Constitutional: General: He is not in acute distress. HENT: Head: Normocephalic and atraumatic. Right Ear: External ear normal. Left Ear: External ear normal. Nose: Nose normal. Mouth/Throat: Mouth: Mucous membranes are moist. Eyes: General: No scleral icterus. Cardiovascular: Rate and Rhythm: Normal rate and regular rhythm. Heart sounds: Normal heart sounds. Pulmonary: Effort: Pulmonary effort is normal. Breath sounds: Normal breath sounds. Abdominal: General: Bowel sounds are normal. Musculoskeletal: General: Normal range of motion. Cervical back: Normal range of motion. Skin: General: Skin is warm and dry. Comments: IV injection sites observed; no signs of infection noted. Lesion on left neck visualized; unchanged from admission. Neurological: Mental Status: He is alert and oriented to person, place, and time. Motor: No tremor. Psychiatric: Attention and Perception: Attention and perception normal. He does not perceive auditory or visual hallucinations. Mood and Affect: Mood and affect normal. Speech: Speech normal. Behavior: Behavior normal. Behavior is cooperative. Thought Content: Thought content normal. Thought content is not paranoid or delusional. Thought content does not include homicidal or suicidal ideation. Labs Results for orders placed or performed during the hospital encounter of 07/25/24 SARS-CoV-2 Antigen Collection Time: 07/25/24 9:03 PM Specimen: Nose; Swab Result Value Ref Range SARS-CoV-2 Antigen Negative Negative CBC auto differential Collection Time: 07/25/24 9:03 PM Result Value Ref Range Auto WBC 5.5 3.6 - 10.7 10*3/uL RBC 4.40 4.40 - 5.90 10*6/uL Hemoglobin 12.9 (L) 13.0 - 18.0 g/dL Hematocrit 38.1 (L) 40.0 - 52.0 % MCV 86.6 77.0 - 99.0 fL MCH 29.3 26.0 - 34.0 pg MCHC 33.9 30.5 - 36.0 % RDW 13.5 11.5 - 15.0 % Platelets 190 140 - 440 10*3/uL MPV 9.5 9.0 - 12.7 fL nRBC 0.0 0.0 - 2.0 /100 WBCs Neutrophils Relative 67.2 38.0 - 82.0 % Lymphocytes Relative 21.2 15.0 - 45.0 % Monocytes Relative 9.1 5.0 - 13.0 % Eosinophils Relative 1.6 0.0 - 6.0 % Basophils Relative 0.7 0.0 - 2.0 % Immature Grans % 0.2 0.0 - 2.0 % Neutrophils Absolute 3.7 1.8 - 7.5 10*3/uL Lymphocytes Absolute 1.2 1.0 - 4.3 10*3/uL Monocytes Absolute 0.5 0.0 - 0.9 10*3/uL Eosinophils Absolute 0.1 0.0 - 0.5 10*3/uL Basophils Absolute 0.0 0.0 - 0.2 10*3/uL Immature Grans Absolute 0.0 <0.1 10*3/uL Basic metabolic panel Collection Time: 07/25/24 9:03 PM Result Value Ref Range SODIUM 132 (L) 136 - 145 mmol/L POTASSIUM 3.8 3.5 - 5.1 mmol/L CHLORIDE 101 98 - 107 mmol/L CAR (more content not included)... [facility] 07-29-2024 Hospital course Narrative Images from the original note were not included. ADDICTION MEDICINE DETOX UNIT DISCHARGE SUMMARY Patient MRN Geraldine Kaiser [id number] Admit Date Discharge Date 07/25/2024 07/29/2024 Primary Care Physician Cesar Bone DO Admitting Physician Jaylen Galloway MD Consultants None. Reason for Admission Geraldine Kaiser is a 24 y.o. year old male with a PMH of OUD, sepsis, rhabdomyolysis, and pilonidal cyst that was admitted to for treatment of opioid and methamphetamine withdrawal. DISCHARGE DIAGNOSIS Active Problems Principal Problem: Opioid withdrawal (HCC) Active Problems: Mass of left side of neck Severe opioid use disorder (HCC) Polysubstance abuse (CMS/HCC) (HCC) Resolved Problems Opioid withdrawal (HCC) Body mass index is 19.26 kg/m . DETOXIFICATION COURSE Detoxed with tramadol, baclofen, and clonidine and prn medications for opioid and methamphetamine withdrawal symptoms. Pt's polysubstance withdrawal was successfully managed with the tramadol taper, which the pt completed last night (07/28/24), as well as adjunct clonidine and baclofen. At the time of this final evaluation, the pt denies all withdrawal symptoms and verbalizes readiness for discharge. During this admission, pt received testing for multiple sexually transmitted/blood-borne infections based on his history of IVDU and condom-less sexual activity. HIV-1/HIV-2 antigen/antibody screen, hepatitis panel, chlamydia/gonorrhea, and RPR all negative. Results discussed with pt. Pt plans to follow up with [facility] and re-engage [facility] post discharge. Pt states that he will return to his parents home, which is a sober environment. Vitals height is 6' 2 (1.88 m) and weight is 150 lb (68 kg). His temporal temperature is 36.8 C (98.3 F). His blood pressure is 106/70 and his pulse is 95. His respiration is 16 and oxygen saturation is 99%. Physical Exam Constitutional: General: He is not in acute distress. HENT: Head: Normocephalic and atraumatic. Right Ear: External ear normal. Left Ear: External ear normal. Nose: Nose normal. Mouth/Throat: Mouth: Mucous membranes are moist. Eyes: General: No scleral icterus. Cardiovascular: Rate and Rhythm: Normal rate and regular rhythm. Heart sounds: Normal heart sounds. Pulmonary: Effort: Pulmonary effort is normal. Breath sounds: Normal breath sounds. Abdominal: General: Bowel sounds are normal. Musculoskeletal: General: Normal range of motion. Cervical back: Normal range of motion. Skin: General: Skin is warm and dry. Comments: IV injection sites observed; no signs of infection noted. Lesion on left neck visualized; unchanged from admission. Neurological: Mental Status: He is alert and oriented to person, place, and time. Motor: No tremor. Psychiatric: Attention and Perception: Attention and perception normal. He does not perceive auditory or visual hallucinations. Mood and Affect: Mood and affect normal. Speech: Speech normal. Behavior: Behavior normal. Behavior is cooperative. Thought Content: Thought content normal. Thought content is not paranoid or delusional. Thought content does not include homicidal or suicidal ideation. Labs Results for orders placed or performed during the hospital encounter of 07/25/24 SARS-CoV-2 Antigen Collection Time: 07/25/24 9:03 PM Specimen: Nose; Swab Result Value Ref Range SARS-CoV-2 Antigen Negative Negative CBC auto differential Collection Time: 07/25/24 9:03 PM Result Value Ref Range Auto WBC 5.5 3.6 - 10.7 10*3/uL RBC 4.40 4.40 - 5.90 10*6/uL Hemoglobin 12.9 (L) 13.0 - 18.0 g/dL Hematocrit 38.1 (L) 40.0 - 52.0 % MCV 86.6 77.0 - 99.0 fL MCH 29.3 26.0 - 34.0 pg MCHC 33.9 30.5 - 36.0 % RDW 13.5 11.5 - 15.0 % Platelets 190 140 - 440 10*3/uL MPV 9.5 9.0 - 12.7 fL nRBC 0.0 0.0 - 2.0 /100 WBCs Neutrophils Relative 67.2 38.0 - 82.0 % Lymphocytes Relative 21.2 15.0 - 45.0 % Monocytes Relative 9.1 5.0 - 13.0 % Eosinophils Relative 1.6 0.0 - 6.0 % Basophils Relative 0.7 0.0 - 2.0 % Immature Grans % 0.2 0.0 - 2.0 % Neutrophils Absolute 3.7 1.8 - 7.5 10*3/uL Lymphocytes Absolute 1.2 1.0 - 4.3 10*3/uL Monocytes Absolute 0.5 0.0 - 0.9 10*3/uL Eosinophils Absolute 0.1 0.0 - 0.5 10*3/uL Basophils Absolute 0.0 0.0 - 0.2 10*3/uL Immature Grans Absolute 0.0 <0.1 10*3/uL Basic metabolic panel Collection Time: 07/25/24 9:03 PM Result Value Ref Range SODIUM 132 (L) 136 - 145 mmol/L POTASSIUM 3.8 3.5 - 5.1 mmol/L CHLORIDE 101 98 - 107 mmol/L CARBON DIOXIDE 23 22 - 29 mmol/L UREA NITROGEN 11 8 - 21 mg/dL CREATININE 0.83 0.72 - 1.25 mg/dL GLUCOSE 115 (H) 74 - 100 mg/dL CALCIUM 8.9 8.4 - 10.2 mg/dL ANION GAP 8 3 - 13 mmol/L eGFR >90.0 >60.0 mL/min/1.73m*2 Hepatic function panel Collection Time: 07/25/24 9:03 PM Result Value Ref Range BILIRUBIN, TOTAL 0.8 <1.2 mg/dL BILIRUBIN, DIRECT 0.3 <0.5 mg/dL ALKALINE PHOSPHATASE 53 40 - 150 U/L AST (SGOT) 40 (H) <34 U/L ALT 21 <40 U/L ALBUMIN 4.0 3.5 - 5.0 g/dL TOTAL PROTEIN 7.2 6.4 - 8.3 g/dL Ethanol Collection Time: 07/25/24 9:03 PM Result Value Ref Range ETHANOL IN SER/PLAS <10 <10 mg/dL HIV-1 and HIV-2 Antigen-Antibody Screen Collection Time: 07/25/24 9:03 PM Result Value Ref Range HIV 1,2 COMBO ANTIGEN/ANTIBODY Nonreactive Nonreactive Hepatitis panel, acute Collection Time: 07/25/24 9:03 PM Result Value Ref Range HEPATITIS B VIRUS SURFACE AG Not Detected Not Detected HEPATITIS A VIRUS AB, IGM Not Detected Not Detected HEPATITIS B VIRUS CORE IGM AB Not Detected Not Detected HEPATITIS C VIRUS AB Not Detected Not Detected ECG 12 lead Collection Time: 07/26/24 1:07 AM Result Value Ref Range Heart Rate 109 bpm QRSD Interval 80 ms QT Interval 337 ms QTC Interval 454 ms P [place] 66 degrees QRS [place] 70 degrees T Wave [place] 59 degrees [place] Interval 144 ms Drug screen panel, emergency Collection Time: 07/26/24 2:17 AM Result Value Ref Range AMPHETAMINE SCREEN Positive BARBITURATES SCREEN Negative BENZODIAZEPINE SCREEN Negative COCAINE METAB. SCREEN Negative METHADONE SCREEN Negative OPIATES SCREEN Negative OXYCODONE SCREEN Negative PHENCYCLIDINE SCREEN Negative FENTANYL SCREEN, UR QUAL Positive Complete Urinalysis Collection Time: 07/26/24 2:17 AM Result Value Ref Range Color, Urine Yellow Lt. Yellow Clarity, Urine Clear Clear pH, Urine 6.0 5.0 - 8.0 pH Leukocytes, Urine 75 (A) Negative Cindy/uL Nitrite, Urine Negative Negative Protein, Urine 30 (A) Negative mg/dL Glucose, Urine Normal Normal (<70) mg/dL Bilirubin, Urine Negative Negative mg/dL Ketones, Urine Negative Negative mg/dL Urobilinogen, Urine Normal Normal (0-1) mg/dL Blood, Urine Negative Negative mg/dL RBC, Urine 3-5 (A) 0 - 2 /HPF WBC, Urine 6-10 (A) 0 - 5 /HPF Squamous Epithelial, Urine Negative 3 - 5 /HPF Bacteria, Urine Negative Negative /HPF Mucus, Urine Few Negative /LPF Hyaline Casts, Urine Negative Negative /LPF Calcium Oxalate Crystals, Urine Few (A) Negative /HPF Spermatozoa, Urine Many (A) Negative /HPF SPECIFIC GRAVITY OF URINE (NUMERIC) 1.018 1.005 - 1.030 BUPRENORPHINE SCREEN Collection Time: 07/26/24 2:17 AM Result Value Ref Range BUPRENORPHINE SCREEN Positive Negative Chlamydia/Gonorrhea Collection Time: 07/27/24 11:17 AM Specimen: Urine Result Value Ref Range N gonorrhoeae, DNA Probe Not Detected Not Detected Chlamydia, DNA Probe Not Detected Not Detected RPR Collection Time: 07/27/24 5:53 PM Result Value Ref Range RPR Nonreactive Nonreactive Imaging ECG 12 lead Result Date: 07/26/2024 Sinus tachycardia No change compared to previous ekg Electronically Signed On 07-26-2024 01:40:24 EST by Floyd Sweet Scheduled Inpatient Meds baclofen, 10 mg, Oral, TID cloNIDine, 0.1 mg, Oral, q8h nicotine, 1 patch, TransDERmal, Daily PRN Inpatient Meds PRN medications: dicyclomine, gabapentin, hydrOXYzine pamoate, ibuprofen, loperamide, methocarbamol, naloxone, promethazine, traZODone DISCHARGE INSTRUCTIONS Activity activity as tolerated. Disposition Home. Pt to engage both [facility] and [facility], as well as schedule appointments with pcp and dermatology. See below. Medication List CONTINUE taking these medications Sublocade 100 MG/0.5ML injection Generic drug: buprenorphine ER Follow Up [facility] [address] [facility] [id number] [facility] [address] [place] [address] Walk in appointment Mondays: 12 p.m. to 2 p.m. Tuesdays: 9 a.m. to 11 a.m. Wednesdays: 9 a.m. to 11 a.m. : 12 p.m. to 2 p.m. Go to walk in assessment for potential re-admission to residential treatment. [facility] [phone] Call and talk to Dasia glaser [address] [place], [place] [phone] Schedule an appointment as soon as possible for a visit today Pt to establish relationship/schedule appointment with primary care provider for ongoing evaluation. No future appointments. The patient was also instructed to: Attend AA/NA meetings or a similar 12-step program. Abstain from any mind or mood altering substances that are not prescribed. Follow up with their primary care doctor and/or psychiatrist as soon as possible. Pending studies or issues to follow up with: Pt to follow up with [facility]. Information for [facility] provided to pt for establishment of pcp and evaluation of neck nodule. Time spent on discharge summary: > 30 minutes Cosigned by Jaylen Galloway MD at 07/29/2024 12:56 PM EDT Associated attestation - Jaylen Galloway MD - 07/29/2024 12:56 PM EDT I have reviewed the documented history, ROS, physical exam, and decision making and agree. Jaylen Galloway MD documented in this encounter [facility] 07-28-2024 Nurse Note Pt up independently. Mostly withdrawn to room except to use the phone. Pt calm and cooperative. No safety concerns noted. Pt denies SI/HI/AVH. Pt denies symptoms of withdrawal. Appetite good. Pt agreeable to make needs known to staff. COWS monitored. Safety checks continued. [facility] 07-28-2024 Nurse Note Patient is A&O x4, cooperative, withdrawn to room. He is up steady, eating fair, compliant with medications. Activities encouraged. COWS monitored. [facility] 07-28-2024 Plan of care note Problem: Potential for Substance Withdrawal Goal: Verbalizes signs/symptoms of withdrawal Outcome: Progressing Goal: Reports signs/symptoms of withdrawal Outcome: Progressing Goal: Free of withdrawal symptoms Outcome: Progressing Problem: Drug Abuse/Detox Goal: Will have no detox symptoms and will verbalize plan for changing drug-related behavior Outcome: Progressing Problem: Knowledge Deficit Goal: Patient/family/caregiver demonstrates understanding of disease process, treatment plan, medications, and discharge instructions Outcome: Progressing Problem: Potential for Compromised Skin Integrity Goal: Skin Integrity is Maintained or Improved Outcome: Progressing Goal: Nutritional status is improving Outcome: Progressing Problem: Urinary Incontinence Goal: Perineal skin integrity is maintained or improved Outcome: Progressing [facility] 07-28-2024 Note Addiction Medicine Progress Note Patient: Geraldine Kaiser Chief Complaint Patient presents with Addiction Problem Pt requesting detox from fentanyl last use was earlier today Problem List: Principal Problem: Opioid withdrawal (HCC) Active Problems: Mass of left side of neck Severe opioid use disorder (HCC) Polysubstance abuse (CMS/HCC) (HCC) Subjective Interim History: Patient was lying in bed sleeping, endorses symptoms of withdrawal including diaphoresis at night. Overall, withdrawal symptoms are improving. No other physical complaints voiced. Patient is tolerating meals and fluids. Did not receive PRN medication overnight. Patient has not participated in group and interacted with peers. No signs and/or symptoms of withdrawal observed. No overt events overnight documented. Objective Review of Systems: All ROS was completed and was negative unless stated above Physical Exam: Vitals: 07/27/24 1357 07/27/24 1717 07/27/24 2243 07/28/24 0523 BP: 102/77 102/68 99/70 126/69 BP Location: Left arm Left arm Patient Position: Sitting Sitting Lying Lying Pulse: 102 98 97 101 Resp: 16 16 16 Temp: 37.4 ?C (99.4 ?F) 37 ?C (98.6 ?F) 37.3 ?C (99.2 ?F) TempSrc: Temporal Temporal Temporal SpO2: 97% 98% 97% Weight: Height: Physical Exam Vitals and nursing note reviewed. Constitutional: Appearance: He is not diaphoretic. Cardiovascular: Rate and Rhythm: Normal rate. Pulmonary: Effort: Pulmonary effort is normal. Abdominal: General: There is no distension. Musculoskeletal: General: Normal range of motion. Skin: Coloration: Skin is not pale. Comments: Track ortiz Neurological: Mental Status: He is alert, oriented to person, place, and time and easily aroused. Motor: No tremor. Gait: Gait is intact. Psychiatric: Mood and Affect: Mood and affect normal. Behavior: Behavior normal. Thought Content: Thought content normal. Judgment: Judgment normal. Medications: baclofen, 10 mg, Oral, TID cloNIDine, 0.1 mg, Oral, q8h nicotine, 1 patch, TransDERmal, Daily traMADol, 100 mg, Oral, q8h PRN medications: dicyclomine, gabapentin, hydrOXYzine pamoate, ibuprofen, loperamide, methocarbamol, naloxone, promethazine, traZODone Labs: Last 24 hours: Recent Results (from the past 24 hours) Chlamydia/Gonorrhea Collection Time: 07/27/24 11:17 AM Specimen: Urine Result Value Ref Range N gonorrhoeae, DNA Probe Not Detected Not Detected Chlamydia, DNA Probe Not Detected Not Detected Assessment & Plan Severe opioid use disorder Stimulant use disorder History of alcohol and marijuana use Counseled patient on biopsychosocial consequences of substance use. Encouraged professional chemical dependency treatment. Encouraged 12 step meeting attendance. Follow up plans for addiction management discussed with patient: [facility] residential treatment Opioid withdrawal Methamphetamine withdrawal Nicotine withdrawal Last use of opioids and methamphetamine was on 07/25/24 during the afternoon. Tramadol taper to manage opioid withdrawal symptoms. 100 mg q 8 hours for today. COWS scores per unit protocol. Baclofen 10 mg TID and clonidine 0.1 mg q 8 hours ordered as adjuncts PRN medications for withdrawal symptom management added. Nicotine patch ordered. Encouraged to participate in all unit activities. History of depression/anxiety Hydroxyzine 50 mg q 8 hours PRN for anxiety. Monitor/evaluate mood for acute exacerbations; will consult psychiatry if warranted. Neck lesion Bandage applied to mitigate trauma and scratching Will continue to monitor/evaluate for signs of infection. Recommend outpatient dermatology for further evaluation (e.g., dermatoscopy, biopsy) Infection concerns r/t IVDU and sexual activity Housing instability HIV, hepatitis, chlamydia/gonorrhea, and syphilis labs ordered. Pt is currently without stable residence. Disposition: Discharge anticipated in 1-2 days. This is pending: Resolution of withdrawal symptoms. Medical stabilization. Labs/tests/tasks to review: none Consultants to coordinate care with: None. Josue Brandon, FATBACK TR[employer]MER - [employer]RB[employer] REDEVELOPMENT SPECIALIST Addiction Medicine 07/28/2024 at 8:47 AM Note: Narrative portions of note written using [employer] dictation software. Efforts are made to dictate clearly and proofread but errors in dictation still may occur. Please reach out to author with any clarifying questions. [facility] 07-28-2024 History of Present illness Narrative Addiction Medicine Progress Note Patient: Geraldine Kaiser Chief Complaint Patient presents with Addiction Problem Pt requesting detox from fentanyl last use was earlier today Problem List: Principal Problem: Opioid withdrawal (HCC) Active Problems: Mass of left side of neck Severe opioid use disorder (HCC) Polysubstance abuse (CMS/HCC) (HCC) Subjective Interim History: Patient was lying in bed sleeping, endorses symptoms of withdrawal including diaphoresis at night. Overall, withdrawal symptoms are improving. No other physical complaints voiced. Patient is tolerating meals and fluids. Did not receive PRN medication overnight. Patient has not participated in group and interacted with peers. No signs and/or symptoms of withdrawal observed. No overt events overnight documented. Objective Review of Systems: All ROS was completed and was negative unless stated above Physical Exam: Vitals: 07/27/24 1357 07/27/24 1717 07/27/24 2243 07/28/24 0523 BP: 102/77 102/68 99/70 126/69 BP Location: Left arm Left arm Patient Position: Sitting Sitting Lying Lying Pulse: 102 98 97 101 Resp: 16 16 16 Temp: 37.4 C (99.4 F) 37 C (98.6 F) 37.3 C (99.2 F) TempSrc: Temporal Temporal Temporal SpO2: 97% 98% 97% Weight: Height: Physical Exam Vitals and nursing note reviewed. Constitutional: Appearance: He is not diaphoretic. Cardiovascular: Rate and Rhythm: Normal rate. Pulmonary: Effort: Pulmonary effort is normal. Abdominal: General: There is no distension. Musculoskeletal: General: Normal range of motion. Skin: Coloration: Skin is not pale. Comments: Track ortiz Neurological: Mental Status: He is alert, oriented to person, place, and time and easily aroused. Motor: No tremor. Gait: Gait is intact. Psychiatric: Mood and Affect: Mood and affect normal. Behavior: Behavior normal. Thought Content: Thought content normal. Judgment: Judgment normal. Medications: baclofen, 10 mg, Oral, TID cloNIDine, 0.1 mg, Oral, q8h nicotine, 1 patch, TransDERmal, Daily traMADol, 100 mg, Oral, q8h PRN medications: dicyclomine, gabapentin, hydrOXYzine pamoate, ibuprofen, loperamide, methocarbamol, naloxone, promethazine, traZODone Labs: Last 24 hours: Recent Results (from the past 24 hours) Chlamydia/Gonorrhea Collection Time: 07/27/24 11:17 AM Specimen: Urine Result Value Ref Range N gonorrhoeae, DNA Probe Not Detected Not Detected Chlamydia, DNA Probe Not Detected Not Detected Assessment & Plan Severe opioid use disorder Stimulant use disorder History of alcohol and marijuana use Counseled patient on biopsychosocial consequences of substance use. Encouraged professional chemical dependency treatment. Encouraged 12 step meeting attendance. Follow up plans for addiction management discussed with patient: [facility] residential treatment Opioid withdrawal Methamphetamine withdrawal Nicotine withdrawal Last use of opioids and methamphetamine was on 07/25/24 during the afternoon. Tramadol taper to manage opioid withdrawal symptoms. 100 mg q 8 hours for today. COWS scores per unit protocol. Baclofen 10 mg TID and clonidine 0.1 mg q 8 hours ordered as adjuncts PRN medications for withdrawal symptom management added. Nicotine patch ordered. Encouraged to participate in all unit activities. History of depression/anxiety Hydroxyzine 50 mg q 8 hours PRN for anxiety. Monitor/evaluate mood for acute exacerbations; will consult psychiatry if warranted. Neck lesion Bandage applied to mitigate trauma and scratching Will continue to monitor/evaluate for signs of infection. Recommend outpatient dermatology for further evaluation (e.g., dermatoscopy, biopsy) Infection concerns r/t IVDU and sexual activity Housing instability HIV, hepatitis, chlamydia/gonorrhea, and syphilis labs ordered. Pt is currently without stable residence. Disposition: Discharge anticipated in 1-2 days. This is pending: Resolution of withdrawal symptoms. Medical stabilization. Labs/tests/tasks to review: none Consultants to coordinate care with: None. Josue Brandon APRN - URBAN REDEVELOPMENT SPECIALIST Addiction Medicine 07/28/2024 at 8:47 AM Note: Narrative portions of note written using White Sky dictation software. Efforts are made to dictate clearly and proofread but errors in dictation still may occur. Please reach out to author with any clarifying questions. Addiction Medicine Progress Note Patient: Geraldine Kaiser Chief Complaint Patient presents with Addiction Problem Pt requesting detox from fentanyl last use was earlier today Problem List: Principal Problem: Opioid withdrawal (HCC) Active Problems: Mass of left side of neck Severe opioid use disorder (HCC) Polysubstance abuse (CMS/HCC) (HCC) Subjective Interim History: Patient was lying in bed sleeping, endorses symptoms of withdrawal including diaphoresis at night, fatigue and rhinorrhea. Overall, withdrawal symptoms are improving. No other physical complaints voiced. Patient is tolerating meals and fluids. Did not receive PRN medication overnight. Patient has not participated in group and interacted with peers. Positive signs and/or symptoms of withdrawal observed. No overt events overnight documented. Objective Review of Systems: All ROS was completed and was negative unless stated above Physical Exam: Vitals: 07/26/24 1720 07/26/24 2101 07/27/24 0033 07/27/24 0506 BP: 110/60 93/60 97/64 114/72 BP Location: Patient Position: Sitting Lying Lying Pulse: 103 98 95 87 Resp: 14 14 14 16 Temp: 37.3 C (99.2 F) 36.9 C (98.5 F) 36.8 C (98.2 F) TempSrc: Temporal Temporal Temporal SpO2: 97% 99% 98% 99% Weight: Height: Physical Exam Vitals and nursing note reviewed. Constitutional: General: He is sleeping. Appearance: He is diaphoretic. Cardiovascular: Rate and Rhythm: Normal rate. Pulmonary: Effort: Pulmonary effort is normal. Abdominal: General: There is no distension. Musculoskeletal: General: Normal range of motion. Skin: Coloration: Skin is not pale. Comments: Track ortiz Neurological: Mental Status: He is oriented to person, place, and time and easily aroused. Motor: No tremor. Gait: Gait is intact. Psychiatric: Mood and Affect: Mood is anxious. Behavior: Behavior normal. Thought Content: Thought content normal. Judgment: Judgment normal. Medications: baclofen, 10 mg, Oral, TID cloNIDine, 0.1 mg, Oral, q8h nicotine, 1 patch, TransDERmal, Daily traMADol, 100 mg, Oral, q6h Followed by [START ON 07/28/2024] traMADol, 100 mg, Oral, q8h PRN medications: dicyclomine, gabapentin, hydrOXYzine pamoate, ibuprofen, loperamide, methocarbamol, naloxone, promethazine, traZODone Labs: Last 24 hours: No results found for this or any previous visit (from the past 24 hours). Assessment & Plan Severe opioid use disorder Stimulant use disorder History of alcohol and marijuana use Counseled patient on biopsychosocial consequences of substance use. Encouraged professional chemical dependency treatment. Encouraged 12 step meeting attendance. Follow up plans for addiction management discussed with patient: Pt verbalizes desire to re-engage with [facility] following discharge. Opioid withdrawal Methamphetamine withdrawal Nicotine withdrawal Last use of opioids and methamphetamine was on 07/25/24 during the afternoon. Tramadol taper to manage opioid withdrawal symptoms. 100 mg q 6 hours for today. COWS scores per unit protocol. Baclofen 10 mg TID and clonidine 0.1 mg q 8 hours ordered as adjuncts PRN medications for withdrawal symptom management added. Nicotine patch ordered. Encouraged to participate in all unit activities. History of depression/anxiety Hydroxyzine 50 mg q 8 hours PRN for anxiety. Monitor/evaluate mood for acute exacerbations; will consult psychiatry if warranted. Neck lesion Bandage applied to mitigate trauma and scratching Will continue to monitor/evaluate for signs of infection. Recommend outpatient dermatology for further evaluation (e.g., dermatoscopy, biopsy) Infection concerns r/t IVDU and sexual activity Housing instability HIV, hepatitis, chlamydia/gonorrhea, and syphilis labs ordered. Pt is currently without stable residence. Disposition: Discharge anticipated in 2-3 days. This is pending: Resolution of withdrawal symptoms. Medical stabilization. Labs/tests/tasks to review: none Consultants to coordinate care with: None. VANITA Soler CNP Addiction Medicine 07/27/2024 at 8:36 AM Note: Narrative portions of note written using White Sky dictation software. Efforts are made to dictate clearly and proofread but errors in dictation still may occur. Please reach out to author with any clarifying questions. Nutrition rescreen completed. Patient assigned a level 1. documented in this encounter [place] 07-28-2024 Nurse Note Pt remains withdrawn to room. Pt A&O X4 and independent. Pt cooperative with assessment and compliant with scheduled medication. Clonidine held d/t BP parameters. Appetite improving. Pt encouraged to make needs known to staff. COWS monitored. Safety checks continued. [place] 07-27-2024 Nurse Note Patient is A&O x4, cooperative, withdrawn to room. He is up steady, eating fair, compliant with medications. Lab drawn and urine collected per order. Activities encouraged. COWS monitored. [place] 07-27-2024 Note Patient reports prev ious contact with [facility] previous to admission to detox. Patient signed TIERNEY. RISK LEAD sent referral to [facility] and will continue to follow-up as necessary on 07/29/2024. [facility] 07-27-2024 Note Formatting of this n ote might be different from the original. Patient reports previous contact with [facility] previous to admission to detox. Patient signed TIERNEY. RISK LEAD sent referral to [facility] and will continue to follow-up as necessary on 07/29/2024. [place] 07-27-2024 Note Formatting of this n ote might be different from the original. Patient reports previous contact with [facility] previous to admission to detox. Patient signed TIERNEY. RISK LEAD sent referral to [facility] and will continue to follow-up as necessary on 07/29/2024. [facility] [employer] 07-27-2024 Plan of care note Problem: Potential for Substance Withdrawal Goal: Verbalizes signs/symptoms of withdrawal Outcome: Progressing Goal: Reports signs/symptoms of withdrawal Outcome: Progressing Goal: Free of withdrawal symptoms Outcome: Progressing Problem: Drug Abuse/Detox Goal: Will have no detox symptoms and will verbalize plan for changing drug-related behavior Outcome: Progressing Problem: Knowledge Deficit Goal: Patient/family/caregiver demonstrates understanding of disease process, treatment plan, medications, and discharge instructions Outcome: Progressing Problem: Potential for Compromised Skin Integrity Goal: Skin Integrity is Maintained or Improved Outcome: Progressing Goal: Nutritional status is improving Outcome: Progressing Problem: Urinary Incontinence Goal: Perineal skin integrity is maintained or improved Outcome: Progressing [facility] [employer] 07-27-2024 Note Addiction Medicine Progress Note Patient: Geraldine Kaiser Chief Complaint Patient presents with Addiction Problem Pt requesting detox from fentanyl last use was earlier today Problem List: Principal Problem: Opioid withdrawal (HCC) Active Problems: Mass of left side of neck Severe opioid use disorder (HCC) Polysubstance abuse (CMS/HCC) (HCC) Subjective Interim History: Patient was lying in bed sleeping, endorses symptoms of withdrawal including diaphoresis at night, fatigue and rhinorrhea. Overall, withdrawal symptoms are improving. No other physical complaints voiced. Patient is tolerating meals and fluids. Did not receive PRN medication overnight. Patient has not participated in group and interacted with peers. Positive signs and/or symptoms of withdrawal observed. No overt events overnight documented. Objective Review of Systems: All ROS was completed and was negative unless stated above Physical Exam: Vitals: 07/26/24 1720 07/26/24 2101 07/27/24 0033 07/27/24 0506 BP: 110/60 93/60 97/64 114/72 BP Location: Patient Position: Sitting Lying Lying Pulse: 103 98 95 87 Resp: 14 14 14 16 Temp: 37.3 ?C (99.2 ?F) 36.9 ?C (98.5 ?F) 36.8 ?C (98.2 ?F) TempSrc: Temporal Temporal Temporal SpO2: 97% 99% 98% 99% Weight: Height: Physical Exam Vitals and nursing note reviewed. Constitutional: General: He is sleeping. Appearance: He is diaphoretic. Cardiovascular: Rate and Rhythm: Normal rate. Pulmonary: Effort: Pulmonary effort is normal. Abdominal: General: There is no distension. Musculoskeletal: General: Normal range of motion. Skin: Coloration: Skin is not pale. Comments: Track ortiz Neurological: Mental Status: He is oriented to person, place, and time and easily aroused. Motor: No tremor. Gait: Gait is intact. Psychiatric: Mood and Affect: Mood is anxious. Behavior: Behavior normal. Thought Content: Thought content normal. Judgment: Judgment normal. Medications: baclofen, 10 mg, Oral, TID cloNIDine, 0.1 mg, Oral, q8h nicotine, 1 patch, TransDERmal, Daily traMADol, 100 mg, Oral, q6h Followed by [START ON 07/28/2024] traMADol, 100 mg, Oral, q8h PRN medications: dicyclomine, gabapentin, hydrOXYzine pamoate, ibuprofen, loperamide, methocarbamol, naloxone, promethazine, traZODone Labs: Last 24 hours: No results found for this or any previous visit (from the past 24 hours). Assessment & Plan Severe opioid use disorder Stimulant use disorder History of alcohol and marijuana use Counseled patient on biopsychosocial consequences of substance use. Encouraged professional chemical dependency treatment. Encouraged 12 step meeting attendance. Follow up plans for addiction management discussed with patient: Pt verbalizes desire to re-engage with [facility] following discharge. Opioid withdrawal Methamphetamine withdrawal Nicotine withdrawal Last use of opioids and methamphetamine was on 07/25/24 during the afternoon. Tramadol taper to manage opioid withdrawal symptoms. 100 mg q 6 hours for today. COWS scores per unit protocol. Baclofen 10 mg TID and clonidine 0.1 mg q 8 hours ordered as adjuncts PRN medications for withdrawal symptom management added. Nicotine patch ordered. Encouraged to participate in all unit activities. History of depression/anxiety Hydroxyzine 50 mg q 8 hours PRN for anxiety. Monitor/evaluate mood for acute exacerbations; will consult psychiatry if warranted. Neck lesion Bandage applied to mitigate trauma and scratching Will continue to monitor/evaluate for signs of infection. Recommend outpatient dermatology for further evaluation (e.g., dermatoscopy, biopsy) Infection concerns r/t IVDU and sexual activity Housing instability HIV, hepatitis, chlamydia/gonorrhea, and syphilis labs ordered. Pt is currently without stable residence. Disposition: Discharge anticipated in 2-3 days. This is pending: Resolution of withdrawal symptoms. Medical stabilization. Labs/tests/tasks to review: none Consultants to coordinate care with: None. Josue Brandon, VANITA - URBAN REDEVELOPMENT SPECIALIST Addiction Medicine 07/27/2024 at 8:36 AM Note: Narrative portions of note written using [employer] Sky dictation software. Efforts are made to dictate clearly and proofread but errors in dictation still may occur. Please reach out to author with any clarifying questions. [facility] 07-26-2024 Nurse Note Pt withdrawn to room, approached resting in bed. Pt A&O X4. Pt cooperative with assessment and compliant with scheduled medication. Clonidine held at this time, order parameters not met. Pt denies SI/HI/AVH. Pt independent with ADLs. Pt encouraged to make needs known to staff and notify nurse of changes in symptoms. COWS monitored. Safety checks continued. [place] 07-26-2024 Note Formatting of this n ote might be different from the original. Behavioral Health Psycho-Social Assessment (Social Work) Date: 07/26/2024 Patient Name: Geraldine Kaiser : 2000 Identifying Information: Patient is a 24 year old male who was admitted for meth and fentanyl dependence and withdrawal. Presenting Problem: Patient has been using substances and was given an ultimatum that he would no longer have a place to stay if he did not get sober. Psychiatric History: Patient denied any psychiatric history. Substance Abuse/Use: Patient has a history of outpatient treatment and [facility] due to substance use. At age 20 he was admitted to [facility] for detox. As well as [facility]. He has not been able to maintain sobriety. Patient has been using fentanyl daily for the last 2 weeks 1-2 grams per day. Injecting in his arms. He swallowed a bag of fentanyl yesterday. He has also been using meth 2-3 grams per day. He used Klonopin once and smokes and vapes. He has a history of opiate use from the past. Patient first started using at age 12. Medical/Self-care Issues: Mass on left side of neck. Legal/Trauma/ History: Patient is currently charged with an F5 for Possession. He has been in and out of [facility] and [facility] for the last 12 months. No trauma or service. Family Constellation/Childhood History: Patient grew up in [place] with his parents and his 2 sisters. He is currently bouncing from couch to couch and was given an ultimatum that he needs to get sober if he wants to continue to have a place to stay. Education/Work: Client completed 9th grade. He is currently unemployed. Cultural/Spirituality/Leisure: Patient denied any christian affiliation. He enjoys hanging out with friends and playing with his son. Support Systems/Collateral Information: Patient identified his son's mom and his parents. C-SSRS Actual Attempt (Past 3 Months): No (No) Actual Attempt (Lifetime): No (No) Interrupted Attempts (Past 3 Months): No (No) Interrupted Attempts (Lifetime): No (No) Aborted or Self-Interrupted Attempt (Past 3 Months): No (No) Aborted or Self-Interrupted Attempt (Lifetime): No (No) Preparatory Acts or Behavior (Past 3 Months): No (No) Preparatory Acts or Behavior (Lifetime): No (No) Has subject engaged in non-suicidal self-injurious behavior? (Past 3 Months): No (No) Has subject engaged in non-suicidal self-injurious behavior? (Lifetime): No (No) Suicidal Ideation: (Patient denies being suicidal) Activating Events (Recent): Recent loss(es) or other significant negative event(s) (legal, financial, relationship, etc.) (Patient has been couch surfing and has been given an ultimatum to get sober.) Describe:: Patient has been couch surfing and has been given an ultimatum to get sober. (Patient has been couch surfing and has been given an ultimatum to get sober.) Treatment History: Not receiving treatment (Patient not recieving treatment.) Other Risk Factors: Patient could relapse. (Patient could relapse.) Clinical Status (Recent): Substance abuse or dependence (Patient has been using Fentanyl and Meth.) Protective Factors (Recent): Identifies reasons for living, Supportive social network or family (Patient identifies reasons for living.) Describe any suicidal, self-injurious or aggressive behavior (include dates): Patient denies suicidal ideations. No Homicidal ideations. (Patient denies suicidal ideations. No Homicidal ideations.) Plan: Patient would like to go to [facility]. He has made contact with them already. He is not amenable to going to others facilities. Patient encouraged to engage in all activities that are offered to them while they are on the unit. RISK LEAD will work to coordinate placement into [facility]. Comment: Please note this report has been produced using speech recognition software and may contain errors related to that system including errors in grammar, punctuation, and spelling, as well as words and phrases that may be inappropriate. If there are any questions or concerns please feel free to contact the dictating provider for clarification. [place] 07-26-2024 Note Formatting of this n ote might be different from the original. Behavioral Health Psycho-Social Assessment (Social Work) Date: 07/26/2024 Patient Name: Geraldine Kaiser : 2000 Identifying Information: Patient is a 24 year old male who was admitted for meth and fentanyl dependence and withdrawal. Presenting Problem: Patient has been using substances and was given an ultimatum that he would no longer have a place to stay if he did not get sober. Psychiatric History: Patient denied any psychiatric history. Substance Abuse/Use: Patient has a history of outpatient treatment and [facility] due to substance use. At age 20 he was admitted to [facility] for detox. As well as [facility]. He has not been able to maintain sobriety. Patient has been using fentanyl daily for the last 2 weeks 1-2 grams per day. Injecting in his arms. He swallowed a bag of fentanyl yesterday. He has also been using meth 2-3 grams per day. He used Klonopin once and smokes and vapes. He has a history of opiate use from the past. Patient first started using at age 12. Medical/Self-care Issues: Mass on left side of neck. Legal/Trauma/ History: Patient is currently charged with an F5 for Possession. He has been in and out of [facility] and [facility] for the last 12 months. No trauma or service. Family Constellation/Childhood History: Patient grew up in [place] with his parents and his 2 sisters. He is currently bouncing from [employer] to [employer] and was given an ultimatum that he needs to get sober if he wants to continue to have a place to stay. Education/Work: Client completed 9th grade. He is currently unemployed. Cultural/Spirituality/Leisure: Patient denied any christian affiliation. He enjoys hanging out with friends and playing with his son. Support Systems/Collateral Information: Patient identified his son's mom and his parents. C-SSRS Actual Attempt (Past 3 Months): No (No) Actual Attempt (Lifetime): No (No) Interrupted Attempts (Past 3 Months): No (No) Interrupted Attempts (Lifetime): No (No) Aborted or Self-Interrupted Attempt (Past 3 Months): No (No) Aborted or Self-Interrupted Attempt (Lifetime): No (No) Preparatory Acts or Behavior (Past 3 Months): No (No) Preparatory Acts or Behavior (Lifetime): No (No) Has subject engaged in non-suicidal self-injurious behavior? (Past 3 Months): No (No) Has subject engaged in non-suicidal self-injurious behavior? (Lifetime): No (No) Suicidal Ideation: (Patient denies being suicidal) Activating Events (Recent): Recent loss(es) or other significant negative event(s) (legal, financial, relationship, etc.) (Patient has been couch surfing and has been given an ultimatum to get sober.) Describe:: Patient has been couch surfing and has been given an ultimatum to get sober. (Patient has been couch surfing and has been given an ultimatum to get sober.) Treatment History: Not receiving treatment (Patient not recieving treatment.) Other Risk Factors: Patient could relapse. (Patient could relapse.) Clinical Status (Recent): Substance abuse or dependence (Patient has been using Fentanyl and Meth.) Protective Factors (Recent): Identifies reasons for living, Supportive social network or family (Patient identifies reasons for living.) Describe any suicidal, self-injurious or aggressive behavior (include dates): Patient denies suicidal ideations. No Homicidal ideations. (Patient denies suicidal ideations. No Homicidal ideations.) Plan: Patient would like to go to [facility]. He has made contact with them already. He is not amenable to going to others facilities. Patient encouraged to engage in all activities that are offered to them while they are on the unit. RISK LEAD will work to coordinate placement into [facility]. Comment: Please note this report has been produced using speech recognition software and may contain errors related to that system including errors in grammar, punctuation, and spelling, as well as words and phrases that may be inappropriate. If there are any questions or concerns please feel free to contact the dictating provider for clarification. [facility] 07-26-2024 Nurse Note Patient withdrawn to room. Patient startles easily, restless and has a difficult time keeping eyes open. Patient currently sitting on edge of bed rocking self. Denies SI/HI/AVH thus far. Compliant with medications and treatment offered. Appetite and sleep poor, hygiene adequate. Encouraged to approach staff with any changes or concerns. Will continue to monitor for safety. [facility] 07-26-2024 History and physical note Images from the original note were not included. ADDICTION MEDICINE 4E DETOX UNIT H&P Patient: Geraldine Kaiser Admit Date: 07/25/2024 Primary Care Physician: Cesar Bone, DO HISTORY OF PRESENT ILLNESS Chief Complaint Patient presents with Addiction Problem Pt requesting detox from fentanyl last use was earlier today Geraldine Kaiser is a 24 y.o. year old male with a PMH of OUD, sepsis, rhabdomyolysis, and pilonidal cyst that was admitted to for treatment of opioid and methamphetamine withdrawal. Geraldine Kaiser states that he has been using fentanyl 0.5-1 gram and methamphetamine 1 gram daily, both substances via IV and intranasal routes, for the past four weeks. Pt reports his last use of both substances was yesterday shortly before arriving to the [facility] ED. Pt also indicates that he swallowed a plastic bag containing fentanyl residue just before he entered the hospital. At the time of this evaluation, the pt verbalizes diffuse myalgia/arthralgia, MITTAL, and sensitivity to both light and sound. Pt also reports chills and diaphoresis yesterday evening. On admission, a urine drug screen was positive for methamphetamines and fentanyl , and a serum alcohol level was negative. Buprenorphine screen positive. SUBSTANCE USE HISTORY Brief Substance Use Narrative Pt indicates that he has been using opioids for the past 11 years. Pt states that his first use involved intranasal heroin following a break up, with his use rapidly escalating to daily IV heroin and fentanyl. Pt reports that his first use of methamphetamine was at age 12. Pt states that he used solely intranasally until shortly before his [age] birthday when he started using the drug intravenously as well. Pt reports numerous prior overdose events requiring naloxone administration. He denies history of blackouts or seizures. Pt expresses concerns for blood-borne/sexually transmitted infections due to IVDU and condom-less sex with 3 different partners in the last few months. Pt states he has not been tested since 2022. Prior to this most recent period of use (see HPI), pt reports four months of abstinence while at [facility]. Current Substance Use Alcohol: Pt states that he first consumed alcohol at age 12. Pt states that he has not used alcohol in approximately six months but was drinking up to 1 liter of whiskey several times weekly prior to this. Amphetamines: See HPI and Brief Substance Use Narrative. Benzos: Pt reports intermittent benzodiazepine use. Pt's last use was one week ago consisting of 6 mg of clonazepam. Cocaine: Pt states that he began smoking crack cocaine about a year ago but has not used in four months. Hallucinogens: Denies. Marijuana: Pt first began using marijuana at age 11. Pt states that he has not used in six months but was previously smoking a quarter ounce daily. Nicotine: Pt smokes 1/2 PPD. Opioids: See HPI and Brief Substance Use Narrative. Treatment History Inpatient Rehab: Pt reports prior residential at both [facility] and [facility], most recently completing treatment at the latter agency sometime in 2023. Chem Dep IOP: Pt reports prior IOP engagement with [facility] and while in group home. Detoxifications: Pt reports 3-4 inpatient detox admissions at [place] [facility] and [facility]. 12 Step Meetings: Pt has history of prior meeting attendance. Medication Assisted Treatment: Pt has history of MAT with both Vivitrol and buprenorphine. Pt states that he is currently engaged with [facility] and has been receiving monthly Sublocade injections through the agency. Pt indicates that he was scheduled for an injection this Monday but opted not to show due to concerns regarding a possible warrant. Consequences [x] IVDA. [] Blackouts related to substance use. [] History of withdrawal seizures. [] History of delirium tremens. [x] History of overdoses. [x] Legal consequences of substance use. Substance Use Disorder Criteria 2-3 = mild; 4-5 = moderate; 6 or >6 = severe substance use disorder [x] Taking substance in larger amounts and/or for longer than intended. [x] Wanting to cut down or quit but not being able to. [x] Spending a lot of time obtaining the substance. [x] Craving or a strong desire to use substance. [x] Repeatedly doesn't carry out major obligations due to substance use. [x] Using despite recurring social or interpersonal problems. [x] Reducing social, occupational, or recreational activities. [x] Recurrent use in physically hazardous situations. [x] Consistent use despite recurrent physical or psychological difficulties. [x] Tolerance (increased amounts to achieve intoxication or diminished effect). [x] Withdrawal syndrome or the substance is used to avoid withdrawal. REMAINING HISTORY Psychiatric History Current Psychiatrist: Denies. Current Medications: Denies. Diagnoses: depression and anxiety Previous Medication Trials: Denies. Psychiatric Hospitalizations: Denies. Previous Suicide Attempts: Denies. Adverse Childhood Events: Pt denies a history of physical, sexual, or emotional abuse during childhood. Trauma History: Pt acknowledges extensive trauma history but did not elaborate. Pt reports that he was incarcerated for a year ([id number]) for robbery and kidnapping. History of Head Injuries: Past history but not recently. Past Medical History Past Medical History: Diagnosis Date Drug abuse ([facility]) ([facility]) Polysubstance abuse ([facility]) ([facility]) Rhabdomyolysis 01/2017 Past Surgical History Past Surgical History: Procedure Laterality Date FOOT SURGERY Right pinning OTHER SURGICAL HISTORY 05/11/2023 PILONIDAL CYSTECTOMY VASCULAR SURGERY blood vessel on head WISDOM TOOTH EXTRACTION Family History Family History Problem Relation Name Age of Onset No Known Problems Mother No Known Problems Father Substance Abuse Mother's Brother Social Drivers of Health Tobacco Use: High Risk (01/03/2024) Patient History Smoking Tobacco Use: Every Day Smokeless Tobacco Use: Never Passive Exposure: Not on file Alcohol Use: Not At Risk (07/26/2024) AUDIT-C Frequency of Alcohol Consumption: Never Average Number of Drinks: Patient does not drink Frequency of Binge Drinking: Never Financial Resource Strain: Low Risk (07/26/2024) Overall Financial Resource Strain (CARDIA) Difficulty of Paying Living Expenses: Not very hard Food Insecurity: No Food Insecurity (07/26/2024) Hunger Vital Sign Worried About Running Out of Food in the Last Year: Never true Ran Out of Food in the Last Year: Never true Transportation Needs: No Transportation Needs (07/26/2024) PRAPARE - Transportation Lack of Transportation (Medical): No Lack of Transportation (Non-Medical): No Physical Activity: Inactive (07/26/2024) Exercise Vital Sign Days of Exercise per Week: 0 days Minutes of Exercise per Session: 0 min Stress: Stress Concern Present (07/26/2024) [employer] [place] [employer] - Occupational Stress Questionnaire Feeling of Stress : To some extent Social Connections: Patient Unable To Answer (07/26/2024) Social Connection and Isolation Panel [NHANES] Frequency of Communication with Friends and Family: Patient unable to answer Frequency of Social Gatherings with Friends and Family: Patient unable to answer Attends [employer] Services: Patient unable to answer Active Member of Clubs or Organizations: Patient unable to answer Attends Club or Organization Meetings: Patient unable to answer Marital Status: Patient unable to answer Intimate Partner Violence: Not At Risk (07/26/2024) Humiliation, Afraid, Rape, and Kick questionnaire Fear of Current or Ex-Partner: No Emotionally Abused: No Physically Abused: No Sexually Abused: No Depression: None or minimal depression (07/26/2024) PHQ-9 PHQ-9 Score: 3 Housing Stability: Unknown (07/26/2024) Housing Stability Vital Sign Unable to Pay for Housing in the Last Year: No Number of Times Moved in the Last Year: Not on file Homeless in the Last Year: No Utilities: Not At Risk (07/26/2024) [facility] Utilities Threatened with loss of utilities: No Health Literacy: Not on file REVIEW OF SYSTEMS Review of Systems Constitutional: Positive for chills and malaise/fatigue. HENT: Negative for sore throat. Eyes: Positive for photophobia. Cardiovascular: Negative for chest pain and dyspnea on exertion. Respiratory: Negative for shortness of breath. Hematologic/Lymphatic: Negative for adenopathy. Skin: Positive for suspicious lesions (Pt reports raised skin lesion on his neck; nontender but occasionally pruritic.). Negative for rash. Musculoskeletal: Positive for joint pain and myalgias. Gastrointestinal: Negative for diarrhea, nausea and vomiting. Genitourinary: Negative for bladder incontinence and dysuria. Neurological: Positive for headaches, sensory change (Pt reports skin crawling sensation.) and tremors. Psychiatric/Behavioral: Positive for substance abuse. Negative for depression, hallucinations and suicidal ideas. The patient is nervous/anxious. EXAM Vitals Vitals: 07/26/24 0052 07/26/24 0414 07/26/24 0451 07/26/24 0556 BP: (!) 120/93 126/78 117/79 128/87 BP Location: Left arm Left arm Left arm Patient Position: Sitting Lying Sitting Pulse: (!) 118 100 109 111 Resp: 20 18 18 16 Temp: 36.9 C (98.4 F) TempSrc: Temporal SpO2: 98% 97% 97% 98% Weight: 150 lb (68 kg) Height: 6' 2 (1.88 m) Physical Exam Constitutional: Appearance: He is ill-appearing. HENT: Head: Normocephalic and atraumatic. Right Ear: External ear normal. Left Ear: External ear normal. Nose: Congestion present. Eyes: Conjunctiva/sclera: Conjunctivae normal. Cardiovascular: Rate and Rhythm: Regular rhythm. Tachycardia present. Pulmonary: Effort: No respiratory distress. Breath sounds: Normal breath sounds. No wheezing or rhonchi. Abdominal: General: Bowel sounds are normal. There is no distension. Palpations: Abdomen is soft. Musculoskeletal: General: Normal range of motion. Cervical back: Normal range of motion. Skin: General: Skin is warm. Findings: Lesion (Firm, symmetrical and well-demarcated brown nodule noted to left neck.) present. Comments: IV injection sites noted to bilateral antecubital fossa; no erythema, swelling, or drainage visualized. Neurological: Mental Status: He is alert and oriented to person, place, and time. Motor: Tremor (Fine tremor bilateral hands.) present. Psychiatric: Attention and Perception: Attention and perception normal. He does not perceive auditory or visual hallucinations. Mood and Affect: Mood is anxious. Affect is blunt. Speech: Speech normal. Behavior: Behavior normal. Behavior is cooperative. Thought Content: Thought content normal. Thought content is not paranoid or delusional. Thought content does not include homicidal or suicidal ideation. IMAGING ECG 12 lead Result Date: 07/26/2024 Sinus tachycardia No change compared to previous ekg Electronically Signed On 07-26-2024 01:40:24 EST by Sogou Recent Results (from the past 48 hours) CBC auto differential Collection Time: 07/25/24 9:03 PM Result Value Ref Range Auto WBC 5.5 3.6 - 10.7 10*3/uL RBC 4.40 4.40 - 5.90 10*6/uL Hemoglobin 12.9 (L) 13.0 - 18.0 g/dL Hematocrit 38.1 (L) 40.0 - 52.0 % MCV 86.6 77.0 - 99.0 fL MCH 29.3 26.0 - 34.0 pg MCHC 33.9 30.5 - 36.0 % RDW 13.5 11.5 - 15.0 % Platelets 190 140 - 440 10*3/uL MPV 9.5 9.0 - 12.7 fL nRBC 0.0 0.0 - 2.0 /100 WBCs Neutrophils Relative 67.2 38.0 - 82.0 % Lymphocytes Relative 21.2 15.0 - 45.0 % Monocytes Relative 9.1 5.0 - 13.0 % Eosinophils Relative 1.6 0.0 - 6.0 % Basophils Relative 0.7 0.0 - 2.0 % Immature Grans % 0.2 0.0 - 2.0 % Neutrophils Absolute 3.7 1.8 - 7.5 10*3/uL Lymphocytes Absolute 1.2 1.0 - 4.3 10*3/uL Monocytes Absolute 0.5 0.0 - 0.9 10*3/uL Eosinophils Absolute 0.1 0.0 - 0.5 10*3/uL Basophils Absolute 0.0 0.0 - 0.2 10*3/uL Immature Grans Absolute 0.0 <0.1 10*3/uL Basic metabolic panel Collection Time: 07/25/24 9:03 PM Result Value Ref Range SODIUM 132 (L) 136 - 145 mmol/L POTASSIUM 3.8 3.5 - 5.1 mmol/L CHLORIDE 101 98 - 107 mmol/L CARBON DIOXIDE 23 22 - 29 mmol/L UREA NITROGEN 11 8 - 21 mg/dL CREATININE 0.83 0.72 - 1.25 mg/dL GLUCOSE 115 (H) 74 - 100 mg/dL CALCIUM 8.9 8.4 - 10.2 mg/dL ANION GAP 8 3 - 13 mmol/L eGFR >90.0 >60.0 mL/min/1.73m*2 Hepatic function panel Collection Time: 07/25/24 9:03 PM Result Value Ref Range BILIRUBIN, TOTAL 0.8 <1.2 mg/dL BILIRUBIN, DIRECT 0.3 <0.5 mg/dL ALKALINE PHOSPHATASE 53 40 - 150 U/L AST (SGOT) 40 (H) <34 U/L ALT 21 <40 U/L ALBUMIN 4.0 3.5 - 5.0 g/dL TOTAL PROTEIN 7.2 6.4 - 8.3 g/dL Ethanol Collection Time: 07/25/24 9:03 PM Result Value Ref Range ETHANOL IN SER/PLAS <10 <10 mg/dL SARS-CoV-2 Antigen Collection Time: 07/25/24 9:03 PM Specimen: Nose; Swab Result Value Ref Range SARS-CoV-2 Antigen Negative Negative ECG 12 lead Collection Time: 07/26/24 1:07 AM Result Value Ref Range Heart Rate 109 bpm QRSD Interval 80 ms QT Interval 337 ms QTC Interval 454 ms P [place] 66 degrees QRS [place] 70 degrees T Wave [place] 59 degrees [place] Interval 144 ms Drug screen panel, emergency Collection Time: 07/26/24 2:17 AM Result Value Ref Range AMPHETAMINE SCREEN Positive BARBITURATES SCREEN Negative BENZODIAZEPINE SCREEN Negative COCAINE METAB. SCREEN Negative METHADONE SCREEN Negative OPIATES SCREEN Negative OXYCODONE SCREEN Negative PHENCYCLIDINE SCREEN Negative FENTANYL SCREEN, UR QUAL Positive Complete Urinalysis Collection Time: 07/26/24 2:17 AM Result Value Ref Range Color, Urine Yellow Lt. Yellow Clarity, Urine Clear Clear pH, Urine 6.0 5.0 - 8.0 pH Leukocytes, Urine 75 (A) Negative Cindy/uL Nitrite, Urine Negative Negative Protein, Urine 30 (A) Negative mg/dL Glucose, Urine Normal Normal (<70) mg/dL Bilirubin, Urine Negative Negative mg/dL Ketones, Urine Negative Negative mg/dL Urobilinogen, Urine Normal Normal (0-1) mg/dL Blood, Urine Negative Negative mg/dL RBC, Urine 3-5 (A) 0 - 2 /HPF WBC, Urine 6-10 (A) 0 - 5 /HPF Squamous Epithelial, Urine Negative 3 - 5 /HPF Bacteria, Urine Negative Negative /HPF Mucus, Urine Few Negative /LPF Hyaline Casts, Urine Negative Negative /LPF Calcium Oxalate Crystals, Urine Few (A) Negative /HPF Spermatozoa, Urine Many (A) Negative /HPF SPECIFIC GRAVITY OF URINE (NUMERIC) 1.018 1.005 - 1.030 MEDICATIONS Home Meds Current Outpatient Medications Medication Instructions buprenorphine ER (Sublocade) 100 mg/0.5mL injection 1 each, SubCUTAneous, Over 1 month, Was supposed to receive Monday 07/24 Scheduled Inpatient Meds baclofen, 10 mg, Oral, TID cloNIDine, 0.1 mg, Oral, q8h traMADol, 100 mg, Oral, Q4H Followed by [START ON 07/27/2024] traMADol, 100 mg, Oral, q6h Followed by [START ON 07/28/2024] traMADol, 100 mg, Oral, q8h PRN Inpatient Meds PRN medications: dicyclomine, gabapentin, hydrOXYzine pamoate, ibuprofen, loperamide, methocarbamol, naloxone, promethazine, traZODone Continuous Inpatient Infusions ASSESSMENT & PLAN Severe opioid use disorder Stimulant use disorder History of alcohol and marijuana use Counseled patient on biopsychosocial consequences of substance use. Encouraged professional chemical dependency treatment. Encouraged 12 step meeting attendance. Follow up plans for addiction management discussed with patient: Pt verbalizes desire to re-engage with [facility] following discharge. Opioid withdrawal Methamphetamine withdrawal Nicotine withdrawal Last use of opioids and methamphetamine was on 07/25/24 during the afternoon. Tramadol taper to manage opioid withdrawal symptoms. 100 mg q 4 hours for today. COWS scores per unit protocol. Baclofen 10 mg TID and clonidine 0.1 mg q 8 hours ordered as adjuncts PRN medications for withdrawal symptom management added. Nicotine patch ordered. Encouraged to participate in all unit activities. History of depression/anxiety Hydroxyzine 50 mg q 8 hours PRN for anxiety. Monitor/evaluate mood for acute exacerbations; will consult psychiatry if warranted. Neck lesion Bandage applied to mitigate trauma and scratching Will continue to monitor/evaluate for signs of infection. Recommend outpatient dermatology for further evaluation (e.g., dermatoscopy, biopsy) Infection concerns r/t IVDU and sexual activity Housing instability HIV, hepatitis, chlamydia/gonorrhea, and syphilis labs ordered. Pt is currently without stable residence. Disposition: Discharge anticipated in 3-4 days. This is pending: Resolution of withdrawal symptoms. Medical stabilization. Labs/tests/tasks to review: Aftercare, . Consultants to coordinate care with: None. I reviewed the patient's medical record, and reviewed test results. I educated and then counseled the patient on any substance use disorder or chemical dependency related issues. This included a face to face evaluation and physical examination, and coordinating care on a substance use disorder treatment plan as well as documenting clinical information on the day of visit. Cosigned by Jaylen Galloway MD at 07/26/2024 5:57 PM EST Associated attestation - Jaylen Galloway MD - 07/26/2024 5:57 PM EST I agree with the findings and documentation of this H&P. [place] 07-26-2024 Note Attestation signed by Jaylen Galloway MD at 07/26/2024 5:57 PM I agree with the findings and documentation of this H&P. ADDICTION MEDICINE DETOX UNIT H&P Patient: Geraldine Kaiser Admit Date: 07/25/2024 Primary Care Physician: Cesar Bone, __ HISTORY OF PRESENT ILLNESS Chief Complaint Patient presents with Addiction Problem Pt requesting detox from fentanyl last use was earlier today Geraldine Kaiser is a 24 y.o. year old male with a PMH of OUD, sepsis, rhabdomyolysis, and pilonidal cyst that was admitted to for treatment of opioid and methamphetamine withdrawal. Geraldine Kaiser states that he has been using fentanyl 0.5-1 gram and methamphetamine 1 gram daily, both substances via IV and intranasal routes, for the past four weeks. Pt reports his last use of both substances was yesterday shortly before arriving to the [facility] ED. Pt also indicates that he swallowed a plastic bag containing fentanyl residue just before he entered the hospital. At the time of this evaluation, the pt verbalizes diffuse myalgia/arthralgia, MITTAL, and sensitivity to both light and sound. Pt also reports chills and diaphoresis yesterday evening. On admission, a urine drug screen was positive for methamphetamines and fentanyl , and a serum alcohol level was negative. Buprenorphine screen positive. SUBSTANCE USE HISTORY Brief Substance Use Narrative Pt indicates that he has been using opioids for the past 11 years. Pt states that his first use involved intranasal heroin following a break up, with his use rapidly escalating to daily IV heroin and fentanyl. Pt reports that his first use of methamphetamine was at age 12. Pt states that he used solely intranasally until shortly before his [age] birthday when he started using the drug intravenously as well. Pt reports numerous prior overdose events requiring naloxone administration. He denies history of blackouts or seizures. Pt expresses concerns for blood-borne/sexually transmitted infections due to IVDU and condom-less sex with 3 different partners in the last few months. Pt states he has not been tested since 2022. Prior to this most recent period of use (see HPI), pt reports four months of abstinence while at [facility] in [place]. Current Substance Use Alcohol: Pt states that he first consumed alcohol at age 12. Pt states that he has not used alcohol in approximately six months but was drinking up to 1 liter of whiskey several times weekly prior to this. Amphetamines: See HPI and Brief Substance Use Narrative. Benzos: Pt reports intermittent benzodiazepine use. Pt's last use was one week ago consisting of 6 mg of clonazepam. Cocaine: Pt states that he began smoking crack cocaine about a year ago but has not used in four months. Hallucinogens: Denies. Marijuana: Pt first began using marijuana at age 11. Pt states that he has not used in six months but was previously smoking a quarter ounce daily. Nicotine: Pt smokes 1/2 PPD. Opioids: See HPI and Brief Substance Use Narrative. Treatment History Inpatient Rehab: Pt reports prior residential at both [facility] and [facility], most recently completing treatment at the latter agency sometime in 2023. Chem Dep IOP: Pt reports prior IOP engagement with [facility] and while in group home. Detoxifications: Pt reports 3-4 inpatient detox admissions at [place] [facility] and [facility]. 12 Step Meetings: Pt has history of prior meeting attendance. Medication Assisted Treatment: Pt has history of MAT with both Vivitrol and buprenorphine. Pt states that he is currently engaged with [facility] and has been receiving monthly Sublocade injections through the agency. Pt indicates that he was scheduled for an injection this Monday but opted not to show due to concerns regarding a possible warrant. Consequences [x] IVDA. [] Blackouts related to substance use. [] History of withdrawal seizures. [] History of delirium tremens. [x] History of overdoses. [x] Legal consequences of substance use. Substance Use Disorder Criteria 2-3 = mild; 4-5 = moderate; 6 or >6 = severe substance use disorder [x] Taking substance in larger amounts and/or for longer than intended. [x] Wanting to cut down or quit but not being able to. [x] Spending a lot of time obtaining the substance. [x] Craving or a strong desire to use substance. [x] Repeatedly doesn't carry out major obligations due to substance use. [x] Using despite recurring social or interpersonal problems. [x] Reducing social, occupational, or recreational activities. [x] Recurrent use in physically hazardous situations. [x] Consistent use despite recurrent physical or psy (more content not included)... [facility] 07-26-2024 History and physical note Images from the original note were not included. ADDICTION MEDICINE 4E DETOX UNIT H&P Patient: Geraldine Kaiser Admit Date: 07/25/2024 Primary Care Physician: Cesar Bone, DO HISTORY OF PRESENT ILLNESS Chief Complaint Patient presents with Addiction Problem Pt requesting detox from fentanyl last use was earlier today Geraldine Kaiser is a 24 y.o. year old male with a PMH of OUD, sepsis, rhabdomyolysis, and pilonidal cyst that was admitted to for treatment of opioid and methamphetamine withdrawal. Geraldine Kaiser states that he has been using fentanyl 0.5-1 gram and methamphetamine 1 gram daily, both substances via IV and intranasal routes, for the past four weeks. Pt reports his last use of both substances was yesterday shortly before arriving to the [facility] ED. Pt also indicates that he swallowed a plastic bag containing fentanyl residue just before he entered the hospital. At the time of this evaluation, the pt verbalizes diffuse myalgia/arthralgia, MITTAL, and sensitivity to both light and sound. Pt also reports chills and diaphoresis yesterday evening. On admission, a urine drug screen was positive for methamphetamines and fentanyl , and a serum alcohol level was negative. Buprenorphine screen positive. SUBSTANCE USE HISTORY Brief Substance Use Narrative Pt indicates that he has been using opioids for the past 11 years. Pt states that his first use involved intranasal heroin following a break up, with his use rapidly escalating to daily IV heroin and fentanyl. Pt reports that his first use of methamphetamine was at age 12. Pt states that he used solely intranasally until shortly before his [age] birthday when he started using the drug intravenously as well. Pt reports numerous prior overdose events requiring naloxone administration. He denies history of blackouts or seizures. Pt expresses concerns for blood-borne/sexually transmitted infections due to IVDU and condom-less sex with 3 different partners in the last few months. Pt states he has not been tested since 2022. Prior to this most recent period of use (see HPI), pt reports four months of abstinence while at [facility] in [place]. Current Substance Use Alcohol: Pt states that he first consumed alcohol at age 12. Pt states that he has not used alcohol in approximately six months but was drinking up to 1 liter of whiskey several times weekly prior to this. Amphetamines: See HPI and Brief Substance Use Narrative. Benzos: Pt reports intermittent benzodiazepine use. Pt's last use was one week ago consisting of 6 mg of clonazepam. Cocaine: Pt states that he began smoking crack cocaine about a year ago but has not used in four months. Hallucinogens: Denies. Marijuana: Pt first began using marijuana at age 11. Pt states that he has not used in six months but was previously smoking a quarter ounce daily. Nicotine: Pt smokes 1/2 PPD. Opioids: See HPI and Brief Substance Use Narrative. Treatment History Inpatient Rehab: Pt reports prior residential at both [facility] and [facility], most recently completing treatment at the latter agency sometime in 2023. Chem Dep IOP: Pt reports prior IOP engagement with [facility] and while in group home. Detoxifications: Pt reports 3-4 inpatient detox admissions at [facility]. 12 Step Meetings: Pt has history of prior meeting attendance. Medication Assisted Treatment: Pt has history of MAT with both Vivitrol and buprenorphine. Pt states that he is currently engaged with [facility] and has been receiving monthly Sublocade injections through the agency. Pt indicates that he was scheduled for an injection this Monday but opted not to show due to concerns regarding a possible warrant. Consequences [x] IVDA. [] Blackouts related to substance use. [] History of withdrawal seizures. [] History of delirium tremens. [x] History of overdoses. [x] Legal consequences of substance use. Substance Use Disorder Criteria 2-3 = mild; 4-5 = moderate; 6 or >6 = severe substance use disorder [x] Taking substance in larger amounts and/or for longer than intended. [x] Wanting to cut down or quit but not being able to. [x] Spending a lot of time obtaining the substance. [x] Craving or a strong desire to use substance. [x] Repeatedly doesn't carry out major obligations due to substance use. [x] Using despite recurring social or interpersonal problems. [x] Reducing social, occupational, or recreational activities. [x] Recurrent use in physically hazardous situations. [x] Consistent use despite recurrent physical or psychological difficulties. [x] Tolerance (increased amounts to achieve intoxication or diminished effect). [x] Withdrawal syndrome or the substance is used to avoid withdrawal. REMAINING HISTORY Psychiatric History Current Psychiatrist: Denies. Current Medications: Denies. Diagnoses: depression and anxiety Previous Medication Trials: Denies. Psychiatric Hospitalizations: Denies. Previous Suicide Attempts: Denies. Adverse Childhood Events: Pt denies a history of physical, sexual, or emotional abuse during childhood. Trauma History: Pt acknowledges extensive trauma history but did not elaborate. Pt reports that he was incarcerated for a year ([id number]) for robbery and kidnapping. History of Head Injuries: Past history but not recently. Past Medical History Past Medical History: Diagnosis Date Drug abuse (CMS/HCC) (HCC) Polysubstance abuse (CMS/HCC) ([facility]) Rhabdomyolysis 01/2017 Past Surgical History Past Surgical History: Procedure Laterality Date FOOT SURGERY Right pinning OTHER SURGICAL HISTORY 05/11/2023 PILONIDAL CYSTECTOMY VASCULAR SURGERY blood vessel on head WISDOM TOOTH EXTRACTION Family History Family History Problem Relation Name Age of Onset No Known Problems Mother No Known Problems Father Substance Abuse Mother's Brother Social Drivers of Health Tobacco Use: High Risk (01/03/2024) Patient History Smoking Tobacco Use: Every Day Smokeless Tobacco Use: Never Passive Exposure: Not on file Alcohol Use: Not At Risk (07/26/2024) AUDIT-C Frequency of Alcohol Consumption: Never Average Number of Drinks: Patient does not drink Frequency of Binge Drinking: Never Financial Resource Strain: Low Risk (07/26/2024) Overall Financial Resource Strain (CARDIA) Difficulty of Paying Living Expenses: Not very hard Food Insecurity: No Food Insecurity (07/26/2024) Hunger Vital Sign Worried About Running Out of Food in the Last Year: Never true Ran Out of Food in the Last Year: Never true Transportation Needs: No Transportation Needs (07/26/2024) PRAPARE - Transportation Lack of Transportation (Medical): No Lack of Transportation (Non-Medical): No Physical Activity: Inactive (07/26/2024) Exercise Vital Sign Days of Exercise per Week: 0 days Minutes of Exercise per Session: 0 min Stress: Stress Concern Present (07/26/2024) [employer] [place] [employer] - Occupational Stress Questionnaire Feeling of Stress : To some extent Social Connections: Patient Unable To Answer (07/26/2024) Social Connection and Isolation Panel [NHANES] Frequency of Communication with Friends and Family: Patient unable to answer Frequency of Social Gatherings with Friends and Family: Patient unable to answer Attends Advent Services: Patient unable to answer Active Member of Clubs or Organizations: Patient unable to answer Attends Club or Organization Meetings: Patient unable to answer Marital Status: Patient unable to answer Intimate Partner Violence: Not At Risk (07/26/2024) Humiliation, Afraid, Rape, and Kick questionnaire Fear of Current or Ex-Partner: No Emotionally Abused: No Physically Abused: No Sexually Abused: No Depression: None or minimal depression (07/26/2024) PHQ-9 PHQ-9 Score: 3 Housing Stability: Unknown (07/26/2024) Housing Stability Vital Sign Unable to Pay for Housing in the Last Year: No Number of Times Moved in the Last Year: Not on file Homeless in the Last Year: No Utilities: Not At Risk (07/26/2024) [facility] Utilities Threatened with loss of utilities: No Health Literacy: Not on file REVIEW OF SYSTEMS Review of Systems Constitutional: Positive for chills and malaise/fatigue. HENT: Negative for sore throat. Eyes: Positive for photophobia. Cardiovascular: Negative for chest pain and dyspnea on exertion. Respiratory: Negative for shortness of breath. Hematologic/Lymphatic: Negative for adenopathy. Skin: Positive for suspicious lesions (Pt reports raised skin lesion on his neck; nontender but occasionally pruritic.). Negative for rash. Musculoskeletal: Positive for joint pain and myalgias. Gastrointestinal: Negative for diarrhea, nausea and vomiting. Genitourinary: Negative for bladder incontinence and dysuria. Neurological: Positive for headaches, sensory change (Pt reports skin crawling sensation.) and tremors. Psychiatric/Behavioral: Positive for substance abuse. Negative for depression, hallucinations and suicidal ideas. The patient is nervous/anxious. EXAM Vitals Vitals: 07/26/24 0052 07/26/24 0414 07/26/24 0451 07/26/24 0556 BP: (!) 120/93 126/78 117/79 128/87 BP Location: Left arm Left arm Left arm Patient Position: Sitting Lying Sitting Pulse: (!) 118 100 109 111 Resp: 20 18 18 16 Temp: 36.9 C (98.4 F) TempSrc: Temporal SpO2: 98% 97% 97% 98% Weight: 150 lb (68 kg) Height: 6' 2 (1.88 m) Physical Exam Constitutional: Appearance: He is ill-appearing. HENT: Head: Normocephalic and atraumatic. Right Ear: External ear normal. Left Ear: External ear normal. Nose: Congestion present. Eyes: Conjunctiva/sclera: Conjunctivae normal. Cardiovascular: Rate and Rhythm: Regular rhythm. Tachycardia present. Pulmonary: Effort: No respiratory distress. Breath sounds: Normal breath sounds. No wheezing or rhonchi. Abdominal: General: Bowel sounds are normal. There is no distension. Palpations: Abdomen is soft. Musculoskeletal: General: Normal range of motion. Cervical back: Normal range of motion. Skin: General: Skin is warm. Findings: Lesion (Firm, symmetrical and well-demarcated brown nodule noted to left neck.) present. Comments: IV injection sites noted to bilateral antecubital fossa; no erythema, swelling, or drainage visualized. Neurological: Mental Status: He is alert and oriented to person, place, and time. Motor: Tremor (Fine tremor bilateral hands.) present. Psychiatric: Attention and Perception: Attention and perception normal. He does not perceive auditory or visual hallucinations. Mood and Affect: Mood is anxious. Affect is blunt. Speech: Speech normal. Behavior: Behavior normal. Behavior is cooperative. Thought Content: Thought content normal. Thought content is not paranoid or delusional. Thought content does not include homicidal or suicidal ideation. IMAGING ECG 12 lead Result Date: 07/26/2024 Sinus tachycardia No change compared to previous ekg Electronically Signed On 07-26-2024 01:40:24 EST by Sogou Recent Results (from the past 48 hours) CBC auto differential Collection Time: 07/25/24 9:03 PM Result Value Ref Range Auto WBC 5.5 3.6 - 10.7 10*3/uL RBC 4.40 4.40 - 5.90 10*6/uL Hemoglobin 12.9 (L) 13.0 - 18.0 g/dL Hematocrit 38.1 (L) 40.0 - 52.0 % MCV 86.6 77.0 - 99.0 fL MCH 29.3 26.0 - 34.0 pg MCHC 33.9 30.5 - 36.0 % RDW 13.5 11.5 - 15.0 % Platelets 190 140 - 440 10*3/uL MPV 9.5 9.0 - 12.7 fL nRBC 0.0 0.0 - 2.0 /100 WBCs Neutrophils Relative 67.2 38.0 - 82.0 % Lymphocytes Relative 21.2 15.0 - 45.0 % Monocytes Relative 9.1 5.0 - 13.0 % Eosinophils Relative 1.6 0.0 - 6.0 % Basophils Relative 0.7 0.0 - 2.0 % Immature Grans % 0.2 0.0 - 2.0 % Neutrophils Absolute 3.7 1.8 - 7.5 10*3/uL Lymphocytes Absolute 1.2 1.0 - 4.3 10*3/uL Monocytes Absolute 0.5 0.0 - 0.9 10*3/uL Eosinophils Absolute 0.1 0.0 - 0.5 10*3/uL Basophils Absolute 0.0 0.0 - 0.2 10*3/uL Immature Grans Absolute 0.0 <0.1 10*3/uL Basic metabolic panel Collection Time: 07/25/24 9:03 PM Result Value Ref Range SODIUM 132 (L) 136 - 145 mmol/L POTASSIUM 3.8 3.5 - 5.1 mmol/L CHLORIDE 101 98 - 107 mmol/L CARBON DIOXIDE 23 22 - 29 mmol/L UREA NITROGEN 11 8 - 21 mg/dL CREATININE 0.83 0.72 - 1.25 mg/dL GLUCOSE 115 (H) 74 - 100 mg/dL CALCIUM 8.9 8.4 - 10.2 mg/dL ANION GAP 8 3 - 13 mmol/L eGFR >90.0 >60.0 mL/min/1.73m*2 Hepatic function panel Collection Time: 07/25/24 9:03 PM Result Value Ref Range BILIRUBIN, TOTAL 0.8 <1.2 mg/dL BILIRUBIN, DIRECT 0.3 <0.5 mg/dL ALKALINE PHOSPHATASE 53 40 - 150 U/L AST (SGOT) 40 (H) <34 U/L ALT 21 <40 U/L ALBUMIN 4.0 3.5 - 5.0 g/dL TOTAL PROTEIN 7.2 6.4 - 8.3 g/dL Ethanol Collection Time: 07/25/24 9:03 PM Result Value Ref Range ETHANOL IN SER/PLAS <10 <10 mg/dL SARS-CoV-2 Antigen Collection Time: 07/25/24 9:03 PM Specimen: Nose; Swab Result Value Ref Range SARS-CoV-2 Antigen Negative Negative ECG 12 lead Collection Time: 07/26/24 1:07 AM Result Value Ref Range Heart Rate 109 bpm QRSD Interval 80 ms QT Interval 337 ms QTC Interval 454 ms P [place] 66 degrees QRS [place] 70 degrees T Wave [place] 59 degrees [place] Interval 144 ms Drug screen panel, emergency Collection Time: 07/26/24 2:17 AM Result Value Ref Range AMPHETAMINE SCREEN Positive BARBITURATES SCREEN Negative BENZODIAZEPINE SCREEN Negative COCAINE METAB. SCREEN Negative METHADONE SCREEN Negative OPIATES SCREEN Negative OXYCODONE SCREEN Negative PHENCYCLIDINE SCREEN Negative FENTANYL SCREEN, UR QUAL Positive Complete Urinalysis Collection Time: 07/26/24 2:17 AM Result Value Ref Range Color, Urine Yellow Lt. Yellow Clarity, Urine Clear Clear pH, Urine 6.0 5.0 - 8.0 pH Leukocytes, Urine 75 (A) Negative Cindy/uL Nitrite, Urine Negative Negative Protein, Urine 30 (A) Negative mg/dL Glucose, Urine Normal Normal (<70) mg/dL Bilirubin, Urine Negative Negative mg/dL Ketones, Urine Negative Negative mg/dL Urobilinogen, Urine Normal Normal (0-1) mg/dL Blood, Urine Negative Negative mg/dL RBC, Urine 3-5 (A) 0 - 2 /HPF WBC, Urine 6-10 (A) 0 - 5 /HPF Squamous Epithelial, Urine Negative 3 - 5 /HPF Bacteria, Urine Negative Negative /HPF Mucus, Urine Few Negative /LPF Hyaline Casts, Urine Negative Negative /LPF Calcium Oxalate Crystals, Urine Few (A) Negative /HPF Spermatozoa, Urine Many (A) Negative /HPF SPECIFIC GRAVITY OF URINE (NUMERIC) 1.018 1.005 - 1.030 MEDICATIONS Home Meds Current Outpatient Medications Medication Instructions buprenorphine ER (Sublocade) 100 mg/0.5mL injection 1 each, SubCUTAneous, Over 1 month, Was supposed to receive Monday 07/24 Scheduled Inpatient Meds baclofen, 10 mg, Oral, TID cloNIDine, 0.1 mg, Oral, q8h traMADol, 100 mg, Oral, Q4H Followed by [START ON 07/27/2024] traMADol, 100 mg, Oral, q6h Followed by [START ON 07/28/2024] traMADol, 100 mg, Oral, q8h PRN Inpatient Meds PRN medications: dicyclomine, gabapentin, hydrOXYzine pamoate, ibuprofen, loperamide, methocarbamol, naloxone, promethazine, traZODone Continuous Inpatient Infusions ASSESSMENT & PLAN Severe opioid use disorder Stimulant use disorder History of alcohol and marijuana use Counseled patient on biopsychosocial consequences of substance use. Encouraged professional chemical dependency treatment. Encouraged 12 step meeting attendance. Follow up plans for addiction management discussed with patient: Pt verbalizes desire to re-engage with [facility] following discharge. Opioid withdrawal Methamphetamine withdrawal Nicotine withdrawal Last use of opioids and methamphetamine was on 07/25/24 during the afternoon. Tramadol taper to manage opioid withdrawal symptoms. 100 mg q 4 hours for today. COWS scores per unit protocol. Baclofen 10 mg TID and clonidine 0.1 mg q 8 hours ordered as adjuncts PRN medications for withdrawal symptom management added. Nicotine patch ordered. Encouraged to participate in all unit activities. History of depression/anxiety Hydroxyzine 50 mg q 8 hours PRN for anxiety. Monitor/evaluate mood for acute exacerbations; will consult psychiatry if warranted. Neck lesion Bandage applied to mitigate trauma and scratching Will continue to monitor/evaluate for signs of infection. Recommend outpatient dermatology for further evaluation (e.g., dermatoscopy, biopsy) Infection concerns r/t IVDU and sexual activity Housing instability HIV, hepatitis, chlamydia/gonorrhea, and syphilis labs ordered. Pt is currently without stable residence. Disposition: Discharge anticipated in 3-4 days. This is pending: Resolution of withdrawal symptoms. Medical stabilization. Labs/tests/tasks to review: Aftercare, . Consultants to coordinate care with: None. I reviewed the patient's medical record, and reviewed test results. I educated and then counseled the patient on any substance use disorder or chemical dependency related issues. This included a face to face evaluation and physical examination, and coordinating care on a substance use disorder treatment plan as well as documenting clinical information on the day of visit. Cosigned by Jaylen Galloway MD at 07/26/2024 5:57 PM EST Associated attestation - Jaylen Galloway MD - 07/26/2024 5:57 PM EST I agree with the findings and documentation of this H&P. documented in this encounter [place] 07-26-2024 Emergency department Note Patient transported to detox with protective services and transportation engineer. Stable on departure from Ed [place] 07-26-2024 Emergency department Note Patient transported to 4E detox with protective services and transportation engineer. Stable on departure from [facility] Transport present, protective services called for belongings check and transport to Report called to [facility] on [facility] Detox Warm blanket and pillow provided to patient EMERGENCY DEPARTMENT ENCOUNTER Pt Name: Geraldine Kaiser Birthdate 2000 Date of evaluation: 07/25/2024 ED Provider: Marcelino Mathias APRN - DANIELLA EDcare was supervised by Dr. Sweet who independently examined and evaluated the patient. Please see their attestation note for further details. CHIEF COMPLAINT Fentanyl detox Chief Complaint Patient presents with Addiction Problem Pt requesting detox from fentanyl last use was earlier today HISTORY OF PRESENT ILLNESS (Location/Symptom, Timing/Onset, Context/Setting, Quality, Duration, Modifying Factors, Severity) Note limiting factors. I wore appropriate PPE for the entirety of this encounter. HPI Geraldine Kaiser is a 24 y.o. who presents to the emergency department for evaluation treatment patient reported that he is seeking detox from fentanyl he last used earlier today he states that he normally snorts or smokes his of fentanyl and last normally uses about a half a gram to a gram a day. He denies any withdrawal symptoms such as nausea vomiting diarrhea. Patient has a history of drug abuse as well as polysubstance abuse rhabdomyolysis. He denies any other injury or illness. He denies any chest pain or shortness of breath he speaking in full sentences able to swallow his own secretions. Denies any fever or chills. Patient reports that he does not smoke cigarettes denies any alcohol or any illicit drug use with exception of polysubstance abuse and fentanyl. Nursing Notes were reviewed. Limitations to history: None Outside historians: None REVIEW OF SYSTEMS Review of Systems GENERAL: Denies weight change, fatigue, weakness, fever HEENT: Denies trauma, headache, dizziness, visual change, ear pain, hearing change, tinnitus, rhinorrhea CARDIAC: Denies hypertension, murmur, angina, palpations, dyspnea on exertion, edema RESPIRATORY: Denies shortness of breath, wheezing, cough, sputum, asthma, COPD GI: Denies nausea, vomiting, change in bowels, abdominal pain URINARY: Denies changes in frequency/urgency, hematuria, incontinence, flank pain MUSCULOSKELETAL: Denies weakness, pain, change in ROM, redness, swelling NEURO: Denies loss in sensation, tingling, tremors, weakness, fainting or seizures ENDO: Denies heat/cold intolerance, polyuria, polydipsia, or swelling around neck PSYCH: Denies changes in mood, anxiety, depression, tension, memory Pertinent positives and negatives as per HPI. PAST MEDICAL HISTORY Past Medical History: Diagnosis Date Drug abuse ([facility]) ([facility]) Polysubstance abuse ([facility]) ([facility]) Rhabdomyolysis 01/2017 SURGICAL HISTORY Past Surgical History: Procedure Laterality Date FOOT SURGERY Right pinning OTHER SURGICAL HISTORY 05/11/2023 PILONIDAL CYSTECTOMY VASCULAR SURGERY blood vessel on head WISDOM TOOTH EXTRACTION CURRENT MEDICATIONS Previous Medications CANNABINOIDS (MEDICAL CANNABIS) Take 1 each by mouth 1 (one) time each day. METHYLPHENIDATE ER (CONCERTA) 18 MG CR TABLET Take 18 mg by mouth every morning. Do not crush, chew, or split. UNABLE TO FIND Take 20 mg by mouth daily. Suboxone 20 mg po daily ALLERGIES Patient has no known allergies. FAMILY HISTORY Family History Problem Relation Name Age of Onset No Known Problems Mother No Known Problems Father Substance Abuse Mother's Brother SOCIAL HISTORY Social History Socioeconomic History Marital status: Single Tobacco Use Smoking status: Every Day Current packs/day: 0.50 Average packs/day: 0.5 packs/day for 8.0 years (4.0 ttl pk-yrs) Types: Cigarettes Smokeless tobacco: Never Tobacco comments: Quit smokinppd Vaping Use Vaping status: Every Day Substances: Nicotine Devices: Disposable Substance and Sexual Activity Alcohol use: Not Currently Drug use: Yes Frequency: 7.0 times per week Types: Opiates, Marijuana, Methamphetamines Comment: medical marijuana card; last opiate 03/03/2023, meth years Social History Narrative Merged History Encounter SCREENINGS PHYSICAL EXAM ED Triage Vitals Temp Pulse Resp BP -- -- -- -- SpO2 Temp src Heart Rate Source Patient Position -- -- -- -- BP Location FiO2 (%) -- -- Physical Exam Constitutional: Well developed, well nourished, no acute distress, non-toxic appearance Eyes: PERRL, conjunctiva normal HENT: Atraumatic, external ears normal, nose normal, oropharynx moist, no pharyngeal exudates. Neck- normal range of motion, no tenderness, supple Respiratory: No respiratory distress, normal breath sounds, no rales, no wheezing Cardiovascular: Normal rate, normal rhythm, no murmurs, no gallops, no rubs GI: Soft, nondistended, normal bowel sounds, nontender, no organomegaly, no mass, no rebound, no guarding : No costovertebral angle tenderness Musculoskeletal: No edema, no tenderness, no deformities. Back- no tenderness Integument: Well hydrated, no rash Lymphatic: No lymphadenopathy noted Neurologic: Alert & oriented x 3, CN 2-12 normal, normal motor function, normal sensory function, no focal deficits noted Psychiatric: Speech and behavior appropriate for age DIAGNOSTIC RESULTS RADIOLOGY (Per Emergency Physician): Interpretation per the Radiologist below, if available at the time of this note: No orders to display LABS: Labs Reviewed CBC WITH AUTO DIFFERENTIAL - Abnormal Result Value Auto WBC 5.5 RBC 4.40 Hemoglobin 12.9 (*) Hematocrit 38.1 (*) MCV 86.6 MCH 29.3 MCHC 33.9 RDW 13.5 Platelets 190 MPV 9.5 nRBC 0.0 Neutrophils Relative 67.2 Lymphocytes Relative 21.2 Monocytes Relative 9.1 Eosinophils Relative 1.6 Basophils Relative 0.7 Immature Grans % 0.2 Neutrophils Absolute 3.7 Lymphocytes Absolute 1.2 Monocytes Absolute 0.5 Eosinophils Absolute 0.1 Basophils Absolute 0.0 Immature Grans Absolute 0.0 BASIC METABOLIC PANEL - Abnormal SODIUM 132 (*) POTASSIUM 3.8 CHLORIDE 101 CARBON DIOXIDE 23 UREA NITROGEN 11 CREATININE 0.83 GLUCOSE 115 (*) CALCIUM 8.9 ANION GAP 8 eGFR >90.0 HEPATIC FUNCTION PANEL - Abnormal BILIRUBIN, TOTAL 0.8 BILIRUBIN, DIRECT 0.3 ALKALINE PHOSPHATASE 53 AST (SGOT) 40 (*) ALT 21 ALBUMIN 4.0 TOTAL PROTEIN 7.2 COMPLETE URINALYSIS - Abnormal Color, Urine Yellow Clarity, Urine Clear pH, Urine 6.0 Leukocytes, Urine 75 (*) Nitrite, Urine Negative Protein, Urine 30 (*) Glucose, Urine Normal Bilirubin, Urine Negative Ketones, Urine Negative Urobilinogen, Urine Normal Blood, Urine Negative RBC, Urine 3-5 (*) WBC, Urine 6-10 (*) Squamous Epithelial, Urine Negative Bacteria, Urine Negative Mucus, Urine Few Hyaline Casts, Urine Negative Calcium Oxalate Crystals, Urine Few (*) Spermatozoa, Urine Many (*) SPECIFIC GRAVITY OF URINE (NUMERIC) 1.018 SARS-COV-2 ANTIGEN - Normal SARS-CoV-2 Antigen Negative ETHANOL - Normal ETHANOL IN SER/PLAS <10 Narrative: BAG GRADER depression is seen >100 mg/dL. NOTE: This result is for medical treatment only. Analysis performed using non-forensic procedures. COMPLETE URINALYSIS WITH REFLEX TO CULTURE Narrative: The following orders were created for panel order Complete Urinalysis with reflex to Culture. Procedure Abnormality Status --------- ------ Complete Urinalysis[[id number]] Abnormal Final result Please view results for these tests on the individual orders. DRUGS OF ABUSE AMPHETAMINE SCREEN Positive BARBITURATES SCREEN Negative BENZODIAZEPINE SCREEN Negative COCAINE METAB. SCREEN Negative METHADONE SCREEN Negative OPIATES SCREEN Negative OXYCODONE SCREEN Negative PHENCYCLIDINE SCREEN Negative FENTANYL SCREEN, UR QUAL Positive Narrative: The expected value for all of the drugs listed above is Negative. The following drugs or drug groups have been screened for by Immunoassay at the following thresholds: Amphetamine class (1000 ng/mL) Barbiturates (200 ng/mL) Benzodiazepines (200 ng/mL) Cocaine (300 ng/mL) Methadone (300 ng/mL) Opiates (300 ng/mL) Oxycodone (100 ng/mL) PCP (25 ng/mL) Fentanyl (1.0 ng/ml) NOTE: These results are for medical treatment only. Analysis performed using non-forensic procedures. POSITIVE results are NOT confirmed by a more specific alternative method unless requested. If confirmation is needed, request confirmation under separate order. All other labs were within normal range or not returned as of this dictation. EMERGENCY DEPARTMENT COURSE and DIFFERENTIAL DIAGNOSIS/MDM: Vitals: Vitals: 07/25/24 2107 07/26/24 0052 07/26/24 0414 07/26/24 0451 BP: 126/76 (!) 120/93 126/78 117/79 BP Location: Left arm Left arm Left arm Patient Position: Sitting Lying Sitting Pulse: (!) 114 (!) 118 100 109 Resp: 18 20 18 18 Temp: 36.6 C (97.9 F) TempSrc: Temporal SpO2: 97% 98% 97% 97% Weight: 68 kg (150 lb) Height: 1.88 m (6' 2) Medications methocarbamol (Robaxin) tablet 750 mg (has no administration in time range) ibuprofen tablet 800 mg (has no administration in time range) cloNIDine (Catapres) tablet 0.1 mg (has no administration in time range) loperamide (Imodium) capsule 2 mg (has no administration in time range) dicyclomine (Bentyl) tablet 20 mg (has no administration in time range) gabapentin (Neurontin) capsule 300 mg (has no administration in time range) hydrOXYzine pamoate (Vistaril) capsule 50 mg (has no administration in time range) promethazine (Phenergan) tablet 25 mg (has no administration in time range) baclofen (Lioresal) tablet 10 mg (has no administration in time range) traZODone (Desyrel) tablet 50 mg (has no administration in time range) traMADol (Ultram) tablet 100 mg (100 mg Oral Given 07/26/24 0450) Followed by traMADol (Ultram) tablet 100 mg (has no administration in time range) Followed by traMADol (Ultram) tablet 100 mg (has no administration in time range) naloxone (Narcan) injection 0.4 mg (has no administration in time range) cloNIDine (Catapres) tablet 0.1 mg (0.1 mg Oral Given 07/26/24 0055) MDM MDM elements: The patient presented with chief complaint of fentanyl detox. The differential diagnosis associated with this patient's presentation includes fentanyl abuse, methamphetamine abuse, barbiturate abuse, opiate abuse, alcohol abuse. Our workup consisted of ordering/reviewing: A CBC BMP hepatic panel EtOH CK COVID drugs of abuse. Diagnostic tests considered but not performed: None To aid in management, I performed an independent interpretation of none. I discussed their care with Admitting team Dr. Bosch/Nilesh. The patient will be Admitted. The patient requires hospitalization due to alcohol detox Patient is in agreement with this plan. Patient's care was impacted by opiate abuse. Patient's care was significantly impacted by social determinants of health including Drug addiction. I spoke with the admitting addiction team excepted the patient for admission condition stable upon transfer from the emergency room. PROCEDURES: Unless otherwise noted below, none Procedures CRITICAL CARE TIME None FINAL IMPRESSION 1. Mass of left side of neck 2. Opiate dependence, continuous (HCC) 3. Fentanyl dependence (HCC) DISPOSITION Admit 07/26/2024 04:19:03 AM PATIENT REFERRED TO: [facility] [place] [address] [facility] [id number] DISCHARGE MEDICATIONS: New Prescriptions No medications on file (Comment: Please note this report has been produced using speech recognition software and may contain errors related to that system including errors in grammar, punctuation, and spelling, as well as words and phrases that may be inappropriate. If there are any questions or concerns please feel free to contact the dictating provider for clarification.) VANITA Gracia CNP (electronically signed) Emergency Medicine Provider VANITA Hernández CNP 07/26/24 0502 Emergency Department Encounter [facility] EMERGENCY DEPT Patient: Geraldine Kaiser : 2000 Date of Evaluation: 07/25/2024 ED Supervising Physician: Floyd Sweet MD I personally evaluated Geraldine Kaiser and made/approved the management plan and take responsibility for the patient management. This will serve as my Supervisory note and shared attestation. I did perform a substantive portion of the visit including all aspects of the Medical Decision Making. I wore appropriate PPE for the entirety of this encounter. In brief, Geraldine Kaiser is a 24 y.o. that presents to the emergency department wanting detox from fentanyl, last use earlier today Focused exam: Heart tachycardic, appears fidgety Brief ED course/MDM: Medically cleared for detox admission Diagnostics interpreted by me: none I personally discussed the patient's management with other clinicians: Admitting team detox All diagnostic, treatment, and disposition decisions were made by myself in conjunction with the [facility]. For all further details of the patient's emergency department visit, please see their documentation. (Comment: Please note this report has been produced using speech recognition software and may contain errors related to that system including errors in grammar, punctuation, and spelling, as well as words and phrases that may be inappropriate. If there are any questions or concerns please feel free to contact the dictating provider for clarification.) Floyd Sweet MD [employer] Floyd Sweet MD 07/25/24 2000 documented in this encounter [place] 07-26-2024 Nurse Note Pt arrived from ER via wheelchair accompanied by security and transport. Pt steady on his feet at this time, Pt skin check completed upon arrival to unit. Pts skin check completed upon arrival to the unit, left 2nd toe has an abrasion covered with bandaid, and left side of neck has a mole that is sore and red that pt states he was picking at. Pt has been using fentanyl daily for the past 2 weeks unsure of how much but has been using it IN and injecting in bilateral arms, states he swallowed a bag of fentanyl yesterday and uses meth occasionally and vapes all day, states used klonopin one time and denies drinking for quite some time. Pt scores a COWS of 11 at this time medicated with clonidine, baclofen, gabapentin, and phenergan for symptoms. Pt denies any other current drug use , pt currently smokes cigarettes daily as well as vaping. Pt not feeling up to being oriented to unit at this time, ordered his breakfast and wants to lay down, pt can't remember the last time he has slept or had a BM. Pt educated to use the call light if he needs anything. Pt alert and oriented, med compliant, pt denies SI/HI/AVH, V&D. Pt encouraged to update staff with any change in condition. Will monitor pt for safety. [place] 07-26-2024 Emergency department Note Transport present, protective services called for belongings check and transport to 4E [place] 07-26-2024 Emergency department Note Report called to KIM Wiggins on 4E Detox [facility] 07-26-2024 Emergency department Note Warm blanket and pillow provided to patient [facility] 07-25-2024 Physician Emergency department Note EMERGENCY DEPARTMENT ENCOUNTER Pt Name: Geraldine Kaiser Birthdate 2000 Date of evaluation: 07/25/2024 ED Provider: Marcelino Mathias APRN - DANIELLA EDcare was supervised by Dr. Sweet who independently examined and evaluated the patient. Please see their attestation note for further details. CHIEF COMPLAINT Fentanyl detox Chief Complaint Patient presents with Addiction Problem Pt requesting detox from fentanyl last use was earlier today HISTORY OF PRESENT ILLNESS (Location/Symptom, Timing/Onset, Context/Setting, Quality, Duration, Modifying Factors, Severity) Note limiting factors. I wore appropriate PPE for the entirety of this encounter. HPI Geraldine Kaiser is a 24 y.o. who presents to the emergency department for evaluation treatment patient reported that he is seeking detox from fentanyl he last used earlier today he states that he normally snorts or smokes his of fentanyl and last normally uses about a half a gram to a gram a day. He denies any withdrawal symptoms such as nausea vomiting diarrhea. Patient has a history of drug abuse as well as polysubstance abuse rhabdomyolysis. He denies any other injury or illness. He denies any chest pain or shortness of breath he speaking in full sentences able to swallow his own secretions. Denies any fever or chills. Patient reports that he does not smoke cigarettes denies any alcohol or any illicit drug use with exception of polysubstance abuse and fentanyl. Nursing Notes were reviewed. Limitations to history: None Outside historians: None REVIEW OF SYSTEMS Review of Systems GENERAL: Denies weight change, fatigue, weakness, fever HEENT: Denies trauma, headache, dizziness, visual change, ear pain, hearing change, tinnitus, rhinorrhea CARDIAC: Denies hypertension, murmur, angina, palpations, dyspnea on exertion, edema RESPIRATORY: Denies shortness of breath, wheezing, cough, sputum, asthma, COPD GI: Denies nausea, vomiting, change in bowels, abdominal pain URINARY: Denies changes in frequency/urgency, hematuria, incontinence, flank pain MUSCULOSKELETAL: Denies weakness, pain, change in ROM, redness, swelling NEURO: Denies loss in sensation, tingling, tremors, weakness, fainting or seizures ENDO: Denies heat/cold intolerance, polyuria, polydipsia, or swelling around neck PSYCH: Denies changes in mood, anxiety, depression, tension, memory Pertinent positives and negatives as per HPI. PAST MEDICAL HISTORY Past Medical History: Diagnosis Date Drug abuse ([facility]) ([facility]) Polysubstance abuse ([facility]) ([facility]) Rhabdomyolysis 01/2017 SURGICAL HISTORY Past Surgical History: Procedure Laterality Date FOOT SURGERY Right pinning OTHER SURGICAL HISTORY 05/11/2023 PILONIDAL CYSTECTOMY VASCULAR SURGERY blood vessel on head WISDOM TOOTH EXTRACTION CURRENT MEDICATIONS Previous Medications CANNABINOIDS (MEDICAL CANNABIS) Take 1 each by mouth 1 (one) time each day. METHYLPHENIDATE ER (CONCERTA) 18 MG CR TABLET Take 18 mg by mouth every morning. Do not crush, chew, or split. UNABLE TO FIND Take 20 mg by mouth daily. Suboxone 20 mg po daily ALLERGIES Patient has no known allergies. FAMILY HISTORY Family History Problem Relation Name Age of Onset No Known Problems Mother No Known Problems Father Substance Abuse Mother's Brother SOCIAL HISTORY Social History Socioeconomic History Marital status: Single Tobacco Use Smoking status: Every Day Current packs/day: 0.50 Average packs/day: 0.5 packs/day for 8.0 years (4.0 ttl pk-yrs) Types: Cigarettes Smokeless tobacco: Never Tobacco comments: Quit smokinppd Vaping Use Vaping status: Every Day Substances: Nicotine Devices: Disposable Substance and Sexual Activity Alcohol use: Not Currently Drug use: Yes Frequency: 7.0 times per week Types: Opiates, Marijuana, Methamphetamines Comment: medical marijuana card; last opiate 03/03/2023, meth years Social History Narrative Merged History Encounter SCREENINGS PHYSICAL EXAM ED Triage Vitals Temp Pulse Resp BP -- -- -- -- SpO2 Temp src Heart Rate Source Patient Position -- -- -- -- BP Location FiO2 (%) -- -- Physical Exam Constitutional: Well developed, well nourished, no acute distress, non-toxic appearance Eyes: PERRL, conjunctiva normal HENT: Atraumatic, external ears normal, nose normal, oropharynx moist, no pharyngeal exudates. Neck- normal range of motion, no tenderness, supple Respiratory: No respiratory distress, normal breath sounds, no rales, no wheezing Cardiovascular: Normal rate, normal rhythm, no murmurs, no gallops, no rubs GI: Soft, nondistended, normal bowel sounds, nontender, no organomegaly, no mass, no rebound, no guarding : No costovertebral angle tenderness Musculoskeletal: No edema, no tenderness, no deformities. Back- no tenderness Integument: Well hydrated, no rash Lymphatic: No lymphadenopathy noted Neurologic: Alert & oriented x 3, CN 2-12 normal, normal motor function, normal sensory function, no focal deficits noted Psychiatric: Speech and behavior appropriate for age DIAGNOSTIC RESULTS RADIOLOGY (Per Emergency Physician): Interpretation per the Radiologist below, if available at the time of this note: No orders to display LABS: Labs Reviewed CBC WITH AUTO DIFFERENTIAL - Abnormal Result Value Auto WBC 5.5 RBC 4.40 Hemoglobin 12.9 (*) Hematocrit 38.1 (*) MCV 86.6 MCH 29.3 MCHC 33.9 RDW 13.5 Platelets 190 MPV 9.5 nRBC 0.0 Neutrophils Relative 67.2 Lymphocytes Relative 21.2 Monocytes Relative 9.1 Eosinophils Relative 1.6 Basophils Relative 0.7 Immature Grans % 0.2 Neutrophils Absolute 3.7 Lymphocytes Absolute 1.2 Monocytes Absolute 0.5 Eosinophils Absolute 0.1 Basophils Absolute 0.0 Immature Grans Absolute 0.0 BASIC METABOLIC PANEL - Abnormal SODIUM 132 (*) POTASSIUM 3.8 CHLORIDE 101 CARBON DIOXIDE 23 UREA NITROGEN 11 CREATININE 0.83 GLUCOSE 115 (*) CALCIUM 8.9 ANION GAP 8 eGFR >90.0 HEPATIC FUNCTION PANEL - Abnormal BILIRUBIN, TOTAL 0.8 BILIRUBIN, DIRECT 0.3 ALKALINE PHOSPHATASE 53 AST (SGOT) 40 (*) ALT 21 ALBUMIN 4.0 TOTAL PROTEIN 7.2 COMPLETE URINALYSIS - Abnormal Color, Urine Yellow Clarity, Urine Clear pH, Urine 6.0 Leukocytes, Urine 75 (*) Nitrite, Urine Negative Protein, Urine 30 (*) Glucose, Urine Normal Bilirubin, Urine Negative Ketones, Urine Negative Urobilinogen, Urine Normal Blood, Urine Negative RBC, Urine 3-5 (*) WBC, Urine 6-10 (*) Squamous Epithelial, Urine Negative Bacteria, Urine Negative Mucus, Urine Few Hyaline Casts, Urine Negative Calcium Oxalate Crystals, Urine Few (*) Spermatozoa, Urine Many (*) SPECIFIC GRAVITY OF URINE (NUMERIC) 1.018 SARS-COV-2 ANTIGEN - Normal SARS-CoV-2 Antigen Negative ETHANOL - Normal ETHANOL IN SER/PLAS <10 Narrative: BAG GRADER depression is seen >100 mg/dL. NOTE: This result is for medical treatment only. Analysis performed using non-forensic procedures. COMPLETE URINALYSIS WITH REFLEX TO CULTURE Narrative: The following orders were created for panel order Complete Urinalysis with reflex to Culture. Procedure Abnormality Status --------- ------ Complete Urinalysis[[id number]] Abnormal Final result Please view results for these tests on the individual orders. DRUGS OF ABUSE AMPHETAMINE SCREEN Positive BARBITURATES SCREEN Negative BENZODIAZEPINE SCREEN Negative COCAINE METAB. SCREEN Negative METHADONE SCREEN Negative OPIATES SCREEN Negative OXYCODONE SCREEN Negative PHENCYCLIDINE SCREEN Negative FENTANYL SCREEN, UR QUAL Positive Narrative: The expected value for all of the drugs listed above is Negative. The following drugs or drug groups have been screened for by Immunoassay at the following thresholds: Amphetamine class (1000 ng/mL) Barbiturates (200 ng/mL) Benzodiazepines (200 ng/mL) Cocaine (300 ng/mL) Methadone (300 ng/mL) Opiates (300 ng/mL) Oxycodone (100 ng/mL) PCP (25 ng/mL) Fentanyl (1.0 ng/ml) NOTE: These results are for medical treatment only. Analysis performed using non-forensic procedures. POSITIVE results are NOT confirmed by a more specific alternative method unless requested. If confirmation is needed, request confirmation under separate order. All other labs were within normal range or not returned as of this dictation. EMERGENCY DEPARTMENT COURSE and DIFFERENTIAL DIAGNOSIS/MDM: Vitals: Vitals: 07/25/24 2107 07/26/24 0052 07/26/24 0414 07/26/24 0451 BP: 126/76 (!) 120/93 126/78 117/79 BP Location: Left arm Left arm Left arm Patient Position: Sitting Lying Sitting Pulse: (!) 114 (!) 118 100 109 Resp: 18 20 18 18 Temp: 36.6 C (97.9 F) TempSrc: Temporal SpO2: 97% 98% 97% 97% Weight: 68 kg (150 lb) Height: 1.88 m (6' 2) Medications methocarbamol (Robaxin) tablet 750 mg (has no administration in time range) ibuprofen tablet 800 mg (has no administration in time range) cloNIDine (Catapres) tablet 0.1 mg (has no administration in time range) loperamide (Imodium) capsule 2 mg (has no administration in time range) dicyclomine (Bentyl) tablet 20 mg (has no administration in time range) gabapentin (Neurontin) capsule 300 mg (has no administration in time range) hydrOXYzine pamoate (Vistaril) capsule 50 mg (has no administration in time range) promethazine (Phenergan) tablet 25 mg (has no administration in time range) baclofen (Lioresal) tablet 10 mg (has no administration in time range) traZODone (Desyrel) tablet 50 mg (has no administration in time range) traMADol (Ultram) tablet 100 mg (100 mg Oral Given 07/26/24 0450) Followed by traMADol (Ultram) tablet 100 mg (has no administration in time range) Followed by traMADol (Ultram) tablet 100 mg (has no administration in time range) naloxone (Narcan) injection 0.4 mg (has no administration in time range) cloNIDine (Catapres) tablet 0.1 mg (0.1 mg Oral Given 07/26/24 0055) MDM MDM elements: The patient presented with chief complaint of fentanyl detox. The differential diagnosis associated with this patient's presentation includes fentanyl abuse, methamphetamine abuse, barbiturate abuse, opiate abuse, alcohol abuse. Our workup consisted of ordering/reviewing: A CBC BMP hepatic panel EtOH CK COVID drugs of abuse. Diagnostic tests considered but not performed: None To aid in management, I performed an independent interpretation of none. I discussed their care with Admitting team Dr. Bosch/Nilesh. The patient will be Admitted. The patient requires hospitalization due to alcohol detox Patient is in agreement with this plan. Patient's care was impacted by opiate abuse. Patient's care was significantly impacted by social determinants of health including Drug addiction. I spoke with the admitting addiction team excepted the patient for admission condition stable upon transfer from the emergency room. PROCEDURES: Unless otherwise noted below, none Procedures CRITICAL CARE TIME None FINAL IMPRESSION 1. Mass of left side of neck 2. Opiate dependence, continuous (HCC) 3. Fentanyl dependence (HCC) DISPOSITION Admit 07/26/2024 04:19:03 AM PATIENT REFERRED TO: [place] [facility] [place] [address] [facility] [id number] DISCHARGE MEDICATIONS: New Prescriptions No medications on file (Comment: Please note this report has been produced using speech recognition software and may contain errors related to that system including errors in grammar, punctuation, and spelling, as well as words and phrases that may be inappropriate. If there are any questions or concerns please feel free to contact the dictating provider for clarification.) VANITA Gracia CNP (electronically signed) Emergency Medicine Provider VANITA Hernández CNP 07/26/24 0502 [place] 07-25-2024 Physician Emergency department Note Emergency Department Encounter [facility] EMERGENCY DEPT Patient: Geraldine Kaiser : 2000 Date of Evaluation: 07/25/2024 ED Supervising Physician: Floyd Sweet MD I personally evaluated Geraldine Kaiser and made/approved the management plan and take responsibility for the patient management. This will serve as my Supervisory note and shared attestation. I did perform a substantive portion of the visit including all aspects of the Medical Decision Making. I wore appropriate PPE for the entirety of this encounter. In brief, Geraldine Kaiser is a 24 y.o. that presents to the emergency department wanting detox from fentanyl, last use earlier today Focused exam: Heart tachycardic, appears fidgety Brief ED course/MDM: Medically cleared for detox admission Diagnostics interpreted by me: none I personally discussed the patient's management with other clinicians: Admitting team detox All diagnostic, treatment, and disposition decisions were made by myself in conjunction with the [facility]. For all further details of the patient's emergency department visit, please see their documentation. (Comment: Please note this report has been produced using speech recognition software and may contain errors related to that system including errors in grammar, punctuation, and spelling, as well as words and phrases that may be inappropriate. If there are any questions or concerns please feel free to contact the dictating provider for clarification.) Floyd Sweet MD [employer] Floyd Sweet MD 07/25/24 5047 [facility] 01-03-2024 Emergency department Note [facility] ED eMERGENCY dEPARTMENT eNCOUnter Pt Name: Geraldine Kaiser Birthdate 2000 Date of evaluation: 01/03/2024 Provider: Katina Tavera PA-C CHIEF COMPLAINT Chief Complaint Patient presents with Wrist Injury Right Wrist HISTORY OF PRESENT ILLNESS (Location/Symptom, Timing/Onset,Context/Setting, Quality, Duration, Modifying Factors, Severity) Note limiting factors. HPI Geraldine Kaiser is a 23 y.o. male who presents to the emergency department complaining of injury to the right wrist. Patient states he initially injured it about a month ago when he fell. He states it was only sore at the time and it was doing better until today when he was pulling out a heavy object and felt a snap in the wrist. He is now complaining of pain over the dorsal mid wrist. He is right-hand dominant. He has otherwise, recently, been well. Nursing Notes were reviewed. REVIEW OF SYSTEMS (2+ for4; 10+ for level 5) Review of Systems Constitutional: Negative for chills and fever. HENT: Negative for ear pain and sore throat. Eyes: Negative for pain and visual disturbance. Respiratory: Negative for cough and shortness of breath. Cardiovascular: Negative for chest pain and palpitations. Gastrointestinal: Negative for abdominal pain and vomiting. Genitourinary: Negative for dysuria and hematuria. Musculoskeletal: Negative for arthralgias and back pain. See history of present illness. Skin: Negative for color change and rash. Neurological: Negative for seizures and syncope. All other systems reviewed and are negative. PAST MEDICAL HISTORY Past Medical History: Diagnosis Date Drug abuse (CMS/HCC) (HCC) Polysubstance abuse (CMS/HCC) ([facility]) Rhabdomyolysis 01/2017 SURGICALHISTORY Past Surgical History: Procedure Laterality Date FOOT SURGERY Right pinning OTHER SURGICAL HISTORY 05/11/2023 PILONIDAL CYSTECTOMY VASCULAR SURGERY blood vessel on head WISDOM TOOTH EXTRACTION CURRENT MEDICATIONS Discharge Medication List as of 01/03/2024 6:04 PM CONTINUE these medications which have NOT CHANGED Details Cannabinoids (medical cannabis) Take 1 each by mouth 1 (one) time each day., Historical Med methylphenidate ER (Concerta) 18 MG CR tablet Take 18 mg by mouth every morning. Do not crush, chew, or split., Historical Med UNABLE TO FIND Take 20 mg by mouth daily. Suboxone 20 mg po daily, Historical Med Patient has no known allergies. FAMILY HISTORY Family History Problem Relation Name Age of Onset No Known Problems Mother No Known Problems Father Substance Abuse Mother's Brother SOCIAL HISTORY Social History Socioeconomic History Marital status: Single Tobacco Use Smoking status: Every Day Current packs/day: 0.50 Average packs/day: 0.5 packs/day for 8.0 years (4.0 ttl pk-yrs) Types: Cigarettes Smokeless tobacco: Never Tobacco comments: Quit smokinppd Vaping Use Vaping status: Every Day Substances: Nicotine Devices: Disposable Substance and Sexual Activity Alcohol use: Not Currently Drug use: Yes Frequency: 7.0 times per week Types: Opiates, Marijuana, Methamphetamines Comment: medical marijuana card; last opiate 03/03/2023, meth years Social History Narrative Merged History Encounter SCREENINGS PHYSICAL EXAM (5+ for level 4, 8+ for level 5) @[email or web address]@ Physical Exam Vitals and nursing note reviewed. Constitutional: General: He is not in acute distress. Appearance: Normal appearance. He is well-developed. HENT: Head: Normocephalic and atraumatic. Eyes: Conjunctiva/sclera: Conjunctivae normal. Cardiovascular: Rate and Rhythm: Normal rate and regular rhythm. Heart sounds: No murmur heard. Pulmonary: Effort: Pulmonary effort is normal. No respiratory distress. Breath sounds: Normal breath sounds. Musculoskeletal: General: No swelling. Comments: Examination of the right wrist reveals no obvious soft tissue edema or ecchymosis. No palpable bony deformity or crepitus. He has some tenderness on palpation over the middle dorsal wrist. Good range of motion with some discomfort with full extension and flexion. Distal sensory innervation is intact. Skin: General: Skin is warm and dry. Capillary Refill: Capillary refill takes less than 2 seconds. Neurological: Mental Status: He is alert. Psychiatric: Mood and Affect: Mood normal. DIAGNOSTIC RESULTS EKG (Per Emergency Physician): RADIOLOGY (Per EmergencyPhysician): Interpretation per the Radiologist below, if available at the time of this note: @[email or web address]@ : Labs Reviewed - No data to display All other labs were within normal range or not returned as of this dictation. EMERGENCY DEPARTMENT COURSE and DIFFERENTIALDIAGNOSIS/MDM: Vitals: Vitals: 01/03/24 1722 BP: 104/66 BP Location: Right arm Patient Position: Sitting Pulse: 75 Resp: 18 Temp: 37 C (98.6 F) TempSrc: Temporal SpO2: 98% Medications - No data to display Medical Decision Making Problems Addressed: Sprain of right wrist, initial encounter: complicated acute illness or injury Amount and/or Complexity of Data Reviewed Radiology: ordered. Risk Prescription drug management. Patient presents to the emergency department complaining of a right wrist injury. Patient states he initially injured it approximately 1 month ago when he fell. He states he was improving until today when he was pulling on a heavy object and he felt a snap in the wrist. He is complaining of pain over the mid dorsal wrist. He is right-hand dominant. Differential diagnosis includes stress fracture, right wrist sprain, ligamentous injury Chronic illnesses impacting care: History of polysubstance abuse in remission Social determinants affecting health: Nicotine dependence and vaping. History of polysubstance abuse in remission. ED diagnostics included an x-ray of the right wrist. Per radiologist review, no acute findings were made. ED medications: None External medical records reviewed: None Patient will be placed in a Velcro wrist splint by the nursing staff under my supervision. Good cap refill before and after splinting. He will be discharged with home-going instructions on wrist sprains. He can ice and rest the area. Wear the splint as needed for comfort and support. He can follow-up with his primary care physician for recheck in 1 week. I will send a prescription for Naprosyn to his local pharmacy. He can return should signs and symptoms worsen in any way or any other concerns develop. The patient expressed an understanding of verbal instruction and had no further questions at the time of discharge This patient was seen by myself, within my scope of practice, with the Emergency Department physician available for consultation at all times if needed. CONSULTS: None PROCEDURES: Unless otherwise noted below, none Procedures Patients symptoms are consistent with sepsis, severe sepsis, or septic shock (If yes use .sepsiscoremeasure): No FINAL IMPRESSION 1. Sprain of right wrist, initial encounter DISPOSITION/PLAN DISPOSITION Discharge 01/03/2024 06:03:00 PM PATIENT REFERRED TO: Cesar Bone, DO [address] [facility] [address] Schedule an appointment as soon as possible for a visit in 1 week DISCHARGE MEDICATIONS: Discharge Medication List as of 01/03/2024 6:04 PM START taking these medications Details naproxen (Naprosyn) 500 MG tablet Take 1 tablet (500 mg) by mouth 2 times daily as needed for mild pain (1-3) for up to 15 days., Starting 01/03/2024, Until [place] 01/18/2024 at 2359, Normal [facility]([id number]:LAST:1)@ (Please note: Portions of this note were completed with a voice recognition program. Efforts were made to edit thedictations but occasionally words and phrases are mis-transcribed.) Form [id number] Katina Tavera PA-C (electronically signed) Emergency Medicine Provider Katina Tavera PA-C 01/03/241827 Pt presents to ED c/o right wrist pain after falling on his wrist one week ago. documented in this encounter [place] 01-03-2024 Emergency department Triage note Pt presents to ED c/o right wrist pain after falling on his wrist one week ago. [place] 01-03-2024 Physician Emergency department Note [facility] ED eMERGENCY dEPARTMENT eNCOUnter Pt Name: Geraldine Kaiser Birthdate 2000 Date of evaluation: 01/03/2024 Provider: Katina Tavera PA-C CHIEF COMPLAINT Chief Complaint Patient presents with Wrist Injury Right Wrist HISTORY OF PRESENT ILLNESS (Location/Symptom, Timing/Onset,Context/Setting, Quality, Duration, Modifying Factors, Severity) Note limiting factors. HPI Geraldine Kaiser is a 23 y.o. male who presents to the emergency department complaining of injury to the right wrist. Patient states he initially injured it about a month ago when he fell. He states it was only sore at the time and it was doing better until today when he was pulling out a heavy object and felt a snap in the wrist. He is now complaining of pain over the dorsal mid wrist. He is right-hand dominant. He has otherwise, recently, been well. Nursing Notes were reviewed. REVIEW OF SYSTEMS (2+ for4; 10+ for level 5) Review of Systems Constitutional: Negative for chills and fever. HENT: Negative for ear pain and sore throat. Eyes: Negative for pain and visual disturbance. Respiratory: Negative for cough and shortness of breath. Cardiovascular: Negative for chest pain and palpitations. Gastrointestinal: Negative for abdominal pain and vomiting. Genitourinary: Negative for dysuria and hematuria. Musculoskeletal: Negative for arthralgias and back pain. See history of present illness. Skin: Negative for color change and rash. Neurological: Negative for seizures and syncope. All other systems reviewed and are negative. PAST MEDICAL HISTORY Past Medical History: Diagnosis Date Drug abuse ([facility]) ([facility]) Polysubstance abuse ([facility]) ([facility]) Rhabdomyolysis 01/2017 SURGICALHISTORY Past Surgical History: Procedure Laterality Date FOOT SURGERY Right pinning OTHER SURGICAL HISTORY 05/11/2023 PILONIDAL CYSTECTOMY VASCULAR SURGERY blood vessel on head WISDOM TOOTH EXTRACTION CURRENT MEDICATIONS Discharge Medication List as of 01/03/2024 6:04 PM CONTINUE these medications which have NOT CHANGED Details Cannabinoids (medical cannabis) Take 1 each by mouth 1 (one) time each day., Historical Med methylphenidate ER (Concerta) 18 MG CR tablet Take 18 mg by mouth every morning. Do not crush, chew, or split., Historical Med UNABLE TO FIND Take 20 mg by mouth daily. Suboxone 20 mg po daily, Historical Med Patient has no known allergies. FAMILY HISTORY Family History Problem Relation Name Age of Onset No Known Problems Mother No Known Problems Father Substance Abuse Mother's Brother SOCIAL HISTORY Social History Socioeconomic History Marital status: Single Tobacco Use Smoking status: Every Day Current packs/day: 0.50 Average packs/day: 0.5 packs/day for 8.0 years (4.0 ttl pk-yrs) Types: Cigarettes Smokeless tobacco: Never Tobacco comments: Quit smokinppd Vaping Use Vaping status: Every Day Substances: Nicotine Devices: Disposable Substance and Sexual Activity Alcohol use: Not Currently Drug use: Yes Frequency: 7.0 times per week Types: Opiates, Marijuana, Methamphetamines Comment: medical marijuana card; last opiate 03/03/2023, meth years Social History Narrative Merged History Encounter SCREENINGS PHYSICAL EXAM (5+ for level 4, 8+ for level 5) @[email or web address]@ Physical Exam Vitals and nursing note reviewed. Constitutional: General: He is not in acute distress. Appearance: Normal appearance. He is well-developed. HENT: Head: Normocephalic and atraumatic. Eyes: Conjunctiva/sclera: Conjunctivae normal. Cardiovascular: Rate and Rhythm: Normal rate and regular rhythm. Heart sounds: No murmur heard. Pulmonary: Effort: Pulmonary effort is normal. No respiratory distress. Breath sounds: Normal breath sounds. Musculoskeletal: General: No swelling. Comments: Examination of the right wrist reveals no obvious soft tissue edema or ecchymosis. No palpable bony deformity or crepitus. He has some tenderness on palpation over the middle dorsal wrist. Good range of motion with some discomfort with full extension and flexion. Distal sensory innervation is intact. Skin: General: Skin is warm and dry. Capillary Refill: Capillary refill takes less than 2 seconds. Neurological: Mental Status: He is alert. Psychiatric: Mood and Affect: Mood normal. DIAGNOSTIC RESULTS EKG (Per Emergency Physician): RADIOLOGY (Per EmergencyPhysician): Interpretation per the Radiologist below, if available at the time of this note: @EDRISRSLT@ : Labs Reviewed - No data to display All other labs were within normal range or not returned as of this dictation. EMERGENCY DEPARTMENT COURSE and DIFFERENTIALDIAGNOSIS/MDM: Vitals: Vitals: 01/03/24 1722 BP: 104/66 BP Location: Right arm Patient Position: Sitting Pulse: 75 Resp: 18 Temp: 37 C (98.6 F) TempSrc: Temporal SpO2: 98% Medications - No data to display Medical Decision Making Problems Addressed: Sprain of right wrist, initial encounter: complicated acute illness or injury Amount and/or Complexity of Data Reviewed Radiology: ordered. Risk Prescription drug management. Patient presents to the emergency department complaining of a right wrist injury. Patient states he initially injured it approximately 1 month ago when he fell. He states he was improving until today when he was pulling on a heavy object and he felt a snap in the wrist. He is complaining of pain over the mid dorsal wrist. He is right-hand dominant. Differential diagnosis includes stress fracture, right wrist sprain, ligamentous injury Chronic illnesses impacting care: History of polysubstance abuse in remission Social determinants affecting health: Nicotine dependence and vaping. History of polysubstance abuse in remission. ED diagnostics included an x-ray of the right wrist. Per radiologist review, no acute findings were made. ED medications: None External medical records reviewed: None Patient will be placed in a Velcro wrist splint by the nursing staff under my supervision. Good cap refill before and after splinting. He will be discharged with home-going instructions on wrist sprains. He can ice and rest the area. Wear the splint as needed for comfort and support. He can follow-up with his primary care physician for recheck in 1 week. I will send a prescription for Naprosyn to his local pharmacy. He can return should signs and symptoms worsen in any way or any other concerns develop. The patient expressed an understanding of verbal instruction and had no further questions at the time of discharge This patient was seen by myself, within my scope of practice, with the Emergency Department physician available for consultation at all times if needed. CONSULTS: None PROCEDURES: Unless otherwise noted below, none Procedures Patients symptoms are consistent with sepsis, severe sepsis, or septic shock (If yes use .sepsiscoremeasure): No FINAL IMPRESSION 1. Sprain of right wrist, initial encounter DISPOSITION/PLAN DISPOSITION Discharge 01/03/2024 06:03:00 PM PATIENT REFERRED TO: Cesar Bone, DO [address] [facility] [address] [place] [facility] [address] Schedule an appointment as soon as possible for a visit in 1 week DISCHARGE MEDICATIONS: Discharge Medication List as of 01/03/2024 6:04 PM START taking these medications Details naproxen (Naprosyn) 500 MG tablet Take 1 tablet (500 mg) by mouth 2 times daily as needed for mild pain (1-3) for up to 15 days., Starting 01/03/2024, Until [place] 01/18/2024 at 2359, Normal @[facility]([id number]:LAST:1)@ (Please note: Portions of this note were completed with a voice recognition program. Efforts were made to edit thedictations but occasionally words and phrases are mis-transcribed.) Form [id number] Katina Tavera PA-C (electronically signed) Emergency Medicine Provider Katina Tavera PA-C 01/03/24 1828 [place] 11-21-2023 History of Present illness Narrative Onset pain for 2 weeks. Describes 2/10 on pain scale. Denies fevers, drainage. COLORECTAL SURGERY OFFICE VISIT PATIENT NAME: Geraldine Kaiser : 2000 TODAY'S DATE: 11/21/2023 Chief Complaint Patient presents with Follow-up Evaluation for pilonidal abscess OTHER Pt unaccompanied SUBJECTIVE: Geraldine Kaiser is a 23 y.o. male s/p pilonidal surgery 05/11/23 Has recurrent tailbone pain Onset pain for 2 weeks. Describes 2/10 on pain scale. Denies fevers, drainage. Review of Systems as documented Past Medical History: Diagnosis Date Drug abuse (CMS/HCC) ([facility]) Polysubstance abuse (CMS/HCC) ([facility]) Rhabdomyolysis 01/2017 Past Surgical History: Procedure Laterality Date FOOT SURGERY Right pinning OTHER SURGICAL HISTORY 05/11/2023 PILONIDAL CYSTECTOMY VASCULAR SURGERY blood vessel on head WISDOM TOOTH EXTRACTION Current Outpatient Medications on File Prior to Visit Medication Sig Dispense Refill Cannabinoids (medical cannabis) Take 1 each by mouth 1 (one) time each day. methylphenidate ER (Concerta) 18 MG CR tablet Take 18 mg by mouth every morning. Do not crush, chew, or split. UNABLE TO FIND Take 20 mg by mouth daily. Suboxone 20 mg po daily [] ofloxacin (Ocuflox) 0.3 % ophthalmic solution Administer 1 drop into the left eye in the morning and 1 drop at noon and 1 drop in the evening and 1 drop before bedtime. Do all this for 7 days. 10 mL 0 No current facility-administered medications on file prior to visit. Social History Socioeconomic History Marital status: Single Spouse name: Not on file Number of children: Not on file Years of education: Not on file Highest education level: Not on file Occupational History Not on file Tobacco Use Smoking status: Every Day Current packs/day: 0.50 Average packs/day: 0.5 packs/day for 8.0 years (4.0 ttl pk-yrs) Types: Cigarettes Smokeless tobacco: Never Tobacco comments: Quit smokinppd Vaping Use Vaping status: Every Day Substances: Nicotine Devices: Disposable Substance and Sexual Activity Alcohol use: Not Currently Drug use: Yes Frequency: 7.0 times per week Types: Opiates, Marijuana, Methamphetamines Comment: medical marijuana card; last opiate 03/03/2023, meth years Sexual activity: Not on file Other Topics Concern Not on file Social History Narrative Merged History Encounter Social Determinants of Health Financial Resource Strain: Not on file Food Insecurity: Not on file Transportation Needs: Not on file Physical Activity: Not on file Stress: Not on file Social Connections: Not on file Intimate Partner Violence: Not on file Housing Stability: Not on file Family History Problem Relation Name Age of Onset No Known Problems Mother No Known Problems Father Substance Abuse Mother's Brother Allergies: No Known Allergies OBJECTIVE: BP 122/78 (BP Location: Right arm, Patient Position: Sitting, BP Cuff Size: Small adult) Temp 36.9 C (98.5 F) (Oral) Ht 6' 2 (1.88 m) Wt 154 lb 9.6 oz (70.1 kg) BMI 19.85 kg/m Physical Examination GENERAL: NAD, alert, oriented HEENT: Pupils equal, normal conjunctivae without scleral icterus PULMONARY: Normal respiratory effort, chest non-tender CARDIO: no edema PSYCHIATRIC: appropriate mood and judgement Tailbone: well healed scar from surgery No erythema No fluctuance No pain Exam chaperoned by female shipping and receiving assistant. ASSESSMENT/PLAN: Diagnosis Plan 1. Coccydynia S/p pilonidal surgery 05/11/23 Well healed scar No signs of infection or recurrent cyst/abscess Recommend not taking antibiotics rx'd elsewhere Ice or heating pad Soft cushion Tylenol/ibuprofen for pain Follow up if symptoms worsen or fail to improve. Shahnaz Hernandez MD [facility] Col[facility] Surgery [address] [place], [place] [address] p [phone] f [phone] documented in this encounter [place] 11-21-2023 Instructions Jazmin Christensen - 11/21/2023 8:30 AM EDT -On exam do not see or feel an abscess. -no swelling, redness. -could be pain from scar -can soak in warm shower or bath, apply heat or ice as needed. -sitting for long periods sit on flat cushion or pillow -try to sit offsetting the area -do not recommend taking the antibiotics -if you notice redness, swelling, drainage, fevers contact office. documented in this encounter [place] 11-17-[address] Christiano nicole, please offer appt for 11/21/23 @ 8:30 am for further evaluation. If symptoms worsen or develop a 101.1 or higher, patient should go to ED for further evaluation. [facility] 11-12-2023 History of Present illness Narrative Images from the original note were not included. [facility] [address] [facility] [address] Dept: [phone] Dept Loc: [phone] Subjective Chief Complaint Patient presents with Conjunctivitis Left eye, itchy, x5days Subjective HPI Geraldinejaswant Kaiser is a 23 y.o. year old male who presents with left eye redness, drainage (cloudy and yellow), discomfort and itching for 4-5 days. Getting worse per patient. Using warm compresses. No vision changes. Denies contact lens wear. Review of Systems No Known Allergies Current Outpatient Medications on File Prior to Visit Medication Sig Dispense Refill Cannabinoids (medical cannabis) Take 1 each by mouth 1 (one) time each day. methylphenidate ER (Concerta) 18 MG CR tablet Take 18 mg by mouth every morning. Do not crush, chew, or split. UNABLE TO FIND Take 20 mg by mouth daily. Suboxone 20 mg po daily No current facility-administered medications on file prior to visit. Patient Active Problem List Diagnosis Opioid dependence in remission ([facility]) Fentanyl dependence ([facility]) Closed nondisplaced fracture of fifth metatarsal bone of right foot with routine healing Opioid use disorder Opiate withdrawal (HCC) Narcotic overdose ([facility]) Elevated liver enzymes Blood poisoning IV drug user Transaminitis Generalized rash Drug dermatitis Sepsis ([facility]) Need for immunization against viral hepatitis LISA (acute kidney injury) ([facility]) Traumatic rhabdomyolysis ([facility]) Somnolence Hyponatremia Altered mental status Hip pain, bilateral Stupor Gonorrhea Polysubstance abuse (CMS/HCC) ([facility]) COVID Social History Tobacco Use Smoking status: Every Day Current packs/day: 0.50 Average packs/day: 0.5 packs/day for 8.0 years (4.0 ttl pk-yrs) Types: Cigarettes Smokeless tobacco: Never Tobacco comments: Quit smokinppd Substance Use Topics Alcohol use: Not Currently Objective Objective BP 114/71 (BP Location: Left arm, Patient Position: Sitting, BP Cuff Size: Adult) Pulse 92 Temp 36.7 C (98.1 F) Ht 6' 2 (1.88 m) Wt 152 lb (68.9 kg) SpO2 100% BMI 19.52 kg/m Physical Exam Eyes: General: Right eye: No discharge. Left eye: Discharge present. Extraocular Movements: Extraocular movements intact. Conjunctiva/sclera: Right eye: Right conjunctiva is not injected. Left eye: Left conjunctiva is injected. Pupils: Pupils are equal, round, and reactive to light. Assessment/Plan 1. Acute conjunctivitis of left eye, unspecified acute conjunctivitis type - ofloxacin (Ocuflox) 0.3 % ophthalmic solution; Administer 1 drop into the left eye in the morning and 1 drop at noon and 1 drop in the evening and 1 drop before bedtime. Do all this for 7 days., Starting 11/12/2023, Until 11/19/2023, Normal Start drops as above Good hand washing Patient advised to follow up in with ER, UC or PCP for new or worsening symptoms Patient has had multiple bouts of conjunctivitis advised he follow-up with eye specialists for check up Follow-up: Follow up if symptoms worsen or fail to improve. LEILANI Vasquez 11/12/2023 9:54 AM documented in this encounter [place] 06-21-2023 History of Present illness Narrative Patient states he has pain only with sitting. Denies fevers Does have brownish drainage, keeps area covered with dry gauze, the drainage does not soak through bandage. COLORECTAL SURGERY POST-OP VISIT PATIENT NAME: Geraldine Kaiser : 2000 TODAY'S DATE: 06/21/2023 Chief Complaint Patient presents with Post-op SUBJECTIVE: Geraldine Kaiser is a 22 y.o. male who is here for follow-up s/[ pilonidal excision Patient states he has pain only with sitting. Denies fevers Does have drainage, keeps area covered with dry gauze, the drainage does not soak through bandage. OBJECTIVE: BP 124/80 (BP Location: Right arm, Patient Position: Sitting, BP Cuff Size: Small adult) Temp 36.7 C (98.1 F) (Oral) Ht 6' 2 (1.88 m) Wt 156 lb 3.2 oz (70.9 kg) BMI 20.05 kg/m Physical Examination GENERAL: NAD, alert, oriented PULMONARY: Normal respiratory effort CARDIO: no edema ABDOMEN: soft, non-distended, non-tender, PSYCHIATRIC: appropriate mood and judgement RECTAL:gluteal cleft wound healing well without infection Exam chaperoned by female shipping and receiving assistant. ASSESSMENT/PLAN: Diagnosis Plan 1. Pilonidal cyst S/p excision Doing well Follow-up prn Follow up if symptoms worsen or fail to improve. Shahnaz Hernandez MD [facility] Col[facility] Surgery [address], [address] [place], [place] [address] p [phone] f [phone] documented in this encounter [place] 06-21-2023 Instructions Jazmin Christensen - 06/21/2023 1:00 PM EST -If sitting for long period of times, try to just sit on a flat cushion -area is healing nicely, there is no signs of infection, there is an area that is open, this will heal and close on its own. -if you have any concerns please contact office. documented in this encounter [place] 05-31-2023 Telephone encounter Note S: pt sent online request for appointment for sore throat and sinus issue B: MARGARITA RN returned call A: Pt states is no longer in need of appointment. States went to stat care and was diagnosed with strep throat. R: Pt advised to call back with worsening of symptoms, concern or questions. Pt verbalized understanding. Reason for Disposition [1] Follow-up call to recent contact AND [2] information only call, no triage required Pt already treated. Protocols used: Information Only Call - No [id number] [place] 05-31-2023 Miscellaneous Notes S: pt sent online request for appointment for sore throat and sinus issue B: MARGARITA RN returned call A: Pt states is no longer in need of appointment. States went to stat care and was diagnosed with strep throat. R: Pt advised to call back with worsening of symptoms, concern or questions. Pt verbalized understanding. Reason for Disposition [1] Follow-up call to recent contact AND [2] information only call, no triage required Pt already treated. Protocols used: Information Only Call - No [id number] documented in this encounter [place] 05-31-2023 History of Present illness Narrative @[email or web address]@ Assessment: Diagnosis Plan 1. Pilonidal cyst @PLANBEGINPHANTOM@ Plan: 1. Postop education and instructions are given and all questions answered. The patient shows good understanding. 2. Office follow up with Dr. Hernandez 3. Dry dressing to area as needed Objective History: Geraldine Kaiser is a 22 y.o. male who presents today for postop evaluation. He is status post excision of chronic pilonidal disease with primary closure. The patient is up and around. He is no longer on pain medication. He denies fever or systemic symptoms. There has been some superficial opening of the lower aspect of his wound, but the sutures were removed in the office today and the wound has not opened further. He has minimal drainage. The patient is seen for Dr. Hernandez and should be seen by Dr. Hernandez in about a month. He is seen today in the office with Jazmin Christensen LPN. Physical Exam: @VSAMB@ Physical Exam HENT: Head: Normocephalic. Nose: Nose normal. Eyes: General: No scleral icterus. Conjunctiva/sclera: Conjunctivae normal. Cardiovascular: Rate and Rhythm: Normal rate. Pulmonary: Effort: Pulmonary effort is normal. No respiratory distress. Breath sounds: Normal breath sounds. Abdominal: General: Abdomen is flat. There is no distension. Genitourinary: Comments: External exam is performed. The wound is uninfected. There is no abscess and no evidence of recurrence. There is no cellulitis. There is minimal drainage in the area. All 3 sutures are removed. The lower aspect of the incision had already opened to some extent but it did not open further with suture removal or with Q-tip probing. No further intervention is required for the wound. Skin: General: Skin is warm and dry. Coloration: Skin is not jaundiced. Neurological: Mental Status: He is alert and oriented to person, place, and time. Mental status is at baseline. Psychiatric: Mood and Affect: Mood normal. Behavior: Behavior normal. Thought Content: Thought content normal. Judgment: Judgment normal. ROS: Review of Systems as recordedby the durable medical equipment repairer has been reviewed by me, and I agree except as noted inthe HPI. Past Medical History: Diagnosis Date Drug abuse (CMS/HCC) (HCC) Polysubstance abuse (CMS/HCC) ([facility]) Rhabdomyolysis 01/2017 Past Surgical History: Procedure Laterality Date FOOT SURGERY Right pinning OTHER SURGICAL HISTORY 05/11/2023 PILONIDAL CYSTECTOMY VASCULAR SURGERY blood vessel on head WISDOM TOOTH EXTRACTION @MEDCMED@ Social History Socioeconomic History Marital status: Single Spouse name: Not on file Number of children: Not on file Years of education: Not on file Highest education level: Not on file Occupational History Not on file Tobacco Use Smoking status: Every Day Packs/day: 0.50 Years: 8.00 Additional pack years: 0.00 Total pack years: 4.00 Types: Cigarettes Smokeless tobacco: Never Tobacco comments: Quit smokinppd Vaping Use Vaping Use: Every day Substances: Nicotine Devices: Disposable Substance and Sexual Activity Alcohol use: Not Currently Drug use: Yes Frequency: 7.0 times per week Types: Opiates, Marijuana, Methamphetamines Comment: medical marijuana card; last opiate 03/03/2023, meth years Sexual activity: Not on file Other Topics Concern Not on file Social History Narrative Merged History Encounter Social Determinants of Health Financial Resource Strain: Not on file Food Insecurity: Not on file Transportation Needs: Not on file Physical Activity: Not on file Stress: Not on file Social Connections: Not on file Intimate Partner Violence: Not on file Housing Stability: Not on file Family History Problem Relation Name Age of Onset No Known Problems Mother No Known Problems Father Substance Abuse Mother's Brother Allergies: No Known Allergies PCP: Cesar Bone DO Electronically signedby Jose Merino MD on 05/31/2023 at 9:27 AM. documented in this encounter [facility] 05-31-2023 Instructions Jazmin Christensen - 05/31/2023 9:00 AM EST - does not look infected -the wound will heal over by itself in time -can shower as normal -see Dr. Hernandez in 3-4 weeks documented in this encounter [place] 05-24-2023 Evaluation + Plan note Associated Problem(s): Opioid dependence in remission ([facility]) -Chronic, stable -Continue suboxone as prescribed by ADM provider [place] 05-24-2023 Miscellaneous Notes Associated Problem(s): Opioid dependence in remission (HCC) -Chronic, stable -Continue suboxone as prescribed by ADM provider Associated Problem(s): COVID -COVID positive 05/19/23 -Vitals wnl; no wheezing on exam -Continue supportive care with OTC decongestants, NSAIDs, and acetaminophen as needed. Encouraged patient to stay hydrated and to notify the office if symptoms worsen documented in this encounter [place] 05-24-2023 Evaluation + Plan note Associated Problem(s): COVID -COVID positive 05/19/23 -Vitals wnl; no wheezing on exam -Continue supportive care with OTC decongestants, NSAIDs, and acetaminophen as needed. Encouraged patient to stay hydrated and to notify the office if symptoms worsen [place] 05-24-2023 History of Present illness Narrative Images from the original note were not included. [facility] [address] [facility] [address] [facility] [id number] Dept: [phone] Dept Loc: [phone] 05/24/2023 Visit type: New patient Reason for Visit: ER Follow-up (Covid ) ASSESSMENT/PLAN 1. COVID Assessment & Plan: -COVID positive 05/19/23 -Vitals wnl; no wheezing on exam -Continue supportive care with OTC decongestants, NSAIDs, and acetaminophen as needed. Encouraged patient to stay hydrated and to notify the office if symptoms worsen 2. Opioid dependence in remission (HCC) Assessment & Plan: -Chronic, stable -Continue suboxone as prescribed by ADM provider Follow up in about 4 weeks (around 06/21/2023) for Establish care, health maintenance . Subjective Patient: Geraldine Kaiser is a 22 y.o. male who recently underwent surgery for pilonidal cyst removal. Was evaluated in the ED on 05/19/23 due to complaints of surgical site pain as well as cough, chills, fever, and fatigue. Found to be COVID positive. Today reports fevers chills have resolved. Still having headache, cough and mucus drainage. No wheezing or SOB. Still can taste and smell. Able to tolerate PO intake. Symptoms have been managed by OTC decongestants, tylenol, and ibuprofen. Gets Suboxone from [facility] in [place]. BUPRENORPHINE-NALOX 8-2MG FILM 03/08/2023 7 14 each Geraldine Hodge MD dissolve 2 FILMS under the tongue once daily Also got a short-term prescription for oxycodone for post-op pain management. Future Appointments Date Time Provider Department Center 05/31/2023 9:00 AM Jose Merino MD [facility] None 06/27/2023 8:10 AM Cesar Bone DO [facility] HPI Review of Systems as per HPI No Known Allergies Outpatient Medications Prior to Visit Medication Sig Dispense Refill Cannabinoids (medical cannabis) Take 1 each by mouth 1 (one) time each day. oxyCODONE-acetaminophen (Percocet) 5-325 MG tablet Take 1 tablet by mouth every 6 hours as needed (Post-op pain) for up to 7 days. 28 tablet 0 UNABLE TO FIND Take 20 mg by mouth daily. Suboxone 20 mg po daily No facility-administered medications prior to visit. Past Medical History: Diagnosis Date Drug abuse (CMS/HCC) ([facility]) Polysubstance abuse (CMS/HCC) ([facility]) Rhabdomyolysis 01/2017 Past Surgical History: Procedure Laterality Date FOOT SURGERY Right pinning OTHER SURGICAL HISTORY 05/11/2023 PILONIDAL CYSTECTOMY VASCULAR SURGERY blood vessel on head WISDOM TOOTH EXTRACTION Family History Problem Relation Name Age of Onset No Known Problems Mother No Known Problems Father Substance Abuse Mother's Brother Social History Tobacco Use Smoking status: Every Day Packs/day: 0.50 Years: 8.00 Additional pack years: 0.00 Total pack years: 4.00 Types: Cigarettes Smokeless tobacco: Never Tobacco comments: Quit smokinppd Substance Use Topics Alcohol use: Not Currently Objective BP 107/80 (BP Location: Left arm, Patient Position: Sitting, BP Cuff Size: Large adult) Pulse 95 Temp 36.3 C (97.3 F) (Temporal) Ht 6' 2 (1.88 m) Wt 148 lb (67.1 kg) BMI 19.00 kg/m Physical Exam Constitutional: General: He is not in acute distress. Appearance: Normal appearance. He is ill-appearing. He is not toxic-appearing. HENT: Head: Normocephalic. Nose: Congestion present. Mouth/Throat: Mouth: Mucous membranes are moist. Pharynx: No oropharyngeal exudate. Eyes: Pupils: Pupils are equal, round, and reactive to light. Cardiovascular: Rate and Rhythm: Normal rate. Pulmonary: Effort: Pulmonary effort is normal. No respiratory distress. Breath sounds: No wheezing or rales. Abdominal: General: Abdomen is flat. There is no distension. Tenderness: There is no abdominal tenderness. Musculoskeletal: General: No swelling or tenderness. Cervical back: No rigidity. Skin: Findings: Lesion (Healing vertical wound at superior aspect of gluteal fold s/p pilonidal cyst removal. No drainage) present. Neurological: Mental Status: He is alert. Data Reviewed and Summarized: Medical decision making including: See Assessment/Plan Goals None [facility] Staffed with Dr Joan Eduardo MD PGY : 3 05/24/2023 Patient refuses flu vaccine due to: (example reasons in parentheses) [] cost (insurance doesn't cover, less expensive elsewhere) [] risk (I always get sick after flu shots, side effects) [] mistrust (moneymaking conspiracy, dangerous chemicals, not safe, knows someone who got very sick from it) [] susceptibility (I never get the flu) [] inertia (I've never had one, so I don't want one) [x] other Ma time with rooming 5 minutes ( Chris Pedraza ) [facility] Social Barrier Assessment Please giles all that apply: [] Do you put off going to the doctor because of distance or transportation? [] Do you have current trouble with housing? [] Do you have limited access to food? [] Do you have trouble understanding your medical condition or taking your medications? [] Do you have a partner, or anyone at home, hurt, hit, or threaten you? [] Do you have trouble paying for medical bills/RX? [] Do you lack health insurance? [] Do you have a foster care case manager? Please list name and number below. [] Are you looking for a job? [] Are you receiving Social Security Benefits? [x] None of the above apply to me at this time. Please list any additional concerns you would like to discuss with our team: ANTONINA GarcíaW Pt received and completed the [facility] screen. No concerns. Teaching Physician Note Indirect Supervision - Modifier GE During or immediately after this visit, I discussed this case with the treating resident. Our discussion included the history obtained by the resident, the resident's exam findings, and the resident's treatment plan. Please see resident s note for further details.This service has been performed by a resident without the presence of a teaching physician under the primary care exception (GE Modifier) Additional comments: Agree with resident assessment and plan Electronically signed by: Kwabena Morejon MD Internal Medicine 05/24/23 8:50 AM documented in this encounter [place] 05-23-[address] Susannah Jackson contacts the office to inform that the patient may have an additional prescription for pain medication if clinically warranted they just recommend that it be a low dose for a short course. This is reviewed with Dr. Merino covering for Dr. Hernandez, the patient will be prescribed a 7 day course of Percocet 5/325, 1 tab po q 6 h prn pain, qty#28, refill-0. Dr. Jackson will follow-up with the patient from a suboxone standpoint and update their record of the above prescription. Patient informed of the above and a RX for percocet is sent to the confirmed pharmacy on file. The patient instructed to contact the office with any questions or concerns, verbalizes understanding. [place] 05-23-[address] Susannah Jackson contacts the office to inform that the patient may have an additional prescription for pain medication if clinically warranted they just recommend that it be a low dose for a short course. This is reviewed with Dr. Merino covering for Dr. Hernandez, the patient will be prescribed a 7 day course of Percocet 5/325, 1 tab po q 6 h prn pain, qty#28, refill-0. Dr. Jackson will follow-up with the patient from a suboxone standpoint and update their record of the above prescription. Patient informed of the above and a RX for percocet is sent to the confirmed pharmacy on file. The patient instructed to contact the office with any questions or concerns, verbalizes understanding. Addended by: JOSE MERINO on: 05/23/2023 02:23 PM Modules accepted: Orders Addended by: GARDENIA DOBBINS on: 05/23/2023 02:20 PM Modules accepted: Orders Per CDC guidelines, the patient's upcoming post-op appointment can remain as scheduled 05/31/23 as long as he is fever free for at least 24 hrs without the use of anti-fever medication and his symptoms have improved or resolved. Due to the patient being on Suboxone, a post-op medication plan was put in place prior to surgery per the advisement of the patient's Suboxone physician Dr. Susannah Jackson w/ [facility] [phone]. Patient was prescribed a 5 day course of Percocet 5/325 1 tab po q 6 h prn pain and instructed to follow-up with the Dr. Jackson at [facility] for further management of his Suboxone/post-operative pain. The above is reviewed with the patient, he verbalizes understanding and will contact the [facility] for further instruction. Patient states he is still very symptomatic from a Covid standpoint. He is instructed to contact the office should he remain symptomatic as we near his appointment to determine how this needs to be adjusted. Patient calls office back stating he called [facility] and they cannot see him until 06/08/23. [facility] contacted to review the above, discussed with Twila Torres who will contact the patient to discuss how they will proceed on their end. She will have the physician contact the office with any questions. Patient advised of the above, verbalizes understanding. S-This 22 year old patient is calling for a refill on his Percocet 5/325 pain medications. B-He had a Pilonidal Cystectomy on 05/12/23. A-States his pain is 8-9. He just took his last Percocet about 2 hours ago. He was advised to alternate Tylenol 500 mg and Motrin 400 mg every 6 hours. Afebrile. No other symptoms. He is Covid positive as of 05.19.23. I advised him the office is closed until Monday. What instructions do you have for him? R-Secure chat to Dr. Roe. I advised the patient to go to the ED if his pain is severe. He should monitor his temperature, turn side to side and call back if he becomes worse. Reason for Disposition [1] SEVERE post-op pain (e.g., excruciating, pain scale 8-10) AND [2] not controlled with pain medications Answer Assessment - Initial Assessment Questions 1. SYMPTOM: What's the main symptom you're concerned about? (e.g., pain, fever, vomiting) pain 2. ONSET: When did the pain start? 05/12/23 3. SURGERY: What surgery did you have? Pilonidal Cyst 4. DATE of SURGERY: When was the surgery? 05/12/23 5. ANESTHESIA: What type of anesthesia did you have? (e.g., general, spinal, epidural, local) general 6. PAIN: Is there any pain? If Yes, ask: How bad is it? (Scale 1-10; or mild, moderate, severe) 8-9 7. FEVER: Do you have a fever? If Yes, ask: What is your temperature, how was it measured, and when did it start? See note 8. VOMITING: Is there any vomiting? If Yes, ask: How many times? no 9. BLEEDING: Is there any bleeding? If Yes, ask: How much? and Where? no 10. OTHER SYMPTOMS: Do you have any other symptoms? (e.g., drainage from wound, painful urination, constipation) See note Protocols used: Post-Op Symptoms and [id number] documented in this encounter [facility] 05-23-2023 Note Addended by: JOSE MERINO on: 05/23/2023 02:23 PM Modules accepted: Orders [facility] 05-23-2023 Note Addended by: JOSE MERINO on: 05/23/2023 02:23 PM Modules accepted: Orders [facility] 05-23-2023 Note Addended by: JOSE MERINO on: 05/23/2023 02:23 PM Modules accepted: Orders [facility] 05-23-2023 Note Addended by: GARDENIA DOBBINS on: 05/23/2023 02:20 PM Modules accepted: Orders [facility] 05-23-2023 Note Addended by: GARDENIA DOBBINS on: 05/23/2023 02:20 PM Modules accepted: Orders [facility] 05-23-2023 Note Addended by: GARDENIA DOBBINS on: 05/23/2023 02:20 PM Modules accepted: Orders [facility] 05-23-2023 Telephone encounter Note Per CDC guidelines, the patient's upcoming post-op appointment can remain as scheduled 05/31/23 as long as he is fever free for at least 24 hrs without the use of anti-fever medication and his symptoms have improved or resolved. Due to the patient being on Suboxone, a post-op medication plan was put in place prior to surgery per the advisement of the patient's Suboxone physician Dr. Susannah carballo/ [facility] [phone]. Patient was prescribed a 5 day course of Percocet 5/325 1 tab po q 6 h prn pain and instructed to follow-up with the Dr. Jackson at [facility] for further management of his Suboxone/post-operative pain. The above is reviewed with the patient, he verbalizes understanding and will contact the [facility] for further instruction. Patient states he is still very symptomatic from a Covid standpoint. He is instructed to contact the office should he remain symptomatic as we near his appointment to determine how this needs to be adjusted. Patient calls office back stating he called [facility] and they cannot see him until 06/08/23. [facility] contacted to review the above, discussed with Twila Torres who will contact the patient to discuss how they will proceed on their end. She will have the physician contact the office with any questions. Patient advised of the above, verbalizes understanding. [facility] 05-21-2023 Telephone encounter Note S-This 22 year old patient is calling for a refill on his Percocet 5/325 pain medications. B-He had a Pilonidal Cystectomy on 05/12/23. A-States his pain is 8-9. He just took his last Percocet about 2 hours ago. He was advised to alternate Tylenol 500 mg and Motrin 400 mg every 6 hours. Afebrile. No other symptoms. He is Covid positive as of 05.19.23. I advised him the office is closed until Monday. What instructions do you have for him? R-Secure chat to Dr. Roe. I advised the patient to go to the ED if his pain is severe. He should monitor his temperature, turn side to side and call back if he becomes worse. Reason for Disposition [1] SEVERE post-op pain (e.g., excruciating, pain scale 8-10) AND [2] not controlled with pain medications Answer Assessment - Initial Assessment Questions 1. SYMPTOM: What's the main symptom you're concerned about? (e.g., pain, fever, vomiting) pain 2. ONSET: When did the pain start? 05/12/23 3. SURGERY: What surgery did you have? Pilonidal Cyst 4. DATE of SURGERY: When was the surgery? 05/12/23 5. ANESTHESIA: What type of anesthesia did you have? (e.g., general, spinal, epidural, local) general 6. PAIN: Is there any pain? If Yes, ask: How bad is it? (Scale 1-10; or mild, moderate, severe) 8-9 7. FEVER: Do you have a fever? If Yes, ask: What is your temperature, how was it measured, and when did it start? See note 8. VOMITING: Is there any vomiting? If Yes, ask: How many times? no 9. BLEEDING: Is there any bleeding? If Yes, ask: How much? and Where? no 10. OTHER SYMPTOMS: Do you have any other symptoms? (e.g., drainage from wound, painful urination, constipation) See note Protocols used: Post-Op Symptoms and [id number] [facility] 05-19-2023 Emergency department Note Reviewed DC paperwork with patient, patient verbalized understanding of all. Patient A&O, non-labored respirations, no signs of acute distress, ambulated out of ED with steady stable gait. Saira Lou LPN 05/19/2317 [place] 05-19-2023 Emergency department Note Reviewed DC paperwork with patient, patient verbalized understanding of all. Patient A&O, non-labored respirations, no signs of acute distress, ambulated out of ED with steady stable gait. Saira Lou LPN 05/19/23516 Emergency Department Encounter [facility] EMERGENCY DEPT Patient: Geraldine Kaiser : 2000 Date of Evaluation: 05/19/2023 ED Supervising Physician: Nicola Dyer MD I independently examined and evaluated Geraldine Kaiser. This will serve as my Supervisory note as the hassock maker of record and shared attestation. I did perform a substantive portion of the visit including all aspects of the Medical Decision Making. I wore appropriate PPE for the entirety of this encounter. In brief, Geraldine Kaiser is a 22 y.o. male that presents to the emergency department with concern of postoperative wound issue. He recently had a pilonidal cyst surgery done on the . States he was doing well until he got sick several days ago. Has been laying in bed and not been able to bathe as appropriately as normal. He noted some increased drainage and redness which is why he presented. He is still having cough, chills and fatigue. He thinks he may have the flu or COVID. Denies any pain with defecation, erythema that is spreading although does have a picture of his wound Focused exam: Patient has well-healed surgical scar noted near his cleft of the buttock. There is some mild erythema although likely from suture wounds being placed in some granulation tissue. No cyst no significant drainage although serosanguineous drainage is noted Brief ED course/MDM: EMERGENCY DEPARTMENT COURSE and DIFFERENTIAL DIAGNOSIS/MDM: Vitals: Vitals: 05/19/23 0036 BP: 121/79 Pulse: 92 Resp: 16 Temp: 37.3 C (99.1 F) TempSrc: Temporal SpO2: 97% Weight: 72.6 kg (160 lb) Height: 1.88 m (6' 2) The patient presented with a chief complaint of postoperative wound infection concern, chills. The differential diagnosis associated with this patient's presentation includes viral illness, postoperative infection. Our workup consisted of ordering/reviewing did order viral testing as examination of patient's wound does not appear to be grossly infected. Does have some granulation tissue forming, serosanguineous in nature no purulent drainage is noted and no streaking or erythematous changes noted. Am not able to express any purulence from the wound itself less concern for abscess formation as it is open and draining the way it should be. Likely has some erythema as he was sleeping in bed rather than bathing as normal and did instruct him to continue washing with soap and water and follow-up outpatient. If he notices any worsening should return otherwise we will test him for COVID flu and RSV although does not require him to wait for the results and can follow-up on MyChart which she is agreeable for. Likely has a viral illness causing those symptoms. Diagnoses as of 05/19/23 6124 Viral upper respiratory tract infection Postoperative examination Diagnostic tests considered but not performed: External records reviewed: Diagnostics interpreted by me: Discussions with other clinicians: Chronic conditions impacting care: Social determinants of health affecting care: ED Medications managed: Medications ibuprofen tablet 600 mg (600 mg Oral Given 05/19/23 8883) Prescription drugs considered: Disposition and plan: Viral illness, postoperative wound check, discharge All diagnostic, treatment, and disposition decisions were made by myself in conjunction with the Resident/BRAXTON. I also supervised kennedy portions of any procedures performed by the Resident/BRAXTON. For all further details of the patient's emergency department visit, please see their documentation. (Comment: Please note this report has been produced using speech recognition software and may contain errors related to that system including errors in grammar, punctuation, and spelling, as well as words and phrases that may be inappropriate. If there are any questions or concerns please feel free to contact the dictating provider for clarification.) Nicola Dyer MD [employer] Nicola Dyer MD 05/19/23 0436 documented in this encounter [place] 05-19-2023 Hospital Discharge instructions Mann Boyd MD - 05/19/2023 5:08 AM EST Please return to emergency department for any new or worsening symptoms. Please keep the wound from her surgical site clean. You may take Tylenol and ibuprofen for your symptoms. Please call your primary care physician tomorrow morning to schedule a follow-up appointment. The following attachments cannot be sent through Care Everywhere.Viral Upper Respiratory Infection Discharge Instructions, Adult (Belarusian)documented in this encounter [place] 05-19-2023 Physician Emergency department Note Emergency Department Encounter [facility] EMERGENCY DEPT Patient: Geraldine Kaiser : 2000 Date of Evaluation: 05/19/2023 ED Supervising Physician: Nicola Dyer MD I independently examined and evaluated Geraldine Kaiser. This will serve as my Supervisory note as the hassock maker of record and shared attestation. I did perform a substantive portion of the visit including all aspects of the Medical Decision Making. I wore appropriate PPE for the entirety of this encounter. In brief, Geraldine Kaiser is a 22 y.o. male that presents to the emergency department with concern of postoperative wound issue. He recently had a pilonidal cyst surgery done on the . States he was doing well until he got sick several days ago. Has been laying in bed and not been able to bathe as appropriately as normal. He noted some increased drainage and redness which is why he presented. He is still having cough, chills and fatigue. He thinks he may have the flu or COVID. Denies any pain with defecation, erythema that is spreading although does have a picture of his wound Focused exam: Patient has well-healed surgical scar noted near his cleft of the buttock. There is some mild erythema although likely from suture wounds being placed in some granulation tissue. No cyst no significant drainage although serosanguineous drainage is noted Brief ED course/MDM: EMERGENCY DEPARTMENT COURSE and DIFFERENTIAL DIAGNOSIS/MDM: Vitals: Vitals: 05/19/23 0036 BP: 121/79 Pulse: 92 Resp: 16 Temp: 37.3 C (99.1 F) TempSrc: Temporal SpO2: 97% Weight: 72.6 kg (160 lb) Height: 1.88 m (6' 2) The patient presented with a chief complaint of postoperative wound infection concern, chills. The differential diagnosis associated with this patient's presentation includes viral illness, postoperative infection. Our workup consisted of ordering/reviewing did order viral testing as examination of patient's wound does not appear to be grossly infected. Does have some granulation tissue forming, serosanguineous in nature no purulent drainage is noted and no streaking or erythematous changes noted. Am not able to express any purulence from the wound itself less concern for abscess formation as it is open and draining the way it should be. Likely has some erythema as he was sleeping in bed rather than bathing as normal and did instruct him to continue washing with soap and water and follow-up outpatient. If he notices any worsening should return otherwise we will test him for COVID flu and RSV although does not require him to wait for the results and can follow-up on MyChart which she is agreeable for. Likely has a viral illness causing those symptoms. Diagnoses as of 05/19/23 1794 Viral upper respiratory tract infection Postoperative examination Diagnostic tests considered but not performed: External records reviewed: Diagnostics interpreted by me: Discussions with other clinicians: Chronic conditions impacting care: Social determinants of health affecting care: ED Medications managed: Medications ibuprofen tablet 600 mg (600 mg Oral Given 05/19/23 4173) Prescription drugs considered: Disposition and plan: Viral illness, postoperative wound check, discharge All diagnostic, treatment, and disposition decisions were made by myself in conjunction with the Resident/BRAXTON. I also supervised kennedy portions of any procedures performed by the Resident/BRAXTON. For all further details of the patient's emergency department visit, please see their documentation. (Comment: Please note this report has been produced using speech recognition software and may contain errors related to that system including errors in grammar, punctuation, and spelling, as well as words and phrases that may be inappropriate. If there are any questions or concerns please feel free to contact the dictating provider for clarification.) Nicola Dyer MD [employer] Nicola Dyer MD 05/19/23 0436 [employer] Work Phone: 05-11-2023 Note Formatting of this n ote might be different from the original. Patient is recovering, phase 2, has crackers/water. Dad is at bedside with belongings. Waiting for meds to beds. Call light within reach [employer] 05-11-2023 Note Formatting of this n ote might be different from the original. Patient is recovering, phase 2, has crackers/water. Dad is at bedside with belongings. Waiting for meds to beds. Call light within reach [employer] 05-11-2023 Miscellaneous Notes Patient is recovering, phase 2, has crackers/water. Dad is at bedside with belongings. Waiting for meds to beds. Call light within reach Date: 05/11/2023 Location: [facility] OR Name: Geraldine Boswell Job, : 2000, Diagnosis Pre-op Diagnosis * Pilonidal cyst with abscess [L05.01] Post-op Diagnosis * Pilonidal cyst with abscess [L05.01] Procedures PILONIDAL CYSTECTOMY 30122 - [place] EXCISION PILONIDAL CYST/SINUS EXTENSIVE Surgeons * Shahnaz Hernandez - Primary Procedure Summary Anesthesia: General ASA: II Estimated Blood Loss: 5 mL Drains: * None in log * Specimens ID Source Type Tests Collected By Collected At Frozen? Priority Lab ID 1 Buttock, Left Tissue TISSUE EXAM Shahnaz Hernandez MD 05/11/23 3777 Description: Pilonidal Cyst Staff: Learning Disabilities Resource Teacher: Dez Hopson RN; Marisa Moreno RN Scrub Person: Zo Smart Findings: Please see full op note for further details. Complications: None; patient tolerated the procedure well. Specimens Collected: Order Name Source Comment Collection Info Order Time POTASSIUM WITH MG REFLEX For patients on dialysis to draw potassium day of surgery 05/11/2023 10:37 AM PROTHROMBIN TIME If patient on coumadin within 4 days prior. 05/11/2023 10:37 AM TISSUE EXAM Buttock, Left Pre-op diagnosis: Pilonidal cyst with abscess [L05.01] Collected By: Shahnaz Hernandez MD 05/11/2023 1:27 PM Wound Class: Class I: Clean Blood Products: None Prophylactic Antibiotics: Procedure appropriate prophylactic antibiotic(s) given within 1 hour of surgical incision (two hours if receiving Vancomycin or flouroquinolone) documented in this encounter [place] 05-11-2023 Hospital Discharge instructions Saira Bustos MD - 05/11/2023 1:02 PM EST Images from the original note were not included. POST-OPERATIVE INSTRUCTIONS OBTAIN THE FOLLOWING FROM THE DRUGSTORE PAIN MEDICATION - A narcotic pain prescription may be provided, if not, ibuprofen (Advil)/acetaminophen (Tylenol) can be used to control pain and can be less constipating. DO NOT exceed 4000 mg acetaminophen in 24 hours or 3200 mg ibuprofen in 24 hours. METAMUCIL or similar fiber supplement is recommended on a daily basis. COLACE or MIRALAX is recommended on a daily basis for 2 weeks to avoid hard bowel movements if taking prescription narcotics SPECIAL INSTRUCTIONS Remove the external gauze later in the day or during your first shower/bath. Avoiding straining or sitting on the toilet for long periods of time or heavy lifting especially the first day after surgery. The increased pressure can aggravate swelling and bleeding. Slight bleeding and drainage is usual after this procedure. Report excessive bleeding or passage of clots to the office. Use non-cotton gauze, sanitary pads or minipads as needed for bleeding and drainage. Warm showers or baths are recommended 2 to 3 times per day or as needed in the post- operative period for discomfort and to keep area clean. You can purchase a hand-held shower sprayer, bidet, sitz bath, or squirt bottle to keep the tissues clean in the shannan-anal area after bowel movements and as needed. Avoid a hot shower immediately after surgery since the sedation used during procedure may precipitate light-headedness or fainting. Resume your regular diet. Report severe constipation or diarrhea to the office. Contact the office immediately if you are unable to urinate or if you have fever or chills. Do Not Use enemas or suppositories after surgery unless specifically instructed by the office. Contact the office the following day after surgery to inform us of your progress and to make your follow-up appointment. Do not drive/operate heavy machinery while you are taking narcotic pain medication or if your pain is too severe to allow you to react appropriately. A small amount of bloody drainage can occur for several days and sometime weeks depending on the nature and severity of the surgical procedure Post-Operative Pain Reduction Strategy to Minimize Opioid Use Please take acetaminophen (Tylenol) and/or NSAIDS (Advil, Motrin) for postoperative pain control before taking opioid prescriptions for pain. You can alternate between the two or stagger them to achieve a more durable pain control regimen. -Do not exceed more than 4g of acetaminophen within 24 hours -Do not exceed more than 3200 mg NSAIDs in 24 hours -Do not take NSAIDs (ex: kidney problems or bleeding) or acetaminophen (ex: liver problems) if you have any contraindications to them. If your pain is not controlled by acetaminophen and/or NSAIDS, please take your opioid prescription ([place]/vicodin/percocet have tylenol in them) as needed for pain relief and try to use the minimum amount necessary for adequate pain relief. Opioid narcotics can suppress your breathing and decrease your level of alertness. It can also cause your bowel function to slow down and potentially make you constipated. -Do not drive or operate heavy machinery while on narcotic medications. Please properly dispose your excess opioid medications at the appropriate facility/location. An EXAMPLE schedule of how to take these medications is below. It is not necessary to wake yourself from sleep to take pain medication. It is not necessary to take the opioid prescription medication if pain is controlled on tylenol and ibuprofen alone. 6am: 1000 mg tylenol and 1-2 oxycodone (5mg) tablets if needed 9am: 800 mg ibuprofen 12pm: 1000 mg tylenol and 1-2 oxycodone (5mg) tablets if needed 3pm: 800 mg ibuprofen 6pm: 1000 mg tylenol and 1-2 oxycodone (5mg) tablets if needed 9pm: 800 mg ibuprofen 12am: 1000 mg tylenol and 1-2 oxycodone (5mg) tablets if needed 3am: 800 mg ibuprofen 6am: 1000 mg tylenol and 1-2 oxycodone (5mg) tablets if needed PLEASE CALL [phone] if you have any questions The following attachments cannot be sent through Care Everywhere.Pilonidal Cyst Discharge Instructions (Belarusian)documented in this encounter [place] 05-11-2023 Note Formatting of this n ote is different from the original. Date: 05/11/2023 Location: [facility] OR Name: Geraldine Boswell Job, : 2000, Diagnosis Pre-op Diagnosis * Pilonidal cyst with abscess [L05.01] Post-op Diagnosis * Pilonidal cyst with abscess [L05.01] Procedures PILONIDAL CYSTECTOMY 25588 - [place] EXCISION PILONIDAL CYST/SINUS EXTENSIVE Surgeons * Shahnaz Hernandez - Primary Procedure Summary Anesthesia: General ASA: II Estimated Blood Loss: 5 mL Drains: * None in log * Specimens ID Source Type Tests Collected By Collected At Frozen? Priority Lab ID 1 Buttock, Left Tissue TISSUE EXAM Shahnaz Hernandez MD 05/11/23 8106 Description: Pilonidal Cyst Staff: Learning Disabilities Resource Teacher: Dez Hopson RN; Marisa Moreno RN Scrub Person: Zo Smart Findings: Please see full op note for further details. Complications: None; patient tolerated the procedure well. Specimens Collected: Order Name Source Comment Collection Info Order Time POTASSIUM WITH MG REFLEX For patients on dialysis to draw potassium day of surgery 05/11/2023 10:37 AM PROTHROMBIN TIME If patient on coumadin within 4 days prior. 05/11/2023 10:37 AM TISSUE EXAM Buttock, Left Pre-op diagnosis: Pilonidal cyst with abscess [L05.01] Collected By: Shahnaz Hernandez MD 05/11/2023 1:27 PM Wound Class: Class I: Clean Blood Products: None Prophylactic Antibiotics: Procedure appropriate prophylactic antibiotic(s) given within 1 hour of surgical incision (two hours if receiving Vancomycin or flouroquinolone) [facility] 05-11-2023 Note Formatting of this n ote is different from the original. Date: 05/11/2023 Location: [facility] OR Name: Geraldine Kaiser, : 2000, Diagnosis Pre-op Diagnosis * Pilonidal cyst with abscess [L05.01] Post-op Diagnosis * Pilonidal cyst with abscess [L05.01] Procedures PILONIDAL CYSTECTOMY 87519 - [place] EXCISION PILONIDAL CYST/SINUS EXTENSIVE Surgeons * Shahnaz Hernandez - Primary Procedure Summary Anesthesia: General ASA: II Estimated Blood Loss: 5 mL Drains: * None in log * Specimens ID Source Type Tests Collected By Collected At Frozen? Priority Lab ID 1 Buttock, Left Tissue TISSUE EXAM Shahnaz Hernandez MD 05/11/23 5027 Description: Pilonidal Cyst Staff: Learning Disabilities Resource Teacher: Dez Hopson RN; Marisa Moreno RN Scrub Person: Zo Smart Findings: Please see full op note for further details. Complications: None; patient tolerated the procedure well. Specimens Collected: Order Name Source Comment Collection Info Order Time POTASSIUM WITH MG REFLEX For patients on dialysis to draw potassium day of surgery 05/11/2023 10:37 AM PROTHROMBIN TIME If patient on coumadin within 4 days prior. 05/11/2023 10:37 AM TISSUE EXAM Buttock, Left Pre-op diagnosis: Pilonidal cyst with abscess [L05.01] Collected By: Shahnaz Hernandez MD 05/11/2023 1:27 PM Wound Class: Class I: Clean Blood Products: None Prophylactic Antibiotics: Procedure appropriate prophylactic antibiotic(s) given within 1 hour of surgical incision (two hours if receiving Vancomycin or flouroquinolone) [place] 04-05-2023 History of Present illness Narrative Patient denies fever, drainage COLORECTAL SURGERY OFFICE VISIT PATIENT NAME: Geraldine Kaiser : 2000 TODAY'S DATE: 04/05/2023 Chief Complaint Patient presents with Follow-up Follow-up to re-evaluate pilonidal cyst after 7 day course of Augmentin(eval/rx per [facility]) Discuss scheduling surgery, review Suboxone considerations and post-op pain management plan. OTHER Pt unaccompanied SUBJECTIVE: Geraldine Kaiser is a 22 y.o. male known me for pilonidal cyst, here for concern for new onset swelling/discomfort past few days. No fevers. No drainage. Previously cancelled pilonidal surgery Review of Systems as documented Past Medical History: Diagnosis Date Drug abuse (CMS/[facility]) ([facility]) Polysubstance abuse (CMS/[facility]) ([facility]) Rhabdomyolysis 01/2017 Past Surgical History: Procedure Laterality Date VASCULAR SURGERY blood vessel on head WISDOM TOOTH EXTRACTION Current Outpatient Medications on File Prior to Visit Medication Sig Dispense Refill amoxicillin-clavulanate (Augmentin) 875-125 MG tablet Take 1 tablet by mouth 2 times daily for 7 days. 14 tablet 0 No current facility-administered medications on file prior to visit. Social History Socioeconomic History Marital status: Single Spouse name: Not on file Number of children: Not on file Years of education: Not on file Highest education level: Not on file Occupational History Not on file Tobacco Use Smoking status: Every Day Packs/day: .5 Types: Cigarettes Smokeless tobacco: Never Tobacco comments: Quit smokinppd Vaping Use Vaping Use: Never used Substance and Sexual Activity Alcohol use: Never Drug use: Not Currently Frequency: 2.0 times per week Types: Opiates, Marijuana, Methamphetamines Comment: medical marijuana card Sexual activity: Not on file Other Topics Concern Not on file Social History Narrative Merged History Encounter Social Determinants of Health Financial Resource Strain: Not on file Food Insecurity: Not on file Transportation Needs: Not on file Physical Activity: Not on file Stress: Not on file Social Connections: Not on file Intimate Partner Violence: Not on file Housing Stability: Not on file Family History Problem Relation Name Age of Onset No Known Problems Mother No Known Problems Father Substance Abuse Mother's Brother Allergies: No Known Allergies OBJECTIVE: BP 122/64 (BP Location: Right arm, Patient Position: Sitting, BP Cuff Size: Small adult) Pulse 60 Temp 37.2 C (98.9 F) (Oral) Ht 6' 2 (1.88 m) Wt 160 lb 6.4 oz (72.8 kg) BMI 20.59 kg/m Physical Examination GENERAL: NAD, alert, oriented HEENT: Pupils equal, normal conjunctivae without scleral icterus PULMONARY: Normal respiratory effort, chest non-tender CARDIO: no edema ABDOMEN: soft, non-distended, non-tender, no guarding, no rebound, no obvious hepatosplenomegaly PSYCHIATRIC: appropriate mood and judgement RECTUM: gluteal cleft, The patient is tender in the area but there is no drainage. There is no evidence of other disease. Exam chaperoned by female shipping and receiving assistant. ASSESSMENT/PLAN: Diagnosis Plan 1. Pilonidal cyst No signs of infection. Monitor off abx Proceed with pilonidal surgery as previously discussed We discussed the procedure details and the risks including bleeding, infection, recurrence, non-healing or prolonged healing, and chronic pain. He indicates understanding and wishes to proceed with surgery. No follow-ups on file. The patient was given the opportunity to ask questions and all questions were answered to the best of my ability. The patient agrees with the above noted plan. The patient was seen and examined independently and relevant data reviewed by myself. A full chart review including labs, imaging, endoscopic reports, pathology, and requesting/reviewing previous records was performed when available. Shahnaz Hernandez MD [facility] Colorectal Surgery [address], [address] [place], [place] [address] p [phone] f [phone] documented in this encounter [place] 04-05-2023 Instructions Jazmin Christensen - 04/05/2023 2:00 PM EST -do feel slight swelling -do not need any antibiotics at this time -would like to monitor for now -contact office if you develop fever, redness or swelling/pain develops -would recommend surgery for excision documented in this encounter [place] 03-14-2023 History of Present illness Narrative Pt denies any pain at this time COLORECTAL SURGERY OFFICE VISIT PATIENT NAME: Geraldine Kaiser : 2000 TODAY'S DATE: 03/14/2023 Chief Complaint Patient presents with New Patient ER follow-up for recurrent pilonidal abscess requiring bed side drainage 03/07/23, pt prescribed Keflex/Flagyl. Referring- [facility] ED OTHER SUBJECTIVE: Geraldine Kaiser is a 22 y.o. male who presents for recurrent pilonidal abscess. I&D in ER 03/07 Doing well. Pain improved. No drainage. No fevers. Was rx'd abx Never had pilonidal surgery in the past Of note does take suboxone Review of Systems as documented Past Medical History: Diagnosis Date Drug abuse (CMS/HCC) (HCC) Polysubstance abuse (CMS/HCC) ([facility]) Rhabdomyolysis 01/2017 Past Surgical History: Procedure Laterality Date VASCULAR SURGERY blood vessel on head WISDOM TOOTH EXTRACTION Current Outpatient Medications on File Prior to Visit Medication Sig Dispense Refill buprenorphine-naloxone (Suboxone) 8-2 MG per sublingual film Place 2 Film under the tongue daily for 7 days. 14 Film 0 cephalexin (Keflex) 500 MG capsule Take 1 capsule (500 mg) by mouth in the morning and 1 capsule (500 mg) at noon and 1 capsule (500 mg) in the evening and 1 capsule (500 mg) before bedtime. Do all this for 10 days. 40 capsule 0 metroNIDAZOLE (Flagyl) 500 MG tablet Take 1 tablet (500 mg) by mouth 3 times daily for 10 days. 30 tablet 0 [] naloxone (Narcan) 4 mg/0.1 mL nasal spray Administer 1 spray (4 mg) into affected nostril(s) Once for 1 dose. May repeat every 2-3 minutes if needed, alternating nostrils, until medical assistance becomes available. 1 each 0 [] naloxone (Narcan) 4 mg/0.1 mL nasal spray Administer 1 spray (4 mg) into affected nostril(s) Once for 1 dose. May repeat every 2-3 minutes if needed, alternating nostrils, until medical assistance becomes available. 1 each 0 No current facility-administered medications on file prior to visit. Social History Socioeconomic History Marital status: Single Spouse name: Not on file Number of children: Not on file Years of education: Not on file Highest education level: Not on file Occupational History Not on file Tobacco Use Smoking status: Every Day Packs/day: .5 Types: Cigarettes Smokeless tobacco: Never Tobacco comments: Quit smokinppd Vaping Use Vaping Use: Never used Substance and Sexual Activity Alcohol use: Never Drug use: Not Currently Frequency: 2.0 times per week Types: Opiates, Marijuana, Methamphetamines Comment: medical marijuana card Sexual activity: Not on file Other Topics Concern Not on file Social History Narrative Merged History Encounter Social Determinants of Health Financial Resource Strain: Not on file Food Insecurity: Not on file Transportation Needs: Not on file Physical Activity: Not on file Stress: Not on file Social Connections: Not on file Intimate Partner Violence: Not on file Housing Stability: Not on file Family History Problem Relation Name Age of Onset No Known Problems Mother No Known Problems Father Substance Abuse Mother's Brother Allergies: No Known Allergies OBJECTIVE: BP 110/62 (BP Location: Right arm, Patient Position: Sitting, BP Cuff Size: Small adult) Pulse 76 Temp 37.3 C (99.2 F) (Oral) Ht 6' 2 (1.88 m) Wt 159 lb 3.2 oz (72.2 kg) BMI 20.44 kg/m Physical Examination GENERAL: NAD, alert, oriented HEENT: Pupils equal, normal conjunctivae without scleral icterus PULMONARY: Normal respiratory effort, chest non-tender CARDIO: no edema ABDOMEN: soft, non-distended, non-tender, no guarding, no rebound, no obvious hepatosplenomegaly PSYCHIATRIC: appropriate mood and judgement RECTUM: Gluteal cleft I&D site healing well wtihout infection Exam chaperoned by female shipping and receiving assistant. ASSESSMENT/PLAN: Diagnosis Plan 1. Pilonidal abscess [facility] Colorectal Surgery COMPAS Plan for excision pilonidal disease We discussed the procedure details and the risks including bleeding, infection, recurrence, non-healing or prolonged healing, and chronic pain. He indicates understanding and wishes to proceed with surgery. Will need plan with suboxone No follow-ups on file. The patient was given the opportunity to ask questions and all questions were answered to the best of my ability. The patient agrees with the above noted plan. The patient was seen and examined independently and relevant data reviewed by myself. A full chart review including labs, imaging, endoscopic reports, pathology, and requesting/reviewing previous records was performed when available. Shahnaz Hernandez MD [facility] Colorectal Surgery [address], [address] [place], [place] [address] p [phone] f [phone] documented in this encounter [place] 03-14-2023 Instructions Jazmin Christensen - 03/14/2023 10:00 AM EDT In office exam shows patient is healing well. Could schedule surgery to remove pilonidal cyst After surgery can shower, let soap water run over the area to cleanse documented in this encounter [place] 03-09-2023 Telephone encounter Note Spoke to patient and confirmed appointment with Dr. Hernandez on 03/14/23 @ 10:00 am. [place] 03-09-2023 Telephone encounter Note ----- Message from Gardenia Dobbins RN sent at 03/08/2023 7:36 PM EDT ----- Appointment scheduled with Dr. Hernandez 03/14/23 @ 10:00 am. Please contact patient with appointment date & time. Please document in referral and attach to visit once patient has been contacted. ----- Message ----- From: Donna Lopez Sent: 03/08/2023 4:09 PM EDT To: Gardenia Dobbins RN Pt called wanting to schedule an appointment per his referral on 03/07/23 for pilonidal cyst. Pt can be reached at phone # listed in chart. [place] 03-09-2023 Miscellaneous Notes Spoke to patient and confirmed appointment with Dr. Hernandez on 03/14/23 @ 10:00 am. ----- Message from Gardenia Dobbins RN sent at 03/08/2023 7:36 PM EDT ----- Appointment scheduled with Dr. Hernandez 03/14/23 @ 10:00 am. Please contact patient with appointment date & time. Please document in referral and attach to visit once patient has been contacted. ----- Message ----- From: Donna Lopez Sent: 03/08/2023 4:09 PM EDT To: Gardenia Dobbins RN Pt called wanting to schedule an appointment per his referral on 03/07/23 for pilonidal cyst. Pt can be reached at phone # listed in chart. documented in this encounter [place] 03-08-2023 Emergency department Note Patient reports feeling much better and good to go. Walked to bathroom without issues. Gave richard pamela and crackers due to not eating all day. Discharge instructions reviewed and patient verbalized understanding. Aware of his appointment address, time and date. Yue Myers RN 03/08/23 1506 [place] 03-08-2023 Emergency department Note Patient reports feeling much better and good to go. Walked to bathroom without issues. Gave richard pamela and crackers due to not eating all day. Discharge instructions reviewed and patient verbalized understanding. Aware of his appointment address, time and date. Yue Myers RN 03/08/23 8606 [facility] at 8 am. Yue Myers RN 03/08/23 1409 Patient arrived to the ED previously late on 03/06 and during treatment for another issue patient was given a total of 8 mg suboxone for fentanyl withdrawal. Patient reports he left the ED yesterday morning about 0930 and that was about the last suboxone he rec'd. Patient reports at this time he did not sleep well last night and he is having withdrawal symptoms with COWS being 11 currently. Drug of choice is fentanyl and last use was Monday night. Patient reports using for the past 3-4 months by snorting 2 grams daily. He would like an increased. Has been on suboxone 24 mg in the past prescribed by Michaela one year ago. He feels he needs 16 mg suboxone at this time. Yue Myers RN 03/08/23 1317 [facility] ED EMERGENCY DEPARTMENT ENCOUNTER Pt Name: Geraldine Kaiser Birthdate 2000 Date of evaluation: 03/08/2023 Provider: Geraldine Hodge MD CHIEF COMPLAINT Chief Complaint Patient presents with Addiction Problem Pt here for 2nd dose of suboxone. Denies any other complaints HISTORY OF PRESENT ILLNESS I wore proper PPE for the entirety of this encounter. Geraldine Kaiser is a 22 y.o. male who presents to the emergency department with request for a second dose of Suboxone. Patient says that he feels like he is in mild to moderate withdrawal. He feels little bit shaky. He says he still felt little bit ill yesterday after his initial treatment. He was unable to see an addiction home health caregiver yesterday. Nursing Notes were reviewed. REVIEW OF SYSTEMS Constitutional: as noted in HPI, and negative for fever/chills Eyes: as noted in HPI, and negative for vision changes ENT: as noted in HPI, and negative for cough CV: as noted in HPI, and negative for chest pain, negative for palpitations Resp: as noted in HPI, and negative for shortness of breath GI: as noted in HPI, and negative for abd pain : as noted in HPI, and negative for urinary symptoms MSK: as noted in HPI, and negative for muscle pain Skin: as noted in HPI, and negative for rash Neuro: as noted in HPI, and negative for headaches, negative for acute focal weakness/numbness PAST MEDICAL HISTORY Past Medical History: Diagnosis Date Drug abuse ([facility]) ([facility]) Polysubstance abuse ([facility]) ([facility]) Rhabdomyolysis 01/2017 SURGICAL HISTORY Past Surgical History: Procedure Laterality Date VASCULAR SURGERY blood vessel on head WISDOM TOOTH EXTRACTION CURRENT MEDICATIONS Discharge Medication List as of 03/08/2023 2:55 PM CONTINUE these medications which have NOT CHANGED Details cephalexin (Keflex) 500 MG capsule Take 1 capsule (500 mg) by mouth in the morning and 1 capsule (500 mg) at noon and 1 capsule (500 mg) in the evening and 1 capsule (500 mg) before bedtime. Do all this for 10 days., Starting Mon03/07/2023, Until Mon03/17/2023, Normal metroNIDAZOLE (Flagyl) 500 MG tablet Take 1 tablet (500 mg) by mouth 3 times daily for 10 days., Starting Mon03/07/2023, Until Mon03/17/2023, Normal !! naloxone (Narcan) 4 mg/0.1 mL nasal spray Administer 1 spray (4 mg) into affected nostril(s) Once for 1 dose. May repeat every 2-3 minutes if needed, alternating nostrils, until medical assistance becomes available., Starting Mon03/08/2023, Normal !! - Potential duplicate medications found. Please discuss with provider. ALLERGIES Patient has no known allergies. FAMILY HISTORY Family History Problem Relation Name Age of Onset No Known Problems Mother No Known Problems Father Substance Abuse Mother's Brother SOCIAL HISTORY Social History Socioeconomic History Marital status: Single Tobacco Use Smoking status: Every Day Packs/day: .5 Types: Cigarettes Smokeless tobacco: Never Tobacco comments: Quit smokinppd Vaping Use Vaping Use: Never used Substance and Sexual Activity Alcohol use: Never Drug use: Not Currently Frequency: 2.0 times per week Types: Opiates, Marijuana, Methamphetamines Comment: medical marijuana card Social History Narrative Merged History Encounter SCREENINGS Clinical Opiate Withdrawal Scale Resting Pulse Rate: Measured After Patient is Sitting or Lying for One Minute: Pulse rate 81-100 GI Upset: Over Last Half Hour: Nausea or loose stool Sweating: Over Past Half Hour Not Accounted for by Room Temperature or Patient Activity: No report of chills or flushing Tremor: Observation of Outstretched Hands: Tremor can be felt, but not observed Restlessness: Observation During Assessment: Able to sit still Yawning: Observation During Assessment: No yawning Pupil Size: Pupils pinned or normal size for room light Anxiety and Irritability: Patient reports increasing irritability or anxiousness Bone or Joint Aches: If Patient was Having Pain Previously, Only the Additional Component Attributed to Opiate Withdrawal is Scored: Not present Gooseflesh Skin: Skin is smooth Runny Nose or Tearing: Not Accounted for by Cold Symptoms or Allergies: Nasal stuffiness or unusually moist eyes Clinical Opiate Withdrawal Scale Total Score: 6 PHYSICAL EXAM ED Triage Vitals [03/08/23 1245] Temp Heart Rate Resp BP 37.2 C (99 F) 80 18 116/83 SpO2 Temp Source Heart Rate Source Patient Position 99 % Temporal Monitor -- BP Location FiO2 (%) -- -- Constitutional: No acute distress HEENT:Head: Atraumatic/normocephalic Eyes: Conjunctivae normal. ENT: Mucous membranes moist. RESP: Good respiratory effort, no increased wob MSK: No gross deformity EXTR: No edema SKIN: No rash/bruising/erythema PSYCH: Appropriate affect, cooperative behavior NEURO: Alert and oriented x 3, face symmetric, no slurred speech DIAGNOSTIC RESULTS Interpretation per the Radiologist below, if available at the time of this note: No orders to display LABS: Labs Reviewed - No data to display EMERGENCY DEPARTMENT COURSE and DIFFERENTIAL DIAGNOSIS/MDM: Vitals: Vitals: 03/08/23 1245 03/08/23 1245 03/08/23 1259 03/08/23 1431 BP: 116/83 105/76 Pulse: 80 80 89 Resp: 18 16 Temp: 37.2 C (99 F) TempSrc: Temporal SpO2: 99% 100% Weight: 72.6 kg (160 lb) Height: 1.905 m (6' 3) Medications buprenorphine-naloxone (Suboxone) 8-2 MG per sublingual film 2 Film (2 Film SubLINGual Given 03/08/23 1405) I personally saw the patient and performed a substantive portion of the visit including all aspects of the medical decision making. Pt appears nontoxic. Addiction home health caregiver evaluated the patient. Patient given suboxone. He felt improved. Discharged home with suboxone Rx and follow up appointment. Diagnoses as of 03/08/23 1519 Opioid use disorder PROCEDURES: Unless otherwise noted below, none Procedures Patients symptoms are consistent with sepsis, severe sepsis, or septic shock (If yes use .sepsiscoremeasure): no FINAL IMPRESSION 1. Opioid use disorder DISPOSITION/PLAN Discharge 03/08/2023 02:53:48 PM PATIENT REFERRED TO: [address] [address] Schedule an appointment as soon as possible for a visit DISCHARGE MEDICATIONS: Discharge Medication List as of 03/08/2023 2:55 PM START taking these medications Details buprenorphine-naloxone (Suboxone) 8-2 MG per sublingual film Place 2 Film under the tongue daily for 7 days., Starting 03/08/2023, Until Mon03/15/2023, Normal !! naloxone (Narcan) 4 mg/0.1 mL nasal spray Administer 1 spray (4 mg) into affected nostril(s) Once for 1 dose. May repeat every 2-3 minutes if needed, alternating nostrils, until medical assistance becomes available., Starting Mon03/08/2023, Normal !! - Potential duplicate medications found. Please discuss with provider. (Please note: Portions of this note were completed with a voice recognition program. Efforts were made to edit the dictations but occasionally words and phrases are mis-transcribed.) Geraldine Hodge MD SELINA Emergency Medicine Physician [facility] Geraldine Hodge MD 03/08/23 1520 documented in this encounter [place] 03-08-2023 Hospital Discharge instructions Geraldine Hodge MD - 03/08/2023 2:55 PM EDT You were seen in the Emergency Department to get started on suboxone. You should follow-up with the addiction medicine appointment. Return to the Emergency Department if you have: - Severe pain - High fever (102F) - Any other symptoms that concern you Please sign up for MyChart and review all results from your visit today. Please follow up with your primary care provider with any questions or concerns about your results today. Thank you for choosing [facility] for your care. Sincerely, Geraldine Hodge MD documented in this encounter [place] 03-08-2023 Emergency department Note An appointment was established with [facility] [address] for March 15 at 8 am. Yue Myers RN 03/08/23 8145 [place] 03-08-2023 Emergency department Note Patient arrived to the ED previously late on 03/06 and during treatment for another issue patient was given a total of 8 mg suboxone for fentanyl withdrawal. Patient reports he left the ED yesterday morning about 0930 and that was about the last suboxone he rec'd. Patient reports at this time he did not sleep well last night and he is having withdrawal symptoms with COWS being 11 currently. Drug of choice is fentanyl and last use was Monday night. Patient reports using for the past 3-4 months by snorting 2 grams daily. He would like an increased. Has been on suboxone 24 mg in the past prescribed by [facility]ira one year ago. He feels he needs 16 mg suboxone at this time. Yue Myers RN 03/08/23 8408 [place] 03-08-2023 Physician Emergency department Note [facility] ED EMERGENCY DEPARTMENT ENCOUNTER Pt Name: Geraldine Kaiser Birthdate 2000 Date of evaluation: 03/08/2023 Provider: Geraldine Hodge MD CHIEF COMPLAINT Chief Complaint Patient presents with Addiction Problem Pt here for 2nd dose of suboxone. Denies any other complaints HISTORY OF PRESENT ILLNESS I wore proper PPE for the entirety of this encounter. Geraldine Kaiser is a 22 y.o. male who presents to the emergency department with request for a second dose of Suboxone. Patient says that he feels like he is in mild to moderate withdrawal. He feels little bit shaky. He says he still felt little bit ill yesterday after his initial treatment. He was unable to see an addiction home health caregiver yesterday. Nursing Notes were reviewed. REVIEW OF SYSTEMS Constitutional: as noted in HPI, and negative for fever/chills Eyes: as noted in HPI, and negative for vision changes ENT: as noted in HPI, and negative for cough CV: as noted in HPI, and negative for chest pain, negative for palpitations Resp: as noted in HPI, and negative for shortness of breath GI: as noted in HPI, and negative for abd pain : as noted in HPI, and negative for urinary symptoms MSK: as noted in HPI, and negative for muscle pain Skin: as noted in HPI, and negative for rash Neuro: as noted in HPI, and negative for headaches, negative for acute focal weakness/numbness PAST MEDICAL HISTORY Past Medical History: Diagnosis Date Drug abuse ([facility]) ([facility]) Polysubstance abuse ([facility]) ([facility]) Rhabdomyolysis 01/2017 SURGICAL HISTORY Past Surgical History: Procedure Laterality Date VASCULAR SURGERY blood vessel on head WISDOM TOOTH EXTRACTION CURRENT MEDICATIONS Discharge Medication List as of 03/08/2023 2:55 PM CONTINUE these medications which have NOT CHANGED Details cephalexin (Keflex) 500 MG capsule Take 1 capsule (500 mg) by mouth in the morning and 1 capsule (500 mg) at noon and 1 capsule (500 mg) in the evening and 1 capsule (500 mg) before bedtime. Do all this for 10 days., Starting Mon03/07/2023, Until Mon03/17/2023, Normal metroNIDAZOLE (Flagyl) 500 MG tablet Take 1 tablet (500 mg) by mouth 3 times daily for 10 days., Starting Mon03/07/2023, Until Mon03/17/2023, Normal !! naloxone (Narcan) 4 mg/0.1 mL nasal spray Administer 1 spray (4 mg) into affected nostril(s) Once for 1 dose. May repeat every 2-3 minutes if needed, alternating nostrils, until medical assistance becomes available., Starting 03/08/2023, Normal !! - Potential duplicate medications found. Please discuss with provider. ALLERGIES Patient has no known allergies. FAMILY HISTORY Family History Problem Relation Name Age of Onset No Known Problems Mother No Known Problems Father Substance Abuse Mother's Brother SOCIAL HISTORY Social History Socioeconomic History Marital status: Single Tobacco Use Smoking status: Every Day Packs/day: .5 Types: Cigarettes Smokeless tobacco: Never Tobacco comments: Quit smokinppd Vaping Use Vaping Use: Never used Substance and Sexual Activity Alcohol use: Never Drug use: Not Currently Frequency: 2.0 times per week Types: Opiates, Marijuana, Methamphetamines Comment: medical marijuana card Social History Narrative Merged History Encounter SCREENINGS Clinical Opiate Withdrawal Scale Resting Pulse Rate: Measured After Patient is Sitting or Lying for One Minute: Pulse rate 81-100 GI Upset: Over Last Half Hour: Nausea or loose stool Sweating: Over Past Half Hour Not Accounted for by Room Temperature or Patient Activity: No report of chills or flushing Tremor: Observation of Outstretched Hands: Tremor can be felt, but not observed Restlessness: Observation During Assessment: Able to sit still Yawning: Observation During Assessment: No yawning Pupil Size: Pupils pinned or normal size for room light Anxiety and Irritability: Patient reports increasing irritability or anxiousness Bone or Joint Aches: If Patient was Having Pain Previously, Only the Additional Component Attributed to Opiate Withdrawal is Scored: Not present Gooseflesh Skin: Skin is smooth Runny Nose or Tearing: Not Accounted for by Cold Symptoms or Allergies: Nasal stuffiness or unusually moist eyes Clinical Opiate Withdrawal Scale Total Score: 6 PHYSICAL EXAM ED Triage Vitals [03/08/23 1245] Temp Heart Rate Resp BP 37.2 C (99 F) 80 18 116/83 SpO2 Temp Source Heart Rate Source Patient Position 99 % Temporal Monitor -- BP Location FiO2 (%) -- -- Constitutional: No acute distress HEENT:Head: Atraumatic/normocephalic Eyes: Conjunctivae normal. ENT: Mucous membranes moist. RESP: Good respiratory effort, no increased wob MSK: No gross deformity EXTR: No edema SKIN: No rash/bruising/erythema PSYCH: Appropriate affect, cooperative behavior NEURO: Alert and oriented x 3, face symmetric, no slurred speech DIAGNOSTIC RESULTS Interpretation per the Radiologist below, if available at the time of this note: No orders to display LABS: Labs Reviewed - No data to display EMERGENCY DEPARTMENT COURSE and DIFFERENTIAL DIAGNOSIS/MDM: Vitals: Vitals: 03/08/23 1245 03/08/23 1245 03/08/23 1259 03/08/23 1431 BP: 116/83 105/76 Pulse: 80 80 89 Resp: 18 16 Temp: 37.2 C (99 F) TempSrc: Temporal SpO2: 99% 100% Weight: 72.6 kg (160 lb) Height: 1.905 m (6' 3) Medications buprenorphine-naloxone (Suboxone) 8-2 MG per sublingual film 2 Film (2 Film SubLINGual Given 03/08/23 1405) I personally saw the patient and performed a substantive portion of the visit including all aspects of the medical decision making. Pt appears nontoxic. Addiction home health caregiver evaluated the patient. Patient given suboxone. He felt improved. Discharged home with suboxone Rx and follow up appointment. Diagnoses as of 03/08/23 1519 Opioid use disorder PROCEDURES: Unless otherwise noted below, none Procedures Patients symptoms are consistent with sepsis, severe sepsis, or septic shock (If yes use .sepsiscoremeasure): no FINAL IMPRESSION 1. Opioid use disorder DISPOSITION/PLAN Discharge 03/08/2023 02:53:48 PM PATIENT REFERRED TO: [place] [id number] Schedule an appointment as soon as possible for a visit DISCHARGE MEDICATIONS: Discharge Medication List as of 03/08/2023 2:55 PM START taking these medications Details buprenorphine-naloxone (Suboxone) 8-2 MG per sublingual film Place 2 Film under the tongue daily for 7 days., Starting Mon03/08/2023, Until Mon03/15/2023, Normal !! naloxone (Narcan) 4 mg/0.1 mL nasal spray Administer 1 spray (4 mg) into affected nostril(s) Once for 1 dose. May repeat every 2-3 minutes if needed, alternating nostrils, until medical assistance becomes available., Starting Mon03/08/2023, Normal !! - Potential duplicate medications found. Please discuss with provider. (Please note: Portions of this note were completed with a voice recognition program. Efforts were made to edit the dictations but occasionally words and phrases are mis-transcribed.) Geraldine Hodge MD SELINA Emergency Medicine Physician [facility] Geraldine Hodge MD 03/08/23 1520 [place] 03-07-2023 Hospital Discharge instructions Tyaa Hernandez MD - 03/07/2023 6:56 AM EDT You were seen at the [facility] emergency department for a pilonidal abscess as well as symptoms withdrawal which were treated with Suboxone therapy in the emergency department. Please return to the emergency department for repeat evaluation for the MAT program tomorrow morning. Please take your antibiotics as prescribed and follow-up with colorectal surgery. The following attachments cannot be sent through Care Everywhere.Pilonidal Cyst Discharge Instructions (Belarusian)documented in this encounter [facility] 03-07-2023 Emergency department Note Chaperoned Dr Hernandez for eval of abscess. Oliva Jesus RN 03/07/23 0500 [place] 03-07-2023 Emergency department Note Chaperoned Dr Hernandez for eval of abscess. Oliva Jesus RN 03/07/23 0507 Pt complaints of abscess to buttocks/ tailbone area. Rates pain at site at 9/10. Was seen about 1 month ago for the same complaint. States they popped it and discharged him home last time. Pt also complaints of withdrawal from fentanyl for the last 3 days. Reports cold sweats, chills, restless legs and arms, can't sleep, nausea. States usually snorts the fentanyl. Last use was Monday night. Has taken suboxone off the street to help. documented in this encounter [facility] 03-07-2023 Note NOTE: This result is for medical treatment only. Analysis performed using non-forensic procedures. [facility] 03-07-2023 Emergency department Triage note Pt complaints of abscess to buttocks/ tailbone area. Rates pain at site at 01/29. Was seen about 1 month ago for the same complaint. States they popped it and discharged him home last time. Pt also complaints of withdrawal from fentanyl for the last 3 days. Reports cold sweats, chills, restless legs and arms, can't sleep, nausea. States usually snorts the fentanyl. Last use was Monday night. Has taken suboxone off the street to help. [facility] 01-26-2023 Hospital Discharge instructions Darryl Heller DO - 01/26/2023 12:17 AM EDT Apply warm compresses as discussed. Take Tylenol and Motrin for as needed for pain. Follow-up with your primary care doctor or with department family practice. The following attachments cannot be sent through Care Everywhere.Boil, Adult ED (Belarusian)documented in this encounter [facility] 01-25-2023 Emergency department Note EMERGENCY DEPARTMENT ENCOUNTER Pt Name: Geraldine Kaiser Birthdate 2000 Date of evaluation: 01/25/2023 ED Provider: Anne Marie Henry MD CHIEF COMPLAINT Chief Complaint Patient presents with Abscess HISTORY OF PRESENT ILLNESS (Location/Symptom, Timing/Onset, Context/Setting, Quality, Duration, Modifying Factors, Severity) Note limiting factors. I wore appropriate PPE for the entirety of this encounter. Geraldine Kaiser is a 22 y.o. who presents to the emergency department for abscess. Patient reports feeling some soreness on his tailbone starting on Monday. Looked in the mirror today and noticed that there was an abscess. No prior history in the past of similar symptoms. Denies any fever or chills. Reports that the pain has caused some nausea but no vomiting. Denies any diarrhea. Denies any recurrent history of abscess formation elsewhere on his body. No significant medical history. Does not take medication for anything. Nursing Notes were reviewed. Limitations to history: None Outside historians: None REVIEW OF SYSTEMS Review of Systems Constitutional: Negative for chills and fever. Respiratory: Negative for shortness of breath. Cardiovascular: Negative for chest pain. Gastrointestinal: Negative for abdominal pain and vomiting. Genitourinary: Negative for dysuria. Abscess on coccyx region Skin: Negative for color change and rash. All other systems reviewed and are negative. Pertinent positives and negatives as per HPI. PAST MEDICAL HISTORY Past Medical History: Diagnosis Date Drug abuse ([facility]) ([facility]) Polysubstance abuse ([facility]) ([facility]) Rhabdomyolysis 01/2017 SURGICAL HISTORY Past Surgical History: Procedure Laterality Date VASCULAR SURGERY blood vessel on head WISDOM TOOTH EXTRACTION CURRENT MEDICATIONS Previous Medications No medications on file ALLERGIES Patient has no known allergies. FAMILY HISTORY Family History Problem Relation Name Age of Onset No Known Problems Mother No Known Problems Father Substance Abuse Mother's Brother SOCIAL HISTORY Social History Socioeconomic History Marital status: Single Tobacco Use Smoking status: Every Day Packs/day: 0.50 Types: Cigarettes Smokeless tobacco: Never Tobacco comments: Quit smokinppd Vaping Use Vaping Use: Never used Substance and Sexual Activity Alcohol use: Never Drug use: Not Currently Frequency: 2.0 times per week Types: Opiates, Marijuana, Methamphetamines Comment: medical marijuana card Social History Narrative Merged History Encounter SCREENINGS PHYSICAL EXAM ED Triage Vitals [01/25/232011] Temp Heart Rate Resp BP 36.8 C (98.3 F) 78 14 101/70 SpO2 Temp Source Heart Rate Source Patient Position 100 % Temporal Monitor -- BP Location FiO2 (%) -- -- Physical Exam DIAGNOSTIC RESULTS RADIOLOGY (Per Emergency Physician): Interpretation per the Radiologist below, if available at the time of this note: CT pelvis w IV contrast (Results Pending) LABS: Labs Reviewed CBC WITH AUTO DIFFERENTIAL COMPREHENSIVE METABOLIC PANEL All other labs were within normal range or not returned as of this dictation. EMERGENCY DEPARTMENT COURSE and DIFFERENTIAL DIAGNOSIS/MDM: Vitals: Vitals: 01/25/23200701/25/232011 BP: 101/70 Pulse: 78 Resp: 14 Temp: 36.8 C (98.3 F) TempSrc: Temporal SpO2: 100% Weight: 72.6 kg (160 lb) The patient presented with a chief complaint of abscess. The differential diagnosis associated with this patient's presentation includes pilonidal cyst, anal rectal abscess, hemorrhoids, polyp, rectal prolapse, retained foreign body, malignancy. Our workup consisted of ordering/reviewing CT pelvis to assess however the abscess extends. Signed out to attending. Diagnoses as of 01/25/232148 Abscess External records reviewed: Chart review Diagnostics interpreted by me: none Discussions with other clinicians: none Chronic conditions impacting care: none Social determinants of health affecting care: none ED Medications managed: Medications ibuprofen tablet 600 mg (600 mg Oral Given 01/25/232128) acetaminophen (Tylenol) tablet 1,000 mg (1,000 mg Oral Given 01/25/232128) PROCEDURES: Unless otherwise noted below, none Procedures FINAL IMPRESSION 1. Abscess DISPOSITION signed out to attending PATIENT REFERRED TO: No follow-up provider specified. DISCHARGE MEDICATIONS: New Prescriptions No medications on file (Comment: Please note this report has been produced using speech recognition software and may contain errors related to that system including errors in grammar, punctuation, and spelling, as well as words and phrases that may be inappropriate. If there are any questions or concerns please feel free to contact the dictating provider for clarification.) Anne Marie Henry MD (electronically signed) Emergency Medicine Provider Anne Marie Henry MD Resident 01/25/232148 Emergency Department Encounter [facility] ED Patient: Geraldine Kaiser : 2000 Date of Evaluation: 01/25/2023 ED Supervising Physician: Karsten Mcgrath MD I independently examined and evaluated Geraldine Kaiser. This will serve as my Supervisory note and shared attestation. I did perform a substantive portion of the visit including all aspects of the Medical Decision Making. I wore appropriate PPE for the entirety of this encounter. In brief, Geraldine Kaiser is a 22 y.o. that presents to the emergency department for evaluation of abscess on the coccyx. Patient states that he first noticed some soreness/tenderness on the coccyx on Monday. He looked in the mirror today and noticed a small escobar concerning for an abscess. He denies any previous history of similar presentation. No history of pilonidal cyst/abscess that he is aware of. No history of hidradenitis suppurativa. Denies any recent injuries or abnormalities to the region. Focused exam: Awake, alert, appears uncomfortable but in no acute distress. Resting comfortably in the right lateral recumbent in the bed. Skin is warm, dry, intact. Small pimple appearing lesion at the superior aspect of the gluteal cleft right at the midline concerning for pilonidal cyst with abscess. No surrounding cellulitis. Heart and lung sounds are normal with normal heart rate and respiratory rate. Normal respiratory effort. Calm, cooperative, and friendly. Normal weight. Brief ED course/MDM: Patient presents with pimple appearing lesion at the superior aspect of the gluteal cleft concerning for pilonidal cyst with possible abscess as there is a pustule at the apex of the lesion. No appreciable fluctuant mass to incise and drain. Given the concern for pilonidal cyst with no previous history of the same we did obtain a CT scan of the pelvis with IV contrast for further evaluation. Also obtain CBC and BMP. CBC with no significant derangements. BMP with no significant derangements. CT scan of the pelvis is pending. Patient signed out to my colleague, Dr. Heller for reevaluation and final disposition pending CT scan results. All diagnostic, treatment, and disposition decisions were made by myself in conjunction with the Resident. I also supervised kennedy portions of any procedures performed by the Resident. For all further details of the patient's emergency department visit, please see their documentation. (Comment: Please note this report has been produced using speech recognition software and may contain errors related to that system including errors in grammar, punctuation, and spelling, as well as words and phrases that may be inappropriate. If there are any questions or concerns please feel free to contact the dictating provider for clarification.) Karsten Mcgrath MD [employer] Karsten Mcgrath MD 01/25/23 9304 Associated Order(s): Incision and Drainage Patient was seen by my colleague. In short this is a 22-year-old male who had presented for concerns of an abscess near his coccyx. Exam did show a possible concern for abscess so a CT scan was ordered as well as blood work. I was to follow-up results of CT scan. Patient does have normal blood work by my review. CT scan of the pelvis with IV contrast did not reveal any identifiable fluid collection. This reason I did go examine the patient he is resting comfortably. I did see near his top of his gluteal cleft there is a small pustule. Discussed options including warm compresses and patient preferred incision and drainage. I did perform presents vision and drainage as detailed below with a small needle with a scant amount of purulent and bloody drainage. I recommend patient perform warm compresses and follow-up with his primary care doctor, he was given referral to the department family practice. I do not feel antibiotics are required as this was a small area that has now drained and is unlikely to develop into worsening infection. Incision and Drainage Performed by: Darryl Heller DO Authorized by: Karsten Mcgrath MD Consent: Consent obtained: Verbal Consent given by: Patient Risks discussed: Bleeding, incomplete drainage, pain, damage to other organs and infection Alternatives discussed: No treatment [place] protocol: Patient identity confirmed: Verbally with patient Location: Type: Abscess Size: Pustule (2mm) Location: Anogenital Anogenital location: Gluteal cleft Pre-procedure details: Skin preparation: Chlorhexidine with alcohol Sedation: Sedation type: None Anesthesia: Anesthesia method: None Procedure type: Complexity: Simple Procedure details: Ultrasound guidance: no Needle aspiration: yes Needle size: 20 G Drainage: Bloody and purulent Drainage amount: Scant Packing materials: None Post-procedure details: Procedure completion: Tolerated well, no immediate complications Darryl Heller DO 01/26/23 0400 Pt states he has abscess to coccyx region. Pt did a lot of traveling/long distance driving recently documented in this encounter [place] 01-25-2023 Emergency department Triage note Pt states he has abscess to coccyx region. Pt did a lot of traveling/long distance driving recently [place] 01-25-2023 Physician Emergency department Note EMERGENCY DEPARTMENT ENCOUNTER Pt Name: Geraldine Kaiser Birthdate 2000 Date of evaluation: 01/25/2023 ED Provider: Anne Marie Henry MD CHIEF COMPLAINT Chief Complaint Patient presents with Abscess HISTORY OF PRESENT ILLNESS (Location/Symptom, Timing/Onset, Context/Setting, Quality, Duration, Modifying Factors, Severity) Note limiting factors. I wore appropriate PPE for the entirety of this encounter. Geraldine Kaiser is a 22 y.o. who presents to the emergency department for abscess. Patient reports feeling some soreness on his tailbone starting on Monday. Looked in the mirror today and noticed that there was an abscess. No prior history in the past of similar symptoms. Denies any fever or chills. Reports that the pain has caused some nausea but no vomiting. Denies any diarrhea. Denies any recurrent history of abscess formation elsewhere on his body. No significant medical history. Does not take medication for anything. Nursing Notes were reviewed. Limitations to history: None Outside historians: None REVIEW OF SYSTEMS Review of Systems Constitutional: Negative for chills and fever. Respiratory: Negative for shortness of breath. Cardiovascular: Negative for chest pain. Gastrointestinal: Negative for abdominal pain and vomiting. Genitourinary: Negative for dysuria. Abscess on coccyx region Skin: Negative for color change and rash. All other systems reviewed and are negative. Pertinent positives and negatives as per HPI. PAST MEDICAL HISTORY Past Medical History: Diagnosis Date Drug abuse (CMS/[facility]) (HCC) Polysubstance abuse (CMS/HCC) ([facility]) Rhabdomyolysis 01/2017 SURGICAL HISTORY Past Surgical History: Procedure Laterality Date VASCULAR SURGERY blood vessel on head WISDOM TOOTH EXTRACTION CURRENT MEDICATIONS Previous Medications No medications on file ALLERGIES Patient has no known allergies. FAMILY HISTORY Family History Problem Relation Name Age of Onset No Known Problems Mother No Known Problems Father Substance Abuse Mother's Brother SOCIAL HISTORY Social History Socioeconomic History Marital status: Single Tobacco Use Smoking status: Every Day Packs/day: 0.50 Types: Cigarettes Smokeless tobacco: Never Tobacco comments: Quit smokinppd Vaping Use Vaping Use: Never used Substance and Sexual Activity Alcohol use: Never Drug use: Not Currently Frequency: 2.0 times per week Types: Opiates, Marijuana, Methamphetamines Comment: medical marijuana card Social History Narrative Merged History Encounter SCREENINGS PHYSICAL EXAM ED Triage Vitals [01/25/232011] Temp Heart Rate Resp BP 36.8 C (98.3 F) 78 14 101/70 SpO2 Temp Source Heart Rate Source Patient Position 100 % Temporal Monitor -- BP Location FiO2 (%) -- -- Physical Exam DIAGNOSTIC RESULTS RADIOLOGY (Per Emergency Physician): Interpretation per the Radiologist below, if available at the time of this note: CT pelvis w IV contrast (Results Pending) LABS: Labs Reviewed CBC WITH AUTO DIFFERENTIAL COMPREHENSIVE METABOLIC PANEL All other labs were within normal range or not returned as of this dictation. EMERGENCY DEPARTMENT COURSE and DIFFERENTIAL DIAGNOSIS/MDM: Vitals: Vitals: 01/25/23200701/25/232011 BP: 101/70 Pulse: 78 Resp: 14 Temp: 36.8 C (98.3 F) TempSrc: Temporal SpO2: 100% Weight: 72.6 kg (160 lb) The patient presented with a chief complaint of abscess. The differential diagnosis associated with this patient's presentation includes pilonidal cyst, anal rectal abscess, hemorrhoids, polyp, rectal prolapse, retained foreign body, malignancy. Our workup consisted of ordering/reviewing CT pelvis to assess however the abscess extends. Signed out to attending. Diagnoses as of 01/25/232148 Abscess External records reviewed: Chart review Diagnostics interpreted by me: none Discussions with other clinicians: none Chronic conditions impacting care: none Social determinants of health affecting care: none ED Medications managed: Medications ibuprofen tablet 600 mg (600 mg Oral Given 01/25/232128) acetaminophen (Tylenol) tablet 1,000 mg (1,000 mg Oral Given 01/25/232128) PROCEDURES: Unless otherwise noted below, none Procedures FINAL IMPRESSION 1. Abscess DISPOSITION signed out to attending PATIENT REFERRED TO: No follow-up provider specified. DISCHARGE MEDICATIONS: New Prescriptions No medications on file (Comment: Please note this report has been produced using speech recognition software and may contain errors related to that system including errors in grammar, punctuation, and spelling, as well as words and phrases that may be inappropriate. If there are any questions or concerns please feel free to contact the dictating provider for clarification.) Anne Marie Henry MD (electronically signed) Emergency Medicine Provider Anne Marie Henry MD Resident 01/25/232148 [place] 01-25-2023 Physician Emergency department Note Emergency Department Encounter [facility] ED Patient: Geraldine Kaiser : 2000 Date of Evaluation: 01/25/2023 ED Supervising Physician: Karsten Mcgrath MD I independently examined and evaluated Geraldine Kaiser. This will serve as my Supervisory note and shared attestation. I did perform a substantive portion of the visit including all aspects of the Medical Decision Making. I wore appropriate PPE for the entirety of this encounter. In brief, Geraldine Kaiser is a 22 y.o. that presents to the emergency department for evaluation of abscess on the coccyx. Patient states that he first noticed some soreness/tenderness on the coccyx on Monday. He looked in the mirror today and noticed a small escobar concerning for an abscess. He denies any previous history of similar presentation. No history of pilonidal cyst/abscess that he is aware of. No history of hidradenitis suppurativa. Denies any recent injuries or abnormalities to the region. Focused exam: Awake, alert, appears uncomfortable but in no acute distress. Resting comfortably in the right lateral recumbent in the bed. Skin is warm, dry, intact. Small pimple appearing lesion at the superior aspect of the gluteal cleft right at the midline concerning for pilonidal cyst with abscess. No surrounding cellulitis. Heart and lung sounds are normal with normal heart rate and respiratory rate. Normal respiratory effort. Calm, cooperative, and friendly. Normal weight. Brief ED course/MDM: Patient presents with pimple appearing lesion at the superior aspect of the gluteal cleft concerning for pilonidal cyst with possible abscess as there is a pustule at the apex of the lesion. No appreciable fluctuant mass to incise and drain. Given the concern for pilonidal cyst with no previous history of the same we did obtain a CT scan of the pelvis with IV contrast for further evaluation. Also obtain CBC and BMP. CBC with no significant derangements. BMP with no significant derangements. CT scan of the pelvis is pending. Patient signed out to my colleague, Dr. Heller for reevaluation and final disposition pending CT scan results. All diagnostic, treatment, and disposition decisions were made by myself in conjunction with the Resident. I also supervised kennedy portions of any procedures performed by the Resident. For all further details of the patient's emergency department visit, please see their documentation. (Comment: Please note this report has been produced using speech recognition software and may contain errors related to that system including errors in grammar, punctuation, and spelling, as well as words and phrases that may be inappropriate. If there are any questions or concerns please feel free to contact the dictating provider for clarification.) Karsten Mcgrath MD [facility] Karsten Mcgrath MD 01/25/23 3267 [place] Phone: 01-25-2023 Physician Emergency department Note Associated Order(s): Incision and Drainage Patient was seen by my colleague. In short this is a 22-year-old male who had presented for concerns of an abscess near his coccyx. Exam did show a possible concern for abscess so a CT scan was ordered as well as blood work. I was to follow-up results of CT scan. Patient does have normal blood work by my review. CT scan of the pelvis with IV contrast did not reveal any identifiable fluid collection. This reason I did go examine the patient he is resting comfortably. I did see near his top of his gluteal cleft there is a small pustule. Discussed options including warm compresses and patient preferred incision and drainage. I did perform presents vision and drainage as detailed below with a small needle with a scant amount of purulent and bloody drainage. I recommend patient perform warm compresses and follow-up with his primary care doctor, he was given referral to the department family practice. I do not feel antibiotics are required as this was a small area that has now drained and is unlikely to develop into worsening infection. Incision and Drainage Performed by: Darryl Heller DO Authorized by: Karsten Mcgrath MD Consent: Consent obtained: Verbal Consent given by: Patient Risks discussed: Bleeding, incomplete drainage, pain, damage to other organs and infection Alternatives discussed: No treatment [place] protocol: Patient identity confirmed: Verbally with patient Location: Type: Abscess Size: Pustule (2mm) Location: Anogenital Anogenital location: Gluteal cleft Pre-procedure details: Skin preparation: Chlorhexidine with alcohol Sedation: Sedation type: None Anesthesia: Anesthesia method: None Procedure type: Complexity: Simple Procedure details: Ultrasound guidance: no Needle aspiration: yes Needle size: 20 G Drainage: Bloody and purulent Drainage amount: Scant Packing materials: None Post-procedure details: Procedure completion: Tolerated well, no immediate complications Darryl Heller DO 01/26/23 0400 [facility] Work Phone: 04-09-2021 Hospital Discharge instructions Dafne Donovan APRN - CNP - 04/09/2021 Weight bearing as tolerated. Please follow-up with orthopedic surgery. They should call you tomorrow if they do not call you you call them. The following attachments cannot be sent through Care Everywhere.Foot Fracture (Belarusian)Walking Boot (Belarusian)documented in this encounter [facility] Phone: 04-09-2021 Hospital Discharge instructions Dafne Donovan APRN - CNP - 04/09/2021 Weight bearing as tolerated. Please follow-up with orthopedic surgery. They should call you tomorrow if they do not call you you call them. The following attachments cannot be sent through Care Everywhere.Foot Fracture ([place]ian)Walking Boot ([place]ian)documented in this encounter [facility] Work Phone: 02-23-2021 History of Present illness Narrative NEW PATIENT OFFICE VISIT HISTORY OF PRESENT ILLNESS Geraldine Kaiser is a 20 year old male who presents today as a new patient for urethral pain and skin lesions. Patient c/o constant urethral discomfort not burning for the last 2 months. discomfort is mostly at the tip Recent STD workup, ucx and microscopic negative Gastrointestinal panel neg - he was having constipation but reports this has resolved. He reports pulling 3 ft worm out of his anus. Patient taking suboxone he was in rehab in July. He also reports warts that appeared 6 months ago in groin and on penis. They have not worsened but are becoming bothersome. Stream is strong Patient reports increased urgency and frequency in last couple months. Nocturia 2-3 times per night. He does not feel like he is emptying bladder most times. Drinking water mostly and couple cans of soda No pain with ejaculation No pain with intercourse No testicular pain No abdominal or flank pain No fever or chills. No gross hematuria. UA today negative PVR 0 cc today Will schedule cysto and skin tag removal. LAB RESULTS No results found for: CREAT No results found for: PSA No results found for: COLOR, CLARITY, UGLUC, UBILI, UKET, SPGR, UHB, UPH, UPROT, UROBILINOGEN, NITRITES, LEUKEST MEDICATIONS: famotidine (PEPCID) 20 mg tablet Take 20 mg by mouth twice daily. SUBLOCADE 100 mg/0.5 mL injection REVIEW OF SYSTEMS CONSTITUTIONAL: Patient reports no recent fever or weight loss CARDIOVASCULAR: No chest pain, palpitations or ankle edema. RESPIRATORY: No wheezing, frequent cough or shortness of breath GENITOURINARY: See HPI HISTORIES No past medical history on file. No family history on file. No past surgical history on file. SOCIAL HISTORY Social History Tobacco Use Smoking status: Current Every Day Smoker Smokeless tobacco: Never Used Substance Use Topics Alcohol use: Not Currently Drug use: Not Currently PHYSICAL EXAMINATION General appearance: Well appearing, alert, in no acute distress, well-hydrated, well nourished.. BACK: no pain to palpation over spine or costovertebral angles. MUSCULOSKELETAL: Negative for joint pain or swelling. RESPIRATORY: Normal respiratory effort. SKIN: Normal color, no rash, no lesions.. : See HPI Medical Decision Making: Problems: Minimal: Self-limited or minor problem Moderate: New problem with uncertain prognosis Data: Unique source(s) for external note(s) reviewed: 1 Unique test result(s) reviewed: 1 Unique test(s) ordered: 2 Assessment requiring an independent historian(s) Independent interpretation of test from other physician/QHCP Risk: Low: Low risk from testing/treatment Medical Decision Making Level: 4 - Moderate ASSESSMENT/PLAN: 1. Urethral pain - ICD9: 788.99, ICD10: R39.89 2. Cutaneous skin tags - ICD9: 701.9, ICD10: L91.8 - BLADDER SCAN - CYSTO.PANENDO Anna Whitaker APRN.[employer] REDEVELOPMENT SPECIALIST documented in this encounter [facility] 01-31-2021 Hospital Discharge instructions Mayo Yang MD - 01/31/2021 Please return to the emergency Department immediately for new or worsening symptoms or any new concerns. Please follow-up with your primary care doctor in the next 3-5 days. Please call tomorrow to arrange follow-up with gastroenterology for further work-up. The following attachments cannot be sent through Care Everywhere.Diarrhea ([place]ian)Nausea and Vomiting ([place]ian)documented in this encounter [facility] Work Phone: Evaluation note Diagnosis Contusion of right hand including fingers, initial encounter- Primary [facility]: [facility]* Diagnosis Nausea vomiting and diarrhea- Primary Nausea with vomiting Worms in stool Helminth infection, unspecified documented in this encounter [facility] Work Phone: Evaluation note* Diagnosis Recurrent UTI Urinary tract infection, site not specified Urethral pain Other symptoms involving urinary system Cutaneous skin tags Unspecified hypertrophic and atrophic condition of skin [facility] Diagnosis Closed nondisplaced fracture of metatarsal bone of left foot, unspecified metatarsal, initial encounter- Primary documented in this encounter [facility] Work Phone: Evaluation note* Diagnosis Closed nondisplaced fracture of metatarsal bone of left foot, unspecified metatarsal, initial encounter- Primary documented in this encounter [facility] Work Phone: Evaluation note* Diagnosis Abscess- Primary Cellulitis and abscess of unspecified site documented in this encounter [facility] note* Diagnosis Pilonidal abscess- Primary Pilonidal cyst with abscess documented in this encounter [facility] note* Diagnosis Opioid use disorder- Primary documented in this encounter [facility] note* Diagnosis Pilonidal abscess Pilonidal cyst with abscess Pilonidal cyst with abscess documented in this encounter [facility] note* Diagnosis Pilonidal cyst- Primary Pilonidal cyst with abscess documented in this encounter [facility] note* Diagnosis Pilonidal cyst- Primary Pilonidal cyst with abscess documented in this encounter [facility] note* Diagnosis Viral upper respiratory tract infection- Primary Acute upper respiratory infections of unspecified site Postoperative examination Follow-up examination, following unspecified surgery documented in this encounter [facility] note* Diagnosis Pilonidal cyst documented in this encounter [facility] note* Diagnosis COVID- Primary Opioid dependence in remission (HCC) Opioid type dependence, in remission documented in this encounter [facility] note* Diagnosis Pilonidal cyst- Primary documented in this encounter [facility] note* Diagnosis Pilonidal cyst- Primary documented in this encounter [facility] note* Diagnosis Acute conjunctivitis of left eye, unspecified acute conjunctivitis type- Primary documented in this encounter [facility] note* Diagnosis Coccydynia- Primary Other disorder of coccyx documented in this encounter [facility] note* Diagnosis Sprain of right wrist, initial encounter- Primary documented in this encounter [facility] note* Diagnosis COVID- Primary Opioid dependence in remission (HCC) Opioid type dependence, in remission Opioid withdrawal (HCC)- Primary Drug withdrawal Mass of left side of neck Opiate dependence, continuous (HCC) Fentanyl dependence (HCC) Mass of left side of neck Severe opioid use disorder (HCC) Polysubstance abuse (CMS/HCC) (HCC) Other, mixed, or unspecified nondependent drug abuse, unspecified [facility]* Diagnosis Burning with urination- Primary Dysuria [facility] noteNo assessment information availableWSCCI [facility] Work Phone: Hospital Discharge instructions* Attachments The following attachments cannot be sent through Care Everywhere. * Contusion: [facility] ([place]) [facility]charge [facility]* Attachments The following attachments cannot be sent through Care Everywhere. * Common Wrist Injuries Discharge Instructions ([place]) [facility] Attachments The following attachments cannot be sent through Care Everywhere. * COVID-19 Discharge Instructions ([place]ian) documented in this [facility]* Attachments The following attachments cannot be sent through Care Everywhere. * Conjunctivitis ([place]) ([place]ian) documented in this [facility] for referral (narrative)* Consultation (Routine) - Pending Review Specialty Diagnoses / Procedures Referred By Contact Referred To Contact Gastroenterology / Colon and Rectal Surgery Diagnoses Pilonidal abscess Procedures [place] OFFICE/OUTPATIENT [facility] 60-74 MINUTES Taya Hernandez MD [address] [place] [address] [facility] [address] [address] Referral ID Status Reason Start Date Expiration Date Visits Requested Visits Authorized [id number] Pending Review Specialty Services Required 3 03/06/2024 1 1 [facility] for referral (narrative)No reason for referral information availableWSCCI Hospital [facility] Work Phone: Summary Purpose Family History No Family History Records Found Medical History Relation Name Comments Substance Abuse Maternal Uncle Relation Name Status Comments Father Alive Maternal Uncle Mother Alive Advance Directives No Advanced Directives Records FoundDocuments on File Type Date Recorded Patient Ceo And Founder Expl anation Advance Directives and Living Will Power of Rugby League Footballer Latest Code Status on File Code Status Date Activated Date Inactivated Comments Full Code 01/25/2017 12:30 AM 02/06/2017 7:44 PM Documents on File Type Date Recorded Patient Ceo And Founder Expl anation Advance Directives and Living Will Power of Rugby League Footballer Latest Code Status on File Code Status Date Activated Date Inactivated Comments Full Code 01/25/2017 12:30 AM 02/06/2017 7:44 PM Documents on File Type Date Recorded Patient Ceo And Founder Expl anation ACP-Advance Directive ACP-Power of Rugby League Footballer Latest Code Status on File Code Status Date Activated Date Inactivated Comments Full Code 08/12/2020 1:58 AM 08/15/2020 2:48 PM Full Code 01/25/2017 12:30 AM 02/06/2017 7:44 PM Documents on File Type Date Recorded Patient Ceo And Founder Expl anation ACP-Advance Directive ACP-Power of Rugby League Footballer Latest Code Status on File Code Status Date Activated Date Inactivated Comments Full Code 08/12/2020 1:58 AM 08/15/2020 2:48 PM Full Code 01/25/2017 12:30 AM 02/06/2017 7:44 PM Latest Code Status on File Code Status Date Activated Date Inactivated Comments Full Code 05/11/2023 10:37 AM 05/11/2023 5:04 PM Latest Code Status on File Code Status Date Activated Date Inactivated Comments Full Code 05/11/2023 10:37 AM 05/11/2023 5:04 PM Date Activated Date Inactivated Comments 05/11/2023 10:37 AM 05/11/2023 5:04 PM Date Activated Date Inactivated Comments 07/26/2024 4:19 AM 07/29/2024 2:21 PM Date Activated Date Inactivated Comments 05/11/2023 10:37 AM 05/11/2023 5:04 PM Discharge Instructions * Instructions* Manoj Howard MD - 05/17/2020 Take all doses of antibiotic even if you feel better before all doses have been taken. Follow-up with your doctor in 1 week for recheck. Return to the emergency department for worsening symptoms before seeing your doctor or for any symptom you feel needs immediate attention. Thank you for allowing us to participate in your medical care. documented in this encounter* Attachments The following attachments cannot be sent through Care Everywhere. * Alcohol - Drug - or Poison Ingestion (Belarusian) documented in this encounter Assessments Diagnosis Strep pharyngitis- Primary Streptococcal sore throat Diagnosis Opiate overdose, accidental or unintentional, initial encounter (HCC)- Primary Reason for Referral Status Reason Specialty Diagnoses / Procedures Referred By Contact Referred To Contact Open Specialty Services Required Gastroenterology Diagnoses Nausea vomiting and diarrhea Worms in stool Mayo Yang MD [address] [place] [id number] [facility] [address] [facility] [address] [place] [phone] Scheduling Instructions [facility] [address] [facility], [address] [place]. [address] Fax: Specialty Diagnoses / Procedures Referred By Contac t Referred To Contact Orthopedic Surgery Diagnoses Closed nondisplaced fracture of metatarsal bone of left foot, unspecified metatarsal, initial encounter Dafne Donovan, FATBACK TRIMMER - URBAN REDEVELOPMENT SPECIALIST [address] [place] [address] Afl Spi Ort Akr [address] [address] [facility] [address] [place] [address] Referral ID Status Reason Start Date Expiration Date V isits Requested Visits Authorized [id number] Open Specialty Services Required 04/09/2021 04/09/2022 1 1 Scheduling Instructions [facility] [place] [address] [facility], [address] [place] [address] Additional Source Comments (unrecognized sect ion and content) No Status Records FoundNo Status Records FoundNo Status Records FoundNo Status Records FoundNo Status Records FoundNo Status Records FoundNo Status Records FoundNo Status Records Found INFORMATION SOURCE (unrecogn ized section and content) DATE CREATED AUTHOR [facility] DATE CREATED AUTHOR AUTHOR'S ORGANIZ ATION 09/21/2020 [facility] DATE CREATED AUTHOR AUTHOR'S ORGANIZ ATION 04/14/2021 [facility] DATE CREATED AUTHOR AUTHOR'S ORGANIZ ATION 04/24/2021 [facility] DATE CREATED AUTHOR AUTHOR'S ORGANIZ ATION 11/19/2023 [facility] DATE CREATED AUTHOR AUTHOR'S ORGANIZ ATION 07/29/2024 [facility] DATE CREATED AUTHOR AUTHOR'S ORGANIZ ATION 12/17/2024 [facility] DATE CREATED AUTHOR AUTHOR'S ORGANIZ ATION 12/22/2024 [facility] Reason for Visit (unrecogniz ed section and content) Reason Comments Pharyngitis Fever Reason Comments Drug Overdose Reason Comments Hand Injury Reason Comments Nausea Diarrhea Fatigue Reason Comments UTI 2 months Wart penis 6 months Reason Comments Foot Pain patient stepped off mound of dirt and landed wrong on foot. states felt pop and snap, this happened at noon. Reason Comments Abscess Reason Comments Abscess Withdrawal Fentanyl Reason Comments Addiction Problem Pt here for 2nd dose of suboxone. Denies any other complaints Reason Comments New Patient ER follow-up for rec urrent pilonidal abscess requiring bed side drainage 03/07/23, pt prescribed Keflex/Flagyl. Referring- [facility] ED OTHER Specialty Diagnoses / Procedures Referred By Jolie matson Referred To Contact Colon and Rectal Surgery Diagnoses Pilonidal abscess Procedures [place] OFFICE/OUTPATIENT [facility] 60-74 MINUTES Taya Hernandez MD [address] [place] [address] Shahnaz Hernandez MD [address] [place] [phone] Referral ID Status Reason Start Date Expiration Date V isits Requested Visits Authorized [id number] Closed Specialty Services Required 03/07/2023 03/06/2024 1 1 Reason Comments Follow-up Follow-up to re-eval uate pilonidal cyst after 7 day course of Augmentin(eval/rx per [facility]) Discuss scheduling surgery, review Suboxone considerations and post-op pain management plan. OTHER Pt unaccompanied Specialty Diagnoses / Procedures Referred By Jolie matson Referred To Contact Diagnoses Pilonidal cyst with abscess Pilonidal cyst with abscess [L05.01] Procedures AK EXCISION PILONIDAL CYST/SINUS EXTENSIVE PILONIDAL CYSTECTOMY Shahnaz Hernandez MD [address] [place] [address] [facility] [address] [place] [address] Referral ID Status Reason Start Date Expiration Date Visits Re quested Visits Authorized [id number] 1 1 Reason Comments Post-op Problem States he had a cyst surgically removed from his tail bone on the . States fever/chills, MITTAL, runny nose, congestion, vomiting, and slight SOB x 2 days. Believes the SOB is just because he cannot breathe out of his nose. States his surgical site has some drainage, redness and pain. Reason Onset Date Comments Post-op Problem 05/21/2023 Reason Comments ER Follow-up Covid Reason Comments Post-op s/p pilonidal cystec chanel 05/11/23- hernandez patient OTHER Pt unaccompanied Reason Onset Date Comments Sore Throat 05/31/2023 Reason Comments Post-op Reason Comments Conjunctivitis Left eye, itchy, x5d ays Reason Comments Follow-up Evaluation for pilon idal abscess OTHER Pt unaccompanied Reason Comments Wrist Injury Right Wrist Reason Comments Addiction Problem Pt requesting detox from fentanyl last use was earlier today Specialty Diagnoses / Procedures Referred By Jolie t Referred To Contact Diagnoses Mass of left side of neck Opiate dependence, continuous (HCC) Fentanyl dependence (HCC) Procedures . Jaylen Galloway MD [address] [place] [id number] Phone: tel: fax: [facility] Detox [address] [place] [address] Phone: tel: Referral ID Status Reason Start Date Expiration Date Visits Re quested Visits Authorized [id number] 1 1 Reason Comments Urinary Problem Cloudy urine, burnin g with urination, lower abd pain x2 days Ordered Prescriptions (unrec ognized section and content) Prescription Sig Dispensed Refills Start Date End Da te penicillin v potassium (VEETID) 250 MG tablet Take 2 tablets by mouth 2 times daily for 10 days 40 tablet 0 05/17/2020 05/27/2020 Prescription Sig Dispensed Refills Start Date End Da te famotidine (PEPCID) 20 MG tablet Take 1 tablet by mouth 2 times daily 60 tablet 0 01/31/2021 Prescription Sig Dispensed Refills Start Date End Da te ibuprofen (IBU) 600 MG tablet Take 1 tablet by mouth every 6 hours as needed for Pain 20 tablet 0 04/09/2021 05/09/2021 Prescription Sig Dispensed Refills Start Date End Da te ibuprofen (IBU) 600 MG tablet Take 1 tablet by mouth every 6 hours as needed for Pain 20 tablet 0 04/09/2021 05/09/2021 Scheduled Active and Recently Administ ered Medications (unrecognized section and content) Medication Order 01/29/2021 01/30/2021 01/31/2021 famotidine (PEPCID) tablet 20 mg (COMPLETED) 20 mg, Oral, ONCE, On Mon01/31/21 at 1737, For 1 dose 1902 (Given - Provid er: Piedad Cain RN) Scheduled Medication Order 04/07/2021 04/08/2021 04/09/2021 acetaminophen (TYLENOL) tablet 1,000 mg (COMPLETED) 1,000 mg, Oral, ONCE, On Mon04/09/21 at 1845, For 1 dose, Maximum dose of acetaminophen is 4000 mg from all sources in 24 hours. 1845 (Given - Provid er: Pau Davis RN) Scheduled Medication Order 04/07/2021 04/08/2021 04/09/2021 acetaminophen (TYLENOL) tablet 1,000 mg (COMPLETED) 1,000 mg, Oral, ONCE, On Mon04/09/21 at 1845, For 1 dose, Maximum dose of acetaminophen is 4000 mg from all sources in 24 hours. 1845 (Given - Provid er: Pau Davis RN) Scheduled Medication Order 01/24/2023 01/25/2023 01/26/2023 acetaminophen (Tylenol) tablet 1,000 mg (COMPLETED) 1,000 mg, Oral, Once, On Mon01/25/23 at 2105, For 1 dose, Maximum dose of acetaminophen is 4000 mg from all sources in 24 hours. 2128 (Given - Provider: Mona Castro RN) ibuprofen tablet 600 mg (COMPLETED) 600 mg, Oral, Once, On Mon01/25/23 at 2105, For 1 dose 2128 (Given - Provider: Mona Castro RN) PRN Medication Order 01/24/2023 01/25/2023 01/26/2023 iopamidol (Isovue-370) 76 % injection 100 mL (COMPLETED) 100 mL, IntraVENous, IMG once PRN, contrast, Starting on Mon01/25/23 at 2319, For 1 dose 2320 (Given - Provider: BETTY Durbin) Scheduled Medication Order 03/05/2023 03/06/2023 03/07/2023 buprenorphine-naloxone (Suboxone) 2-0.5 MG per sublingual film 2 Film (COMPLETED) 2 Film, SubLINGual, Once, On Mon03/07/23 at 0350, For 1 dose 0403 (Given - Provid er: Oliva Jesus RN) buprenorphine-naloxone (Suboxone) 2-0.5 MG per sublingual film 2 Film (COMPLETED) 2 Film, SubLINGual, Once, On Mon03/07/23 at 0540, For 1 dose 0554 (Given - Provid er: Oliva Jesus RN) cephalexin (Keflex) capsule 500 mg (COMPLETED) 500 mg, Oral, Once, On Mon03/07/23 at 0535, For 1 dose, Suspected Indication (Select all that apply): Skin and Soft Tissue Infection 0554 (Given - Provid er: Oliva Jesus RN) lidocaine PF (Xylocaine) 2 % injection 10 mL (COMPLETED) 10 mL, Infiltration, Once, On Mon03/07/23 at 0535, For 1 dose 0535 (Given - Provid er: Oliva Jesus RN - Comment: given by Dr Hernandez for procedure) metroNIDAZOLE (Flagyl) tablet 500 mg (COMPLETED) 500 mg, Oral, Once, On Mon03/07/23 at 0655, For 1 dose, Suspected Indication (Select all that apply): Skin and Soft Tissue Infection 0704 (Given - Provid er: Oliva Jesus RN) Scheduled Medication Order 03/06/2023 03/07/2023 03/08/2023 buprenorphine-naloxone (Suboxone) 8-2 MG per sublingual film 2 Film (COMPLETED) 2 Film, SubLINGual, Once, On Mon03/08/23 at 1345, For 1 dose 1405 (Given - Provid er: Yue Myers RN) Scheduled Medication Order 05/09/2023 05/10/2023 05/11/2023 acetaminophen (Tylenol) tablet 1,000 mg (COMPLETED) 1,000 mg, Oral, Once, On Codi 05/11/23 at 1045, For 1 dose, Preprocedure, Maximum dose of acetaminophen is 4000 mg from all sources in 24 hours. Do not administer if patient has taken tylenol <6 hours earlier. Do not give if contraindicated ie. patient has active liver disease or cirrhosis. 1049 (Given - Provid er: Rae Macedo RN) ceFAZolin in dextrose 4% (Ancef) IVPB 2,000 mg (COMPLETED) 2,000 mg, IntraVENous, Administer over 30 Minutes, Copywriting Intern to O.R., On Codi 05/11/23 at 1045, For 1 dose, Preprocedure, Administer within 1 hour prior to incision. Recommend to repeat in 3-4 hours after initial dose if still intra-op. premix bag, Suspected Indication (Select all that apply): Surgical Prophylaxis 1310 (Given - Provid er: Petra Eduardo APRN - CASSIDY)1358 (Anesthesia Volume Adjustment - Provider: VANITA York CRNA) famotidine (Pepcid) tablet 20 mg (COMPLETED) 20 mg, Oral, Once, On Codi 05/11/23 at 1045, For 1 dose, Preprocedure 1049 (Given - Provid er: Rae Macedo RN) gabapentin (Neurontin) capsule 100 mg (COMPLETED) 100 mg, Oral, Once, On Codi 05/11/23 at 1045, For 1 dose, Preprocedure, For Age >69 or Low GFR. 1049 (Given - Provid er: Rae Macedo RN) sodium chloride 0.9% (NS) flush 10 mL 10 mL, IntraVENous, Every 12 hours scheduled (2 times per day), First dose on Codi 05/11/23 at 1045 1045 (Canceled Entry - Provider: Automatic Discharge Provider - Comment: Automatically canceled at discontinue of medication order) sodium chloride 0.9% (NS) flush 10 mL 10 mL, IntraVENous, Every 12 hours scheduled (2 times per day), First dose on Codi 05/11/23 at 1045, Preprocedure 1045 (Canceled Entry - Provider: Automatic Discharge Provider - Comment: Automatically canceled at discontinue of medication order) sodium chloride 0.9% (NS) flush 10 mL 10 mL, IntraVENous, Every 12 hours scheduled (2 times per day), First dose on Codi 05/11/23 at 2100, Recovery (only) sodium chloride 0.9% (NS) flush 5-40 mL 5-40 mL, IntraVENous, Every 12 hours, First dose on Codi 05/11/23 at 1045, Preprocedure, For Line Patency: Peripheral IV = 5 mL; Midline or Central Line = 10 mL/lumen. If following IV push medication, administer flush at same rate as the IV push. Flush volume is determined by type of infusion therapy being given. For non-viscous solutions use: Peripheral IV = 5 mL Midline or Central Line = 10 mL/lumen For viscous solutions (i.e. blood components, parenteral nutrition, contrast media, or after obtaining blood sample) use: Peripheral IV = 10 mL Midline or Central Line = 20 mL/lumen 1045 (Canceled Entry - Provider: Automatic Discharge Provider - Comment: Automatically canceled at discontinue of medication order) Continuous Medication Order 05/09/2023 05/10/2023 05/11/2023 lactated Ringer's (LR) infusion 50 mL/hr, IntraVENous, Continuous, Starting on Codi 05/11/23 at 1045, Preprocedure, Upon admission to sameday - please start iv if patient does not have iv access. Use 500ml NS for patients on dialysis. 1102 (New Bag - Prov ider: Rae Macedo RN)1251 (Continued by Anesthesia - Provider: VANITA York CRNA)1251 (Paused - Provider: VANITA York CRNA - Comment: Switch to gravity)1252 (Restarted - Provider: VANITA York CRNA - Comment: infused preop)1355 (New Bag - Provider: VANITA York CRNA) lactated ringers infusion 125 mL/hr, IntraVENous, Continuous, Starting on Codi 05/11/23 at 1400, Recovery (only) 1400 (Canceled Entry - Provider: Automatic Discharge Provider - Comment: Automatically canceled at discontinue of medication order) PRN Medication Order 05/09/2023 05/10/2023 05/11/2023 ALPRAZolam (Xanax) disintegrating tablet 0.25 mg 0.25 mg, Oral, PRN, anxiety, Starting on Codi 05/11/23 at 1037, Preprocedure 1046 (Given - Provid er: Rae Macedo RN) bupivacaine-EPINEPHrine PF (Marcaine w/EPI) 0.5% -[id number] injection (CANCELED) As needed, Starting on Codi 05/11/23 at 1329, Intraprocedure 1329 (Given - Provid er: Shahnaz Hernandez MD) diphenhydrAMINE (BENADryl) injection 12.5 mg 12.5 mg, IntraVENous, Once PRN, itching, Starting on Codi 05/11/23 at 1359, For 1 dose, Recovery (only) fentaNYL (Sublimaze) injection 25 mcg 25 mcg, IntraVENous, Every 5 min PRN, moderate pain (4-6), Starting on Codi 05/11/23 at 1359, For 3 doses, Recovery (only), Phase I and Phase II- Initial therapy for moderate pain (4-6). Restricted to a 90 minute time frame starting when the patient can verbally state their pain score. If after 2 doses the pain score does not decrease by more than one point, then call the provider. If oral meds are utilized, do not return to initial therapy medications. 1411 (Given - Provid er: Katia Gtz RN) fentaNYL (Sublimaze) injection 50 mcg 50 mcg, IntraVENous, Every 5 min PRN, severe pain (7-10), Starting on Codi 05/11/23 at 1359, For 3 doses, Recovery (only), Phase I and Phase II- Initial therapy for severe pain (7-10). Restricted to a 90 minute time frame starting when the patient can verbally state their pain score. If after 2 doses the pain score does not decrease by more than one point, then call the provider. If oral meds are utilized, do not return to initial therapy medications. hydrALAZINE (Apresoline) injection 5 mg(Linked Group 1) 5 mg, IntraVENous, Every 15 min PRN, high blood pressure, for SBP greater than 160 mmHg for 2 consecutive measurements taken from different sites, Starting on Codi 05/11/23 at 1359, For 2 doses, Recovery (only), PRN for SBP > 160 for 2 consecutive measurements, and if one of the following conditions is met: 1) If IV labetolol is ineffective. 2) If HR is under 60. 3) If patient has heart block, COPD or asthma. If both labetalol and hydralazine ineffective, notify anesthesia provider. labetalol (Normodyne,Trandate) injection 5 mg(Linked Group 1) 5 mg, IntraVENous, Every 10 min PRN, high blood pressure, for SBP greater than 160 mmHg for 2 consecutive measurements taken from different sites., Starting on Codi 05/11/23 at 1359, For 2 doses, Recovery (only), PRN for SBP >160 for 2 consecutive measurements, if HR is 60 or greater. If beta monica is contraindicated (HR less than 60, heart block, COPD or asthma) use hydralazine IV order. ondansetron (Zofran) injection 4 mg 4 mg, IntraVENous, Once PRN, nausea, Starting on Codi 05/11/23 at 1359, For 1 dose, Recovery (only), Initial antiemetic therapy. oxyCODONE (Roxicodone) immediate release tablet 10 mg(Linked Group 2) 10 mg, Oral, PRN, severe pain (7-10), Starting on Codi 05/11/23 at 1359, For 1 dose, Recovery (only), PHASE II oxyCODONE (Roxicodone) immediate release tablet 5 mg(Linked Group 2) 5 mg, Oral, PRN, moderate pain (4-6), Starting on Codi 05/11/23 at 1359, For 1 dose, Recovery (only), PHASE II sodium chloride 0.9 % bolus 500 mL 500 mL, IntraVENous, at 1,000 mL/hr, Administer over 0.5 Hours, PRN, Anti-nausea, Starting on Codi 05/11/23 at 1359, Recovery (only), Indications: Anti-nausea sodium chloride 0.9 % infusion 5-250 mL/hr, IntraVENous, PRN, if patient receiving piggyback infusions and maintenance fluids are not ordered OR KVO fluids to protect IV site / prevent frequent line interruptions/ long duration, Starting on Codi 05/11/23 at 1038, For piggyback infusion, administer at same rate as piggyback for a total of 25 mL. Enter 25 mL into dose field and piggyback rate into rate field of order. If piggyback is infusing at a rate less than 100 mL/hr, enter 25 mL into dose field and 100 mL/hr into rate field of order. For KVO fluids, enter rate of 20 mL/hr or less into rate field of order. sodium chloride 0.9 % infusion 5-250 mL/hr, IntraVENous, PRN, if patient receiving piggyback infusions and maintenance fluids are not ordered OR KVO fluids to protect IV site / prevent frequent line interruptions/ long duration, Starting on Codi 05/11/23 at 1037, Preprocedure, For piggyback infusion, administer at same rate as piggyback for a total of 25 mL. Enter 25 mL into dose field and piggyback rate into rate field of order. If piggyback is infusing at a rate less than 100 mL/hr, enter 25 mL into dose field and 100 mL/hr into rate field of order. For KVO fluids, enter rate of 20 mL/hr or less into rate field of order. sodium chloride 0.9 % infusion 5-250 mL/hr, IntraVENous, PRN, if patient receiving piggyback infusions and maintenance fluids are not ordered OR KVO fluids to protect IV site / prevent frequent line interruptions / long duration, Starting on Codi 05/11/23 at 1037, Preprocedure, For piggyback infusion, administer at same rate as piggyback for a total of 25 mL. Enter 25 mL into dose field and piggyback rate into rate field of order. If piggyback is infusing at a rate less than 100 mL/hr, enter 25 mL into dose field and 100 mL/hr into rate field of order. For KVO fluids, enter rate of 20 mL/hr or less into rate field of order. sodium chloride 0.9 % infusion 5-250 mL/hr, IntraVENous, PRN, if patient receiving piggyback infusions and maintenance fluids are not ordered OR KVO fluids to protect IV site / prevent frequent line interruptions/ long duration, Starting on Codi 05/11/23 at 1359, Recovery (only), For piggyback infusion, administer at same rate as piggyback for a total of 25 mL. Enter 25 mL into dose field and piggyback rate into rate field of order. If piggyback is infusing at a rate less than 100 mL/hr, enter 25 mL into dose field and 100 mL/hr into rate field of order. For KVO fluids, enter rate of 20 mL/hr or less into rate field of order. sodium chloride 0.9 % irrigation solution (CANCELED) As needed, Starting on Codi 05/11/23 at 1330, Intraprocedure 1330 (Given - Provid er: Shahnaz Hernandez MD) sodium chloride 0.9% (NS) flush 10 mL 10 mL, IntraVENous, PRN, line care, Starting on Codi 05/11/23 at 1038, After every IV line use sodium chloride 0.9% (NS) flush 10 mL 10 mL, IntraVENous, PRN, line care, Starting on Codi 05/11/23 at 1037, Preprocedure, After every IV line use sodium chloride 0.9% (NS) flush 10 mL 10 mL, IntraVENous, PRN, line care, Starting on Codi 05/11/23 at 1359, Recovery (only), After every IV line use sodium chloride 0.9% (NS) flush 5-40 mL 5-40 mL, IntraVENous, PRN, line care, After every IV line use, Starting on Codi 05/11/23 at 1037, Preprocedure, For Line Patency: Peripheral IV = 5 mL; Midline or Central Line = 10 mL/lumen. If following IV push medication, administer flush at same rate as the IV push. Flush volume is determined by type of infusion therapy being given. For non-viscous solutions use: Peripheral IV = 5 mL Midline or Central Line = 10 mL/lumen For viscous solutions (i.e. blood components, parenteral nutrition, contrast media, or after obtaining blood sample) use: Peripheral IV = 10 mL Midline or Central Line = 20 mL/lumen Linked Groups Order Group 1: labetalol (Normodyne,Trandate) injection 5 mgJump to med 5 mg, IntraVENous, Every 10 min PRN, high blood pressure, for SBP greater than 160 mmHg for 2 consecutive measurements taken from different sites., Starting on Codi 05/11/23 at 1359, For 2 doses, Recovery (only), PRN for SBP >160 for 2 consecutive measurements, if HR is 60 or greater. If beta monica is contraindicated (HR less than 60, heart block, COPD or asthma) use hydralazine IV order. Or hydrALAZINE (Apresoline) injection 5 mgJump to med 5 mg, IntraVENous, Every 15 min PRN, high blood pressure, for SBP greater than 160 mmHg for 2 consecutive measurements taken from different sites, Starting on Codi 05/11/23 at 1359, For 2 doses, Recovery (only), PRN for SBP > 160 for 2 consecutive measurements, and if one of the following conditions is met: 1) If IV labetolol is ineffective. 2) If HR is under 60. 3) If patient has heart block, COPD or asthma. If both labetalol and hydralazine ineffective, notify anesthesia provider. Group 2: oxyCODONE (Roxicodone) immediate release tablet 5 mgJump to med 5 mg, Oral, PRN, moderate pain (4-6), Starting on Codi 05/11/23 at 1359, For 1 dose, Recovery (only), PHASE II Or oxyCODONE (Roxicodone) immediate release tablet 10 mgJump to med 10 mg, Oral, PRN, severe pain (7-10), Starting on Codi 05/11/23 at 1359, For 1 dose, Recovery (only), PHASE II Scheduled Medication Order 05/17/2023 05/18/2023 05/19/2023 ibuprofen tablet 600 mg (COMPLETED) 600 mg, Oral, Once, On Mon05/19/23 at 0415, For 1 dose 0433 (Given - Provid er: Rae Argueta LPN) Scheduled Medication Order 07/27/2024 07/28/2024 07/29/2024 baclofen (Lioresal) tablet 10 mg 10 mg, Oral, 3 times daily, First dose (after last modification) on Mon07/26/24 at 1400 0831 (Given - Provider: Julieta Griffin RN)1357 (Given - Provider: Julieta Griffin RN)2242 (Given - Provider: Eloina Kumar RN) 0813 (Given - Provider: Julieta Griffin RN)1321 (Given - Provider: Julieta Griffin RN)2203 (Given - Provider: Eloina Kumar RN) 0814 (Given - Provider: Emy Arcos RN)1400 (Canceled Entry - Provider: Automatic Discharge Provider - Comment: Automatically canceled at discontinue of medication order) cloNIDine (Catapres) tablet 0.1 mg 0.1 mg, Oral, Every 8 hours, First dose (after last modification) on Mon07/26/24 at 1400, Hold if SBP < 100, DBP < 60 or HR < 60 0505 (Given - Provider: Eloina Kumar RN)1357 (Given - Provider: Julieta Griffin RN)2200 (Not Given - Provider: Eloina Kumar RN - Reason: Order parameters not met - Comment: BP 99/70) 0523 (Given - Provider: Eloina Kumar RN)1323 (Given - Provider: Julieta Griffin, KIM)2203 (Given - Provider: Eloina Kumar RN) 0600 (Not Given - Provider: Eloina Kumar RN - Reason: Order parameters not met - Comment: BP 96/61)1400 (Canceled Entry - Provider: Automatic Discharge Provider - Comment: Automatically canceled at discontinue of medication order) nicotine (Nicoderm, Step 2) 14 MG/24HR patch 1 patch 1 patch, TransDERmal, Administer over 24 Hours, Daily, First dose on Mon07/26/24 at 1430, Apply new patch to nonhairy, clean, dry skin on the upper body or upper outer arm. Rotate patch sites. Notify Pharmacy if patient or provider prefers patch to be removed at bedtime and replaced in the morning. 0831 (Medication Applied - Provider: Julieta Griffin RN) 0813 (Medication Applied - Provider: Julieta Griffin RN) 0813 (Medication Removed - Provider: Emy Arcos RN)0814 (Medication Applied - Provider: Emy Arcos RN)1220 (Due: Medication Removed - Provider: Automatic Discharge Provider - Comment: Time automatically adjusted from order being discontinued) traMADol (Ultram) tablet 100 mg (COMPLETED)(Linked Group 1) 100 mg, Oral, Every 4 hours, First dose on Mon07/26/24 at 0420, For 6 doses 0032 (Given - Provider: Eloina Kumar RN) traMADol (Ultram) tablet 100 mg (COMPLETED)(Linked Group 1) 100 mg, Oral, Every 6 hours, First dose on Mon07/27/24 at 0500, For 4 doses 0504 (Given - Provider: Eloina Kumar RN)1112 (Given - Provider: Julieta Griffin, KIM)1717 (Given - Provider: Julieta Griffin, KIM)2241 (Given - Provider: Eloina Kumar RN) traMADol (Ultram) tablet 100 mg (COMPLETED)(Linked Group 1) 100 mg, Oral, Every 8 hours, First dose on Mon07/28/24 at 0500, For 3 doses 0523 (Given - Provider: Eloina Kumar RN)1321 (Given - Provider: Julieta Griffin, KIM)2201 (Given - Provider: Eloina Kumar RN) PRN Medication Order 07/27/2024 07/28/2024 07/29/2024 dicyclomine (Bentyl) tablet 20 mg 20 mg, Oral, Every 6 hours PRN, abdominal cramping, Starting on Mon07/26/24 at 0414 gabapentin (Neurontin) capsule 300 mg 300 mg, Oral, Every 8 hours PRN, Neuropathic Pain, Starting on Mon07/26/24 at 0414 hydrOXYzine pamoate (Vistaril) capsule 50 mg 50 mg, Oral, Every 8 hours PRN, anxiety, Lacrimation, Rhinorrhea, Starting on Mon07/26/24 at 0414 ibuprofen tablet 800 mg 800 mg, Oral, Every 8 hours PRN, mild pain (1-3), myalgia, Starting on Mon07/26/24 at 0414, Administer with food. loperamide (Imodium) capsule 2 mg 2 mg, Oral, 2 times daily PRN, diarrhea, Starting on Mon07/26/24 at 0415 methocarbamol (Robaxin) tablet 750 mg 750 mg, Oral, Every 6 hours PRN, muscle spasms, myalgia, Starting on Mon07/26/24 at 0414 naloxone (Narcan) injection 0.4 mg 0.4 mg, IntraVENous, Every 5 min PRN, opioid reversal, respiratory depression, Starting on Mon07/26/24 at 0424, +++ For RR <10, pinpoint pupils, over sedation for opioid reversal - MUST notify dynamics ax consultant provider immediately after first dose, may give IM or SQ if no IV access +++ promethazine (Phenergan) tablet 25 mg 25 mg, Oral, Every 6 hours PRN, nausea, Restless Leg Symptoms, Starting on Mon07/26/24 at 0414 traZODone (Desyrel) tablet 50 mg 50 mg, Oral, Nightly PRN, sleep, Starting on Mon07/26/24 at 0414 Linked Groups Order Group 1: traMADol (Ultram) tablet 100 mg (COMPLETED)Jump to med 100 mg, Oral, Every 4 hours, First dose on 07/26/24 at 0420, For 6 doses Followed by traMADol (Ultram) tablet 100 mg (COMPLETED)Jump to med 100 mg, Oral, Every 6 hours, First dose on 07/27/24 at 0500, For 4 doses Followed by traMADol (Ultram) tablet 100 mg (COMPLETED)Jump to med 100 mg, Oral, Every 8 hours, First dose on Mon07/28/24 at 0500, For 3 doses Source Comments (unrecognize d section and content) In the event this informatio n is protected by the Federal Confidentiality of Alcohol and Drug Abuse Patient Records regulations: The Federal rules restrict any use of the information to criminally investigate or prosecute any alcohol or drug abuse patient.[facility] the event this information is protected by the Federal Confidentiality of Alcohol and Drug Abuse Patient Records regulations: The Federal rules restrict any use of the information to criminally investigate or prosecute any alcohol or drug abuse patient.[facility] General[facility] the event this information is protected by the Federal Confidentiality of Alcohol and Drug Abuse Patient Records regulations: The Federal rules restrict any use of the information to criminally investigate or prosecute any alcohol or drug abuse patient.[facility] General[facility] the event this information is protected by the Federal Confidentiality of Alcohol and Drug Abuse Patient Records regulations: The Federal rules restrict any use of the information to criminally investigate or prosecute any alcohol or drug abuse patient.[facility] Care Teams (unrecognized sec tion and content) Assistant Chief Train Dispatcher Relationship Specialty Start Date End Date Marcelino Meredith, DO [address] [address] PCP - General Internal Medicine 09/21/20 Assistant Chief Train Dispatcher Relationship Specialty Start Date End Date Marcelino Meredith, DO [address] [address] PCP - General Internal Medicine 09/21/20 Assistant Chief Train Dispatcher Relationship Specialty Start Date End Date [facility] [address] [place] [address] PCP - General 05/12/22 Assistant Chief Train Dispatcher Relationship Specialty Start Date End Date [facility] [address] [facility] [place] [address] PCP - General 05/12/22 Assistant Chief Train Dispatcher Relationship Specialty Start Date End Date [facility] [address] [place] [address] PCP - General 05/12/22 Assistant Chief Train Dispatcher Relationship Specialty Start Date End Date [facility] [address] [place] [address] PCP - General 05/12/22 Assistant Chief Train Dispatcher Relationship Specialty Start Date End Date [facility] [address] [facility] [place] [address] PCP - General 05/12/22 Assistant Chief Train Dispatcher Relationship Specialty Start Date End Date [facility] [address] [facility] [address] PCP - General 05/12/22 Assistant Chief Train Dispatcher Relationship Specialty Start Date End Date [facility] [address] [facility] [address] PCP - General 05/12/22 Assistant Chief Train Dispatcher Relationship Specialty Start Date End Date [facility] [address] [facility] [place] [address] PCP - General 05/12/22 Assistant Chief Train Dispatcher Relationship Specialty Start Date End Date Cesar Bone DO [address] [place] [id number] PCP - General 05/24/23 Assistant Chief Train Dispatcher Relationship Specialty Start Date End Date Cesar Bone DO [address] [place] [address] PCP - General 05/24/23 Assistant Chief Train Dispatcher Relationship Specialty Start Date End Date Cesar Bone DO [address] [place] [address] PCP - General 05/24/23 Assistant Chief Train Dispatcher Relationship Specialty Start Date End Date Cesar Bone DO [address] [place] [address] PCP - General 05/24/23 Assistant Chief Train Dispatcher Relationship Specialty Start Date End Date Cesar Bone DO [address] [place] [address] PCP - General 05/24/23 Assistant Chief Train Dispatcher Relationship Specialty Start Date End Date Cesar Bone DO [address] [place] [address] PCP - General 05/24/23 Team Status: Active Member Role/Relationship Status Dates Heather BANKSC, DO Primary Care Provider Active Team Status: Inactive Member Role/Relationship Status Dates Heather BANKSC, DO Primary Care Provider Active Start: December 09, 2024 End: December 09, 2024 Heather Lo VSC, DO Attending Provider Active Start: December 09, 2024 End: December 09, 2024 Goals (unrecognized section and content) Goals may be documented in a n alternate section FOR RECORDS PERTAINING TO PATIENTS WHO ARE OR HAVE BEEN ENROLLED IN A CHEMICAL DEPENDENCY/SUBSTANCEABUSE PROGRAM, SOME INFORMATION MAY BE OMITTED. This clinical summary was aggregated from multiple sources. Caution should be exercised in using it in the provision of clinical care. This summary normalizes information from multiple sources, and as a consequence, information in this document may materially change the coding, format and clinical context of patient data. In addition, data may be omitted in some cases. CLINICAL DECISIONS SHOULD BE BASED ON THE PRIMARY CLINICAL RECORDS. [facility]. provides no warranty or guarantee of the accuracy or completeness of information in this document.
[2024-12-28 16:22] VITALS: BP 122/84; PULSE 96; RESP 18; O2SAT 96
--- NOTE | 2024-12-28 16:24 | EX.ED.SAOD ---
HPI History of Present Illness Chief Complaint: Substance Abuse Informant: patient Onset/Context/Timing Onset: Days (2) Context: Gradual Onset Timing: Continuous Worsened by: Nothing Relieved by: Nothing Associated Symptoms Associated Symptoms: Positive for palpatations; Negative for vomiting*, diarrhea*, fever*, rash*, seizure, tremor, suicidal ideation or homicidal ideation Narrative Narrative: Patient presents requesting detox from opiates. Patient states she uses approximately 1 g of fentanyl per day. Patient states she snorts it. Patient denies any IV drug use. Patient states she did have some palpitations today. Patient states his last use was 2 days ago. Patient states he has been through detox at a different facility in July of this year. Patient denies any nausea or vomiting. Patient denies any suicidal or homicidal ideations. Patient denies any seizures or tremors. [facility] Medical History Opiate abuse, continuous Medical History no medical history no medical history Home Medications ?Medication ?Instructions ?Recorded ?Last Taken ?Type NK 12/28/24 Unknown History Allergy/AdvReac Type Severity Reaction Status Date / Time No Known Allergies Allergy Verified 12/28/24 15:24 Surgical History S/P surgical removal of pilonidal cyst S/P ORIF (open reduction internal fixation) fracture Surgical History no surgical history Social History Smoking Status: Current every day smoker tobacco type: cigarettes and e-cigarettes ROS ROS ED Constitutional Constitutional ED: Reports sweats; Denies chills or fever(s) Eyes Eyes: Denies blurry vision or change in vision ENT ENT ED: Reports rhinorrhea; Denies sore throat Cardiovascular Cardiovascular: Denies chest pain or palpitations Respiratory/Chest Respiratory/Chest: Denies cough or dyspnea Gastrointestinal Gastrointestinal: Denies nausea or vomiting Genitourinary Genitourinary ED: Denies dysuria or hematuria Musculoskeletal Musculoskeletal: Reports back pain; Denies neck pain Integumentary Denies abscess or rash Neurologic Neurologic: Denies headache(s) or weakness Allergic/Immunologic Allergic/Immunologic ED: Denies mouth swelling or urticaria EXAM Physical Exam Const Vital Signs: 12/28/24 15:22 12/28/24 16:22 12/28/24 17:00 Temperature 98.2 F Temperature Source Oral Pulse Rate 116 H 96 106 H Respiratory Rate 18 18 18 Blood Pressure 128/86 H 122/84 H 132/74 H Blood Pressure Mean 100 96 93 Pulse Ox 95 96 99 Oxygen Delivery Method Room Air Room Air 12/28/24 18:00 Temperature Temperature Source Pulse Rate 110 H Respiratory Rate 18 Blood Pressure 136/88 H Blood Pressure Mean 104 Pulse Ox 95 Oxygen Delivery Method Room Air Positive well nourished and well developed General Appearance ED: well developed and NAD HEENT Reports moist mucous membranes Neck supple and no JVD Resp normal respiratory effort and clear to auscultation bilaterally Cardio regular rhythm Rate: tachycardic GI soft to palpation, non-tender and non-distended Neuro oriented x3, CN's II-XII intact bilaterally and no sensory deficits noted [place] Coma Scale: document GCS findings Spontaneous Obeys Commands Oriented 15 Sensorium / Orientation: alert Speech: speech normal Motor Exam: strength 5/5 throughout Psych mental status grossly normal MDM MDM MDM Narrative Medical decision making narrative: Medical screening labs will be obtained. CBC will be obtained to assess for leukocytosis and anemia. Basic metabolic profile will be obtained to assess for electrolyte abnormality and renal function. Urine drug screen will be obtained to assess for substance abuse. Serum alcohol level will be obtained to assess for alcohol intoxication. History & Record Review Additional record(s) reviewed:: No prior records Lab Data Attestation: I reviewed the patient's lab results. Lab results narrative: CBC was reviewed and was within normal limits. Basic metabolic profile was reviewed and was within normal limits. Serum alcohol level was reviewed and was less than 10.1. Urine drug screen was reviewed and was positive for buprenorphine and fentanyl. Labs: Laboratory Results - last 24 hr 12/28/24 15:30 WBC 5.8 RBC 4.39 L Hgb 13.1 Hct 38.0 L MCV 86.6 MCH 29.8 MCHC 34.5 RDW Std Deviation 41.1 RDW Coeff of Dannielle 13.2 Plt Count 258 MPV 10.5 Immature Gran % (Auto) 0.200 Neut % (Auto) 46.2 L Lymph % (Auto) 38.4 [place] % (Auto) 10.7 H Eos % (Auto) 3.5 Baso % (Auto) 1.0 Absolute Neuts (auto) 2.7 Absolute Lymphs (auto) 2.22 Nucleated RBC % 0 Sodium 136 Potassium 3.5 Chloride 96 L Carbon Dioxide 26.6 Anion Gap 13 BUN 7 Creatinine 0.69 L Estim Creat Clear Calc 164.00 Est GFR (MDRD) Non-Af 131 BUN/Creatinine Ratio 10.4 Glucose 106 H Calcium 9.3 Urine Opiates Screen NEGATIVE U Buprenorphine Qual PRESUMPTIVE POSITIVE Ur Oxycodone Screen NEGATIVE Urine Methadone Screen NEGATIVE Urine Fentanyl Screen PRESUMPTIVE POSITIVE Ur Barbiturates Screen NEGATIVE Ur Phencyclidine Scrn NEGATIVE Ur Amphetamines Screen NEGATIVE U Benzodiazepines Scrn NEGATIVE Urine Cocaine Screen NEGATIVE U Cannabinoids Screen NEGATIVE Ethyl Alcohol < 10.1 Management Discussion w/another healthcare provider: Hospitalist Treatment and Re-Evaluation Narrative: Case was discussed with the hospitalist. He will admit the patient to his service. Patient is agreeable with the plan. All questions were answered. Discharge Plan Dx/Rx/DC Orders Clinical Impression: Opiate withdrawal, Desire for detoxification, Elevated blood pressure reading Disposition Disposition: Acute Care Hospital [facility] Discharge Date/Time: 12/28/24 18:59
[2024-12-28 17:00] VITALS: BP 132/74; PULSE 106; RESP 18; O2SAT 99
[2024-12-28 17:39] LABS: Hematocrit 38.0 % (40-54); Hemoglobin 13.1 g/dL (13.0-16.5); Immature Granulocytes Count 0.010 X10^3/uL (0.0-0.0); Mean Corp Hgb Conc 34.5 g/dL (32-36); Mean Corpuscular Volume 86.6 fL (80-94); Mean Platelet Vol. 10.5 fl (6.2-12.0); NRBC Flagged by Analyzer 0 % (0-5); Platelet Count 258 K/mm3 (150-450); RBC Distribution Width CV 13.2 % (11.6-14.6); RBC Distribution Width SD 41.1 fl (35.1-43.9); Red Blood Count 4.39 M/mm3 (4.6-6.2); White Blood Count 5.8 K/mm3 (4.4-11.0)
[2024-12-28 18:00] VITALS: BP 136/88; PULSE 110; RESP 18; O2SAT 95
[2024-12-28 18:07] LABS: Alcohol, Blood (Medical)-Serum < 10.1 mg/dL (<=10.0)
[2024-12-28 18:08] LABS: Anion Gap 13 (5-15); BUN 7 mg/dL (4-19); BUN/Creat Ratio 10.4 RATIO (10-20); Calcium,Total 9.3 mg/dL (7.6-11.0); Carbon Dioxide 26.6 mmol/L (21.0-32.0); Chloride 96 mmol/L (98-108); Estimated Creatinine Clearance 164.00 ml/min (50-250); Glucose 106 mg/dL (70-99); Potassium 3.5 mmol/L (3.3-5.1)
[2024-12-28 18:09] LABS: Barbiturate Urine NEGATIVE (< 200 ng/mL); Benzodiazepine Urine NEGATIVE (< 200 ng/mL); PCP Urine NEGATIVE (< 25 ng/mL); THC Urine NEGATIVE (< 50 ng/mL)
[2024-12-28 18:46] VITALS: BP 136/88; PULSE 110; RESP 18; TEMP 37; O2SAT 95
--- NOTE | 2024-12-28 18:58 | PCM.HP.STD ---
HPI - General General Date of Admission: 12/28/24 Date of Service: 12/28/24 Chief Complaint: fentanyl withdrawal HPI Narrative GERALDINE BURNS, is a 24 M who presents seeking treatment for fentanyl abuse. Last use was sometime last evening on December 27. Right now he does not have any symptoms but wants to get clean from fentanyl. He snorts roughly a gram of fentanyl per day. He denies any other illicit substances nor any alcohol. Patient has been through withdrawal treatment before but at another facility. [facility] Medical History (Updated 12/28/24 @ 18:[address] Marques Devine, DO) Opiate abuse, continuous Medical History no medical history Home Medications ?Medication ?Instructions ?Recorded ?Last Taken ?Type NK 12/28/24 Unknown History Allergy/AdvReac Type Severity Reaction Status Date / Time No Known Allergies Allergy Verified 12/28/24 15:24 Surgical History (Updated 12/28/24 @ 17:[address] Marques Mc, ) S/P surgical removal of pilonidal cyst S/P ORIF (open reduction internal fixation) fracture Surgical History no surgical history Social History Smoking Status: Current every day smoker tobacco type: cigarettes and e-cigarettes ROS ROS Narrative All review of systems were negative except as mentioned above in the history of present illness and the other review of systems. Vital Signs Vital Signs Vital Signs: 12/28/24 15:22 12/28/24 16:22 12/28/24 17:00 Temperature 36.8 C Temperature Source Oral Pulse Rate 116 H 96 106 H Respiratory Rate 18 18 18 Blood Pressure 128/86 H 122/84 H 132/74 H Blood Pressure Mean 100 96 93 Pulse Ox 95 96 99 Oxygen Delivery Method Room Air Room Air 12/28/24 18:00 12/28/24 18:46 Temperature 37.0 C Temperature Source Pulse Rate 110 H 110 H Respiratory Rate 18 18 Blood Pressure 136/88 H 136/88 H Blood Pressure Mean 104 104 Pulse Ox 95 95 Oxygen Delivery Method Room Air Weight Weight: 71.469 kg Body Mass Index (BMI) 20.2 Physical Exam Const alert and no apparent distress HEENT normocephalic and head/scalp atraumatic Resp normal respiratory effort, no retractions, no use of accessory muscles and clear to auscultation bilaterally Cardio regular rate, regular rhythm, S1 normal heart sound and S2 normal heart sound GI normal to inspection, nondistended, normoactive bowel sounds and soft to palpation Extremity normal to inspection and no clubbing, cyanosis or edema Results Lab / Micro Data 12/28/24 15:30 12/28/24 15:30 Labs: Laboratory Results - last 24 hr 12/28/24 15:30: WBC 5.8, RBC 4.39 L, Hgb 13.1, Hct 38.0 L, MCV 86.6, MCH 29.8, MCHC 34.5, RDW Std Deviation 41.1, RDW Coeff of Dannielle 13.2, Plt Count 258, MPV 10.5, Immature Gran % (Auto) 0.200, Neut % (Auto) 46.2 L, Lymph % (Auto) 38.4, [place] % (Auto) 10.7 H, Eos % (Auto) 3.5, Baso % (Auto) 1.0, Absolute Neuts (auto) 2.7, Absolute Lymphs (auto) 2.22, Nucleated RBC % 0, Sodium 136, Potassium 3.5, Chloride 96 L, Carbon Dioxide 26.6, Anion Gap 13, BUN 7, Creatinine 0.69 L, Estim Creat Clear Calc 164.00, Est GFR (MDRD) Non-Af 131, BUN/Creatinine Ratio 10.4, Glucose 106 H, Calcium 9.3, Urine Opiates Screen NEGATIVE, U Buprenorphine Qual PRESUMPTIVE POSITIVE, Ur Oxycodone Screen NEGATIVE, Urine Methadone Screen NEGATIVE, Urine Fentanyl Screen PRESUMPTIVE POSITIVE, Ur Barbiturates Screen NEGATIVE, Ur Phencyclidine Scrn NEGATIVE, Ur Amphetamines Screen NEGATIVE, U Benzodiazepines Scrn NEGATIVE, Urine Cocaine Screen NEGATIVE, U Cannabinoids Screen NEGATIVE, Ethyl Alcohol < 10.1 Assessment & Plan Assessment/Plan (1) Opiate withdrawal: PLAN: Impending. Last use was less than 24 hours ago. Patient will be on a buprenorphine taper as well as other adjunctive medications to help with somatic symptoms related with withdrawal. Addiction medicine to see and to facilitate outpatient program upon discharge PLAN: Plan Nicotine abuse: Nicotine patch. VTE prophylaxis: Low risk not indicated at this time. Charges/Coding Visit Charges Inpatient E&M: 25386 Init Hosp L2
--- OUTSIDE RECORDS SUMMARY | 2024-12-28 19:00 | XMS RPT_ITS | CCD ---
Author Organization [facility] Care Team Providers Care Vp Director Of Creative Strategy Name Role Phone PROVIDER, UNKNOWN Unavailable Unavailable Brett Levin Unavailable Unavailable JAY FIERRO Unavailable Unavailable Mandeep Alvarez Primary Care Provider Mandeep Alvarez Primary Care Provider [phone] Juanyu Mandeep WISEMAN Primary Care Provider [phone] MANDEEP ALVAREZ Primary Care Unavailable Marcelino Meredith DO Primary Care Provider Unavailable Primary Care Provider UnavailJessica Rodriguez Primary Care Provider Unav ailable Cesar Bone DO Primary Care Provider CESAR BONE Primary Care Unavailable CESAR BONE Primary Care Unavailable EMY JACKSON Attending Unavailable SHAHNAZ HERNANDEZ Attending Unavailable CESAR BONE Primary Care Unavailable CESAR BNOE Primary Care Unavailable JAYLEN GALLOWAY Admitting Unavailable [...] 0 05/17/2020 05/27/2020 Active polyethylene glycol 3350 53202 mg powder for oral solution (2 sources) [...] Test Name Value Interpretation Reference Range Facility [facility]20[facility] GERALDINE [facility] ([id number]) 2000 M Date Time Provider Department 12/19/24 [...] Status:Closed by DARRELL HOFFMANN on 12/19/[address] [facility] Testosterone, Total / Freeon 12-16-2024 TESTOSTER,FREE 24.09 ng/dL Abnormal 5.00-21.00 [facility] Comment on above: Order Comment: N Performed By: #### L 500.4100, L501.9985, L506.1001, L503.6550, L501.5200, L3100.5310, L501.9520, L503.0106, L100.0100, L500.4050 #### [facility] [address] [place], [place], [phone] ([phone] TESTOSTER,TOTAL 1043 ng/dL High 264-916 [facility] Comment on above: Order Comment: N Result Comment: Adul t male reference interval is based on a population of healthy nonobese males (BMI <30) between 19 and 39 years old. Brett et.al. JCEM 2017,102;8266-6854. PMID: [id number]. Performed By: #### L 500.4100, L501.9985, L506.1001, L503.6550, L501.5200, L3100.5310, L501.9520, L503.0106, L100.0100, L500.4050 #### [facility] [address] [place], [place], [id number] TESTOSTERONE,%F 2.31 Normal 1.50-4.20 [facility] Comment on above: Order Comment: N Result Comment: Perf ormed at: [address] [id number] Nonprofit Fundraiser: Reilly Garcias PhD, Phone: [phone] Performed at: [facility] [address] [id number] Nonprofit Fundraiser: Itz Stanford MD, Phone: [phone] Performed By: #### L 500.4100, L501.9985, L506.1001, L503.6550, L501.5200, L3100.5310, L501.9520, L503.0106, L100.0100, L500.4050 #### [facility] [address] [place], [place], [phone] Absolute lymphocyte countOrd ered By: Heather Lo on 12-09-2024 Lymphocytes Auto (Unsp spec) [#/Vol] 1.51 10*3/uL 0.83-4.51 [facility] Absolute neutrophil countOrd ered By: Heather Lo on 12-09-2024 Neutrophils (Bld) [#/Vol] 1.2 10*3/uL Low 2.0-7.7 [facility] Anion gap in Serum or Plasma Ordered By: Heather Lo on 12-09-2024 Anion gap [Moles/Vol] 10 mmol/L 5-15 [facility] Automated lymphocyte count a s percentage of total leukocytesOrdered By: Heather Lo on 12-09-2024 Lymphocytes/100 WBC Auto (Unsp spec) 45.6 % High 19-41 [facility] BUN/creatinine ratioOrdered By: Heather Lo on 12-09-2024 Urea nitrogen/Creatinine [Mass ratio] 13.2 mg/mg 10-20 [facility] Basophil percentageOrdered B y: Heather Lo on 12-09-2024 Basophils/100 WBC (Bld) 2.1 % High 0-1 [facility] Bilirubin, totalOrdered By: Heather Lo on 12-09-2024 Bilirubin [Mass/Vol] 0.59 mg/dL 0.00-1.30 [facility] CBC W/Diff, Automatedon 11-20 Absolute Lymph 1.51 X10 3/uL Normal 0.83-4.51 [facility] Comment on above: Performed By: #### L 500.4100, L501.9985, L506.1001, L503.6550, L501.5200, L3100.5310, L501.9520, L503.0106, L100.0100, L500.4050 #### [facility] [address] [facility] [place], [address] ( Absolute Neut 1.2 X10 3/uL Low 2.0-7.7 [facility] Comment on above: Performed By: #### L 500.4100, L501.9985, L506.1001, L503.6550, L501.5200, L3100.5310, L501.9520, L503.0106, L100.0100, L500.4050 #### [facility] [address] [facility] [place], [address] (112) Basophils/100 WBC (Bld) 2.1 % High 0-1 [facility] Comment on above: Performed By: #### L 500.4100, L501.9985, L506.1001, L503.6550, L501.5200, L3100.5310, L501.9520, L503.0106, L100.0100, L500.4050 #### [facility] [address] [facility] [place], [address] (999) Eosinophils/100 WBC (Bld) 4.8 % Normal 0-5 [facility] Comment on above: Performed By: #### L 500.4100, L501.9985, L506.1001, L503.6550, L501.5200, L3100.5310, L501.9520, L503.0106, L100.0100, L500.4050 #### [facility] [address] [facility] [place], [address] (960) Erythrocyte distribution width (RBC) [Ratio] 13.4 % Normal 11.6-14.6 [facility] Comment on above: Performed By: #### L 500.4100, L501.9985, L506.1001, L503.6550, L501.5200, L3100.5310, L501.9520, L503.0106, L100.0100, L500.4050 #### [facility] [address] [place], [address] Hematocrit (Bld) [Volume fraction] 39.8 % Low 40-54 [facility] Comment on above: Performed By: #### L 500.4100, L501.9985, L506.1001, L503.6550, L501.5200, L3100.5310, L501.9520, L503.0106, L100.0100, L500.4050 #### [facility] [address] [place], [address] Hemoglobin (Bld) [Mass/Vol] 13.5 g/dL Normal 13.0-16.5 [facility] Comment on above: Performed By: #### L 500.4100, L501.9985, L506.1001, L503.6550, L501.5200, L3100.5310, L501.9520, L503.0106, L100.0100, L500.4050 #### [facility] [address] [facility] [place], [address] IG% 0.300 Normal 0.0-0.9 [facility] Comment on above: Result Comment: IG% - Immature Granulocytes (promyelocytes, myelocytes and metamyelocytes) > 1% indicates that a LEFT SHIFT is Present. Performed By: #### L 500.4100, L501.9985, L506.1001, L503.6550, L501.5200, L3100.5310, L501.9520, L503.0106, L100.0100, L500.4050 #### [facility] [address] [place], [address] Lymphocytes/100 WBC (Bld) 45.6 % High 19-41 [facility] Comment on above: Performed By: #### L 500.4100, L501.9985, L506.1001, L503.6550, L501.5200, L3100.5310, L501.9520, L503.0106, L100.0100, L500.4050 #### [facility] [address] [place], [address] MCH (RBC) [Entitic mass] 29.6 pg Normal 27.0-32.0 [facility] Comment on above: Performed By: #### L 500.4100, L501.9985, L506.1001, L503.6550, L501.5200, L3100.5310, L501.9520, L503.0106, L100.0100, L500.4050 #### [facility] [address] [facility] [place], [address] MCHC (RBC) [Mass/Vol] 33.9 g/dL Normal 32-36 [facility] Comment on above: Performed By: #### L 500.4100, L501.9985, L506.1001, L503.6550, L501.5200, L3100.5310, L501.9520, L503.0106, L100.0100, L500.4050 #### [facility] [address] [facility] [place], [address] MCV (RBC) [Entitic vol] 87.3 fL Normal 80-94 [facility] Comment on above: Performed By: #### L 500.4100, L501.9985, L506.1001, L503.6550, L501.5200, L3100.5310, L501.9520, L503.0106, L100.0100, L500.4050 #### [facility] [address] [facility] [place], [address] Monocytes/100 WBC (Bld) 11.5 % High 0-10 [facility] Comment on above: Performed By: #### L 500.4100, L501.9985, L506.1001, L503.6550, L501.5200, L3100.5310, L501.9520, L503.0106, L100.0100, L500.4050 #### [facility] [address] [place], [address] Neutrophils/100 WBC (Bld) 35.7 % Low 47-70 [facility] Comment on above: Performed By: #### L 500.4100, L501.9985, L506.1001, L503.6550, L501.5200, L3100.5310, L501.9520, L503.0106, L100.0100, L500.4050 #### [facility] [address] [facility] [place], [address] ([phone] Nucleated RBC (Bld) [#/Vol] 0 10*3/uL Normal 0-5 [facility] Comment on above: Performed By: #### L 500.4100, L501.9985, L506.1001, L503.6550, L501.5200, L3100.5310, L501.9520, L503.0106, L100.0100, L500.4050 #### [facility] [address] [facility] [place], [address] Platelet mean volume (Bld) [Entitic vol] 11.1 fL Normal 6.2-12.0 [facility] Comment on above: Performed By: #### L 500.4100, L501.9985, L506.1001, L503.6550, L501.5200, L3100.5310, L501.9520, L503.0106, L100.0100, L500.4050 #### [facility] [address] [facility] [place], [address] ([phone] Platelets (Bld) [#/Vol] 222 10*3/uL Normal 150-450 [facility] Comment on above: Performed By: #### L 500.4100, L501.9985, L506.1001, L503.6550, L501.5200, L3100.5310, L501.9520, L503.0106, L100.0100, L500.4050 #### [facility] [address] [place], [address] RBC (Bld) [#/Vol] 4.56 10*6/uL Low 4.6-6.2 [facility] Comment on above: Performed By: #### L 500.4100, L501.9985, L506.1001, L503.6550, L501.5200, L3100.5310, L501.9520, L503.0106, L100.0100, L500.4050 #### [facility] [address] [facility] [place], [address] (754) RDW SD 43.0 fl Normal 35.1-43.9 [facility] Comment on above: Performed By: #### L 500.4100, L501.9985, L506.1001, L503.6550, L501.5200, L3100.5310, L501.9520, L503.0106, L100.0100, L500.4050 #### [facility] [address] [place], [place], [phone] (519) WBC (Bld) [#/Vol] 3.3 10*3/uL Low 4.4-11.0 [facility] Comment on above: Performed By: #### L 500.4100, L501.9985, L506.1001, L503.6550, L501.5200, L3100.5310, L501.9520, L503.0106, L100.0100, L500.4050 #### [facility] [address] [facility] [place], [place], [phone] (059) Calculated very low density lipoprotein (VLDL) cholesterol measurementOrdered By: Heather Lo on 12-09-2024 Calculated very low density lipoprotein (VLDL) cholesterol measurement 16 mg/dL 5-40 [facility] Carbon dioxide, total [Moles /volume] in Central venous bloodOrdered By: Heather Lo on 12-09-2024 CO2 [Moles/Vol] 26.1 mmol/L 21.0-32.0 [facility] Chloride assayOrdered By: Andrew Lo on 12-09-2024 Chloride [Moles/Vol] 104 mmol/L 98-108 [facility] Comprehensive Metabolic Prof ilon 12-09-2024 Albumin [Mass/Vol] 4.4 g/dL Normal 3.5-5.0 [facility] Comment on above: Performed By: #### L 500.4100, L501.9985, L506.1001, L503.6550, L501.5200, L3100.5310, L501.9520, L503.0106, L100.0100, L500.4050 #### [facility] [address] [place], [place], [phone] Albumin/Globulin [Mass ratio] 1.4 {ratio} Normal 0.9-2.4 [facility] Comment on above: Performed By: #### L 500.4100, L501.9985, L506.1001, L503.6550, L501.5200, L3100.5310, L501.9520, L503.0106, L100.0100, L500.4050 #### [facility] [address] [place], [place], [phone] ALK PHOS 80 U/L Normal 40-129 [facility] Comment on above: Performed By: #### L 500.4100, L501.9985, L506.1001, L503.6550, L501.5200, L3100.5310, L501.9520, L503.0106, L100.0100, L500.4050 #### [facility] [address] [place], [place], [phone] ALT [Catalytic activity/Vol] 11 U/L Normal <=46 [facility] Comment on above: Performed By: #### L 500.4100, L501.9985, L506.1001, L503.6550, L501.5200, L3100.5310, L501.9520, L503.0106, L100.0100, L500.4050 #### [facility] [address] [place], [address] AST [Catalytic activity/Vol] 21 U/L Normal <=37 [facility] Comment on above: Performed By: #### L 500.4100, L501.9985, L506.1001, L503.6550, L501.5200, L3100.5310, L501.9520, L503.0106, L100.0100, L500.4050 #### [facility] [address] [place], [address] Bilirubin [Mass/Vol] 0.59 mg/dL Normal 0.00-1.30 [facility] Comment on above: Performed By: #### L 500.4100, L501.9985, L506.1001, L503.6550, L501.5200, L3100.5310, L501.9520, L503.0106, L100.0100, L500.4050 #### [facility] [address] [place], [address] BUN/CRE 13.2 RATIO Normal 10-20 [facility] Comment on above: Performed By: #### L 500.4100, L501.9985, L506.1001, L503.6550, L501.5200, L3100.5310, L501.9520, L503.0106, L100.0100, L500.4050 #### [facility] [address] [place], [address] Calcium [Mass/Vol] 9.3 mg/dL Normal 7.6-11.0 [facility] Comment on above: Performed By: #### L 500.4100, L501.9985, L506.1001, L503.6550, L501.5200, L3100.5310, L501.9520, L503.0106, L100.0100, L500.4050 #### [facility] [address] [place], [address] Chloride [Moles/Vol] 104 mmol/L Normal 98-108 [facility] Comment on above: Performed By: #### L 500.4100, L501.9985, L506.1001, L503.6550, L501.5200, L3100.5310, L501.9520, L503.0106, L100.0100, L500.4050 #### [facility] [address] [place], [place], [phone] (592) CO2 [Moles/Vol] 26.1 mmol/L Normal 21.0-32.0 [facility] Comment on above: Performed By: #### L 500.4100, L501.9985, L506.1001, L503.6550, L501.5200, L3100.5310, L501.9520, L503.0106, L100.0100, L500.4050 #### [facility] [address] [place], [place], [phone] (229) Creatinine [Mass/Vol] 0.74 mg/dL Normal 0.70-1.20 [facility] Comment on above: Performed By: #### L 500.4100, L501.9985, L506.1001, L503.6550, L501.5200, L3100.5310, L501.9520, L503.0106, L100.0100, L500.4050 #### [facility] [address] [place], [address] GAP 10 Normal 5-15 [facility] Comment on above: Performed By: #### L 500.4100, L501.9985, L506.1001, L503.6550, L501.5200, L3100.5310, L501.9520, L503.0106, L100.0100, L500.4050 #### [facility] [address] [place], [address] GFR/1.73 sq M.predicted among non-blacks MDRD (S/P/Bld) [Vol rate/Area] 128 mL/min/{1.73_m2} Normal >60 [facility] Comment on above: Result Comment: mL/m in/1.73m2 CKD-EPI Creatinine Equation (2020) Performed By: #### L 500.4100, L501.9985, L506.1001, L503.6550, L501.5200, L3100.5310, L501.9520, L503.0106, L100.0100, L500.4050 #### [facility] [address] [place], [address] Globulin (S) [Mass/Vol] 3.2 g/dL Normal 2.2-4.2 [facility] Comment on above: Performed By: #### L 500.4100, L501.9985, L506.1001, L503.6550, L501.5200, L3100.5310, L501.9520, L503.0106, L100.0100, L500.4050 #### [facility] [address] [place], [address] Glucose [Mass/Vol] 78 mg/dL Normal 70-99 [facility] Comment on above: Performed By: #### L 500.4100, L501.9985, L506.1001, L503.6550, L501.5200, L3100.5310, L501.9520, L503.0106, L100.0100, L500.4050 #### [facility] [address] [place], [address] Potassium [Moles/Vol] 3.5 mmol/L Normal 3.3-5.1 [facility] Comment on above: Performed By: #### L 500.4100, L501.9985, L506.1001, L503.6550, L501.5200, L3100.5310, L501.9520, L503.0106, L100.0100, L500.4050 #### [facility] [address] [place], [place], [phone] Sodium [Moles/Vol] 140 mmol/L Normal 133-145 [facility] Comment on above: Performed By: #### L 500.4100, L501.9985, L506.1001, L503.6550, L501.5200, L3100.5310, L501.9520, L503.0106, L100.0100, L500.4050 #### [facility] [address] [place], [address] T PROT 7.5 g/dL Normal 5.9-8.4 [facility] Comment on above: Performed By: #### L 500.4100, L501.9985, L506.1001, L503.6550, L501.5200, L3100.5310, L501.9520, L503.0106, L100.0100, L500.4050 #### [facility] [address] [place], [place], [phone] Urea nitrogen [Mass/Vol] 10 mg/dL Normal 4-19 [facility] Comment on above: Performed By: #### L 500.4100, L501.9985, L506.1001, L503.6550, L501.5200, L3100.5310, L501.9520, L503.0106, L100.0100, L500.4050 #### [facility] [address] [place], [place], [phone] Eosinophil percentageOrdered By: Heather Lo on 07-21-2025 Eosinophils/100 WBC (Bld) 4.8 % 0-5 [facility] Erythrocyte distribution wid th ratioOrdered By: Heather Lo on 12-09-2024 Erythrocyte distribution width (RBC) [Ratio] 13.4 % 11.6-14.6 [facility] Erythrocyte distribution wid th standard deviationOrdered By: Heathererin Lo on 12-09-2024 Erythrocyte distribution width (RBC) [Ratio] 43.0 fl 35.1-43.9 [facility] Ferritinon 12-09-2024 Ferritin [Mass/Vol] 120 ng/mL Normal 37-417 [facility] Comment on above: Performed By: #### L 500.4100, L501.9985, L506.1001, L503.6550, L501.5200, L3100.5310, L501.9520, L503.0106, L100.0100, L500.4050 #### [facility] [address] [place], [place], [phone] Glomerular filtration rate ( GFR) estimation/1.73 sq m using serum, plasma, or whole bOrdered By: Heather Lo on 12-09-2024 GFR/1.73 sq M.predicted among non-blacks MDRD (S/P/Bld) [Vol rate/Area] 128 mL/min/{1.73_m2} >60 [facility] Comment on above: mL/min/1.73m2 CKD-EP I Creatinine Equation (2020) Hematocrit Auto (Bld) [Volum e fraction]Ordered By: Heather Lo on 12-09-2024 Hematocrit (Bld) [Volume fraction] 39.8 % Low 40-54 [facility] Hemoglobin A1con 12-09-2024 HbA1c (Bld) [Mass fraction] 4.8 % Normal <=5.6 [facility] Comment on above: Result Comment: Norm al < 5.7 % Prediabetic 5.7 - 6.4 % Diabetic >or= 6.5 % Please note range changes. Performed By: #### L 500.4100, L501.9985, L506.1001, L503.6550, L501.5200, L3100.5310, L501.9520, L503.0106, L100.0100, L500.4050 #### [facility] [address] [place], [place], [phone] Hemoglobin A1c percentageOrd ered By: Heather Lo on 12-09-2024 HbA1c (Bld) [Mass fraction] 4.8 % <5.7 [facility] Comment on above: Normal < 5.7 % Predi abetic 5.7 - 6.4 % Diabetic >or= 6.5 % Please note range changes. Hemoglobin measurementOrdere d By: Heather Lo on 12-09-2024 Hemoglobin (Bld) [Mass/Vol] 13.5 g/dL 13.0-16.5 [facility] Immature granulocytes/100 WB C Auto (Bld)Ordered By: Heather Lo on 12-09-2024 Immature granulocytes/100 WBC (Bld) 0.300 % 0.0-0.9 [facility] Comment on above: IG% - Immature Granu locytes (promyelocytes, myelocytes and metamyelocytes) > 1% indicates that a LEFT SHIFT is Present. LDL calc ser/plasOrdered By: Heather Lo on 12-09-2024 Cholesterol in LDL [Mass/Vol] 45 mg/dL [facility] Comment on above: Nkuhsaaczv=803-921 m g/dL & Higher Qszl=904 mg/dL or greater Laboratory - Chemistry and C hemistry - challengeOrdered By: Heather Lo on 12-09-2024 AST [Catalytic activity/Vol] 21 U/L <38 [facility] Lipid Profileon 12-09-2024 CHOL:HDL 2.53 Normal [facility] Comment on above: Performed By: #### L 500.4100, L501.9985, L506.1001, L503.6550, L501.5200, L3100.5310, L501.9520, L503.0106, L100.0100, L500.4050 #### [facility] [address] [place], [place], [phone] Cholesterol [Mass/Vol] 100 mg/dL Normal <=200 [facility] Comment on above: Result Comment: Chol esterol level, Desirable <200 mg/dL Borderline high cholesterol 200-239 mg/dL High cholesterol >=240 mg/dL Recommendations of the NCEP Adult Treatment Panel for the following risk-cutoff thresholds for the [place] population. Performed By: #### L 500.4100, L501.9985, L506.1001, L503.6550, L501.5200, L3100.5310, L501.9520, L503.0106, L100.0100, L500.4050 #### [facility] [address] [place], [place], [phone] (452) Cholesterol in HDL [Mass/Vol] 40 mg/dL Normal [facility] Comment on above: Result Comment: Stella onal Cholesterol Education Program (NCEP) guidelines: <40 mg/dL: Low HDL-cholesterol (major risk factor for CHD) >= 60 mg/dL: High HDL-cholesterol (negative risk factor for CHD) HDL-cholesterol is affected by a number of factors, e.g. smoking, exercise, hormones, sex and age. Performed By: #### L 500.4100, L501.9985, L506.1001, L503.6550, L501.5200, L3100.5310, L501.9520, L503.0106, L100.0100, L500.4050 #### [facility] [address] [place], [place], [phone] (328) Cholesterol in LDL [Mass/Vol] 45 mg/dL Normal [facility] Comment on above: Result Comment: Bord yikzon=140-435 mg/dL Higher Xsmb=794 mg/dL or greater Performed By: #### L 500.4100, L501.9985, L506.1001, L503.6550, L501.5200, L3100.5310, L501.9520, L503.0106, L100.0100, L500.4050 #### [facility] [address] [place], [place], [phone] (662) Cholesterol in VLDL [Mass/Vol] 16 mg/dL Normal 5-40 [facility] Comment on above: Performed By: #### L 500.4100, L501.9985, L506.1001, L503.6550, L501.5200, L3100.5310, L501.9520, L503.0106, L100.0100, L500.4050 #### [facility] [address] [place], [place], [phone] (706) Triglyceride [Mass/Vol] 78 mg/dL Normal [facility] Comment on above: Result Comment: The drugs N-Acetylcysteine and Metamizole may falsely depress this assay. Normal range: <150 mg/dL Borderline High: 150-199 mg/dL High: 200-499 mg/dL Very High: >500 mg/dL Performed By: #### L 500.4100, L501.9985, L506.1001, L503.6550, L501.5200, L3100.5310, L501.9520, L503.0106, L100.0100, L500.4050 #### [facility] [address] [place], [address] MCV (mean corpuscular volume ) determinationOrdered By: Heather Lo on 12-09-2024 MCV (RBC) [Entitic vol] 87.3 fL 80-94 [facility] Magnesiumon 12-09-2024 Magnesium [Mass/Vol] 2.0 mg/dL Normal 1.5-2.2 [facility] Comment on above: Performed By: #### L 500.4100, L501.9985, L506.1001, L503.6550, L501.5200, L3100.5310, L501.9520, L503.0106, L100.0100, L500.4050 #### [facility] [address] [place], [place], [id number] Magnesium measurement (mass/ volume)Ordered By: Heather Lo on 07-21-2025 Magnesium (Unsp spec) [Mass/Vol] 2.0 mg/dL 1.5-2.2 [facility] Mean corpuscular hemoglobin (MCH) determinationOrdered By: Heather Lo on 12-09-2024 MCH (RBC) [Entitic mass] 29.6 pg 27.0-32.0 [facility] Mean corpuscular hemoglobin concentration (MCHC) determinationOrdered By: Heather Lo on 12-09-2024 MCHC (RBC) [Mass/Vol] 33.9 g/dL 32-36 [facility] Mean platelet volume determi nationOrdered By: Heather Lo on 12-09-2024 Platelet mean volume (Bld) [Entitic vol] 11.1 fL 6.2-12.0 [facility] [facility] Monocyte percentageOrdered B y: Heather Lo on 12-09-2024 Monocytes/100 WBC (Bld) 11.5 % High 0-10 [facility] Neutrophil percentageOrdered By: Heather Lo on 12-09-2024 Neutrophils/100 WBC (Bld) 35.7 % Low 47-70 [facility] Nucleated red blood cell per centageOrdered By: Heather Lo on 12-09-2024 Nucleated RBC/100 WBC (Bld) [Ratio] 0 % 0-5 [facility] Platelet countOrdered By: Andrew Lo on 12-09-2024 Platelets (Bld) [#/Vol] 222 10*3/uL 150-450 [facility] Potassium measurement (mass/ volume)Ordered By: Heather Lo on 12-09-2024 Potassium (Unsp spec) [Mass/Vol] 3.5 mmol/L 3.3-5.1 [facility] RBC Auto (Bld) [#/Vol]Ordere d By: Heather Lo on 12-09-2024 RBC (Bld) [#/Vol] 4.56 10*6/uL Low 4.6-6.2 [facility] Screening total cholesterol/ high density lipoprotein (HDL) cholesterol ratioOrdered By: Heather Lo on 12-09-2024 Cholesterol.total/Choles terol in HDL [Mass ratio] 2.53 {ratio} [facility] Serum creatinine measurement (mass/volume)Ordered By: Heather Lo on 12-09-2024 Creatinine [Mass/Vol] 0.74 mg/dL 0.70-1.20 [facility] Serum globulin measurementOr dered By: Heather Lo on 12-09-2024 Globulin (S) [Mass/Vol] 3.2 g/dL 2.2-4.2 [facility] Serum glucose measurement (m ass/volume)Ordered By: Heather Lo on 12-09-2024 Glucose [Mass/Vol] 78 mg/dL 70-99 [facility] Serum or plasma alanine holbrook otransferase (ALT) measurementOrdered By: Heather Lo on 12-09-2024 ALT [Catalytic activity/Vol] 11 U/L <47 [facility] Serum or plasma albumin stewart urement (mass/volume)Ordered By: Heather Lo on 12-09-2024 Albumin [Mass/Vol] 4.4 g/dL 3.5-5.0 [facility] Serum or plasma albumin/glob ulin mass ratioOrdered By: Heather Lo on 12-09-2024 Albumin/Globulin [Mass ratio] 1.4 {ratio} 0.9-2.4 [facility] Serum or plasma alkaline lauren sphatase measurementOrdered By: Heather Lo on 12-09-2024 ALP [Catalytic activity/Vol] 80 U/L 40-129 [facility] Serum or plasma calcium stewart urement (mass/volume)Ordered By: Heather Lo on 12-09-2024 Calcium [Mass/Vol] 9.3 mg/dL 7.6-11.0 [facility] Serum or plasma cholesterol in HDL measurement (mass/volume)Ordered By: Heather Lo on 12-09-2024 Cholesterol in HDL [Mass/Vol] 40 mg/dL >40 [facility] Comment on above: National Cholesterol Education Program (NCEP) guidelines:<40 mg/dL: Low HDL-cholesterol (major risk factor for CHD)>= 60 mg/dL: High HDL-cholesterol (negative risk factor for CHD)HDL-cholesterol is affected by a number of factors, e.g. smoking, exercise, hormones, sex and age. Serum or plasma cholesterol measurement (mass/volume)Ordered By: Heather Lo on 12-09-2024 Cholesterol [Mass/Vol] 100 mg/dL <201 [facility] Comment on above: Cholesterol level, D esirable <200 mg/dLBorderline high cholesterol 200-239 mg/dLHigh cholesterol >=240 mg/dLRecommendations of the NCEP Adult Treatment Panel for the following risk-cutoff thresholds for the [place] population. Serum or plasma ferritin davey surement (mass/volume)Ordered By: Heather Lo on 12-09-2024 Ferritin [Mass/Vol] 120 ng/mL 37-417 [facility] Serum or plasma urea nitroge n measurement (mass/volume)Ordered By: Heather Lo on 12-09-2024 Urea nitrogen [Mass/Vol] 10 mg/dL 4-19 [facility] Sodium levelOrdered By: Andrew Lo on 12-09-2024 Sodium [Moles/Vol] 140 mmol/L 133-145 [facility] TSH DL <= 0.005 mIU/L QnOrde red By: Heather Lo on 12-09-2024 TSH Qn 2.240 uIU/mL 0.300-4.200 [facility] Thyroid Stim Hormone (TSH)on 12-09-2024 TSH 2.240 uIU/mL Normal 0.300-4.200 [facility] Comment on above: Performed By: #### L 500.4100, L501.9985, L506.1001, L503.6550, L501.5200, L3100.5310, L501.9520, L503.0106, L100.0100, L500.4050 #### [facility] [place], [address] Total proteinOrdered By: Nohemi Lo on 12-09-2024 Protein [Mass/Vol] 7.5 g/dL 5.9-8.4 [facility] Triglycerides measurementOrd ered By: Heather Lo on 12-09-2024 Triglyceride [Mass/Vol] 78 mg/dL <199 [facility] Comment on above: The drugs N-Acetylcy steine and Metamizole may falsely depress this assay. Normal range: <150 mg/dLBorderline High: 150-199 mg/dLHigh: 200-499 mg/dLVery High: >500 mg/dL Vitamin B12on 12-09-2024 Cobalamin (Vitamin B12) [Mass/Vol] 385 pg/mL Normal 180-914 [facility] Comment on above: Performed By: #### L 500.4100, L501.9985, L506.1001, L503.6550, L501.5200, L3100.5310, L501.9520, L503.0106, L100.0100, L500.4050 #### [facility] [address] [facility] [address] [place], [address] Vitamin B12 ser/plasOrdered By: Heather Lo on 12-09-2024 Cobalamin (Vitamin B12) [Mass/Vol] 385 pg/mL 180-914 [facility] Vitamin D,25 Hydroxyon 12-09 Vitamin D 25-OH 30.4 ng/mL Normal 30-100 [facility] Comment on above: Result Comment: Jessika min D Status Deficiency: <20 ng/mL (50nmol/L) Insufficiency: 20-30 ng/mL (50-75 nmol/L) Sufficiency: 30-100 ng/mL (75-250 nmol/L) Toxicity: >100 ng/mL (>250 nmol/L) Performed By: #### L 500.4100, L501.9985, L506.1001, L503.6550, L501.5200, L3100.5310, L501.9520, L503.0106, L100.0100, L500.4050 #### [facility] [address] [place], [place], [id number] White blood cell (WBC) count Ordered By: Heather Lo on 12-09-2024 WBC (Bld) [#/Vol] 3.3 10*3/uL Low 4.4-11.0 [facility] Bacteria Ur Culton Bacteria identified Cx Nom (U) CULTURE, URINE: No growth (<1,000 CFU/ml) Normal [facility] Comment on above: Performed By: #### 6 30-4 #### [facility] CLIA [id number] [address] [place] [address] [facility] C. trachomatis+N. gonorrhoea e DNA JAZMIN+probe Ql (Unsp spec)on 10-31-2024 C. trachomatis rRNA JAZMIN+probe Ql (Unsp spec) Not detected Normal Not detected [facility] Comment on above: Order Comment: Speci men Type: URINE SPECIMEN Ordering Facility: [facility] Address: [address] [place] [address] Performed By: #### T RVAMP, 07860-4 #### [facility] CLIA [id number] [address] [place] [address] [place] N. gonorrhoeae rRNA JAZMIN+probe Ql (Unsp spec) Not detected Normal Not detected [facility] Comment on above: Order Comment: Speci men Type: URINE SPECIMEN Ordering Facility: [facility] Address: [address] [place] [address] Performed By: #### T RVAMP, 18213-9 #### [facility] CLIA [id number] [address] [place] [address] [place] CNOVon 10-31-2024 CNOV Office Visit (UCWSTR ) GERALDINE KAISER ([id number]) 2000 M Date Time Provider Department 10/31/24 4:30 PM DIOGENES BANKS [facility] During your visit today, we recorded the following information about you: Temperature Pulse Respiration Blood pressure 98.8 degrees 104/minute 18/minute 111/80 Weight 72.8 kg Diogenes Banks APRN.CASING WORKER 10/31/2024 4:55 PM Signed [facility] [...] with the plan. and Recording using ambient PlanZap software for draft documentation of the visit was discussed with the patient/authorized inbound call center representative; all questions welcomed and answered. Patient/authorized inbound call center representative agreed to proceed History and Record [...] with urination [R30.0] Order(s):UA DIP, URINE (POC) [[id number]] Order #: [id number]. #:[id number] BACTERIAL CULTURE, URINE [SQURCUL] Order #: [id number]. #:[id number] GONORRHEA/CHLAMYDIA NAAT [SQGCCT] Order #: [id number]. #:[id number] TRICHOMONAS VAGINALIS NAAT [SQTRVAMP] Order #: [id number] FUTURE TRICHOMONAS VAGINALIS NAAT [SQTRVAMP] Order #: [id number]. #:[id number] Prescriptions as of 10/31/2024 - SUBLOCADE 300 mg/1.5 mL injection - famotidine (PEPCID) 20 mg tablet Take 20 mg by mouth twice daily. - SUBLOCADE 100 mg/0.5 mL injection Problem List As Of Date 10/31/2024 Noted Resolved Urethral pain [R39.89] 02/23/2021 Cutaneous skin tags [L91.8] 02/23/2021 Encounter Status:Closed by DIOGENES BANKS on 10/31/[address] [facility] TRICHOMONAS VAGINALIS NAATon 10-31-2024 T. vaginalis DNA JAZMIN+probe Ql (Unsp spec) Not detected Normal Not detected [facility] Comment on above: Order Comment: Speci men Type: URINE SPECIMEN Ordering Facility: [facility] Address: [address] [place] [address] Performed By: #### T RVAMP, 92740-9 #### [facility] CLIA [id number] [address] [place] [address] [place] UA DIP, URINE (POC)on 2024 BILIRUBIN UA (POCT) Negative Negative [facility] CLARITY UA (POCT) Clear [facility] COLOR UA (POCT) Yellow [facility] GLUCOSE UA (POCT) Negative Negative mg/dL [facility] Hemoglobin Ql (U) Negative Negative [facility] KETONE UA (POCT) Negative Negative mg/dL [facility] LEUKOCYTES UA (POCT) Negative Negative [facility] NITRITE UA (POCT) Negative Negative [facility] PH UA (POCT) 7 4.5 - 8.0 [facility] Protein Ql (U) Negative Negative mg/dL [facility] SPECIFIC GRAVITY UA (POCT) 1.015 1.005 - 1.030 [facility] UROBILINOGEN UA (POCT) 0.2 Ignacia l E.U./dL [facility] Location:[facility], [address] [place] [address], [place], [place], [id number] [place] [address] POINT OF CARE [facility] [id number] 07-29-2024 [id number] BINDING PRINTER saw patient to discuss aftercare plans and treatment post discharge. Patient was reminded about appointments. Patient was provided information for [facility] to complete walk-in assessment and updated diagnostic assessment. Patient also provided phone number for [facility] and encouraged to make phone call in order to handle ongoing legal issues as well. Patient denied anything further at current time. Patient denied current SI/HI/AVH. Patient reported that their child's mother would be picking them up from the hospital and taking them back home. Patient denied needing anything further from [facility] at the time. YORDY informed patient's nurse about conversation. [facility] [phone] Social work consult placed for patient. After discussion of the 5 areas of SDH noted at current time. Social work consult cleared. [facility] Laboratory - Microbiology an d Antimicrobial susceptibilityOrdered By: Mily Mcgregor on 07-29-2024 Reagin Ab RPR Ql (S) Non-Reactive Nonreactive S [facility] Nursing Noteon 07-29-2024 Nursing Note 1220pm: Patient [...] Left the unit ambulatory with staff. Normal [facility] Nursing Note Patient withdrawn to room. Independent [...] concerns. Will continue to monitor for safety. [facility] Reagin Ab RPR Ql (S)Ordered By: Mily Mcgregor on 07-29-2024 Interpretation and review of laboratory results [facility] 30on 07-28-2024 30 Problem: Potential for [...] is maintained or improved Outcome: Progressing Normal [facility] Nursing Noteon 07-28-2024 Nursing Note Pt up independently. Mostly withdrawn to room except to use the phone. Pt calm and cooperative. No safety concerns noted. Pt denies SI/HI/AVH. Pt denies symptoms of withdrawal. Appetite good. Pt agreeable to make needs known to staff. COWS monitored. Safety checks continued. Normal [facility] Nursing Note Patient is A&O x4, cooperative, withdrawn to room. He is up steady, eating fair, compliant with medications. Activities encouraged. COWS monitored. Normal [facility] Nursing Note Pt remains withdrawn to room. Pt A&O X4 and independent. Pt cooperative with assessment and compliant with scheduled medication. Clonidine held d/t BP parameters. Appetite improving. Pt encouraged to make needs known to staff. COWS monitored. Safety checks continued. [facility] 30on 07-27-2024 30 Problem: Potential for Substance [...] is maintained or improved Outcome: Progressing Normal [facility] CHLAMYDIA/GONORRHEAon 2024 CHLAMYDIA/GONORRHEA NEISSERIA GONORRHOEA E DNA [...] should be collected if clinically indicated. Normal [facility] Comment on above: Performed By: #### L [id number] ####Corporate Travel Counselor: KATINA SURESH ([phone])[facility] ([address] N. gonorrhoeae DNA JAZMIN+probe Ql (Cervical mucus)on 07-27-2024 C. trachomatis DNA JAZMIN+probe Ql (Unsp spec) Not detected Not Detected [facility] Interpretation and review of laboratory results Normal [facility] N gonorrhoeae, DNA Probe Not detected Not Detec loco [facility] Methodology: real-time PCR This test is intended [...] specimen should be collected if clinically indicated. [facility] Nursing Noteon 07-27-2024 Nursing Note Patient is A&O x4, cooperative, withdrawn to room. He is up steady, eating fair, compliant with medications. Lab drawn and urine collected per order. Activities encouraged. COWS monitored. Normal [facility] Progress Noteon 07-27-2024 Progress Note Nutrition rescreen completed. Patient assigned a level 1. Normal [facility] RPR WITH REFLEX QUANTon RPR Non-Reactive Normal Nonreactive [facility] Comment on above: Performed By: #### L [id number] ####Corporate Travel Counselor: KATINA SURESH ([phone])[facility] ([facility])[address] [place] [address] [id number] 07-26-2024 [id number] Behavioral Health Psycho-Social Assessment (Social Work) Date: [...] has a history of outpatient treatment and skilled nursing due to substance use. At age 20 he was admitted to [facility] for detox. As well as [facility]. [...] He has been in and out of skilled nursing and [facility] for the last 12 months. No trauma or service. Family Constellation/Childho od History: Patient grew up in [place] with his parents and his 2 sisters. He is currently bouncing from couch to couch and was given an ultimatum that he needs to get sober if he wants to continue to have a place to stay. Education/Work: Client completed 9th grade. He is currently unemployed. Cultural/Spirituality /Leisure: Patient denied any mormon affiliation. He enjoys hanging out with friends [...] Plan: Patient would like to go to [facility]. He has made contact with them already. He is not amenable to going to others facilities. Patient encouraged to engage in all activities that are offered to them while they are on the unit. BINDING PRINTER will work to coordinate placement into [facility]. Comment: Please note this report has been produced using speech recognition software and may contain errors related to that system including errors in grammar, punctuation, and spelling, as well as words and phrases that may be inappropriate. If there are any questions or concerns please feel free to contact the dictating provider for clarification. Normal [facility] BUPRENORPHINE SCREENon 07-26 BUPRENORPHINE SCREEN-BUPR Positive Normal Negative [facility] Comment on above: Result Comment: DIAMOND Yang COMMENTS: Buprenorphine (Suboxone) has been screened for by Immunoassay at 5 ng/mL threshold. POSITIVE results are not confirmed by a more specific alternative method unless requested. If confirmation is needed, request confirmation under separate order. NOTE: These results are for medical treatment only. Analysis performed using non-forensic procedures. Performed By: #### L [id number] ####Corporate Travel Counselor: KATINA SURESH ([phone])[facility] ([facility])[address] [place] [address] COMPLETE URINALYSISon 2024 BACTERIA (#/HPF) IN URINE Negative Normal Negative [facility] Comment on above: Performed By: #### L [id number] ####Corporate Travel Counselor: KATINA SURESH ([phone])[facility] ([facility])[address] [place] [address] BILIRUBIN, TOTAL PRESENCE IN URINE Negative Normal Negative [facility] Comment on above: Performed By: #### L [id number] ####Corporate Travel Counselor: KATINA SURESH ([phone])[facility] ([facility])[address] [place] [address] CALCIUM OXALATE CRYSTALS (#/HPF) IN URINE Few Abnormal Negative [facility] Comment on above: Performed By: #### L [id number] ####Corporate Travel Counselor: KATINA SURESH ([phone])[facility] [place] [address] Clarity (U) Clear Normal Clear [facility] Comment on above: Performed By: #### L [id number] ####Corporate Travel Counselor: KATINA SURESH ([phone])[facility] ([facility])[address] [place] [address] Color (U) Yellow Normal Lt. Yellow [facility] Comment on above: Performed By: #### L [id number] ####Corporate Travel Counselor: KATINA SURESH ([phone])[facility] ([facility])[address] [place] [address] GLUCOSE (MG/DL) IN URINE Normal Normal Normal (<70 ) [facility] Comment on above: Performed By: #### L [id number] ####Corporate Travel Counselor: KATINA SURESH ([phone])[facility] ([facility])[address] [place] [address] HEMOGLOBIN PRESENCE IN URINE Negative Normal Negative [facility] Comment on above: Performed By: #### L [id number] ####Corporate Travel Counselor: KATINA SURESH ([phone])[facility] ([facility])[address] [place] [address] HYALINE CASTS (#/LPF) IN URINE SEDIMENT BY MICROSCOPY Negative Normal Negative [facility] Comment on above: Performed By: #### L [id number] ####Corporate Travel Counselor: KATINA SURESH ([phone])[facility] ([facility])[address] [place] [address] Ketones Ql (U) Negative Normal Negative [facility] Comment on above: Performed By: #### L [id number] ####Corporate Travel Counselor: KATINA SURESH ([phone])[facility] ([facility])[address] [place] [address] LEUKOCYTE ESTERASE PRESENCE IN URINE BY TEST STRIP 75 Cindy/uL Abnormal Negative [facility] Comment on above: Performed By: #### L [id number] ####Corporate Travel Counselor: KATINA SURESH ([phone])[facility] [place] [address] [place] MUCUS (#/LPF) IN URINE SEDIMENT Few Normal Negative [facility] Comment on above: Performed By: #### L [id number] ####Corporate Travel Counselor: KATINA SURESH ([phone])[facility] ([facility])[address] [place] [address] NITRITE PRESENCE IN URINE Negative Normal Negative [facility] Comment on above: Performed By: #### L [id number] ####Corporate Travel Counselor: KATINA SURESH ([phone])[facility] ([facility])[address] [place] [address] pH (U) 6.0 [pH] Normal 5.0-8.0 [facility] Comment on above: Performed By: #### L [id number] ####Corporate Travel Counselor: KATINA SURESH ([phone])[facility] ([facility])[address] [place] [address] Protein (U) [Mass/Vol] 30 mg/dL Abnormal Negative [facility] Comment on above: Performed By: #### L [id number] ####Corporate Travel Counselor: KATINA SURESH ([phone])[facility] ([facility])[address] [place] [address] [place] RBC (#/HPF) IN URINE SEDIMENT 3-5 Abnormal 0-2 [facility] Comment on above: Performed By: #### L [id number] ####Corporate Travel Counselor: KATINA SURESH ([phone])[facility] ([facility])[address] [place] [address] Specific gravity (U) [Rel density] 1.018 Normal 1.005-1.030 [facility] Comment on above: Performed By: #### L [id number] ####Corporate Travel Counselor: KATINA SURESH ([phone])[facility] ([facility])[address] [place] [address] [place] SPERMATOZOA (#/HPF) IN URINE SEDIMENT Many Abnormal Negative [facility] Comment on above: Performed By: #### L [id number] ####Corporate Travel Counselor: KATINA SURESH ([phone])[facility] ([facility])[address] [place] [address] [place] SQUAMOUS EPITHELIAL CELLS (#/HPF) IN URINE SEDIMENT Negative Normal 3-5 [facility] Comment on above: Performed By: #### L [id number] ####Corporate Travel Counselor: KATINA SURESH ([phone])[facility] ([facility])[address] [place] [address] UROBILINOGEN (MG/DL) IN URINE Normal Normal Normal (0-1) [facility] Comment on above: Performed By: #### L [id number] ####Corporate Travel Counselor: KATINA SURESH ([phone])[facility] ([facility])[address] [place] [address] WBC (LEUKOCYTE) (#/HPF) IN URINE SEDIMENT 6-10 Abnormal 0-5 [facility] Comment on above: Performed By: #### L [id number] ####Corporate Travel Counselor: KATINA SURESH ([phone])[facility] ([facility])[address] [place] [address] DRUGS OF ABUSEon 07-26-2024 AMPHETAMINE SCREEN Positive Normal [facility] Comment on above: Performed By: #### L [id number] ####Corporate Travel Counselor: KATINA SURESH ([phone])[facility] ([facility])[address] [place] [address] BARBITURATES SCREEN Negative Normal [facility] Comment on above: Performed By: #### L [id number] ####Corporate Travel Counselor: KATINA SURESH ([phone])[facility] ([facility])[address] [place] [address] BENZODIAZEPINE SCREEN Negative Normal [facility] Comment on above: Performed By: #### L [id number] ####Corporate Travel Counselor: KATINA SURESH ([phone])[facility] ([facility])[address] [place] [address] COCAINE METAB. SCREEN Negative Normal [facility] Comment on above: Performed By: #### L [id number] ####Corporate Travel Counselor: KATINA SURESH ([phone])[facility] ([facility])[address] [place] [address] FENTANYL SCREEN, UR QUAL Positive Normal [facility] Comment on above: Result Comment: DIAMOND [...] under separate order. Performed By: #### L [id number] ####Corporate Travel Counselor: KATINA SURESH ([phone])[facility] ([facility])[address] [place] [address] METHADONE SCREEN Negative Normal [facility] Comment on above: Performed By: #### L [id number] ####Corporate Travel Counselor: KATINA SURESH ([phone])[facility] ([facility])[address] [place] [address] OPIATES SCREEN Negative Normal [facility] [facility] Comment on above: Performed By: #### L [id number] ####Corporate Travel Counselor: KATINA SURESH ([phone])[facility] ([facility])[address] [place] [address] OXYCODONE SCREEN Negative [facility] Comment on above: Performed By: #### L [id number] ####Corporate Travel Counselor: KATINA SURESH ([phone])[facility] ([facility])[address] [place] [address] PHENCYCLIDINE SCREEN Negative Normal [facility] Comment on above: Performed By: #### L [id number] ####Corporate Travel Counselor: KATINA SURESH ([phone])[facility])[address] [place] [address] ECG 12-LEADon 07-26-2024 ECG 12-LEAD IMPRESSION: Sinus tachycardia No change compared to previous ekg Electronically Signed On 07-26-2024 01:40:24 EST by Floyd Sweet [facility] ED Nursing Noteon 07-26-2024 ED Nursing Note Patient transported to 4E detox with protective services and cryogenic transport driver. Stable on departure from Ed [facility] ED Nursing Note Transport present, protective services called for belongings check and transport to 4E [facility] ED Nursing Note Report called to KIM Wiggins on 4E Detox [facility] ED Nursing Note Warm blanket and pillow provided to patient Normal [facility] Hepatitis 1998 panel (S)on 0 07-26-2024 HAV IgM IA Ql Not detected Not Detected [facility] ealt HBV core IgM IA Ql Not detected Not Detected [facility] HBV surface Ag IA Ql Not detected Not Detected [facility] HCV Ab IA Ql Not detected Not Detected [facility] alth Comment on above: Patients with DETECT ED Hepatitis C Ab results should have a new specimen submitted for supplemental testing with a Hepatitis C Quantitative RNA assay (viral load), if clinically indicated. Laboratory - Drug toxicology on 07-26-2024 Amphetamines Screen method >1000 ng/mL Ql (U) Positive [facility] Barbiturates Screen method >200 ng/mL Ql (U) Negative [facility] Benzodiazepines Ql (U) Negative [facility] Methadone Screen Ql (U) Negative S [facility] Opiates Screen Ql (U) Negative [facility] oxyCODONE Ql (U) Negative [facility] alth Phencyclidine Ql (U) Negative [facility] Laboratory - Microbiology an d Antimicrobial susceptibilityon 07-26-2024 HIV 1+2 Ab+HIV1 p24 Ag IA Ql Non-Reactive Nonreactive [facility] Comment on above: The specimen was non -reactive for HIV-1 and HIV-2 antibodies and p24 antigen using an FDA-cleared 4th generation HIV test. Based on this non-reactive screen result, further reflexive testing was not indicated and was, therefore, not performed. No Panel Informationon 07-26 Interpretation and review of laboratory results Normal [facility] COCAINE METAB. SCREEN Negative [facility] FENTANYL SCREEN, UR QUAL Positive [facility] The expected value for all of [...] is needed, request confirmation under separate order. [facility] P Rawlings 66 degrees [facility] OR Interval 144 ms [facility] QRS Rawlings 70 degrees [facility] QRSD Interval 80 ms [facility] QT Interval 337 ms [facility] QTC Interval 454 ms [facility] T Wave Rawlings 59 degrees [facility] Sinus tachycardia No change compared to previous ekg Electronically Signed On 07-26-2024 01:40:24 EST by Floyd Cobb M D - 07/26/2024 IMPRESSION: Sinus tachycardia No change compared to previous ekg Electronically Signed On 07-26-2024 01:40:24 EST by Floyd Sweet [facility] No Panel InformationOrdered By: Fabian Mai on 07-26-2024 BUPRENORPHINE SCREEN Positive Negative [facility] Buprenorphine (Suboxone) has been screened for by Immunoassay at 5 ng/mL threshold. POSITIVE results are not confirmed by a more specific alternative method unless requested. If confirmation is needed, request confirmation under separate order. NOTE: These results are for medical treatment only. Analysis performed using non-forensic procedures. [facility] Nursing Noteon 07-26-2024 Nursing Note Pt withdrawn to room , approached resting in bed. Pt A&O X4. Pt cooperative with assessment and compliant with scheduled medication. Clonidine held at this time, order parameters not met. Pt denies SI/HI/AVH. Pt independent with ADLs. Pt encouraged to make needs known to staff and notify nurse of changes in symptoms. COWS monitored. Safety checks continued. Normal [facility] Nursing Note Patient withdrawn to room. Patient startles easily, restless and has a difficult time keeping eyes open. Patient currently sitting on edge of bed rocking self. Denies SI/HI/AVH thus far. Compliant with medications and treatment offered. Appetite and sleep poor, hygiene adequate. Encouraged to approach staff with any changes or concerns. Will continue to monitor for safety. Normal [facility] Nursing Note Pt arrived from ER via [...] condition. Will monitor pt for safety. Normal [facility] Urinalysis complete panel (U )Ordered By: Sunitha Street on 07-26-2024 Bacteria LM.HPF (Urine sed) [#/Area] Negative Negative /HPF [facility] Bilirubin Ql (U) Negative Negative mg/dL [facility] Calcium oxalate crystals LM.HPF (Urine sed) [#/Area] Few Abnormal Negative /HPF [facility] Clarity (U) Clear Clear [facility] Color (U) Yellow Lt. Yellow [facility] Epithelial cells.squamous LM.HPF (Urine sed) [#/Area] Negative [facility] Glucose Ql (U) Normal Normal (<70) mg/dL [facility] Hemoglobin Ql (U) Negative Negative mg/dL [facility] Hyaline casts Auto (Urine sed) [#/Area] Negative Negative /LPF [facility] Interpretation and review of laboratory results Abnormal [facility] Ketones (U) [Mass/Vol] Negative Negat carlitos mg/dL [facility] Leukocyte esterase Test strip Ql (U) 75 Abnormal Negative Cindy/uL [facility] Mucus LM.HPF (Urine sed) [#/Area] Few Negative /LPF [facility] Nitrite Ql (U) Negative Negative [facility] th pH (U) 6.0 [pH] 5.0 - 8.0 pH [facility] Protein (U) [Mass/Vol] 30 mg/dL Abnormal Negative [facility] RBC LM.HPF (Urine sed) [#/Area] 3-5 Abnormal [facility] Specific gravity (U) [Rel density] 1.018 1.005 - 1.030 [facility] Spermatozoa LM.HPF (Urine sed) [#/Area] Many Abnormal Negative /HPF [facility] Urobilinogen (U) [Mass/Vol] Normal Normal (0-1) mg/dL [facility] WBC LM.HPF (Urine sed) [#/Area] 6-10 Abnormal [facility] Vital signson 07-26-2024 Heart rate 109 /min bpm [facility] BASIC METABOLIC PANELon Anion gap [Moles/Vol] 8 mmol/L Normal 3-13 [facility] Comment on above: Performed By: #### L [id number], LAB20, LAB15 ####Corporate Travel Counselor: KATINA SURESH ([phone])[facility])[address] [place] [address] Calcium [Mass/Vol] 8.9 mg/dL Normal 8.4-10.2 [facility] Comment on above: Performed By: #### L [id number], LAB20, LAB15 ####Corporate Travel Counselor: KATINA SURESH ([phone])[facility] ([facility])[address] [place] [address] [place] Chloride [Moles/Vol] 101 mmol/L Normal 98-107 [facility] Comment on above: Performed By: #### L [id number], LAB20, LAB15 ####Corporate Travel Counselor: KATINA SURESH ([phone])[facility] ([facility])[address] [place] [address] [place] CO2 [Moles/Vol] 23 mmol/L Normal 22-29 [facility] Comment on above: Performed By: #### L [id number], LAB20, LAB15 ####Corporate Travel Counselor: KATINA SURESH ([phone])[facility])[address] [place] [address] Creatinine [Mass/Vol] 0.83 mg/dL Normal 0.72-1.25 [facility] Comment on above: Performed By: #### L [id number], LAB20, LAB15 ####Corporate Travel Counselor: KATINA SURESH ([phone])[facility])[address] [place] [address] GLOMERULAR FILTRATION RATE ML/MIN/1.73 SQ M.PREDICTED >90.0 Normal >60.0 [facility] Comment on above: Result Comment: Calc ulation based on the Chronic Kidney Disease Epidemiology Collaboration (CKD-EPI) equation refit without adjustment for race Performed By: #### L AB46, LAB20, LAB15 ####Corporate Travel Counselor: KATINA SURESH ([phone])[facility])[address] [place] [address] Glucose [Mass/Vol] 115 mg/dL High 74-100 [facility] Comment on above: Performed By: #### L AB46, LAB20, LAB15 ####Corporate Travel Counselor: KATINA SURESH ([phone])[address] Potassium [Moles/Vol] 3.8 mmol/L Normal 3.5-5.1 [facility] Comment on above: Result Comment: [facility] potassium values may be up to 0.5 mmol/L lower than serum values. Performed By: #### L AB46, LAB20, LAB15 ####Corporate Travel Counselor: KATINA SURESH ([phone])[facility])[address] [place] [address] [place] Sodium [Moles/Vol] 132 mmol/L Low 136-145 [facility] Comment on above: Performed By: #### L [id number], LAB20, LAB15 ####Corporate Travel Counselor: KATINA SURESH ([phone])[facility])[address] [place] [address] [place] Urea nitrogen [Mass/Vol] 11 mg/dL Normal 8-21 [facility] Comment on above: Performed By: #### L AB46, LAB20, LAB15 ####Corporate Travel Counselor: KATINA SURESH ([phone])[facility] ([facility])[address] Basic metabolic 2000 panelon 07-25-2024 Anion gap [Moles/Vol] 8 mmol/L 3 - 13 mmol/L [facility] Calcium [Mass/Vol] 8.9 mg/dL 8.4 - 10. 2 mg/dL [facility] Chloride [Moles/Vol] 101 mmol/L 98 - 10 7 mmol/L [facility] CO2 [Moles/Vol] 23 mmol/L 22 - 29 mmol/L [facility] Creatinine [Mass/Vol] 0.83 mg/dL 0.72 - 1.25 mg/dL [facility] GFR/1.73 sq M.predicted (S/P/Bld) [Vol rate/Area] - PINF [facility] Comment on above: Calculation based on the Chronic Kidney Disease Epidemiology Collaboration (CKD-EPI) equation refit without adjustment for race Glucose [Mass/Vol] 115 mg/dL High 74 - 100 mg/dL [facility] Interpretation and review of laboratory results Abnormal [facility] Potassium [Moles/Vol] 3.8 mmol/L 3.5 - 5.1 mmol/L [facility] Comment on above: Plasma potassium june ues may be up to 0.5 mmol/L lower than serum values. Sodium [Moles/Vol] 132 mmol/L Low 136 - 145 mmol/L [facility] [employer] Urea nitrogen [Mass/Vol] 11 mg/dL 8 - 21 mg/d L [facility] CBC W Auto Differential pane l (Bld)on 07-25-2024 Basophils (Bld) [#/Vol] 0 10*3/uL 0.0 - 0.2 10*3/uL [facility] Basophils/100 WBC (Bld) 0.7 % 0.0 - 2.0 % [facility] Eosinophils (Bld) [#/Vol] 0.1 10*3/uL 0.0 - 0.5 10*3/uL [facility] Eosinophils/100 WBC (Bld) 1.6 % 0.0 - 6.0 % [facility] [employer] Erythrocyte distribution width (RBC) [Ratio] 13.5 % 11.5 - 15.0 % [facility] Hematocrit (Bld) [Volume fraction] 38.1 % Low 40.0 - 52.0 % [facility] Hemoglobin (Bld) [Mass/Vol] 12.9 g/dL Low 13.0 - 18.0 g/dL [facility] Immature granulocytes (Bld) [#/Vol] 0 10*3/uL NINF - 0.1 10*3/uL [facility] Immature granulocytes/100 WBC (Bld) 0.2 % 0.0 - 2.0 % [facility] Interpretation and review of laboratory results Abnormal [facility] Lymphocytes (Bld) [#/Vol] 1.2 10*3/uL 1.0 - 4.3 10*3/uL [facility] Lymphocytes/100 WBC (Bld) 21.2 % 15.0 - 45.0 % [facility] MCH (RBC) [Entitic mass] 29.3 pg 26. 0 - 34.0 pg [facility] MCHC (RBC) [Mass/Vol] 33.9 % 30.5 - 36.0 % [facility] MCV (RBC) [Entitic vol] 86.6 fL 77.0 - 99.0 fL [facility] Monocytes (Bld) [#/Vol] 0.5 10*3/uL 0.0 - 0.9 10*3/uL [facility] Monocytes/100 WBC (Bld) 9.1 % 5.0 - 13.0 % [facility] Neutrophils (Bld) [#/Vol] 3.7 10*3/uL 1.8 - 7.5 10*3/uL [facility] Neutrophils/100 WBC (Bld) 67.2 % 38.0 - 82.0 % [facility] Nucleated RBC/100 WBC (Bld) [Ratio] 0 % [facility] Platelet mean volume (Bld) [Entitic vol] 9.5 fL 9.0 - 12.7 fL [facility] Platelets (Bld) [#/Vol] 190 10*3/uL 140 - 440 10*3/uL [facility] RBC (Bld) [#/Vol] 4.4 10*6/uL 4.40 - 5.9 0 10*6/uL [facility] WBC (Bld) [#/Vol] 5.5 10*3/uL 3.6 - 10.7 10*3/uL [facility] CBC WITH AUTO DIFFERENTIALon 07-25-2024 Basophils (Bld) [#/Vol] 0.0 10*3/uL Normal 0.0-0.2 [facility] Comment on above: Performed By: #### L [id number] ####Corporate Travel Counselor: KATINA SURESH ([phone])[facility])[address] [place] [address] Basophils/100 WBC (Bld) 0.7 % Normal 0.0-2.0 S [facility] Comment on above: Performed By: #### L [id number] ####Corporate Travel Counselor: KATINA SURESH ([phone])[facility])[address] [place] [address] Eosinophils (Bld) [#/Vol] 0.1 10*3/uL Normal 0.0-0.5 [facility] Comment on above: Performed By: #### L [id number] ####Corporate Travel Counselor: KATINA SURESH ([phone])[facility])[address] [place] [address] Eosinophils/100 WBC (Bld) 1.6 % Normal 0.0-6.0 [facility] Comment on above: Performed By: #### L [id number] ####Corporate Travel Counselor: KATINA SURESH ([phone])[facility])[address] [place] [address] Erythrocyte distribution width (RBC) [Ratio] 13.5 % Normal 11.5-15.0 [facility] Comment on above: Performed By: #### L [id number] ####Corporate Travel Counselor: KATINA SURESH ([phone])[facility])[address] [place] [address] Hematocrit (Bld) [Volume fraction] 38.1 % Low 40.0-52.0 [facility] Comment on above: Performed By: #### L [id number] ####Corporate Travel Counselor: KATINA [phone])[facility])[address] [place] [address] Hemoglobin (Bld) [Mass/Vol] 12.9 g/dL Low 13.0-18.0 [facility] Comment on above: Performed By: #### L [id number] ####Corporate Travel Counselor: KATINA SURESH ([phone])[facility])[address] [place] [address] IMMATURE GRANS % 0.2 % Normal 0.0-2.0 [facility] Comment on above: Performed By: #### L [id number] ####Corporate Travel Counselor: KATINA SURESH ([phone])[facility])[address] [place] [address] IMMATURE GRANS ABSOLUTE 0.0 10*3/uL Normal <0.1 [facility] Comment on above: Performed By: #### L [id number] ####Corporate Travel Counselor: KATINA SURESH ([phone])[facility])[address] [place] [address] Lymphocytes (Bld) [#/Vol] 1.2 10*3/uL Normal 1.0-4.3 [facility] Comment on above: Performed By: #### L [id number] ####Corporate Travel Counselor: KATINA SURESH ([phone])[facility])[address] [place] [address] Lymphocytes/100 WBC (Bld) 21.2 % Normal 15.0-45.0 [facility] Comment on above: Performed By: #### L [id number] ####Corporate Travel Counselor: KATINA SURESH ([phone])[facility])[address] [place] [address] MCH (RBC) [Entitic mass] 29.3 pg Normal 26.0-34.0 [facility] Comment on above: Performed By: #### L [id number] ####Corporate Travel Counselor: KATINA SURESH ([phone])[facility])[address] [place] [address] MCHC 33.9 % Normal 30.5-36.0 [facility] Comment on above: Performed By: #### L [id number] ####Corporate Travel Counselor: KATINA SURESH ([phone])[facility] ([facility])[address] [place] [address] MCV (RBC) [Entitic vol] 86.6 fL Normal 77.0-99.0 S [facility] Comment on above: Performed By: #### L [id number] ####Corporate Travel Counselor: KAITNA SURESH ([phone])[facility] ([facility])[address] [place] [address] Monocytes (Bld) [#/Vol] 0.5 10*3/uL Normal 0.0-0.9 [facility] Comment on above: Performed By: #### L [id number] ####Corporate Travel Counselor: KATINA SURESH ([phone])[facility] ([facility])[address] [place] [address] Monocytes/100 WBC (Bld) 9.1 % Normal 5.0-13.0 S [facility] Comment on above: Performed By: #### L [id number] ####Corporate Travel Counselor: KATINA SURESH ([phone])[facility] ([facility])[address] [place] [address] NEUTROPHILS ABSOLUTE 3.7 10*3/uL Normal 1.8-7.5 [facility] Comment on above: Performed By: #### L [id number] ####Corporate Travel Counselor: KATINA SURESH ([phone])[facility] ([facility])[address] [place] [address] Neutrophils/100 WBC (Bld) 67.2 % Normal 38.0-82.0 [facility] Comment on above: Performed By: #### L [id number] ####Corporate Travel Counselor: KATINA SURESH ([phone])[facility])[address] [place] [address] NRBC 0.0 /100 WBCs Normal 0.0-2.0 [facility] Comment on above: Performed By: #### L [id number] ####Corporate Travel Counselor: KATINA SURESH ([phone])[facility] ([facility])[address] [place] [address] Platelet mean volume (Bld) [Entitic vol] 9.5 fL Normal 9.0-12.7 [facility] Comment on above: Performed By: #### L [id number] ####Corporate Travel Counselor: KATINA SURESH ([phone])[facility] ([facility])[address] [place] [address] Platelets (Bld) [#/Vol] 190 10*3/uL Normal 140-440 [facility] Comment on above: Performed By: #### L [id number] ####Corporate Travel Counselor: KATINA SURESH ([phone])[facility] ([facility])[address] [place] [address] RBC (Bld) [#/Vol] 4.40 10*6/uL Normal 4.40-5.90 [facility] Comment on above: Performed By: #### L [id number] ####Corporate Travel Counselor: KATINA SURESH ([phone])[facility])[address] [place] [address] WBC (Bld) [#/Vol] 5.5 10*3/uL Normal 3.6-10.7 [facility] Comment on above: Performed By: #### L [id number] ####Corporate Travel Counselor: KATINA SURESH ([phone])[facility])[address] [place] [address] ED Provider Noteon ED Provider Note Emergency [...] dictating provider for clarification.) Floyd Sweet MD [facility] Floyd Sweet MD 07/25/24 [address] [facility] ED Provider Note EMERGENCY DEPARTMENT ENCOUNTER Pt Name: Geraldine Kaiser Birthdate 2000 Date of evaluation: 07/25/2024 ED Provider: Marcelino Mathias, VANITA [employer] WORK[employer] EDcare was supervised by Dr. Sweet who [...] Past Medical History: Diagnosis Date Drug abuse ([facility] ([facility]) Polysubstance abuse ([facility]) ([facility]) Rhabdomyolysis 01/2017 SURGICAL HISTORY Past Surgical History: [...] lymphadenopathy no (more content not included)... Normal [facility] ETHANOLon 07-25-2024 ETHANOL IN SER/PLAS <10 Normal <10 [facility] Comment on above: Result Comment: DIAMOND Yang COMMENTS: PRODUCT COORDINATOR depression is seen >100 mg/dL. NOTE: This result is for medical treatment only. Analysis performed using non-forensic procedures. Performed By: #### L [id number], LAB20, LAB15 ####Corporate Travel Counselor: KATINA SURESH ([phone])[facility] ([address] Ethanol (Bld) [Mass/Vol]on 0 07-25-2024 Ethanol [Mass/Vol] mg/dL NINF - 10 mg/dL [facility] Interpretation and review of laboratory results Normal [facility] PRODUCT COORDINATOR depression is seen >100 mg/dL. NOTE: This result is for medical treatment only. Analysis performed using non-forensic procedures. [facility] HEPATIC FUNCTION PANELon Albumin [Mass/Vol] 4.0 g/dL Normal 3.5-5.0 [facility] Comment on above: Performed By: #### L AB46, LAB20, LAB15 ####Corporate Travel Counselor: KATINA SURESH ([phone])[facility] ([facility])[address] [place] [address] ALP [Catalytic activity/Vol] 53 U/L Normal 40-150 [facility] Comment on above: Performed By: #### L AB46, LAB20, LAB15 ####Corporate Travel Counselor: KATINA SURESH ([phone])[facility] ([facility])[address] [place] [address] ALT [Catalytic activity/Vol] 21 U/L Normal <40 [facility] Comment on above: Performed By: #### L [id number], LAB20, LAB15 ####Corporate Travel Counselor: KATINA SURESH ([phone])[facility] ([facility])[address] [place] [address] AST [Catalytic activity/Vol] 40 U/L High <34 [facility] Comment on above: Performed By: #### L [id number], LAB20, LAB15 ####Corporate Travel Counselor: KATINA SURESH ([phone])[facility] ([facility])[address] [place] [address] Bilirubin [Mass/Vol] 0.8 mg/dL Normal <1.2 [facility] Comment on above: Performed By: #### L AB46, LAB20, LAB15 ####Corporate Travel Counselor: KATINA SURESH ([phone])[facility] ([facility])[address] [place] [address] Bilirubin.indirect [Mass/Vol] 0.3 mg/dL Normal <0.5 [facility] Comment on above: Performed By: #### L AB46, LAB20, LAB15 ####Corporate Travel Counselor: KATINA SURESH ([phone])[facility])[address] [place] [address] Protein [Mass/Vol] 7.2 g/dL Normal 6.4-8.3 [facility] Comment on above: Result Comment: Seru m protein values are higher than plasma values. Samples from recumbent persons are lower by up to 0.5 g/dL as compared to ambulatory persons. After 60 years values are lower by up to 0.2 g/dL. Performed By: #### L AB46, LAB20, LAB15 ####Corporate Travel Counselor: KATINA SURESH ([phone])[facility])[address] [place] [address] HEPATITIS PANEL, ACUTEon HCV Ab IA Ql Not detected Normal Not Detected [facility] Comment on above: Result Comment: Xin ents with DETECTED Hepatitis C Ab results should have a new specimen submitted for supplemental testing with a Hepatitis C Quantitative RNA assay (viral load), if clinically indicated. Performed By: #### L [id number] ####Corporate Travel Counselor: KATINA SURESH ([phone])[facility])[address] [place] [address] HEPATITIS A VIRUS AB, IGM Not detected Normal Not Detected [facility] Comment on above: Performed By: #### L [id number] ####Corporate Travel Counselor: KATINA SURESH ([phone])[facility])[address] [place] [address] HEPATITIS B VIRUS CORE IGM AB Not detected Normal Not Detected [facility] Comment on above: Performed By: #### L [id number] ####Corporate Travel Counselor: KATINA SURESH ([phone])[address] HEPATITIS B VIRUS SURFACE AG Not detected Normal Not Detected [facility] Comment on above: Performed By: #### L [id number] ####Corporate Travel Counselor: KATINA SURESH ([phone])[facility])[address] [place] [address] HIV1,2 COMBO ANTIGEN-ANTIBOD Y SCREENon 07-25-2024 HIV 1,2 COMBO ANTIGEN/ANTIBODY Non-Reactive Normal Nonreactive [facility] Comment on above: Result Comment: The specimen was non-reactive for HIV-1 and HIV-2 antibodies and p24 antigen using an FDA-cleared 4th generation HIV test. Based on this non-reactive screen result, further reflexive testing was not indicated and was, therefore, not performed. Performed By: #### L [id number] ####Corporate Travel Counselor: KATINA SURESH ([phone])[facility] ([facility])[address] [place] [address] Hepatic function 2000 panelo n 07-25-2024 Albumin [Mass/Vol] 4 g/dL 3.5 - 5.0 g/dL [facility] ALP [Catalytic activity/Vol] 53 U/L 40 - 150 U/L [facility] ALT [Catalytic activity/Vol] 21 U/L NINF - 40 U/L [facility] AST [Catalytic activity/Vol] 40 U/L High NINF - 34 U/L [facility] Bilirubin [Mass/Vol] 0.8 mg/dL NINF - 1.2 mg/dL [facility] Bilirubin.conjugated [Mass/Vol] 0.3 mg/dL [facility] 0.[facility] mg/dL [facility] Interpretation and review of laboratory results Abnormal [facility] Protein [Mass/Vol] 7.2 g/dL 6.4 - 8.3 g/dL [facility] Comment on above: Serum protein values are higher than plasma values. Samples from recumbent persons are lower by up to 0.5 g/dL as compared to ambulatory persons. After 60 years values are lower by up to 0.2 g/dL. [facility] Laboratory - Microbiology an d Antimicrobial susceptibilityOrdered By: Jacquelyn Kam on 07-25-2024 SARS-CoV-2 (COVID-19) Ag IA.rapid Ql (Resp) Negative Negative [facility] Comment on above: A negative result do es not rule out the possibility of SARS-CoV-2 infection. NAAT-based methods should be considered for symptomatic patients presenting greater than seven days after onset of symptoms. Method: Lateral flow immunoassay. Fact sheets for healthcare providers and patients can be found at the following sites: https://www.fda.gov/media/014534/download https://www.fda.gov/media/531357/download No Panel Informationon 07-25 [facility] SARS-COV-2 ANTIGENon 025 SARS-COV-2 ANTIGEN SARS-COV-2 ANTIGEN -BINAX Reference Negative Negative A negative result does not rule out the possibility of SARS-CoV-2 infection. NAAT-based methods should be considered for symptomatic patients presenting greater than seven days after onset of symptoms. Method: Lateral flow immunoassay. Fact sheets for healthcare providers and patients can be found at the following sites: https://www.[facility].gov/m edia/870336/download https://www.[facility].gov/ edia/748448/download [facility] Comment on above: Performed By: #### L [id number] ####Corporate Travel Counselor: KATINA SURESH ([phone])[facility] ([facility])[address] [place] [address] SARS-CoV-2 (COVID-19) Ag IA. rapid Ql (Resp)Ordered By: Jacquelyn Kam on 07-25-2024 Interpretation and review of laboratory results [facility] Progress Noteon 01-04-2024 Progress Note Geraldine Kaiser was seen in [facility] ED on 01/03/2024 Reason:Sprain of right wrist ED visits in last yr:6 Hosp/ED adm risk %:69 Last IMC Appointment: 05/24/2023 Next IMC Appointment: Visit date not found Per ED discharge instructions: Take prescribed medications as ordered, follow up with PCP in three days Attempted to contact patient, check status and assist with follow up per discharge instructions with the following results: Sent Kormeli message to patient [facility] ED Nursing Noteon 01-03-2024 ED Nursing Note Pt presents to ED c/ o right wrist pain after falling on his wrist one week ago. Normal [facility] ED Provider Noteon ED Provider Note [facility] ED eMERGENCY dEPARTMENT eNCOUnter Pt Name: [...] Past Medical History: Diagnosis Date Drug abuse ([facility] ([facility]) Polysubstance abuse ([facility]) ([facility]) Rhabdomyolysis 01/2017 SURGICALHISTORY Past Surgical History: Procedure [...] No d (more content not included)... Normal [facility] XR Wrist - right 3 Viewson 0 01-03-2024 1. No acute osseous abnormality. Report Dictated on Electronically Signed By: Prasanth Mosqueda MD Electronically Signed Date/Time: 01/03/2024 5:42 PM EDT [facility] RADIOLOGY SYSTEM Patient Name: GERALDINE KAISER : [...] Joint spaces maintained. Soft tissues grossly unremarkable. [facility] Prasanth Mosqueda MD - 01/03/2024 Patient [...] Electronically Signed Date/Time: 01/03/2024 5:42 PM EDT [facility] Radiology Study observation (narrative) [facility] alth XR Wrist - right 3 ViewsOrde red By: Prasanth Mosqueda on 01-03-2024 [facility] [employer] Work Phone: Office Visiton 11-21-2023 Follow-up visit [id number] Geraldine Kaiser Andreia 2000 M Date Provider Department Center 11/21/2023 [id number] HERNANDEZ [facility] None Family History Problem Relation Age of Onset No Known Problems Mother No Known Problems Father Substance Abuse Mother's Brother Family Status - Relation Status Age at Mother Alive Father Alive Mother's Brother Level of Service:30331 OR OFFICE/OUTPATIENT ESTABLISHED LOW MDM 20 MIN Reason for Visit and Comments: Follow-up [313993] - Evaluation for pilonidal abscess OTHER [Other] - Pt unaccompanied Normal [facility] PATINSon 11-21-2023 PATINS -On exam do not [...] redness, swelling, drainage, fevers contact office. Normal [facility] Progress Noteon 11-21-2023 Progress Note Onset pain for 2 weeks. Describes 2/10 on pain scale. Denies fevers, drainage. Normal [facility] Progress Note COLORECTAL SURGERY OFFICE VISIT PATIENT [...] Past Medical History: Diagnosis Date Drug abuse ([facility] ([facility]) Polysubstance abuse ([facility]) ([facility]) Rhabdomyolysis 01/2017 Past Surgical History: Procedure Laterality [...] fluctuance No pain Exam chaperoned by female technical staff assistant. ASSESSMENT/PLAN: Diagnosis Plan 1. Coccydynia S/p pilonidal surgery 05/11/23 Well healed scar No signs of infection or recurrent cyst/abscess Recommend not taking antibiotics rx'd elsewhere Ice or heating pad Soft cushion Tylenol/ibuprofen for pain Follow up if symptoms worsen or fail to improve. Shahnaz Hernandez MD [facility] [address] [facility] [address], [address] [place] [id number] p [phone] f [phone] [facility] 36on 11-17-2023 36 Patient contacted office, related recommendation patient verbalized understanding and will proceed as discussed. [facility] 36 Patient contacted office requesting an appointment. [...] verbalized understanding and can be reached at [phone] ext. [phone] [facility] ED NOTEon 11-17-2023 ED NOTE HNO ID: [id number] Author: JOSUÉ TOVAR RN Service: ? Author Type: Registered Nurse Type: ED Notes Filed: 11/17/2023 11:38 Note Text: [facility] Expected date: Expected time: Means of arrival: Comments: CLOSED [facility] ED PROV NOTEon 11-17-2023 ED PROV NOTE HNO ID: [id number] Author: VIJI MARIE PA-C Service: Emergency Medicine Author Type: Physician Art Director Type: ED Provider Notes Filed: 11/17/2023 12:11 [...] SIGNATURE: COSMO Khan KELCIE 11/17/23 1211 Normal [facility] Office Visiton 11-12-2023 Follow-up visit [id number] Pepper Kaisernathan Andreia 2000 M Date Provider Department Center 11/12/2023 [id number] [facility] None Family History Problem Relation Age of Onset No Known Problems Mother No Known Problems Father Substance Abuse Mother's Brother Family Status - Relation Status Age at Mother Alive Father Alive Mother's Brother Level of Service:17375 OR OFFICE/OUTPATIENT NEW LOW MDM 30 MINUTES Reason for Visit and Comments: Conjunctivitis [[id number]] - Left eye, itchy, x5days Normal [facility] Progress Noteon 11-12-2023 Progress Note [facility] [address] [facility] [address] Dept: [phone] Dept Loc: [phone] Subjective Chief Complaint Patient presents with Conjunctivitis [...] Opioid dependence in remission (HCC) Fentanyl dependence ([facility]) Closed nondisplaced fracture of fifth metatarsal bone [...] improve. LEILANI Vasquez 11/12/2023 9:54 AM Normal [facility] 36on 08-16-2023 36 08/15/23- Patient reports pulling [...] regarding this, LM informing patient that a Kormeli message would be sent with the recommendation. Normal [facility] 36on 08-15-2023 36 ----- Message from Filomena Hamilton MA sent at 08/15/2023 11:26 AM EDT ----- Regarding: flare of pilonidal cyst patient of Dr. Hernandez, had surgery in May 13. Has pulled 15 hairs from one pore. Please call Normal [facility] Laboratory - Microbiology an d Antimicrobial susceptibilityon 05-19-2023 FLUAV RNA JAZMIN+probe Ql (Resp) Not detected Not Detected [facility] FLUBV RNA JAZMIN+probe Ql (Resp) Not detected Not Detected [facility] RSV RNA JAZMIN+probe Ql (Resp) Not detected Not Detected [facility] SARS-CoV-2 (COVID-19) RNA JAZMIN+probe Ql (Resp) Detected Abnormal Not Detected [facility] SARS-CoV-2 (COVID-19) RNA JAZMIN+probe Ql (Unsp spec) Methodology: real-time, RT-PCR The SARS-CoV-2, Flu A/B, and RSV Combo assay is intended for in vitro diagnostic use under the FDA Emergency Use Authorization (EUA). This test has not been FDA cleared or approved. In compliance with this authorization, please visit www.fda.gov/media/689 945/download or www.fda.gov/media/757 321/download to access the applicable information sheets. [facility] SARS-CoV-2, Flu A/B, and RSV Comboon 05-19-2023 Interpretation and review of laboratory results Abnormal [facility] CBC W Auto Differential pane l (Bld)on 03-07-2023 Basophils (Bld) [#/Vol] 0.1 10*3/uL 0.0 - 0.2 10*3/uL [facility] Basophils/100 WBC (Bld) 1.0 % 0.0 - 2.0 % [facility] Eosinophils (Bld) [#/Vol] 0.1 10*3/uL 0.0 - 0.5 10*3/uL [facility] Eosinophils/100 WBC (Bld) 1.0 % 1.0 - 6.0 % [facility] Erythrocyte distribution width (RBC) [Ratio] 14.3 % 11.5 - 14.5 % [facility] Hematocrit (Bld) [Volume fraction] 41.6 % 40.0 - 52.0 % [facility] Hemoglobin (Bld) [Mass/Vol] 14.1 g/dL 13.0 - 18.0 g/dL [facility] Interpretation and review of laboratory results Normal [facility] Lymphocytes (Bld) [#/Vol] 2.4 10*3/uL 1.0 - 4.3 10*3/uL [facility] Lymphocytes/100 WBC (Bld) 33.7 % 20.0 - 40.0 % [facility] MCH (RBC) [Entitic mass] 30.6 pg 26. 0 - 34.0 pg [facility] MCHC (RBC) [Mass/Vol] 33.9 % 32.0 - 36.0 % [facility] MCV (RBC) [Entitic vol] 90.2 fL 80.0 - 98.0 fL [facility] Monocytes (Bld) [#/Vol] 0.6 10*3/uL 0.0 - 0.8 10*3/uL [facility] Monocytes/100 WBC (Bld) 8.1 % 2.0 - 10.0 % [facility] Neutrophils (Bld) [#/Vol] 4.0 10*3/uL 1.8 - 7.0 10*3/uL [facility] Neutrophils/100 WBC (Bld) 56.2 % 40.0 - 80.0 % [facility] Nucleated RBC/100 WBC (Bld) [Ratio] 0.0 % [facility] Platelet mean volume (Bld) [Entitic vol] 7.9 fL 7.4 - 12.4 fL [facility] Platelets (Bld) [#/Vol] 223 10*3/uL 140 - 440 10*3/uL [facility] RBC (Bld) [#/Vol] 4.61 10*6/uL 4.40 - 5.9 0 10*6/uL [facility] WBC (Bld) [#/Vol] 7.1 10*3/uL 3.6 - 10.7 10*3/uL [facility] Comprehensive metabolic 2000 panelon 03-07-2023 Albumin [Mass/Vol] 4.6 g/dL 3.5 - 5.0 g/dL [facility] ALP [Catalytic activity/Vol] 59 U/L 38 - 126 U/L [facility] ALT [Catalytic activity/Vol] 21 U/L 0 - 49 U/L [facility] Anion gap [Moles/Vol] 7 mmol/L 3 - 13 mmol/L [facility] AST [Catalytic activity/Vol] 29 U/L 15 - 46 U/L [facility] Bilirubin [Mass/Vol] 0.4 mg/dL 0.2 - 1 .3 mg/dL [facility] Calcium [Mass/Vol] 8.9 mg/dL 8.4 - 10. 4 mg/dL [facility] Chloride [Moles/Vol] 104 mmol/L 98 - 10 7 mmol/L [facility] CO2 [Moles/Vol] 29 mmol/L 22 - 30 mmol/L [facility] Creatinine [Mass/Vol] 0.70 mg/dL 0.66 - 1.25 mg/dL [facility] GFR/1.73 sq M.predicted MDRD (S/P/Bld) [Vol rate/Area] - PINF [facility] Comment on above: Calculation based on the Chronic Kidney Disease Epidemiology Collaboration (CKD-EPI) equation refit without adjustment for race Glucose [Mass/Vol] 93 mg/dL 70 - 100 mg/dL [facility] Potassium [Moles/Vol] 4.0 mmol/L 3.5 - 5.1 mmol/L [facility] Protein [Mass/Vol] 8.0 g/dL 6.3 - 8.2 g/dL [facility] Sodium [Moles/Vol] 139 mmol/L 135 - 145 mmol/L [facility] Urea nitrogen [Mass/Vol] 14 mg/dL 9 - 20 mg/d L [facility] Ethanol (Bld) [Mass/Vol]on 1 Ethanol [Mass/Vol] g/dL 0.000 - 0 .010 g/dL [facility] Laboratory - Drug toxicology Ordered By: Karsten Dobson on 03-07-2023 Amphetamines Screen method >1000 ng/mL Ql (U) Negative [facility] Barbiturates Screen method >200 ng/mL Ql (U) [facility] Benzod[facility]ines Ql (U) Negative [facility] Methadone Screen Ql (U) Negative S [facility] Opiates Screen Ql (U) Negative [facility] oxyCODONE Ql (U) Negative [facility] Phencyclidine Ql (U) Negative [facility] No Panel InformationOrdered By: Karsten Dobson on 03-07-2023 COCAINE METAB. SCREEN Negative Sum [facility] The expected value for all of [...] is needed, request confirmation under separate order. [facility] No Panel Informationon 03-07 Interpretation and review of laboratory results Normal [facility] CBC W Auto Differential pane l (Bld)Ordered By: Karsten Dobson on 01-25-2023 Basophils (Bld) [#/Vol] 0.1 10*3/uL 0.0 - 0.2 10*3/uL [facility] Basophils/100 WBC (Bld) 2.1 % High 0.0 - 2.0 % [facility] Eosinophils (Bld) [#/Vol] 0.3 10*3/uL 0.0 - 0.5 10*3/uL [facility] Eosinophils/100 WBC (Bld) 6.1 % High 1.0 - 6.0 % [facility] Erythrocyte distribution width (RBC) [Ratio] 13.5 % 11.5 - 14.5 % [facility] Hematocrit (Bld) [Volume fraction] 38.6 % Low 40.0 - 52.0 % [facility] Hemoglobin (Bld) [Mass/Vol] 13.5 g/dL 13.0 - 18.0 g/dL [facility] [employer] Interpretation and review of laboratory results Abnormal [facility] [employer] Lymphocytes (Bld) [#/Vol] 2.4 10*3/uL 1.0 - 4.3 10*3/uL [facility] [employer] Lymphocytes/100 WBC (Bld) 44.1 % High 20.0 - 40.0 % [facility] [employer] MCH (RBC) [Entitic mass] 31.3 pg 26. 0 - 34.0 pg [facility] [employer] MCHC (RBC) [Mass/Vol] 34.9 % 32.0 - 36.0 % [facility] [employer] MCV (RBC) [Entitic vol] 89.7 fL 80.0 - 98.0 fL [facility] [employer] Monocytes (Bld) [#/Vol] 0.4 10*3/uL 0.0 - 0.8 10*3/uL [facility] [employer] Monocytes/100 WBC (Bld) 7.2 % 2.0 - 10.0 % [facility] [employer] Neutrophils (Bld) [#/Vol] 2.2 10*3/uL 1.8 - 7.0 10*3/uL [facility] [employer] Neutrophils/100 WBC (Bld) 40.5 % 40.0 - 80.0 % [facility] [employer] Nucleated RBC/100 WBC (Bld) [Ratio] 0.0 % [facility] [employer] Platelet mean volume (Bld) [Entitic vol] 8.5 fL 7.4 - 12.4 fL [facility] [employer] Platelets (Bld) [#/Vol] 203 10*3/uL 140 - 440 10*3/uL [facility] [employer] RBC (Bld) [#/Vol] 4.31 10*6/uL Low 4.40 - 5.9 0 10*6/uL [facility] [employer] WBC (Bld) [#/Vol] 5.5 10*3/uL 3.6 - 10.7 10*3/uL [facility] CT Pelvis W contrast Otis 1. No abscess seen. Report Dictated on Electronically Signed By: Kameron Padilla MD Electronically Signed Date/Time: 01/25/2023 11:30 PM [facility] RADIOLOGY SYSTEM Patient Name: GERALDINE KAISER : [...] process. No perianal or perirectal abscess seen. [facility] Kameron Padilla MD - 01/25/2023 Patient [...] Electronically Signed Date/Time: 01/25/2023 11:30 PM EDT [facility] Radiology Study observation (narrative) [facility] CT Pelvis W contrast IVOrder ed By: Kameron Padilla on 01-25-2023 [facility] Work Phone: Comprehensive metabolic 2000 panelon 01-25-2023 Albumin [Mass/Vol] 4.5 g/dL 3.5 - 5.0 g/dL [facility] ALP [Catalytic activity/Vol] 101 U/L 38 - 126 U/L [facility] ALT [Catalytic activity/Vol] 19 U/L 0 - 49 U/L [facility] Anion gap [Moles/Vol] 6 mmol/L 3 - 13 mmol/L [facility] AST [Catalytic activity/Vol] 32 U/L 15 - 46 U/L [facility] Bilirubin [Mass/Vol] 0.4 mg/dL 0.2 - 1 .3 mg/dL [facility] Calcium [Mass/Vol] 8.8 mg/dL 8.4 - 10. 4 mg/dL [facility] Chloride [Moles/Vol] 103 mmol/L 98 - 10 7 mmol/L [facility] CO2 [Moles/Vol] 28 mmol/L 22 - 30 mmol/L [facility] Creatinine [Mass/Vol] 0.81 mg/dL 0.66 - 1.25 mg/dL [facility] GFR/1.73 sq M.predicted MDRD (S/P/Bld) [Vol rate/Area] - PINF [facility] Comment on above: Calculation based on the Chronic Kidney Disease Epidemiology Collaboration (CKD-EPI) equation refit without adjustment for race Glucose [Mass/Vol] 73 mg/dL 70 - 100 mg/dL [facility] Interpretation and review of laboratory results Normal [facility] Potassium [Moles/Vol] 4.5 mmol/L 3.5 - 5.1 mmol/L [facility] Protein [Mass/Vol] 7.6 g/dL 6.3 - 8.2 g/dL [facility] Sodium [Moles/Vol] 137 mmol/L 135 - 145 mmol/L [facility] Urea nitrogen [Mass/Vol] 17 mg/dL 9 - 20 mg/d L [facility] No Panel Informationon 01-25 Darryl Heller DO 01/26/2023 4:00 AM Incision and Drainage Performed by: Darryl Heller DO Authorized by: Karsten Mcgrath MD Consent: Consent obtained: Verbal Consent given by: Patient Risks discussed: Bleeding, incomplete drainage, pain, damage to other organs and infection Alternatives discussed: No treatment [place] protocol: Patient identity confirmed: Verbally with patient [...] Procedure completion: Tolerated well, no immediate complications [facility] CR Foot Complete 3+ Views Daniel barton 04-09-2021 CR Foot Complete 3+ Views Right Patient Name: GERALDINE KAISER Diagnostic Radiology ACCESSION EXAM DATE/TIME PROCEDURE ORDERING PROVIDER [id number] 04/09/2021 19:07 EST CR Foot Complete 3+ DANIELLA DONOVAN, DAFNE Fan. Views Right CPT code 93316 Reason For Exam (CR Foot Complete 3+ [...] Transcribed Date and Time: 04/09/2021 7:10 Normal [facility] ED Provider Noteon [facility] Patient: Geraldine Kaiser : 2000 Date of Evaluation: 04/09/2021 ED [place] Provider: VANITA Gross CNP Chief Complaint Chief Complaint Patient presents with ? Foot Pain patient stepped off mound of dirt and landed wrong on foot. states felt pop and snap, this happened at noon. [place] I was wearing a n95 mask for the entirety of this encounter. Does this patient come from an ECF, SNF, Rehab, Custodial or other Congregate setting: no (If yes [...] otherwise acutely negative except as in the [place]. Past History Past Medical History: Diagnosis Date [...] level: Not on file Occupational History Employer: [employer] Tobacco Use ? Smoking status: Current Every [...] and Family: Not on file ? Attends Faith Services: Not on file ? Active Member [...] are equal (more content not included)... Normal [facility] No Panel Informationon 04-09 Patient Name: GERALDINE KAISER Diagnostic Radiology ACCESSION EXAM DATE/TIME PROCEDURE ORDERING PROVIDER [id number] 04/09/2021 19:07 EST CR Foot Complete 3+ DANIELLA DONOVAN BETH A. Views Right CPT code 29584 Reason For Exam (CR Foot Complete 3+ [...] J Transcribed Date and Time: 04/09/2021 7:10 [facility] Carlos Amaya MD - 04/09/2021 Patient Name: GERALDINE KAISER Diagnostic Radiology ACCESSION EXAM DATE/TIME PROCEDURE ORDERING PROVIDER [id number] 04/09/2021 19:07 EST CR Foot Complete 3+ DANIELLA DONOVAN BETH A. [employer] CPT code 86228 Reason For Exam (CR Foot Complete 3+ [...] Urinalysison Protein Ql (U) Negative Negative mg/dL [facility] No Panel Informationon 02-23 BILIRUBIN UA (POCT) Negative Negative [facility] CLARITY UA (POCT) Clear [facility] COLOR UA (POCT) Yellow [facility] GLUCOSE UA (POCT) Negative Negative mg/dL [facility] HEMOGLOBIN/BLOOD UA (POCT) Negative Negative [facility] KETONE UA (POCT) Negative Negative mg/dL [facility] LEUKOCYTES UA (POCT) Negative Negative [facility] NITRITE UA (POCT) Negative Negative [facility] PH UA (POCT) 6.0 4.5 - 8.0 [facility] SPECIFIC GRAVITY UA (POCT) 1.015 1.005 - 1.030 [facility] UROBILINOGEN UA (POCT) 0.2 E.U./dL Ignacia l E.U./dL [facility] Ova Parasite Exam, Fecalon 0 02-04-2021 Ova [...] Microsporidia. For additional test information refer to [employer] consult, [email or web address] Performed By: [employer] [address] [place] [id number] Concrete Bucket Loader: Nichelle Vallejo MD Performed By: #### O VPO #### The performing lab is in the report. GASTROINTESTINAL PCR PANELon 02-01-2021 GASTROINTESTINAL PCR PANEL GASTROINTESTINAL PCR PANEL --> Status: F NEGATIVE: No targets were detected by the [employer] Gastrointestinal PCR Panel. _ The [employer] Gastrointestinal PCR Panel can detect the following targets: Campylobacter, Plesiomonas shigelloides, Salmonella, Vibrio species, Vibrio cholerae, Yersinia enterocolitica, Shiga toxin-producing E coli (STEC) including E coli O157, Enterotoxigenic E coli (ETEC), Shigella/Enteroinvasi ve E coli (EIEC), Cryptosporidium, Cyclospora cayetanensis, Entamoeba histolytica, Giardia lamblia, Adenovirus F 40/41, Astrovirus, Norovirus GI/GII, Rotavirus A, Sapovirus Gastrointestinal PCR Panel. _ The [employer] Gastrointestinal PCR Panel can detect the following targets: Campylobacter, Plesiomonas shigelloides, Salmonella, Vibrio species, Vibrio cholerae, Yersinia enterocolitica, Shiga toxin-producing E coli (STEC) including E coli O157, Enterotoxigenic E coli (ETEC), Shigella/Enteroinvasi ve E coli (EIEC), Cryptosporidium, Cyclospora cayetanensis, Entamoeba histolytica, Giardia lamblia, Adenovirus F 40/41, Astrovirus, Norovirus GI/GII, Rotavirus A, Sapovirus Normal [facility] Comment on above: Performed By: #### B FGI #### [facility] [address] [place] [id number] Comp Metabolic Panelon 01-31 ALT [Catalytic activity/Vol] 16 U/L Normal 0-49 [facility] Comment on above: Result Comment: The ALT test is performed by an updated assay method. Please note that the reference intervals have been changed and are now sex specific. Performed By: #### C MP3, LIPA4, HEMOG #### [facility] [address] [place] [address] Calcium [Mass/Vol] 8.9 mg/dL Normal 8.4-10.4 [facility] Comment on above: Performed By: #### C MP3, LIPA4, HEMOG #### [facility] [address] [place] [address] Glucose [Mass/Vol] 73 mg/dL Normal 70-100 [facility] Comment on above: Performed By: #### C MP3, LIPA4, HEMOG #### [facility] [address] [place] [address] ALP [Catalytic activity/Vol] 60 U/L Normal 38-126 [facility] Comment on above: Performed By: #### C MP3, LIPA4, HEMOG #### [facility] [address] [place] [address] Anion gap [Moles/Vol] 7 mmol/L Normal 3-13 [facility] Comment on above: Performed By: #### C MP3, LIPA4, HEMOG #### [facility] [address] [place] [address] AST [Catalytic activity/Vol] 32 U/L Normal 15-46 [facility] Comment on above: Performed By: #### C MP3, LIPA4, HEMOG #### [facility] [address] [place] [address] Bilirubin [Mass/Vol] 0.5 mg/dL Normal 0.2-1.3 [facility] Comment on above: Performed By: #### C MP3, LIPA4, HEMOG #### [facility] [address] [place] [address] CO2 [Moles/Vol] 30 mmol/L Normal 22-30 [facility] Comment on above: Performed By: #### C MP3, LIPA4, HEMOG #### [facility] [address] [place] [address] Creatinine [Mass/Vol] 0.74 mg/dL Normal 0.52-1.25 [facility] Comment on above: Performed By: #### C MP3, LIPA4, HEMOG #### [facility] [address] [place] [address] eGFR OTHER > 90.0 Normal >60 [facility] Comment on above: Result Comment: KDIG O [...] By: #### C MP3, LIPA4, HEMOG #### [facility] [address] [place] [address] GFR/1.73 sq M.predicted among blacks MDRD (S/P/Bld) [Vol rate/Area] mL/min/{1.73_m2} Normal >60 [facility] Comment on above: Performed By: #### C MP3, LIPA4, HEMOG #### [facility] [address] [place] [address] Protein [Mass/Vol] 7.5 g/dL Normal 6.3-8.2 [facility] Comment on above: Performed By: #### C MP3, LIPA4, HEMOG #### [facility] [address] [place] [address] Urea nitrogen [Mass/Vol] 7 mg/dL Normal 7-17 [facility] Comment on above: Performed By: #### C MP3, LIPA4, HEMOG #### [facility] [address] [place] [address] Potassium [Moles/Vol] 4.0 mmol/L Normal 3.5-5.1 [facility] Comment on above: Performed By: #### C MP3, LIPA4, HEMOG #### [facility] [address] [place] [address] Sodium [Moles/Vol] 140 mmol/L Normal 135-145 [facility] Comment on above: Performed By: #### C MP3, LIPA4, HEMOG #### [facility] [address] [place] [address] Albumin [Mass/Vol] 4.3 g/dL Normal 3.5-5.0 [facility] Comment on above: Performed By: #### C MP3, LIPA4, HEMOG #### [facility] [address] [place] [address] Chloride [Moles/Vol] 103 mmol/L Normal 98-107 [facility] Comment on above: Performed By: #### C MP3, LIPA4, HEMOG #### [facility] [address] [place] [address] Comprehensive Metabolic Pane lOrdered By: Mayo Yang on 01-31-2021 Albumin [Mass/Vol] 4.3 g/dL 3.5 - 5.0 g/dL [facility] Work Phone: [phone] ALP (Bld) [Catalytic activity/Vol] 60 U/L 38 - 126 U/L [facility] Work Phone: [phone] ALT [Catalytic activity/Vol] 16 U/L 0 - 49 U/L [facility] Work Phone: [phone] Comment on above: The ALT test is perf ormed by an updated assay method. Please note that the reference intervals have been changed and are now sex specific. Anion gap [Moles/Vol] 7 mmol/L 3 - 13 mmol/L [facility] Work Phone: [phone] AST [Catalytic activity/Vol] 32 U/L 15 - 46 U/L [facility] Work Phone: [phone] Bilirubin [Mass/Vol] 0.5 mg/dL 0.2 - 1 .3 mg/dL [facility] Work Phone: [phone] Calcium [Mass/Vol] 8.9 mg/dL 8.4 - 10. 4 mg/dL [facility] Work Phone: [phone] Chloride [Moles/Vol] 103 mmol/L 98 - 10 7 mmol/L [facility] Work Phone: [phone] [Moles/Vol] 30 mmol/L 22 - 30 mmol/L [facility] Work Phone: [phone] Creatinine [Mass/Vol] 0.74 mg/dL 0.52 - 1.25 mg/dL [facility] Work Phone: [phone] IF NonAfrican Armenian >90.0 >60 mL/min [facility] Work Phone: [phone] Comment on above: KDIGO guidelines pro vide [...] fraction] 7.5 g/dL 6.3 - 8.2 g/dL [facility] Work Phone: [phone] GFR/1.73 sq M.predicted among blacks MDRD (S/P/Bld) [Vol rate/Area] mL/min/{1.73_m2} >60 mL/min [facility] Work Phone: [phone] Glucose [Mass/Vol] 73 mg/dL 70 - 100 mg/dL [facility] Work Phone: [phone] Potassium [Moles/Vol] 4.0 mmol/L 3.5 - 5.1 mmol/L [facility] Work Phone: [phone] Sodium [Moles/Vol] 140 mmol/L 135 - 145 mmol/L [facility] Work Phone: Urea nitrogen (BldV) [Mass/Vol] 7 mg/dL 7 - 17 mg/dL [email or web address] Work Phone: ED Provider Noteon ED Provider Note Emergency [facility]: Geraldine Kaiser : 2000 [...] reports several 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 [address] Hematocrit (Bld) [Volume fraction] 40.5 % Normal 40.0-52.0 [facility] Comment on above: Performed By: #### C MP3, LIPA4, HEMOG #### [facility] [address] [place] [address] Hemoglobin (Bld) [Mass/Vol] 13.6 g/dL Normal 13.0-18.0 [facility] Comment on above: Performed By: #### C MP3, LIPA4, HEMOG #### [facility] [address] [place] [address] MCH (RBC) [Entitic mass] 30.3 pg Normal 26.0-34.0 [facility] Comment on above: Performed By: #### C MP3, LIPA4, HEMOG #### [facility] [address] [place] [address] MCHC 33.5 % Normal 32.0-36.0 [facility] Comment on above: Performed By: #### C MP3, LIPA4, HEMOG #### [facility] [address] [place] [address] MCV (RBC) [Entitic vol] 90.7 fL Normal 80.0-98.0 [facility] Comment on above: Performed By: #### C MP3, LIPA4, HEMOG #### [facility] [address] [place] [address] Platelet mean volume (Bld) [Entitic vol] 8.4 fL Normal 7.4-10.4 [facility] Comment on above: Performed By: #### C MP3, LIPA4, HEMOG #### [facility] [address] [place] [address] Platelets (Bld) [#/Vol] 218 10*3/uL Normal 140-440 [facility] Comment on above: Performed By: #### C MP3, LIPA4, HEMOG #### [facility] [address] [place] [address] RBC (Bld) [#/Vol] 4.47 10*6/uL Normal 4.40-5.90 [facility] Comment on above: Performed By: #### C MP3, LIPA4, HEMOG #### [employer] [address] [place] [address] WBC (Bld) [#/Vol] 5.2 10*3/uL Normal 3.6-10.7 [facility] Comment on above: Performed By: #### C MP3, LIPA4, HEMOG #### [employer] [address] [place] [address] Hemogram (CBC)Ordered By: Senia Yang on 01-31-2021 Hematocrit (Bld) [Volume fraction] 40.5 % 40.0 - 52.0 % [email or web address] Work Phone: 1 Hemoglobin.gastrointesti nal spec 1 Ql (Stl) 13.6 g/dL 13.0 - 18.0 g/dL [email or web address] Work Phone: 1) MCH (RBC) [Entitic mass] 30.3 pg 26. 0 - 34.0 pg [facility] Work Phone: MCHC (RBC) [Mass/Vol] 33.5 % 32.0 - 36.0 % [email or web address] Work Phone: 1 MCV (RBC) [Entitic vol] 90.7 fL 80.0 - 98.0 fL [employer] [email or web address] Work Phone: 1 Platelet distribution width (Bld) [Ratio] 14.4 % 11.5 - 14.5 % [email or web address] Work Phone: ) Platelet mean volume (Bld) [Entitic vol] 8.4 fL 7.4 - 10.4 fL [email or web address] Work Phone: 1) 22 Platelets (Bld) [#/Vol] 218 10*3/uL 140 - 440 10*3/uL [email or web address] Work Phone: ) 22 RBC (Bld) [#/Vol] 4.47 10*6/uL 4.40 - 5.9 0 10*6/uL [email or web address] Work Phone: WBC (Bld) [#/Vol] 5.2 10*3/uL 3.6 - 10.7 10*3/uL [facility] Work Phone: 1 Test Performed by [employer], [address] [place], [place] [address] [email or web address] Work Phone: [phone] [employer] [email or web address] Work Phone: Lipaseon 01-31-2021 Lipase [Catalytic activity/Vol] 48 U/L Normal 23-300 [facility] Comment on above: Performed By: #### C MP3, LIPA4, HEMOG #### [employer] [address] [place] [address] LipaseOrdered By: Mayo riggins on 01-31-2021 Lipase [Catalytic activity/Vol] 48 U/L 23 - 300 U/L [email or web address] Work Phone: [phone] No Panel InformationOrdered By: Mayo Yang on 01-31-2021 Test Performed by [employer], [address] [place], [place] [address] [email or web address] Work Phone: [phone] [email or web address] Work Phone: XR HAND RIGHT (MIN 3 [...] Nas Smith MD 09/21/20 Final result Normal [facility] Add on test from HISon 08-12 Add on test from HIS Accepted Normal [facility] Comment on above: Result Comment: Spec imen available & acceptable for analysis. Performed By: #### A DDON #### [facility] [employer] [address] [place] [address] Complete Urinalysison 2020 Appearance (U) Clear Normal Clear [facility] Comment on above: Result Comment: . Performed By: #### D RGA4, ARABELLAU, CUA2 #### [facility] [address] [place], [place] Bilirubin,Urine Negative Normal Negative [facility] Comment on above: Result Comment: . Performed By: #### D RGA4, FENTU, CUA2 #### [facility] [address] [place], [place] Color (U) Light-Yellow Normal Lt. Yellow [facility] Comment on above: Result Comment: . Performed By: #### D RGA4, FENTU, CUA2 #### [place] [facility] [address] [place], [place] Glucose Ql (U) Normal Normal Normal (<70) [facility] Comment on above: Result Comment: . Performed By: #### D RGAngelina, ARABELLAU, CUA2 #### [place] [address] [place], [place] Ketone,Urine 20 mg/dL Abnormal Negative [facility] Comment on above: Result Comment: . Performed By: #### D RGAngelina, ARABELLAU, CUA2 #### [facility] [place] [address] [place], [place] Leukocytes,Urine Negative Normal Negative [facility] Comment on above: Result Comment: . Performed By: #### D ODILIA, ARABELLAU, CUA2 #### [place] [address] [place], [place] Nitrites,Urine Negative Normal Negative [facility] Comment on above: Result Comment: . Performed By: #### Andreia HARTLEY, ARABELLAU, CUA2 #### [facility] [address] [place], [place] Occult Blood,Urine Negative Normal Negative [facility] Comment on above: Result Comment: . Performed By: #### D RGAngelina, FENTU, CUA2 #### [facility] [place] [address] [place], [place] pH,Urine 6.0 Normal 5.0-8.0 [facility] Comment on above: Result Comment: . Performed By: #### D RGAngelina, ARABELLAU, CUA2 #### [facility] [address] [place], [place] Specific [place],Urine 1.007 Normal 1.005 - 1.030 [facility] Comment on above: Result Comment: . Performed By: #### AMANDA PINTO CUA2 #### [facility] [address] [place], [place] Total Protein,Urine Negative Normal Negative [facility] Comment on above: Result Comment: . Performed By: #### AMANDA PINTO CUA2 #### [facility] [address] [place], [place] Urobilinogen,Urine Normal Normal Normal (0-1) [facility] Comment on above: Result Comment: . Performed By: #### AMANDA PINTO CUA2 #### [facility] [address] [place], [place] Drugs of Abuseon 08-12-2020 Phencyclidine (PCP), Ur Negative Normal [facility] Comment on above: Result Comment: The expected [...] Performed By: #### AMANDA PINTO CUA2 #### [facility] [address] [place], [place] Methadone, Ur Negative Normal [facility] Comment on above: Performed By: #### AMANDA PINTO CUA2 #### [place] [address] [place], [place] Cocaine, Ur Negative Normal [facility] Comment on above: Performed By: #### AMANDA PINTO CUA2 #### [place] [address] [place], [place] Opiates, Ur Negative Normal [facility] Comment on above: Performed By: #### D RGA4, FENTU, CUA2 #### [facility] [address] [place], [place] Barbiturates, Ur Negative Normal [facility] Comment on above: Performed By: #### D RGA4, FENTU, CUA2 #### [facility] [address] [place], [place] Amphetamines, Ur Negative Normal [facility] Comment on above: Performed By: #### D RGA4, FENTU, CUA2 #### [facility] [address] [place] Benzodiazepines, Ur Negative Normal [facility] Comment on above: Performed By: #### D RGA4, FENTU, CUA2 #### [facility] [address] [place] Fentanyl Screen, Urineon Fentanyl Screen, Urn Positive Normal Negative [facility] Comment on above: Result Comment: Fent anyl has been screened for by Immunoassay at a 2ng/ml threshold. POSITIVE results are not confirmed by a more specific alternative method unless requested. If confirmation is needed, request confirmation under separate order. NOTE: These results are for medical treatment only. Analysis performed using non-forensic procedures. Performed By: #### D RGA4, FENTU, CUA2 #### [facility] [address] [place], [place] [id number] 08-12-2020 SARS-CoV-2 (COVID-19) RNA JAZMIN+probe Ql (Unsp spec) SARS-CoV-2 --> Status: F Not Detected. Expected Result: Not Detected _ Real-time, RT-PCR performed on the [employer] [place] [facility] by the [facility]. Negative results do not preclude SARS-CoV-2 infection and should not be used as the sole basis for treatment or other patient management decisions. This assay was developed by [employer] and distributed under an Emergency Use Authorization (EUA) granted by the FDA for the qualitative detection of SARS-CoV-2 nucleic acid. Expected Result: Not Detected _ Real-time, RT-PCR performed on the [employer] [facility] by the [facility]. Negative results do not preclude SARS-CoV-2 infection and should not be used as the sole basis for treatment or other patient management decisions. This assay was developed by [employer] and distributed under an Emergency Use Authorization (EUA) granted by the FDA for the qualitative detection of SARS-CoV-2 nucleic acid. Normal [facility] Comment on above: Performed By: #### C OVID ####[facility] [place], [place] Comp Metabolic Panelon 08-11 ALT [Catalytic activity/Vol] 17 U/L Normal 0-49 [facility] Comment on above: Result Comment: The ALT test is performed by an updated assay method. Please note that the reference intervals have been changed and are now sex specific. Performed By: #### E TOH4, HEMDF, CMP3 #### [facility] [address] [place], [place] Calcium [Mass/Vol] 9.6 mg/dL Normal 8.4-10.4 [facility] Comment on above: Performed By: #### E TOH4, HEMDF, CMP3 #### [facility] [address] [place], [place] Glucose [Mass/Vol] 136 mg/dL High 70-100 [facility] Comment on above: Performed By: #### E TOH4, HEMDF, CMP3 #### [facility] [address] [place], [place] ALP [Catalytic activity/Vol] 65 U/L Normal 38-126 [facility] Comment on above: Performed By: #### E TOH4, HEMDF, CMP3 #### [facility] [address] [place], [place] Anion gap [Moles/Vol] 10 mmol/L Normal 3-13 [facility] Comment on above: Performed By: #### E TOH4, HEMDF, CMP3 #### [facility] [address] [place], [place] AST [Catalytic activity/Vol] 31 U/L Normal 15-46 [facility] Comment on above: Performed By: #### E TOH4, HEMDF, CMP3 #### [facility] [address] [place], [place] Bilirubin [Mass/Vol] 1.4 mg/dL High 0.2-1.3 [facility] Comment on above: Performed By: #### E TOH4, HEMDF, CMP3 #### [facility] [address] [place], [place] CO2 [Moles/Vol] 29 mmol/L Normal 22-30 [facility] Comment on above: Performed By: #### E TOH4, HEMDF, CMP3 #### [place] [address] [place], [place] Creatinine [Mass/Vol] 0.81 mg/dL Normal 0.52-1.25 [facility] Comment on above: Performed By: #### E TOH4, HEMDF, CMP3 #### [place] [address] [place], [place] eGFR OTHER > 90.0 Normal >60 [facility] Comment on above: Result Comment: KDIG O [...] By: #### E TOH4, HEMDF, CMP3 #### [facility] [address] [place], [place] GFR/1.73 sq M.predicted among blacks MDRD (S/P/Bld) [Vol rate/Area] mL/min/{1.73_m2} Normal >60 [facility] Comment on above: Performed By: #### E TOH4 HEMDF, CMP3 #### [place] [address] [place], [place] Protein [Mass/Vol] 8.4 g/dL High 6.3-8.2 [facility] Comment on above: Performed By: #### E TOH4, HEMDF, CMP3 #### [place] [address] [place], [place] Urea nitrogen [Mass/Vol] 15 mg/dL Normal 7-20 [facility] Comment on above: Performed By: #### E TOEdmond HEMDF, CMP3 #### [address] [place], [place] Potassium [Moles/Vol] 3.8 mmol/L Normal 3.5-5.1 [facility] Comment on above: Performed By: #### E TOEdmond HEMDF, CMP3 #### [place] [address] [place], [place] Sodium [Moles/Vol] 137 mmol/L Normal 135-145 [facility] Comment on above: Performed By: #### E TOEdmond HEMMURALI, CMP3 #### [facility] [place] [address] [place], [place] Albumin [Mass/Vol] 4.9 g/dL Normal 3.5-5.0 [facility] Comment on above: Performed By: #### E TOEdmond HEMDF, CMP3 #### [place] [address] [place], [place] Chloride [Moles/Vol] 98 mmol/L Normal 98-107 [facility] Comment on above: Performed By: #### E TOEdmond HEMDF, CMP3 #### [address] [place], [place] Drugs of Abuseon 08-11-2020 Oxycodone/Oxymorphine,Ur Negative Normal [facility] Comment on above: Performed By: #### D RGA4, ARABELLAU, CUA2 #### [address] [address] [place] [address] ED Provider Noteon ED Provider Note [facility] EMERGENCY DEPT EMERGENCY DEPARTMENT ENCOUNTER Pt Name: [...] the past, approximately 1 year ago at [facility]. He is experiencing symptoms of withdrawal [...] Highest education level: None Occupational History Employer: [employer] Social Needs ? Financial resource strain: [...] fentanyl 01/24/2017, 08/10/20 supposed to be a [place] [facility], 08/11/20- states snorting 0.5g fentanyl daily ? Sexual activity: Yes Lifestyle ? Physical activity Days per week: None Minutes per session: None ? Stress: None Relationships ? Social connections Talks on phone: None Gets together: None Attends mormon service: None Active member of club or organization: None Attends meetings of clubs or organizations: None Relationship status: None ? Intimate partner violence Fear of current or ex partner: None Emotionally abused: None Physically abused: None Forced sexual activity: None Other Topics Concern ? None Social History Narrative Merged History Encounter SCREENINGS Lane Coma Scale Eye Opening: Spontaneous Best Verbal Response: Oriented Best Motor Response: Obeys commands Lane Coma Scale Score: 15 PHYSICAL EXAM ED [...] and t (more content not included)... Normal [facility] ED Provider Note Emergency Department Encounter [facility] [...] the dictations but occasionally words are mis-transcribed.) Mariella Mcghee MD [employer] Mariella Mcghee MD 08/11/20 1003 Normal [facility] Ethanol Serum/Plasmaon 08-11 Ethanol-Serum/Plasma < 0.010 Normal 0.000-0.010 [facility] Comment on above: Result Comment: NOTE : This result is for medical treatment only. Analysis performed using non-forensic procedures. Performed By: #### E TOH4, HEMDF, CMP3 #### [place] [address] [place] [phone] Hemogram w/ Autodiffon 08-11 Abs Baso Cnt 0.1 10*3/uL Normal 0.0-0.2 [facility] Comment on above: Performed By: #### E TOH4, HEMDF, CMP3 #### [place] [address] [place] Abs Neutrophile Cnt 3.5 10*3/uL Normal 1.8-7.0 [facility] Comment on above: Performed By: #### E TOH4, HEMDF, CMP3 #### [address] Basophils/100 WBC (Bld) 1.1 % Normal 0.0-2.0 [facility] Comment on above: Performed By: #### E TOH4, HEMDF, CMP3 #### [address] Eosinophils (Bld) [#/Vol] 0.0 10*3/uL Normal 0.0-0.5 [facility] Comment on above: Performed By: #### E TOH4, HEMDF, CMP3 #### [address] Eosinophils/100 WBC (Bld) 0.3 % Low 1.0-6.0 [facility] Comment on above: Performed By: #### E TOH4, HEMDF, CMP3 #### [address] Erythrocyte distribution width (RBC) [Ratio] 14.6 % High 11.5-14.5 [facility] Comment on above: Performed By: #### E TOH4, HEMDF, CMP3 #### [address] Granulocytes/100 WBC (Bld) 66.2 % Normal 40.0-80.0 [facility] Comment on above: Performed By: #### E TOH4, HEMDF, CMP3 #### [address] Hematocrit (Bld) [Volume fraction] 47.0 % Normal 40.0-52.0 [facility] Comment on above: Performed By: #### E TOEdmond HEMMURALI CMP3 #### [place] [address] [place], [place] Hemoglobin (Bld) [Mass/Vol] 16.2 g/dL Normal 13.0-18.0 [facility] Comment on above: Performed By: #### E TOEdmond HEMMURALI, CMP3 #### [place] [place] Lymphocytes (Bld) [#/Vol] 1.1 10*3/uL Normal 1.0-4.3 [facility] Comment on above: Performed By: #### E TOEdmond HEMMURALI, CMP3 #### [address] Lymphocytes/100 WBC (Bld) 21.7 % Normal 20.0-40.0 [facility] Comment on above: Performed By: #### E TOEdmond HEMMURALI, CMP3 #### [place] [address] [place] MCH (RBC) [Entitic mass] 31.7 pg Normal 26.0-34.0 [facility] Comment on above: Performed By: #### E TOEdmond HEMMURALI, CMP3 #### [place] [address] [place] MCHC 34.6 % Normal 32.0-36.0 [facility] Comment on above: Performed By: #### E TOEdmond HEMMURALI, CMP3 #### [place] [address] [place] MCV (RBC) [Entitic vol] 91.8 fL Normal 80.0-98.0 [facility] Comment on above: Performed By: #### E TOEdmond HEMDF, CMP3 #### [place] [address] [place] Monocytes (Bld) [#/Vol] 0.6 10*3/uL Normal 0.0-0.8 [facility] Comment on above: Performed By: #### E TOH4, HEMDF, CMP3 #### [facility] [address] [place], [place] Monocytes/100 WBC (Bld) 10.7 % High 2.0-10.0 [facility] Comment on above: Performed By: #### E TOH4, HEMDF, CMP3 #### [facility] [address] [place], [place] Platelet mean volume (Bld) [Entitic vol] 8.6 fL Normal 7.4-10.4 [facility] Comment on above: Performed By: #### E TOH4, HEMDF, CMP3 #### [place] [address] [place] Platelets (Bld) [#/Vol] 264 10*3/uL Normal 140-440 [facility] Comment on above: Performed By: #### E TOH4, HEMDF, CMP3 #### [place] [address] [place] RBC (Bld) [#/Vol] 5.11 10*6/uL Normal 4.40-5.90 [facility] Comment on above: Performed By: #### E TOH4, HEMDF, CMP3 #### [place] [address] [place] WBC (Bld) [#/Vol] 5.2 10*3/uL Normal 3.6-10.7 [facility] Comment on above: Performed By: #### E TOH4, HEMDF, CMP3 #### [place] [address] [place], [place] ED Provider Noteon ED Provider Note [facility] ED EMERGENCY DEPARTMENT ENCOUNTER Pt [...] otherwise acutely negative except as [place] PAST MEDICAL HISTORY Past Medical History: Diagnosis [...] on phone: None Gets together: None Attends mormon service: None Active member of club or [...] Response: Oriented Best Motor Response: Obeys commands Lane Coma Scale Score: 15 PHYSICAL EXAM (up [...] All oth (more content not included)... Normal [facility] C. Trachomatis / N. Gonorrho eae, DNAon 01-28-2020 C. trachomatis DNA JAZMIN+probe Ql (Genital specimen) NOT Detected Chlamydia trachomatis Nucleic Acid NOT Detected by DNA Amplification using the [employer] System. Culture is the only recommended test in medical-legal cases such as suspected child abuse or molestation. [place] N. gonorrhoeae DNA JAZMIN+probe Ql (Unsp spec) NOT Detected Neisseria gonorrhoeae Nucleic Acid NOT Detected by DNA Amplification using the [employer] System. Culture is the only recommended test in medical-legal cases such as suspected child abuse or molestation. [place] HIV Screenon 01-28-2020 HIV 1+2 [id number] AG, EIA NONREACTIVE Nonreactive NA [place] Comment on above: Results obtained usi [...] [Mass/Vol] 4.1 g/dL 3.5 - 5 g/dL [place] ALP [Catalytic activity/Vol] 75 U/L 38 - 126 U/L [place] ALT [Catalytic activity/Vol] 18 U/L 0 - 49 U/L [place] Comment on above: The ALT test is perf ormed by an updated assay method. Please note that the reference intervals have been changed and are now sex specific. AST [Catalytic activity/Vol] 33 U/L 15 - 46 U/L [place] Bilirubin Ql (U) 0.7 mg/dL 0.2 - 1.3 mg/dL [place] Bilirubin.direct [Mass/Vol] 0.0 mg/dL 0 - 0.3 mg/dL [place] Protein [Mass/Vol] 7.3 g/dL 6.3 - 8.2 g/dL [place] Test Performed by [facility], [address] [place] [address] [place] Otheron 01-28-2020 Test Performed by [facility], [address] [place] [address] [place] Urinalysison 01-28-2020 Appearance (U) Clear Clear NA [place] Comment on above: . Bilirubin Urine Negative Negative mg/dL [place] Comment on above: . Color (U) YELLOW Lt. Yellow NA [place] Comment on above: . Glucose, Ur Normal Normal (<70) mg/dL [place] Comment on above: . Interpretation and review of laboratory results Abnormal [place] Ketones Ql (U) Negative Negative mg/dL [place] Comment on above: . LEUKOCYTES, UA Negative Negative Cindy/uL [place] Comment on above: . Nitrite, Urine Negative Negative [place] Comment on above: . Occult Blood,Urine Negative Negative mg/dL [place] Comment on above: . pH (U) 6.0 [pH] [place] Comment on above: . Protein (U) [Mass/Vol] Negative Negat carlitos mg/dL [place] Comment on above: . Specific [place], Urine <1.005 Abnormal [place], [place] Comment on above: . Urobilinogen, Urine Normal Normal ( 0-1) mg/dL [place] Comment on above: . Test Performed by [facility], [address] [place] [address] [place] CBC Auto Differentialon 04-0 Absolute Baso # 0.1 10*3/uL 0 - 0.2 10*3/uL [place] Absolute Neut # 2.3 10*3/uL 1.8 - 7 10*3/uL [place] Basophils/100 WBC (Bld) 1.3 % 0 - 2 % [place] Eosinophils (Bld) [#/Vol] 0.2 10*3/uL 0 - 0.5 10*3/uL [place] Eosinophils/100 WBC (Bld) 4.7 % 1 - 6 % [place] Erythrocyte distribution width (RBC) [Ratio] 13.7 % 11.5 - 14.5 % [place] Granulocytes/100 WBC (Bld) 44.5 % 40 - 80 % [place] Hematocrit (Bld) [Volume fraction] 44.2 % 40 - 52 % [place] Hemoglobin (Bld) [Mass/Vol] 14.7 g/dL 13 - 18 g/dL [place] Lymphocytes (Bld) [#/Vol] 2.0 10*3/uL 1 - 4.3 10*3/uL [place] Lymphocytes/100 WBC (Bld) 39.5 % 20 - 40 % [place] MCH (RBC) [Entitic mass] 29.9 pg 26 - 34 pg [place] MCHC (RBC) [Mass/Vol] 33.2 % 32 - 36 % [place], [place] MCV (RBC) [Entitic vol] 90.2 fL 80 - 98 fL [place], [place] Monocytes (Bld) [#/Vol] 0.5 10*3/uL 0 - 0.8 10*3/uL [place], [place] Monocytes/100 WBC (Bld) 10.0 % 2 - 10 % [place], [place] Platelet mean volume (Bld) [Entitic vol] 9.1 fL 7.4 - 10.4 fL [place] Platelets (Bld) [#/Vol] 213 10*3/uL 140 - 440 10*3/uL [place] RBC (Bld) [#/Vol] 4.90 10*6/uL 4.4 - 5.9 10*6/uL [place] WBC (Bld) [#/Vol] 5.1 10*3/uL 3.6 - 10.7 10*3/uL [place] Test Performed by [id number] [place] [address] Comprehensive Metabolic Pane l w/ Reflex to MGon 08-22-2019 Albumin [Mass/Vol] 3.7 g/dL 3.5 - 5 g/dL [place] ALP [Catalytic activity/Vol] 75 U/L 38 - 126 U/L [place] ALT [Catalytic activity/Vol] 29 U/L 0 - 49 U/L [place] Comment on above: The ALT test is perf ormed by an updated assay method. Please note that the reference intervals have been changed and are now sex specific. Anion gap [Moles/Vol] 5 mmol/L [place] AST [Catalytic activity/Vol] 67 U/L High 15 - 46 U/L [place] Bilirubin Ql (U) 0.3 mg/dL 0.2 - 1.3 mg/dL [place] Calcium [Mass/Vol] 9.0 mg/dL 8.4 - 10. 4 mg/dL [place] Chloride [Moles/Vol] 105 mmol/L 98 - 10 7 mmol/L [place] CO2 [Moles/Vol] 26 mmol/L 22 - 30 mmol/L [place] Creatinine [Mass/Vol] 0.77 mg/dL 0.52 - 1.25 mg/dL [place] EGFR IF NonAfrican Armenian >60.0 >60 mL/min [place], [place] Comment on above: Source- MDRD equatio n with creatinine calibration to IDMS(NKDEP) eGFR not recommended for drug dose adjustment GFR/1.73 sq M predicted among blacks MDRD (S/P/Bld) [Vol rate/Area] mL/min/{1.73_m2} >60 mL/min [place] Glucose [Mass/Vol] 102 mg/dL High 70 - 100 mg/dL [place] Interpretation and review of laboratory results Abnormal [place] Potassium [Moles/Vol] 4.0 mmol/L 3.5 - 5.1 mmol/L [place] Protein [Mass/Vol] 7.2 g/dL 6.3 - 8.2 g/dL [place] Sodium [Moles/Vol] 136 mmol/L 135 - 145 mmol/L [place] Urea nitrogen [Mass/Vol] 10 mg/dL 7 - 20 mg/d L [place] Test Performed by [facility], [address] [place] [address] [place], [place] Basic Metabolic Panelon 07-21 Anion gap [Moles/Vol] 12 mmol/L [place] Calcium [Mass/Vol] 9.3 mg/dL 8.4 - 10. 4 mg/dL [place] Chloride [Moles/Vol] 94 mmol/L Low 98 - 10 7 mmol/L [place] CO2 [Moles/Vol] 26 mmol/L 22 - 30 mmol/L [place] Creatinine [Mass/Vol] 0.92 mg/dL 0.52 - 1.25 mg/dL [place] EGFR IF NonAfrican Armenian >60.0 >60 mL/min [place] Comment on above: Source- MDRD equatio n with creatinine calibration to IDMS(NKDEP) eGFR not recommended for drug dose adjustment GFR/1.73 sq M predicted among blacks MDRD (S/P/Bld) [Vol rate/Area] mL/min/{1.73_m2} >60 mL/min [place] Glucose [Mass/Vol] 176 mg/dL High 70 - 100 mg/dL [place] Potassium [Moles/Vol] 3.3 mmol/L Low 3.5 - 5.1 mmol/L [place] Sodium [Moles/Vol] 132 mmol/L Low 135 - 145 mmol/L [place] Urea nitrogen [Mass/Vol] 11 mg/dL 7 - 20 mg/d L [place] CKon 08-17-2019 Total CK 79 U/L 30 - 170 U/L [place] Test Performed by [facility], [address] [place] [address] [place], [place] Ethanolon 08-17-2019 Ethanol Lvl <0.010 0 - 0.01 g/dL [place], [place] Comment on above: NOTE: This result is for medical treatment only. Analysis performed using non-forensic procedures. Fentanyl, Urineon 08-17-2019 Fentanyl Positive Negative NA [place], [place] Comment on above: Fentanyl has been sc reened for by Immunoassay at a 2ng/ml threshold. POSITIVE results are not confirmed by a more specific alternative method unless requested. If confirmation is needed, request confirmation under separate order. NOTE: These results are for medical treatment only. Analysis performed using non-forensic procedures. Test Performed by [facility], [address] [place] [address] [place], [place] Hepatic Function Panelon Albumin [Mass/Vol] 5.0 g/dL 3.5 - 5 g/dL [place] ALP [Catalytic activity/Vol] 58 U/L 38 - 126 U/L [place] ALT [Catalytic activity/Vol] 18 U/L 0 - 49 U/L [place] Comment on above: The ALT test is perf ormed by an updated assay method. Please note that the reference intervals have been changed and are now sex specific. AST [Catalytic activity/Vol] 27 U/L 15 - 46 U/L [place] Bilirubin Ql (U) 1.4 mg/dL High 0.2 - 1.3 mg/dL [place] Bilirubin.direct [Mass/Vol] 0.0 mg/dL 0 - 0.3 mg/dL [place] Protein [Mass/Vol] 8.3 g/dL High 6.3 - 8.2 g/dL [place] Otheron 08-17-2019 Interpretation and review of laboratory results Abnormal [place] Test Performed by [facility], [address] [place] [address] [place], [place] Urine Drug Screenon 08-17-19 20 Amphetamines, urine Positive [place], [place] Barbiturates, Ur Negative [place] Benzodiazepine Ur Qual Negative [place], [place] Cocaine Metabolites, Ur Negative [place], [place] Methadone, Urine Negative [place] Opiates, Urine Negative [place] Oxycodone Screen, Ur Negative [place], [place] PCP, Urine Negative [place] Comment on above: The expected value [...] confirmation under separate order. [facility] [address] [address] [place] Basic Metabolic Panelon 06-22 Anion gap [Moles/Vol] 10 mmol/L [place] Calcium [Mass/Vol] 9.3 mg/dL 8.4 - 10. 4 mg/dL [place] Chloride [Moles/Vol] 101 mmol/L 98 - 10 7 mmol/L [place] CO2 [Moles/Vol] 28 mmol/L 22 - 30 mmol/L [place] Creatinine [Mass/Vol] 0.81 mg/dL 0.52 - 1.25 mg/dL [place] EGFR IF NonAfrican Armenian >60.0 >60 mL/min [place] Comment on above: Source- MDRD equatio n with creatinine calibration to IDMS(NKDEP) eGFR not recommended for drug dose adjustment GFR/1.73 sq M predicted among blacks MDRD (S/P/Bld) [Vol rate/Area] mL/min/{1.73_m2} >60 mL/min [place] Glucose [Mass/Vol] 77 mg/dL 70 - 100 mg/dL [place] Potassium [Moles/Vol] 3.8 mmol/L 3.5 - 5.1 mmol/L [place] Sodium [Moles/Vol] 140 mmol/L 135 - 145 mmol/L [place] Urea nitrogen [Mass/Vol] 12 mg/dL 7 - 20 mg/d L [place] Hematologyon 07-10-2019 Hematocrit (Bld) [Volume fraction] 44.9 % 40 - 52 % [place] Hemoglobin (Bld) [Mass/Vol] 15.2 g/dL 13 - 18 g/dL [place] MCH (RBC) [Entitic mass] 29.9 pg 26 - 34 pg [place] MCV (RBC) [Entitic vol] 88.4 fL 80 - 98 fL [place] Platelets (Bld) [#/Vol] 244 10*3/uL 140 - 440 10*3/uL [place] RBC (Bld) [#/Vol] 5.07 10*6/uL 4.4 - 5.9 10*6/uL [place] WBC (Bld) [#/Vol] 4.3 10*3/uL 3.6 - 10.7 10*3/uL [place] Hepatic Function Panelon Albumin [Mass/Vol] 4.6 g/dL 3.5 - 5 g/dL [place] ALP [Catalytic activity/Vol] 73 U/L 38 - 126 U/L [place] ALT [Catalytic activity/Vol] 29 U/L 13 - 69 U/L [place] AST [Catalytic activity/Vol] 40 U/L 15 - 46 U/L [place] Bilirubin Ql (U) 0.5 mg/dL 0.2 - 1.3 mg/dL [place] Bilirubin.direct [Mass/Vol] 0.0 mg/dL 0 - 0.3 mg/dL [place] Protein [Mass/Vol] 8.2 g/dL 6.3 - 8.2 g/dL [place] Otheron 07-10-2019 HAV IgM IA Qn (S) NOT DETECTED Not-Detect ed [place], [place] Hep B Core Ab, IgM NOT DETECTED Not-Detec loco [place], [place] Hepatitis B Surface Ag NOT DETECTED Not-D etected [place] Hepatitis C Ab NOT DETECTED Not-Detected [place] Comment on above: Patients with DETECT ED Hepatitis C Ab results should have a new specimen submitted for supplemental testing with a Hepatitis C Quantitative RNA assay (viral load), if clinically indicated. Test Performed by [facility], [address] [place] [address] [place] Test Performed by [facility], [address] [place] [address] [place] Erythrocyte distribution width (RBC) [Ratio] 15.2 % High 11.5 - 14.5 % [place] Interpretation and review of laboratory results Abnormal [place] MCHC (RBC) [Mass/Vol] 33.9 % 32 - 36 % [place] Platelet mean volume (Bld) [Entitic vol] 8.1 fL 7.4 - 10.4 fL [place] Test Performed by [facility], [address] [place] [address] [place], [place] CR Chest Portableon 01-24-20 18 CR Chest Portable Patient Name: GERALDINE KAISER Diagnostic Radiology Exam Date/Time 01/23/2018 15:20:55 EDT Exam CR Chest Portable Ordering Physician DANIELLA HERNÁNDEZ DANIEL M Accession Number [id number] CPT4 Codes 03283 () Reason For Exam cough Report PORTABLE [...] Transcribed Date and Time: 01/23/2018 3:28 Normal [facility] Comp Metabolic Panelon 01-23 ALP enzyme act/vol 71 U/L Normal 38-126 [facility] Comment on above: Performed By: #### H EMD, [facility] ####[place] [address] [place] [address] ALT enzyme act/vol 31 U/L Normal 13-69 [facility] Comment on above: Performed By: #### H EMDF, CMP3 ####[place] [address] [place] [address] Anion gap 3 molar conc 8 Normal [facility] Comment on above: Performed By: #### H EMDF, CMP3 ####[place] [address] [place] [address] AST enzyme act/vol 34 U/L Normal 15-46 [facility] Comment on above: Performed By: #### H EMDF, CMP3 ####[place] [address] [place] [address] Bilirubin mass conc 0.8 mg/dL Normal 0.2-1.3 [facility] Comment on above: Performed By: #### H EMDF, CMP3 ####[place] [address] [place] [address] Calcium mass conc 8.8 mg/dL Normal 8.4-10.4 [facility] Comment on above: Performed By: #### H EMDF, CMP3 ####[place] [address] [place] [address] CO2 molar conc 28 mmol/L Normal 22-30 [facility] Comment on above: Performed By: #### H EMDF, CMP3 ####[place] [address] [place] [address] Creatinine mass conc 1.01 mg/dL Normal 0.52-1.25 [facility] Comment on above: Performed By: #### H EMDF, CMP3 ####[place] [address] [place] [address] GFR/1.73 sq M predicted among blacks MDRD vol rate/area (S/P/Bld) mL/min/{1.73_m2} Normal >60 [facility] Comment on above: Performed By: #### H EMDF, CMP3 ####[place] [address] [place] [address] GFR/1.73 sq M predicted among non-blacks MDRD vol rate/area (S/P/Bld) mL/min/{1.73_m2} Normal >60 [facility] Comment on above: Result Comment: Sour ce- MDRD equation with creatinine calibration to IDMS(NKDEP) eGFR not recommended for drug dose adjustment Performed By: #### H SHARONDA CMP3 ####[place] [address] [place] [address] Glucose mass conc 65 mg/dL Low 70-100 [facility] Comment on above: Performed By: #### H SHARONDA CMP3 ####[place] [address] [place] [address] Protein mass conc 7.7 g/dL Normal 6.3-8.2 [facility] Comment on above: Performed By: #### H SHARONDA CMP3 ####[place] [address] [place] [address] Urea nitrogen mass conc 19 mg/dL Normal 7-20 S [facility] Comment on above: Performed By: #### H SHARONDA CMP3 ####[facility] [employer] [place] [address] [place] [address] Albumin mass conc 4.5 g/dL Normal 3.5-5.0 [facility] Comment on above: Performed By: #### H SHARONDA CMP3 ####[facility] [employer] [place] [address] [place] [address] Chloride molar conc 102 mmol/L Normal 98-107 [facility] Comment on above: Performed By: #### H EMDF, CMP3 ####[place] [address] [place] [address] Potassium molar conc 3.7 mmol/L Normal 3.5-5.1 [facility] Comment on above: Performed By: #### H EMDF, CMP3 ####[facility] [employer] [place] [address] [place] [address] Sodium molar conc 138 mmol/L Normal 137-145 [facility] Comment on above: Performed By: #### H EMDF, CMP3 ####[place] [address] [place] [address] Hemogram w/ Autodiffon 01-23 Abs Baso Cnt 0.1 10*3/uL Normal 0.0-0.2 [facility] Comment on above: Performed By: #### H EMDF, CMP3 ####[facility] [place] [address] Abs Neutrophile Cnt 8.1 10*3/uL High 1.8-7.0 [facility] Comment on above: Performed By: #### H EMDF, CMP3 ####[place] [address] [place] [address] Basophils/100 WBC Auto (Bld) 0.7 % Normal 0.0-2.0 [facility] Comment on above: Performed By: #### H EMDF, CMP3 ####[place] [address] [place] [address] Eosinophils Auto #/vol (Bld) 0.1 10*3/uL Normal 0.0-0.5 [facility] Comment on above: Performed By: #### H EMDF, CMP3 ####[place] [address] [place] [address] Eosinophils/100 WBC Auto (Bld) 0.9 % Low 1.0-6.0 [facility] Comment on above: Performed By: #### H EMDF, CMP3 ####[place] [address] [place] [address] Erythrocyte distribution width Auto Ratio (RBC) 13.8 % Normal 11.5-14.5 [facility] Comment on above: Performed By: #### H EMDF, CMP3 ####[place] [address] [place] [address] Granulocytes/100 WBC (Bld) 77.3 % Normal 40.0-80.0 [facility] Comment on above: Performed By: #### H EMDF, CMP3 ####[place] [address] [place] [address] Hematocrit Auto Volume Fraction (Bld) 39.7 % Low 40.0-52.0 [facility] Comment on above: Performed By: #### H EMDF, CMP3 ####[place] [address] [place] [address] Hemoglobin mass conc (Bld) 13.8 g/dL Normal 13.0-18.0 [facility] Comment on above: Performed By: #### H EMDF, CMP3 ####[facility] [id number] [place] [address] Lymphocytes Auto #/vol (Bld) 1.1 10*3/uL Normal 1.0-4.3 [facility] Comment on above: Performed By: #### H EMDF, CMP3 ####[facility] [id number] [place] [address] Lymphocytes/100 WBC Auto (Bld) 10.8 % Low 20.0-40.0 [facility] Comment on above: Performed By: #### H EMDF, CMP3 ####[facility] [id number] [place] [address] MCH Auto Entitic mass (RBC) 30.7 pg Normal 26.0-34.0 [facility] Comment on above: Performed By: #### H EMDF, CMP3 ####[facility] [id number] [place] [address] MCHC Auto mass conc (RBC) 34.7 % Normal 32.0-36.0 [facility] Comment on above: Performed By: #### H EMDF, CMP3 ####[facility] [id number] [place] [address] MCV Auto Entitic volume (RBC) 88.3 fL Normal 80.0-98.0 [facility] Comment on above: Performed By: #### H EMDF, CMP3 ####[facility] [id number] [place] [address] Monocytes Auto #/vol (Bld) 1.1 10*3/uL High 0.0-0.8 [facility] Comment on above: Performed By: #### H EMDF, CMP3 ####[employer] [id number] [place] [address] Monocytes/100 WBC Auto (Bld) 10.3 % High 2.0-10.0 [facility] Comment on above: Performed By: #### H EMDF, CMP3 ####[employer] [id number] [place] [address] Platelet mean volume Auto Entitic volume (Bld) 8.3 fL Normal 7.4-10.4 [facility] Comment on above: Performed By: #### H EMDF, CMP3 ####[facility] [id number] [place] [address] Platelets Auto #/vol (Bld) 260 10*3/uL Normal 140-440 [facility] Comment on above: Performed By: #### H EMDF, CMP3 ####[employer] [id number] [place] [address] RBC Auto #/vol (Bld) 4.49 10*6/uL Normal 4.40-5.90 [facility] Comment on above: Performed By: #### H EMDF, CMP3 ####[employer] [id number] [place] [address] WBC Auto #/vol (Bld) 10.5 10*3/uL Normal 3.6-10.7 [facility] Comment on above: Performed By: #### H EMDF, CMP3 ####[facility] [id number] [place] [address] No Panel Information [facility] Vital Signs Date Time Vital Sign Value Performing Clinician Facility 10-31-2024 16:33-0400 Body mass index (BMI) [Ratio] 20.06 kg/m2 Diogenes Banks APRN.CASING WORKER Work Phone: [facility] 10-31-2024 16:33-0400 Body temperature 98.8 [degF] Diogenes Banks APRN.CASING WORKER Work Phone: [facility] 10-31-2024 16:33-0400 Body weight 72.8 kg Diogenes Banks APRN.CASING WORKER Work Phone: [facility] 10-31-2024 16:33-0400 Diastolic blood pressure 80 mm[Hg] Diogenes Banks APRN.CASING WORKER Work Phone: [facility] 10-31-2024 16:33-0400 Heart rate 104 /min Diogenes Banks APRN.CASING WORKER Work Phone: [facility] 10-31-2024 16:33-0400 Respiratory rate 18 /min Diogenes Banks APRN.CASING WORKER Work Phone: [facility] 10-31-2024 16:33-0400 SaO2% (BldA) [Mass fraction] 98 % Diogenes Banks APRN.CASING WORKER Work Phone: [facility] 10-31-2024 16:33-0400 Systolic blood pressure 111 mm[Hg] Diogenes Banks APRN.CASING WORKER Work Phone: [facility] 07-29-2024 10:59-0400 Body temperature 98.29 [degF] Floyd Sweet MD Work Phone: [employer] 07-29-2024 10:59-0400 Diastolic blood pressure 70 mm[Hg] Floyd Sweet MD Work Phone: [employer] 07-29-2024 10:59-0400 Heart rate 95 /min Floyd Sweet MD Work Phone: [employer] 07-29-2024 10:59-0400 Respiratory rate 16 /min Floyd Sweet MD Work Phone: [employer] 07-29-2024 10:59-0400 SaO2% (BldA) [Mass fraction] 99 % Floyd Sweet MD Work Phone: [employer] 07-29-2024 10:59-0400 Systolic blood pressure 106 mm[Hg] Floyd Sweet MD Work Phone: [employer] 07-26-2024 00:52-0500 Body height 188 cm Floyd Sweet MD Work Phone: [employer] 07-26-2024 00:52-0500 Body mass index (BMI) [Ratio] 19.26 kg/m2 Floyd Sweet MD Work Phone: [employer] 07-26-2024 00:52-0500 Body weight 68.04 kg Floyd Sweet MD Work Phone: [employer] 01-03-2024 17:22-0400 Body temperature 98.6 [degF] Cesar Bone DO Work Phone: [employer] 01-03-2024 17:22-0400 Diastolic blood pressure 66 mm[Hg] Cesar Bone DO Work Phone: [facility] [employer] 01-03-2024 17:22-0400 Heart rate 75 /min Cesar Bone DO Work Phone: [facility] [employer] 01-03-2024 17:22-0400 Respiratory rate 18 /min Cesar Bone DO Work Phone: [facility] [employer] 01-03-2024 17:22-0400 SaO2% (BldA) [Mass fraction] 98 % Cesar Bone DO Work Phone: [facility] [employer] 01-03-2024 17:22-0400 Systolic blood pressure 104 mm[Hg] Cesar Bone DO Work Phone: [facility] [employer] 11-21-2023 08:33-0400 Body height 188 cm Shahnaz Hernandez MD Work Phone: [facility] [employer] 11-21-2023 08:33-0400 Body mass index (BMI) [Ratio] 19.85 kg/m2 Shahnaz Hernandez MD Work Phone: [facility] [employer] 11-21-2023 08:33-0400 Body temperature 98.49 [degF] Shahnaz Hernandez MD Work Phone: [facility] [employer] 11-21-2023 08:33-0400 Body weight 70.13 kg Shahnaz Hernandez MD Work Phone: [facility] [employer] 11-21-2023 08:33-0400 Diastolic blood pressure 78 mm[Hg] Shahnaz Hernandez MD Work Phone: [facility] [employer] 11-21-2023 08:33-0400 Systolic blood pressure 122 mm[Hg] Shahnaz Hernandez MD Work Phone: [facility] [employer] 11-12-2023 09:23-0400 Body height 188 cm Emy DUKE Work Phone: [facility] [employer] 11-12-2023 09:23-0400 Body mass index (BMI) [Ratio] 19.52 kg/m2 Emy DUKE Work Phone: [facility] [employer] 11-12-2023 09:23-0400 Body temperature 98.1 [degF] Emy Fozia PA Work Phone: [facility] [employer] 11-12-2023 09:23-0400 Body weight 68.95 kg Emynehemias Kempcurtiss PA Work Phone: [facility] [employer] 11-12-2023 09:23-0400 Diastolic blood pressure 71 mm[Hg] Emy Hatties PA Work Phone: [facility] [employer] 11-12-2023 09:23-0400 Heart rate 92 /min Emy Kempramans PA Work Phone: [facility] [employer] 11-12-2023 09:23-0400 SaO2% (BldA) [Mass fraction] 100 % Emy Pedramans PA Work Phone: [facility] [employer] 11-12-2023 09:23-0400 Systolic blood pressure 114 mm[Hg] Emy Kuhns PA Work Phone: [facility] [employer] 06-21-2023 13:08-0500 Body height 188 cm Shahnaz Hernandez MD Work Phone: [facility] [employer] 06-21-2023 13:08-0500 Body mass index (BMI) [Ratio] 20.05 kg/m2 Shahnaz Hernandez MD Work Phone: [facility] [employer] 06-21-2023 13:08-0500 Body temperature 98.1 [degF] Shahnaz Hernandez MD Work Phone: [facility] [employer] 06-21-2023 13:08-0500 Body weight 70.85 kg Shahnaz Hernandez MD Work Phone: [facility] [employer] 06-21-2023 13:08-0500 Diastolic blood pressure 80 mm[Hg] Shahnaz Hernandez MD Work Phone: [facility] [employer] 06-21-2023 13:08-0500 Systolic blood pressure 124 mm[Hg] Shahnaz Hernandez MD Work Phone: [facility] [employer] 05-31-2023 08:58-0500 Body height 188 cm Jose Merino MD Work Phone: [employer] 05-31-2023 08:58-0500 Body mass index (BMI) [Ratio] 19.39 kg/m2 Jose Merino MD Work Phone: [employer] 05-31-2023 08:58-0500 Body weight 68.49 kg Jose Merino MD Work Phone: [employer] 05-31-2023 08:58-0500 Diastolic blood pressure 80 mm[Hg] Jose Merino MD Work Phone: [employer] 05-31-2023 08:58-0500 Heart rate 104 /min Jose Merino MD Work Phone: [employer] 05-31-2023 08:58-0500 Systolic blood pressure 112 mm[Hg] Jose Merino MD Work Phone: [employer] 05-24-2023 08:01-0500 Body height 188 cm Alvarez Eduardo MD Work Phone: [employer] 05-24-2023 08:01-0500 Body mass index (BMI) [Ratio] 19 kg/m2 Alvarez Eduardo MD Work Phone: [employer] 05-24-2023 08:01-0500 Body temperature 97.3 [degF] Alvaerz Eduardo MD Work Phone: [employer] 05-24-2023 08:01-0500 Body weight 67.13 kg Alvarez Eduardo MD Work Phone: [employer] 05-24-2023 08:01-0500 Diastolic blood pressure 80 mm[Hg] Alvarez Eduardo MD Work Phone: [employer] 05-24-2023 08:01-0500 Heart rate 95 /min Alvarez Eduardo MD Work Phone: [employer] 05-24-2023 08:01-0500 Systolic blood pressure 107 mm[Hg] Alvarez Eduardo MD Work Phone: [employer] 05-19-2023 00:36-0500 Body height 188 cm Nicola Dyer MD Work Phone: [facility] 05-19-2023 00:36-0500 Body mass index (BMI) [Ratio] 20.54 kg/m2 Nicola Dyer MD Work Phone: [facility] 05-19-2023 00:36-0500 Body temperature 99.1 [degF] Nicola Dyer MD Work Phone: [facility] 05-19-2023 00:36-0500 Body weight 72.58 kg Nicola Dyer MD Work Phone: [facility] 05-19-2023 00:36-0500 Diastolic blood pressure 79 mm[Hg] Nicola Dyer MD Work Phone: [facility] 05-19-2023 00:36-0500 Heart rate 92 /min Nicola Dyer MD Work Phone: [facility] 05-19-2023 00:36-0500 Respiratory rate 16 /min Nicola Dyer MD Work Phone: [facility] 05-19-2023 00:36-0500 SaO2% (BldA) [Mass fraction] 97 % Nicola Dyer MD Work Phone: [facility] 05-19-2023 00:36-0500 Systolic blood pressure 121 mm[Hg] Nicola Dyer MD Work Phone: [facility] 05-11-2023 14:30-0500 Heart rate 73 /min Shahnaz Hernandez MD Work Phone: [facility] [employer] 05-11-2023 14:30-0500 Respiratory rate 16 /min Shahnaz Hernandez MD Work Phone: [facility] [employer] 05-11-2023 14:30-0500 SaO2% (BldA) [Mass fraction] 99 % Shahnaz Hernandez MD Work Phone: [facility] [employer] 05-11-2023 14:15-0500 Diastolic blood pressure 73 mm[Hg] Shahnaz Hernandez MD Work Phone: [facility] [employer] 05-11-2023 14:15-0500 Systolic blood pressure 114 mm[Hg] Shahnaz Hernandez MD Work Phone: [facility] [employer] 05-11-2023 14:00-0500 Body temperature 97.2 [degF] Shahnaz Hernandez MD Work Phone: [facility] [employer] 05-11-2023 10:51-0500 Body height 188 cm Shahnaz Hernandez MD Work Phone: [facility] [employer] 05-11-2023 10:51-0500 Body mass index (BMI) [Ratio] 19.9 kg/m2 Shahnaz Hernandez MD Work Phone: [facility] [employer] 05-11-2023 10:51-0500 Body weight 70.31 kg Shahnaz Hernandez MD Work Phone: [facility] [employer] 04-05-2023 14:13-0500 Body height 188 cm Shahnaz Hernandez MD Work Phone: [facility] [employer] 04-05-2023 14:13-0500 Body mass index (BMI) [Ratio] 20.59 kg/m2 Shahnaz Hernandez MD Work Phone: [facility] [employer] 04-05-2023 14:13-0500 Body temperature 98.91 [degF] Shahnaz Hernandez MD Work Phone: [facility] [employer] 04-05-2023 14:13-0500 Body weight 72.76 kg Shahnaz Hernandez MD Work Phone: [facility] [employer] 04-05-2023 14:13-0500 Diastolic blood pressure 64 mm[Hg] Shahnaz Hernandez MD Work Phone: [facility] [employer] 04-05-2023 14:13-0500 Heart rate 60 /min Shahnaz Hernandez MD Work Phone: [facility] [employer] 04-05-2023 14:13-0500 Systolic blood pressure 122 mm[Hg] Shahnaz Hernandez MD Work Phone: [facility] [employer] 03-14-2023 10:03-0400 Body height 188 cm Shahnaz Hernandez MD Work Phone: [facility] [employer] 03-14-2023 10:03-0400 Body mass index (BMI) [Ratio] 20.44 kg/m2 Shahnaz Hernandez MD Work Phone: [facility] [employer] 03-14-2023 10:03-0400 Body temperature 99.19 [degF] Shahnaz Hernandez MD Work Phone: [facility] [employer] 03-14-2023 10:03-0400 Body weight 72.21 kg Shahnaz Hernandez MD Work Phone: [facility] [employer] 03-14-2023 10:03-0400 Diastolic blood pressure 62 mm[Hg] Shahnaz Hernandez MD Work Phone: [facility] [employer] 03-14-2023 10:03-0400 Heart rate 76 /min Shahnaz Hernandez MD Work Phone: [facility] [employer] 03-14-2023 10:03-0400 Systolic blood pressure 110 mm[Hg] Shahnaz Hernandez MD Work Phone: [facility] [employer] 03-08-2023 14:31-0400 Diastolic blood pressure 76 mm[Hg] Geraldine Hodge MD Work Phone: [facility] [employer] 03-08-2023 14:31-0400 Heart rate 89 /min Geraldine Hodge MD Work Phone: [employer] 03-08-2023 14:31-0400 Respiratory rate 16 /min Geraldine Hodge MD Work Phone: [employer] 03-08-2023 14:31-0400 SaO2% (BldA) [Mass fraction] 100 % Geraldine Hodge MD Work Phone: [facility] [employer] 03-08-2023 14:31-0400 Systolic blood pressure 105 mm[Hg] Geraldine Hodge MD Work Phone: [employer] 03-08-2023 12:45-0400 Body temperature 99 [degF] Geraldine Hodge MD Work Phone: [employer] 03-08-2023 12:45-0400 Body height 190.5 cm Geraldine Hodge MD Work Phone: [employer] 03-08-2023 12:45-0400 Body mass index (BMI) [Ratio] 20 kg/m2 Geraldine Hodge MD Work Phone: [facility] [employer] 03-08-2023 12:45-0400 Body weight 72.58 kg Geraldine Hodge MD Work Phone: [facility] [employer] 03-07-2023 07:04-0400 Diastolic blood pressure 60 mm[Hg] Taya Hernandez MD Work Phone: [facility] [employer] 03-07-2023 07:04-0400 Heart rate 73 /min Taya Hernandez MD Work Phone: [employer] 03-07-2023 07:04-0400 Respiratory rate 16 /min Taya Hernandez MD Work Phone: [facility] [employer] 03-07-2023 07:04-0400 SaO2% (BldA) [Mass fraction] 100 % Taya Hernandez MD Work Phone: [facility] [employer] 03-07-2023 07:04-0400 Systolic blood pressure 105 mm[Hg] Taya Hernandez MD Work Phone: [employer] 03-07-2023 00:17-0400 Body temperature 100.8 [degF] Taya Hernandez MD Work Phone: [employer] 03-07-2023 00:10-0400 Body height 190.5 cm Taya Hernandez MD Work Phone: [employer] 03-07-2023 00:10-0400 Body mass index (BMI) [Ratio] 20 kg/m2 Taya Hernandez MD Work Phone: [employer] 03-07-2023 00:10-0400 Body weight 72.58 kg Taya Hernandez MD Work Phone: [employer] 01-26-2023 00:24-0400 Respiratory rate 16 /min Karsten Mcgrath MD Work Phone: [employer] 01-26-2023 00:23-0400 Diastolic blood pressure 76 mm[Hg] Karsten Mcgrath MD Work Phone: [facility] [employer] 01-26-2023 00:23-0400 Heart rate 70 /min Karsten Mcgrath MD Work Phone: [facility] [employer] 01-26-2023 00:23-0400 SaO2% (BldA) [Mass fraction] 99 % Karsten Mcgrath MD Work Phone: [facility] [employer] 01-26-2023 00:23-0400 Systolic blood pressure 95 mm[Hg] Karsten Mcgrath MD Work Phone: [facility] [employer] 01-25-2023 20:12-0400 Body temperature 98.29 [degF] Karsten Mcgrath MD Work Phone: [facility] [employer] 01-25-2023 20:08-0400 Body mass index (BMI) [Ratio] 20.54 kg/m2 Karsten Mcgrath MD Work Phone: [facility] [employer] 01-25-2023 20:08-0400 Body weight 72.58 kg Karsten Mcgrath MD Work Phone: [facility] [employer] 04-09-2021 17:48-0500 Body temperature 99.5 [degF] Marcelino Viri DO Work Phone: [facility] 04-09-2021 17:48-0500 Diastolic blood pressure 71 mm[Hg] Marcelino Viri DO Work Phone: [facility] 04-09-2021 17:48-0500 Heart rate 110 /min Marcelino Viri DO Work Phone: [facility] 04-09-2021 17:48-0500 Respiratory rate 18 /min Marcelino Viri DO Work Phone: [facility] 04-09-2021 17:48-0500 SaO2% (BldA) [Mass fraction] 99 % Marcelino Viri DO Work Phone: [facility] 04-09-2021 17:48-0500 Systolic blood pressure 122 mm[Hg] Marcelino Viri DO Work Phone: [facility] 02-23-2021 08:00-0400 Body height 190.5 cm Anna Whitaker [employer]ZZLE T[employer]ING WORK[employer] Work Phone: [facility] 02-23-2021 08:00-0400 Body weight 72.58 kg Anna Whitaker [employer]ZZLE TENDER.CASING WORK[employer] Work Phone: [facility] 01-31-2021 17:40-0400 Body height 188 cm Mayo Yang MD Work Phone: [facility] Work Phone: 01-31-2021 17:40-0400 Body mass index (BMI) [Ratio] 19.26 kg/m2 Mayo Yang MD Work Phone: [facility] Work Phone: 01-31-2021 17:40-0400 Body temperature 98.71 [degF] Mayo Yang MD Work Phone: [facility] Work Phone: 01-31-2021 17:40-0400 Body weight 68.04 kg Mayo Yang MD Work Phone: [facility] Work Phone: 01-31-2021 17:40-0400 Diastolic blood pressure 79 mm[Hg] Mayo Yang MD Work Phone: [employer] Work Phone: 01-31-2021 17:40-0400 Heart rate 79 /min Mayo Yang MD Work Phone: [facility] Work Phone: 01-31-2021 17:40-0400 Respiratory rate 16 /min Mayo Yang MD Work Phone: [facility] Work Phone: 01-31-2021 17:40-0400 SaO2% (BldA) [Mass fraction] 98 % Maoy Yang MD Work Phone: [facility] Work Phone: 01-31-2021 17:40-0400 Systolic blood pressure 116 mm[Hg] Mayo Yang MD Work Phone: [facility] Work Phone: 09-20-2020 22:30-0400 Body height 188 cm Mandeep Alvarez MD Work Phone: [employer] Work Phone: 09-20-2020 22:30-0400 Body mass index (BMI) [Ratio] 20.54 kg/m2 Mandeep Alvarez MD Work Phone: [employer] Work Phone: 09-20-2020 22:30-0400 Body temperature 98.71 [degF] Mandeep Alvarez MD Work Phone: [employer] Work Phone: 09-20-2020 22:30-0400 Body weight 72.58 kg Mandeep Alvarez MD Work Phone: [employer] Work Phone: 09-20-2020 22:30-0400 Diastolic blood pressure 91 mm[Hg] Mandeep Alvarez MD Work Phone: [employer] Work Phone: 09-20-2020 22:30-0400 Heart rate 97 /min Mandeep Alvarez MD Work Phone: [employer] Work Phone: 09-20-2020 22:30-0400 Respiratory rate 16 /min Mandeep Alvarez MD Work Phone: [employer] Work Phone: 09-20-2020 22:30-0400 SaO2% (BldA) [Mass fraction] 96 % Mandeep Alvarez MD Work Phone: [employer] Work Phone: 09-20-2020 22:30-0400 Systolic blood pressure 128 mm[Hg] Mandeep Alvarez MD Work Phone: [employer] Work Phone: 08-10-2020 06:20-0400 Pulse (Heart Rate) [...] Phone: 05-17-2020 16:05-0500 Body Temperature 97 [degF] [facility] [place] 05-17-2020 16:05-0500 BP Diastolic 74 mm[Hg] [facility] [place] 05-17-2020 16:05-0500 BP Systolic 110 mm[Hg] [facility] [place] 05-17-2020 16:05-0500 Pulse (Heart Rate) 99 /min [facility] [place] 05-17-2020 16:05-0500 Pulse Oximetry 97 % [facility] [place] 05-17-2020 16:05-0500 Respiratory Rate 18 /min Manoj Howard [facility], [place] 08-22-2019 11:46-0400 Body Temperature 99.1 [degF] [facility] [place] 08-22-2019 11:46-0400 BP Diastolic 64 mm[Hg] [place] 08-22-2019 11:46-0400 BP Systolic 104 mm[Hg] [facility] [place] 08-22-2019 11:46-0400 Pulse (Heart Rate) 104 /min [facility] [place] 08-22-2019 11:46-0400 Pulse Oximetry 97 % [facility] [place] 08-22-2019 11:46-0400 Respiratory Rate 14 /min [place] 08-17-2019 03:28-0400 BMI (Body Mass Index) 23.75 kg/m2 [place] 08-17-2019 03:28-0400 Body weight 83.92 kg [place] 08-17-2019 03:28-0400 Height 188 cm [facility] [place] Encounters Encounter Date Encounter Type Care Provider Facility Start: 12-19-2024 End: 12-19-2024 Telephone encounter Shelley Loyd PA-C Work Phone: Neurology Start: 12-09-2024 End: 12-09-2024 ambulatory Heather Wally DO Work Phone: -[facility]atory [facility] Start: 12-09-2024 End: 12-09-2024 Patient encounter procedure Heather Wally DO -[facility] Start: 12-09-2024 End: 12-09-2024 ambulatory Heather Wooadrder C Facility:[facility] Start: 11-02-2024 End: 11-02-2024 Follow-up encounter Mac DUKE Work Phone: [facility] Start: 10-31-2024 End: 10-31-2024 Patient encounter procedure Diogenes Bakns APRN.CNP Work Phone: [facility] Comment on above: Burning with urinati on (Primary Dx) Start: 10-31-2024 End: 10-31-2024 ambulatory DIOGENES BANKS Facility:[facility] Start: 07-25-2024 End: 07-29-2024 [facility] Comment on above: Mass of left side of neck (Primary Dx); Opiate dependence, continuous (HCC); Fentanyl dependence (HCC) Start: 01-03-2024 End: 01-03-2024 [facility] Comment on above: Sprain of right wris t, initial encounter (Primary Dx) Start: 11-21-2023 End: 11-21-2023 ambulatory SHAHNAZ HERNANDEZ [facility] Start: 11-21-2023 End: 11-21-2023 Office outpatient visit 15 minutes Shahnaz Hernandez MD Work Phone: [facility] Comment on above: Coccydynia (Primary Dx) Start: 11-17-2023 Emergency department patient visit Facility:[facility] Start: 11-12-2023 End: 11-12-2023 Office outpatient new 30 minutes Emy DUKE Work Phone: [facility] Comment on above: Acute conjunctivitis of left eye, unspecified acute conjunctivitis type (Primary Dx) Start: 11-12-2023 End: 11-12-2023 [facility] Start: 06-21-2023 End: 06-21-2023 Postop follow up visit related to original px Shahnaz Hernandez MD Work Phone: [facility] Comment on above: Pilonidal cyst (Prim live Dx) Start: 05-31-2023 [facility] Start: 05-31-2023 Patient encounter procedure Darlene Lopez Clinical Communication Start: 05-31-2023 End: 05-31-2023 Postop follow up visit related to original px Jose Merino MD Work Phone: [facility] Comment on above: Pilonidal cyst (Prim live Dx) Start: 05-24-2023 End: 05-24-2023 Office outpatient visit 15 minutes Miriam Torrez MD Work Phone: [facility] Comment on above: COVID (Primary Dx); Opioid dependence in remission (HCC) Start: 05-21-2023 ambulatory Linnette Whalen RN [facility] Clinical Communication Start: 05-21-2023 Patient encounter procedure Linnette Whalen RN [facility] Clinical Communication Comment on above: Pilonidal cyst Start: 05-19-2023 End: 05-19-2023 Emergency department patient visit Nicola Dyer MD Work Phone: [facility] Comment on above: Viral upper respirat ory tract infection (Primary Dx); Postoperative examination Start: 05-11-2023 End: 05-11-2023 Subsequent hospital visit by physician Shahnaz Hernandez MD Work Phone: [facility] Comment on above: Pilonidal cyst (Prim live Dx); Pilonidal cyst with abscess Start: 04-05-2023 End: 04-05-2023 Office outpatient visit 15 minutes Shahnaz Hernandez MD Work Phone: [facility] Comment on above: Pilonidal cyst (Prim live Dx) Start: 03-14-2023 End: 03-14-2023 Office outpatient new 30 minutes Shahnaz Hernandez MD Work Phone: [facility] Comment on above: Pilonidal abscess Start: 03-09-2023 Telephone encounter Shahnaz Robert ch, MD Work Phone: [facility] Start: 03-08-2023 End: 03-08-2023 Emergency department patient visit Geraldine Hodge MD Work Phone: [facility] Comment on above: Opioid use disorder (Primary Dx) Start: 03-07-2023 End: 03-07-2023 Emergency department patient visit Taya Hernandez MD Work Phone: [facility] Comment on above: Pilonidal abscess (P rimary Dx) Start: 01-25-2023 End: 01-26-2023 Emergency department patient visit Karsten Mcgrath MD Work Phone: [facility] Comment on above: Abscess (Primary Dx) Start: 04-09-2021 End: 04-09-2021 Emergency department patient visit Marcelino Meredith Work Phone: [facility] Comment on above: Closed nondisplaced fracture of metatarsal bone of left foot, unspecified metatarsal, initial encounter (Primary Dx) Start: 02-23-2021 End: 02-23-2021 Patient encounter procedure Anna Whitaker APRN.CASING WORKER Work Phone: [facility] Comment on above: Recurrent UTI; Urethral pain; Cutaneous skin tags Start: 01-31-2021 End: 01-31-2021 Emergency department patient visit Mayo Yang MD Work Phone: [facility] Comment on above: Nausea vomiting and diarrhea (Primary Dx); Worms in stool Start: 09-21-2020 End: 09-21-2020 Emergency department patient visit MANDEEP Ayala [facility] Start: 09-20-2020 End: 09-20-2020 Emergency department patient visit Mandeep Alvarez MD Work Phone: [facility] Comment on above: Contusion of right h and including fingers, initial encounter (Primary Dx) Start: 08-10-2020 End: 08-10-2020 Emergency department patient visit Jose Guardado Work Phone: [facility] Comment on above: Opiate overdose, acc idental or unintentional, initial encounter (HCC) (Primary Dx) Start: 05-17-2020 End: 05-17-2020 Emergency department patient visit Manoj Howard Work Phone: [facility] Comment on above: Strep pharyngitis (P rimary Dx) Start: 01-28-2020 End: 01-28-2020 Subsequent hospital visit by physician Shelly Bradshaw [facility] Start: 08-17-2019 [facility] [place] [place] Start: 07-10-2019 End: 07-10-2019 Subsequent hospital visit by physician Shelly Bradshaw [facility] Start: 01-23-2018 Emergency department patient visit UNKNOWN PROVIDER [facility] Procedures Date Procedure Procedure Detail Performing Clinician Start: 12-09-2024 Vitamin D, 25-hydrox y measurement Heather Lo Work Phone: Comment on above: Vitamin D StatusDefi ciency: <20 ng/mL (50nmol/L)Insufficiency: 20-30 ng/mL (50-75 nmol/L)Sufficiency: 30-100 ng/mL (75-250 nmol/L)Toxicity: >100 ng/mL (>250 nmol/L) Start: 10-31-2024 Urnls dip stick/tabl et rgnt auto w/o microscopy Diogenes Banks NOZZLE TENDER.CASING WORKER Work Phone: Start: 07-27-2024 Syphilis test non-treponemal antibody qual Veto Elsa NOZZLE TENDER - [employer]ING WORKER Work Phone: Start: 07-27-2024 Iadna chlamydia trachomatis amplified probe tq Veto Elsa NOZZLE TENDER - [employer]ING WORKER Work Phone: Start: 07-26-2024 BUPRENORPHINE SCREEN Juli Galloway MD Work Phone: Start: 07-26-2024 Drug tst prsmv instr mnt chem analyzers pr date Marcelino Mathias NOZZLE TENDER - [employer]ING WORKER Work Phone: Start: 07-26-2024 Urinalysis complete panel - Urine Marcelino Mathias NOZZLE TENDER - CASING WORKER Work Phone: Start: 07-26-2024 Urnls dip stick/tabl et reagent auto microscopy Marcelino Mathias NOZZLE TENDER - [employer]ING WORKER Work Phone: Start: 07-26-2024 Adult depression scr eening assessment Floyd Sweet MD Work Phone: Start: 07-26-2024 Ecg routine ecg w/le ast 12 lds trcg only w/o i&r Floyd Sweet MD Work Phone: Start: 07-25-2024 Comprehensive metabo lic panel Marcelino Mathias NOZZLE TENDER - [employer]ING WORKER Work Phone: Start: 07-25-2024 Drug test def 1-7 classes Marcelino Mathias NOZZLE TENDER - [employer]ING WORKER Work Phone: Start: 07-25-2024 Iaad ia hiv-1 ag w/h iv-1 & hiv-2 antbdy single Veto Hunter NOZZLE TENDER - [employer]ING WORKER Work Phone: Start: 07-25-2024 SARS-CoV-2 (COVID-19 ) Ag [Presence] in Respiratory specimen by Rapid immunoassay Marcelino Mathias NOZZLE TENDER - [employer]ING WORKER Work Phone: Start: 01-03-2024 Radex wrist complete [...] foot complete minimum 3 views Dafne Donovan NOZZLE TENDER - CASING WORKER Work Phone: Start: 02-23-2021 BLADDER SCAN Maxine Go rdon MA Start: 02-23-2021 Urnls dip stick/tabl et rgnt auto w/o microscopy Anna Whitaker NOZZLE TENDER.CASING WORKER Work Phone: Start: 01-31-2021 Comprehensive metabo lic [...] Start: 08-17-2019 Drug screen class list a [employer] Work Phone: Start: 08-17-2019 Drug tst prsmv instr mnt chem analyzers pr date [employer] Work Phone: Start: 08-17-2019 Assay of ethanol [employer] Work Phone: Start: 08-17-2019 Basic metabolic pane l calcium total Olivia [employer] Work Phone: Start: 08-17-2019 Blood count complete auto&auto difrntl wbc [employer] Work Phone: Start: 08-17-2019 Creatine kinase total S fredy [employer] Work Phone: Start: 08-17-2019 Hepatic function panel [employer] Work Phone: Start: 07-10-2019 Acute hepatitis panel B sulaiman Bradshaw Start: 07-10-2019 Basic metabolic pane l calcium total Shelly Bradshaw Start: 07-10-2019 Blood count complete automated Shelly Bradshaw Start: 07-10-2019 Hepatic function panel Shelly Bradshaw Plan of Treatment Date Care Activity Detail Author Start: 2073 RSV Immunization for Adults (1 - 1-dose 75+ series) RSV Immunization for Adults (1 - 1-dose 75+ series) [facility] Start: 2058 RSV Immunization aged 60 or older (1 - 1-dose 60+ series) RSV Immunization aged 60 or older (1 - 1-dose 60+ series) [facility] Start: 2048 Shingles Vaccine (1 of 2) Shingles Vaccine (1 of 2) Michelle echavarria- [place], [place] Start: 2048 Zoster Vaccines (1 of 2) Zoster Vaccines (1 of 2) [facility] Start: 07-26-2025 Depression Screening Depression Screening [facility] Start: 01-22-2025 End: 01-22-2025 Patient encounter procedure 01/22/2025 8:30 AM EDT Office Visit Neurology [address] [place], [place] [id number] Shelley Loyd PA-C [address] [place] [address] Narcolepsy- referral Blanca Arceo. Records scanned in Neurology Comment on above: Narcolepsy- referral Blanca Arceo. Rec ords scanned in Start: 01-20-2025 Influenza vaccination [facility] Start: 10-31-2024 End: 01-30-2025 TRICHOMONAS VAGINALIS NAAT TRICHOMONAS VAGINALIS NAAT Lab Routine Burning with urination Expected: 10/31/2024, Expires: 01/30/2025 [facility] Comment on above: Expected: 10/31/2024, Expires: Start: 05-24-2024 Depression Screening Depression Screening [facility] Start: 01-21-2024 COVID-19 Vaccine ( season) COVID-19 Vaccine ( season) [facility] Start: 01-21-2024 Influenza vaccination [facility] Start: 06-28-2023 End: 06-28-2023 Patient encounter procedure 06/28/2023 3:30 PM EST Office Visit [facility] [place] [address] [facility] [address] [place] [address] Shahnaz Hernandez MD [address] [facility] [address] [place] [address] [facility] [place] Start: 06-27-2023 End: 06-27-2023 Patient encounter procedure 06/27/2023 8:10 AM EST Office Visit [facility] [address] [place] [phone] Cesar Bone DO [address] [place], [place] [id number] [facility] Start: 05-31-2023 End: 05-31-2023 Patient encounter procedure 05/31/2023 9:00 AM EST Office Visit [facility] [place] [address] [place] [phone] Jose Merino MD 95 [facility] [address] [place], [place] [id number] [facility] [place] Start: 05-24-2023 End: 05-24-2023 Patient encounter procedure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 Shahnaz Hernandez MD [facility] [address] [place], [place] [address] p [phone] f [phone] documented in this encounter [facility] 06-21-2023 Instructions Jazmin Christensen - 06/21/2023 1:00 PM EST -If sitting for long period of times, try to just sit on a flat cushion -area is healing nicely, there is no signs of infection, there is an area that is open, this will heal and close on its own. -if you have any concerns please contact office. documented in this encounter [facility] 05-31-2023 Telephone encounter Note S: pt sent [...] Protocols used: Information Only Call - No [id number] [facility] 05-31-2023 Miscellaneous Notes S: pt sent online [...] Protocols used: Information Only Call - No [id number] documented in this encounter [facility] 05-31-2023 History of Present illness Narrative @ASSESSMENTBEGINPHANTOM@ [...] ROS: Review of Systems as recordedby the er medical technician has been reviewed by me, and I agree except as noted inthe HPI. Past Medical History: Diagnosis Date Drug abuse (CMS/HCC) (HCC) Polysubstance abuse (CMS/HCC) ([facility]) Rhabdomyolysis 01/2017 Past Surgical History: Procedure Laterality [...] at 9:27 AM. documented in this encounter [facility] [employer] 05-31-2023 Instructions Jazmin Christensen - 05/31/2023 9:00 AM EST - does not look infected -the wound will heal over by itself in time -can shower as normal -see Dr. Hernandez in 3-4 weeks documented in this encounter [facility] 05-24-2023 Evaluation + Plan note Associated Problem(s): Opioid dependence in remission ([facility]) -Chronic, stable -Continue suboxone as prescribed by ADM provider [facility] 05-24-2023 Miscellaneous Notes Associated Problem(s): Opioid dependence in remission (HCC) -Chronic, stable -Continue suboxone as prescribed by ADM provider Associated Problem(s): COVID -COVID positive 05/19/23 -Vitals wnl; no wheezing on exam -Continue supportive care with OTC decongestants, NSAIDs, and acetaminophen as needed. Encouraged patient to stay hydrated and to notify the office if symptoms worsen documented in this encounter [facility] 05-24-2023 Evaluation + Plan note Associated Problem(s): COVID -COVID positive 05/19/23 -Vitals wnl; no wheezing on exam -Continue supportive care with OTC decongestants, NSAIDs, and acetaminophen as needed. Encouraged patient to stay hydrated and to notify the office if symptoms worsen [facility] 05-24-2023 History of Present illness Narrative Images from the original note were not included. [facility] [address] [address] [facility] [address] Dept: [phone] Dept Loc: [phone] 05/24/2023 Visit type: New patient Reason for [...] decongestants, tylenol, and ibuprofen. Gets Suboxone from [facility] in [place]. BUPRENORPHINE-NALOX 8-2MG FILM 03/08/2023 7 14 each Geraldine Hodge MD dissolve 2 FILMS under the tongue once daily Also got a short-term prescription for oxycodone for post-op pain management. Future Appointments Date Time Provider Department Center 05/31/2023 9:00 AM Jose Merino MD [facility] None 06/27/2023 8:10 AM Cesar Bone DO [facility] HPI Review of [...] Medical History: Diagnosis Date Drug abuse (CMS/HCC) ([facility]) Polysubstance abuse (CMS/HCC) ([facility]) Rhabdomyolysis 01/2017 Past Surgical History: Procedure Laterality [...] including: See Assessment/Plan Goals None Internal Medicine [facility] Staffed with Dr Joan Eduardo MD [...] health insurance? [] Do you have a rn case management? Please list name and number below. [] Are you looking for a job? [] Are you receiving Social Security Benefits? [x] None of the above apply to me at this time. Please list any additional concerns you would like to discuss with our team: ANTONINA GarcíaW Pt received and completed the [facility] screen. No concerns. Teaching Physician Note [...] 05/24/23 8:50 AM documented in this encounter [facility] 05-23-[address] Susannah Jackson [...] with any questions or concerns, verbalizes understanding. [facility] 05-23-[address] Susannah Jackson contacts [...] patient's Suboxone physician Dr. Susannah Jackson w/ [facility] [phone]. Patient was prescribed a 5 day course of Percocet 5/325 1 tab po q 6 h prn pain and instructed to follow-up with the Dr. Jackson at [facility] for further management of his Suboxone/post-operative pain. The above is reviewed with the patient, he verbalizes understanding and will contact the [facility] for further instruction. Patient states he is still very symptomatic from a Covid standpoint. He is instructed to contact the office should he remain symptomatic as we near his appointment to determine how this needs to be adjusted. Patient calls office back stating he called [facility] and they cannot see him until 06/08/23. [facility] contacted to review the above, discussed with [...] See note Protocols used: Post-Op Symptoms and [id number] documented in this encounter [facility] [employer] 05-23-2023 Note Addended by: JOSE MERINO on: 05/23/2023 02:23 PM Modules accepted: Orders [facility] [employer] 05-23-2023 Note Addended by: JOSE MERINO on: 05/23/2023 02:23 PM Modules accepted: Orders [facility] [employer] 05-23-2023 Note Addended by: JOSE MERINO on: 05/23/2023 02:23 PM Modules accepted: Orders [facility] [employer] 05-23-2023 Note Addended by: GARDENIA DOBBINS on: 05/23/2023 02:20 PM Modules accepted: Orders [facility] [employer] 05-23-2023 Note Addended by: GARDENIA DOBBINS on: 05/23/2023 02:20 PM Modules accepted: Orders [facility] [employer] 05-23-2023 Note Addended by: GARDENIA DOBBINS on: 05/23/2023 02:20 PM Modules accepted: Orders [facility] [employer] 05-23-2023 Telephone encounter Note Per CDC guidelines, [...] the patient's Suboxone physician Dr. Susannah carballo/ [facility] [phone]. Patient was prescribed a 5 day course of Percocet 5/325 1 tab po q 6 h prn pain and instructed to follow-up with the Dr. Jackson at [facility] for further management of his Suboxone/post-operative pain. The above is reviewed with the patient, he verbalizes understanding and will contact the [facility] for further instruction. Patient states he is still very symptomatic from a Covid standpoint. He is instructed to contact the office should he remain symptomatic as we near his appointment to determine how this needs to be adjusted. Patient calls office back stating he called [facility] and they cannot see him until 06/08/23. [facility] contacted to review the above, discussed with Twila Torres who will contact the patient to discuss how they will proceed on their end. She will have the physician contact the office with any questions. Patient advised of the above, verbalizes understanding. [facility] [employer] 05-21-2023 Telephone encounter Note S-This 22 year [...] See note Protocols used: Post-Op Symptoms and [id number] [facility] 05-19-2023 Emergency department Note Reviewed DC paperwork with patient, patient verbalized understanding of all. Patient A&O, non-labored respirations, no signs of acute distress, ambulated out of ED with steady stable gait. Saira Lou LPN 05/19/2317 [facility] 05-19-2023 Emergency department Note Reviewed DC paperwork with patient, patient verbalized understanding of all. Patient A&O, non-labored respirations, no signs of acute distress, ambulated out of ED with steady stable gait. Saira Lou LPN 05/19/23516 Emergency Department Encounter [facility] EMERGENCY DEPT Patient: Geraldine Kaiser : 2000 Date of Evaluation: 05/19/2023 ED Supervising Physician: Nicola Dyer MD I independently examined and evaluated Geraldine Kaiser. This will serve as my Supervisory note as the technologist infectious disease of record and shared attestation. I did [...] causing those symptoms. Diagnoses as of 05/19/23 2473 Viral upper respiratory tract infection Postoperative examination Diagnostic tests considered but not performed: External records reviewed: Diagnostics interpreted by me: Discussions with other clinicians: Chronic conditions impacting care: Social determinants of health affecting care: ED Medications managed: Medications ibuprofen tablet 600 mg (600 mg Oral Given 05/19/23 4913) Prescription drugs considered: Disposition and plan: Viral [...] MD 05/19/23 0436 documented in this encounter [facility] 05-19-2023 Hospital Discharge instructions Mann Boyd MD [...] Everywhere.Viral Upper Respiratory Infection Discharge Instructions, Adult (Zambian)documented in this encounter [facility] 05-19-2023 Physician Emergency department Note Emergency Department Encounter [facility] EMERGENCY DEPT Patient: Geraldine Kaiser : 2000 Date of Evaluation: 05/19/2023 ED Supervising Physician: Nicola Dyer MD I independently examined and evaluated Geraldine Kaiser. This will serve as my Supervisory note as the technologist infectious disease of record and shared attestation. I did [...] causing those symptoms. Diagnoses as of 05/19/23 3519 Viral upper respiratory tract infection Postoperative examination Diagnostic tests considered but not performed: External records reviewed: Diagnostics interpreted by me: Discussions with other clinicians: Chronic conditions impacting care: Social determinants of health affecting care: ED Medications managed: Medications ibuprofen tablet 600 mg (600 mg Oral Given 05/19/23 5243) Prescription drugs considered: Disposition and plan: Viral [...] [employer] Nicola Dyer MD 05/19/23 0436 [employer] Work Phone: 05-11-2023 Note Formatting of this n ote might be different from the original. Patient is recovering, phase 2, has crackers/water. Dad is at bedside with belongings. Waiting for meds to beds. Call light within reach [employer] 05-11-2023 Note Formatting of this n ote might be different from the original. Patient is recovering, phase 2, has crackers/water. Dad is at bedside with belongings. Waiting for meds to beds. Call light within reach [employer] 05-11-2023 Miscellaneous Notes Patient is recovering, phase 2, has crackers/water. Dad is at bedside with belongings. Waiting for meds to beds. Call light within reach Date: 05/11/2023 Location: [facility] OR Name: Geraldine Boswell Job, : 2000, Diagnosis Pre-op Diagnosis * Pilonidal cyst with abscess [L05.01] Post-op Diagnosis * Pilonidal cyst with abscess [L05.01] Procedures PILONIDAL CYSTECTOMY 08538 - OR EXCISION PILONIDAL CYST/SINUS EXTENSIVE Surgeons * Shahnaz Hernandez - Primary Procedure Summary Anesthesia: General ASA: II Estimated Blood Loss: 5 mL Drains: * None in log * Specimens ID Source Type Tests Collected By Collected At Frozen? Priority Lab ID 1 Buttock, Left Tissue TISSUE EXAM Shahnaz Hernandez MD 05/11/23 6376 Description: Pilonidal Cyst Staff: Insurance Account Assistant: Dez Hopson RN; Marisa Moreno RN Scrub [...] Vancomycin or flouroquinolone) documented in this encounter [facility] 05-11-2023 Hospital Discharge instructions Saira Bustos MD [...] and/or NSAIDS, please take your opioid prescription ([place]/vicodin/percocet have tylenol in them) as needed for [...] oxycodone (5mg) tablets if needed PLEASE CALL [phone] if you have any questions The following attachments cannot be sent through Care Everywhere.Pilonidal Cyst Discharge Instructions (Zambian)documented in this encounter [facility] 05-11-2023 Note Formatting of this n ote is different from the original. Date: 05/11/2023 Location: [facility] OR Name: Geraldine Boswell Job, : 2000, Diagnosis Pre-op Diagnosis * Pilonidal cyst with abscess [L05.01] Post-op Diagnosis * Pilonidal cyst with abscess [L05.01] Procedures PILONIDAL CYSTECTOMY 65537 - OR EXCISION PILONIDAL CYST/SINUS EXTENSIVE Surgeons * Shahnaz Hernandez - Primary Procedure Summary Anesthesia: General ASA: II Estimated Blood Loss: 5 mL Drains: * None in log * Specimens ID Source Type Tests Collected By Collected At Frozen? Priority Lab ID 1 Buttock, Left Tissue TISSUE EXAM Shahnaz Hernandez MD 05/11/23 0302 Description: Pilonidal Cyst Staff: Insurance Account Assistant: Dez Hopson RN; Marisa Moreno RN Scrub [...] (two hours if receiving Vancomycin or flouroquinolone) [facility] 05-11-2023 Note Formatting of this n ote is different from the original. Date: 05/11/2023 Location: [facility] OR Name: Geraldine Kaiser, : 2000, Diagnosis Pre-op Diagnosis * Pilonidal cyst with abscess [L05.01] Post-op Diagnosis * Pilonidal cyst with abscess [L05.01] Procedures PILONIDAL CYSTECTOMY 98574 - OR EXCISION PILONIDAL CYST/SINUS EXTENSIVE Surgeons * Shahnaz Hernandez - Primary Procedure Summary Anesthesia: General ASA: II Estimated Blood Loss: 5 mL Drains: * None in log * Specimens ID Source Type Tests Collected By Collected At Frozen? Priority Lab ID 1 Buttock, Left Tissue TISSUE EXAM Shahnaz Hernandez MD 05/11/23 9157 Description: Pilonidal Cyst Staff: Insurance Account Assistant: Dez Hopson RN; Marisa Moreno RN Scrub [...] (two hours if receiving Vancomycin or flouroquinolone) [facility] 04-05-2023 History of Present illness Narrative Patient denies fever, drainage COLORECTAL SURGERY OFFICE VISIT PATIENT NAME: Geraldine Kaiser : 2000 TODAY'S DATE: 04/05/2023 Chief Complaint Patient presents with Follow-up Follow-up to re-evaluate pilonidal cyst after 7 day course of Augmentin(eval/rx per [facility]) Discuss scheduling surgery, review Suboxone considerations and post-op pain management plan. OTHER Pt unaccompanied SUBJECTIVE: Geraldine Kaiser is a 22 y.o. male known me for pilonidal cyst, here for concern for new onset swelling/discomfort past few days. No fevers. No drainage. Previously cancelled pilonidal surgery Review of Systems as documented Past Medical History: Diagnosis Date Drug abuse (CMS/[facility]) ([facility]) Polysubstance abuse (CMS/[facility]) ([facility]) Rhabdomyolysis 01/2017 Past Surgical History: Procedure Laterality [...] of other disease. Exam chaperoned by female technical staff assistant. ASSESSMENT/PLAN: Diagnosis Plan 1. Pilonidal cyst [...] was performed when available. Shahnaz Hernandez MD [facility] [place] [address] [place], [place] [address] p [phone] f [phone] documented in this encounter [facility] 04-05-2023 Instructions Jazmin Christensen - 04/05/2023 2:00 PM EST -do feel slight swelling -do not need any antibiotics at this time -would like to monitor for now -contact office if you develop fever, redness or swelling/pain develops -would recommend surgery for excision documented in this encounter [facility] 03-14-2023 History of Present illness Narrative Pt denies any pain at this time [facility]OR[facility] SURGERY OFFICE VISIT PATIENT NAME: Geraldine Kaiser : 2000 TODAY'S DATE: 03/14/2023 Chief Complaint Patient presents with New Patient ER follow-up for recurrent pilonidal abscess requiring bed side drainage 03/07/23, pt prescribed Keflex/Flagyl. Referring- [facility] ED OTHER SUBJECTIVE: Geraldine Kaiser is a 22 y.o. male who presents for recurrent pilonidal abscess. I&D in ER 03/07 Doing well. Pain improved. No drainage. No fevers. Was rx'd abx Never had pilonidal surgery in the past Of note does take suboxone Review of Systems as documented Past Medical History: Diagnosis Date Drug abuse (CMS/HCC) (HCC) Polysubstance abuse (CMS/HCC) ([facility]) Rhabdomyolysis 01/2017 Past Surgical History: Procedure Laterality [...] well wtihout infection Exam chaperoned by female technical staff assistant. ASSESSMENT/PLAN: Diagnosis Plan 1. Pilonidal abscess [facility] [place] [place] Plan for excision pilonidal [...] was performed when available. Shahnaz Hernandez MD [facility] [place] [address] [place], [place] [address] p [phone] f [phone] documented in this encounter [facility] 03-14-2023 Instructions Jazmin Christensen - 03/14/2023 10:00 AM EDT In office exam shows patient is healing well. Could schedule surgery to remove pilonidal cyst After surgery can shower, let soap water run over the area to cleanse documented in this encounter [facility] 03-09-2023 Telephone encounter Note Spoke to patient and confirmed appointment with Dr. Hernandez on 03/14/23 @ 10:00 am. [facility] 03-09-2023 Telephone encounter Note ----- Message from [...] reached at phone # listed in chart. [facility] 03-09-2023 Miscellaneous Notes Spoke to patient and [...] listed in chart. documented in this encounter [facility] 03-08-2023 Emergency department Note Patient reports feeling much better and good to go. Walked to bathroom without issues. Gave richard pamela and crackers due to not eating all day. Discharge instructions reviewed and patient verbalized understanding. Aware of his appointment address, time and date. Yue Myers RN 03/08/23 1506 [facility] 03-08-2023 Emergency department Note Patient reports feeling much better and good to go. Walked to bathroom without issues. Gave richard pamela and crackers due to not eating all day. Discharge instructions reviewed and patient verbalized understanding. Aware of his appointment address, time and date. Yue Myers RN 03/08/23 8046 [facility] for March 15 at 8 am. Yue [...] this time. Yue Myers RN 03/08/23 1317 [facility] ED EMERGENCY DEPARTMENT ENCOUNTER Pt Name: [...] He was unable to see an addiction women's health care nurse practitioner yesterday. Nursing Notes were reviewed. REVIEW OF [...] Past Medical History: Diagnosis Date Drug abuse ([facility] ([facility]) Polysubstance abuse ([facility]) ([facility]) Rhabdomyolysis 01/2017 SURGICAL HISTORY Past Surgical History: [...] medical decision making. Pt appears nontoxic. Addiction women's health care nurse practitioner evaluated the patient. Patient given suboxone. He felt improved. Discharged home with suboxone Rx and follow up appointment. Diagnoses as of 03/08/23 1519 Opioid use disorder PROCEDURES: Unless otherwise noted below, none Procedures Patients symptoms are consistent with sepsis, severe sepsis, or septic shock (If yes use .sepsiscoremeasure): no FINAL IMPRESSION 1. Opioid use disorder DISPOSITION/PLAN Discharge 03/08/2023 02:53:48 PM PATIENT REFERRED TO: [address] [address] Schedule an appointment as soon as possible [...] MD SELINA Emergency Medicine Physician Acute [facility] Geraldine Hodge MD 03/08/23 1520 documented in this encounter [facility] 03-08-2023 Hospital Discharge instructions Geraldine Hodge MD [...] your results today. Thank you for choosing [facility] for your care. Sincerely, Geraldine Hodge MD documented in this encounter [facility] 03-08-2023 Emergency department Note An appointment was established with [facility] for March 15 at 8 am. Yue Myers RN 03/08/23 3779 [facility] 03-08-2023 Emergency department Note Patient arrived to [...] 24 mg in the past prescribed by [facility] one year ago. He feels he needs 16 mg suboxone at this time. Yue Myers RN 03/08/23 8400 [facility] 03-08-2023 Physician Emergency department Note [facility] ED EMERGENCY DEPARTMENT ENCOUNTER Pt Name: [...] He was unable to see an addiction women's health care nurse practitioner yesterday. Nursing Notes were reviewed. REVIEW OF [...] Past Medical History: Diagnosis Date Drug abuse ([facility]) ([facility] Polysubstance abuse ([facility]) ([facility]) Rhabdomyolysis 01/2017 SURGICAL HISTORY Past Surgical History: [...] medical decision making. Pt appears nontoxic. Addiction women's health care nurse practitioner evaluated the patient. Patient given suboxone. He felt improved. Discharged home with suboxone Rx and follow up appointment. Diagnoses as of 03/08/23 1519 Opioid use disorder PROCEDURES: Unless otherwise noted below, none Procedures Patients symptoms are consistent with sepsis, severe sepsis, or septic shock (If yes use .sepsiscoremeasure): no FINAL IMPRESSION 1. Opioid use disorder DISPOSITION/PLAN Discharge 03/08/2023 02:53:48 PM PATIENT REFERRED TO: [place] [address] Schedule an appointment as soon as possible [...] Geraldine Hodge MD SELINA Emergency Medicine Physician [facility] Geraldine Hodge MD 03/08/23 1520 [facility] 03-07-2023 Hospital Discharge instructions Taya Hernandez MD - 03/07/2023 6:56 AM EDT [facility] pilonidal abscess as well as symptoms withdrawal which were treated with Suboxone therapy in the emergency department. Please return to the emergency department for repeat evaluation for the MAT program tomorrow morning. Please take your antibiotics as prescribed and follow-up with colorectal surgery. The following attachments cannot be sent through Care Everywhere.Pilonidal Cyst Discharge Instructions (Zambian)documented in this encounter [facility] 03-07-2023 Emergency department Note Chaperoned Dr Hernandez for eval of abscess. Oliva Jesus RN 03/07/23 0507 [facility] 03-07-2023 Emergency department Note Chaperoned Dr Hernandez for eval of abscess. Oliva Jesus RN 03/07/23 0508 Pt complaints of abscess to buttocks/ tailbone [...] street to help. documented in this encounter [facility] 03-07-2023 Note NOTE: This result is for medical treatment only. Analysis performed using non-forensic procedures. [facility] 03-07-2023 Emergency department Triage note Pt complaints [...] taken suboxone off the street to help. [facility] 01-26-2023 Hospital Discharge instructions Darryl Heller DO - 01/26/2023 12:17 AM EDT Apply warm compresses as discussed. Take Tylenol and Motrin for as needed for pain. Follow-up with your primary care doctor or with department family practice. The following attachments cannot be sent through Care Everywhere.Boil, Adult ED (Zambian)documented in this encounter [facility] 01-25-2023 Emergency department Note EMERGENCY DEPARTMENT ENCOUNTER [...] Past Medical History: Diagnosis Date Drug abuse ([facility]) ([facility]) Polysubstance abuse ([facility]) ([facility]) Rhabdomyolysis 01/2017 SURGICAL HISTORY Past Surgical History: [...] Henry MD Resident 01/25/232148 Emergency Department Encounter [facility] ED Patient: Geraldine Kaiser : 2000 [...] [employer] Karsten Mcgrath MD 01/25/23 9237 Associated Order(s): Incision and Drainage Patient was [...] organs and infection Alternatives discussed: No treatment [place] protocol: Patient identity confirmed: Verbally with patient [...] distance driving recently documented in this encounter [facility] 01-25-2023 Emergency department Triage note Pt states he has abscess to coccyx region. Pt did a lot of traveling/long distance driving recently [facility] 01-25-2023 Physician Emergency department Note EMERGENCY DEPARTMENT [...] Past Medical History: Diagnosis Date Drug abuse ([facility]) (HCC) Polysubstance abuse (CMS/HCC) ([facility]) Rhabdomyolysis 01/2017 SURGICAL HISTORY Past Surgical History: [...] Provider Anne Marie Henry MD Resident 01/25/232148 [facility] 01-25-2023 Physician Emergency department Note Emergency Department Encounter [facility] ED Patient: Geraldine Kaiser : 2000 [...] for clarification.) Karsten Mcgrath MD Acute Care [facility] Karsten Mcgrath MD 01/25/23 7442 [employer] Phone: 01-25-2023 Physician Emergency department Note Associated [...] organs and infection Alternatives discussed: No treatment Hazen protocol: Patient identity confirmed: Verbally with patient [...] immediate complications Darryl Heller DO 01/26/23 0400 [facility] [employer] Phone: 04-09-2021 Hospital Discharge instructions Dafne Donovan APRN - CNP - 04/09/2021 Weight bearing as tolerated. Please follow-up with orthopedic surgery. They should call you tomorrow if they do not call you you call them. The following attachments cannot be sent through Care Everywhere.Foot Fracture (Zambian)Walking Boot (Zambian)documented in this encounter [employer] Phone: 04-09-2021 Hospital Discharge instructions Dafne Donovan APRN - CNP - 04/09/2021 Weight bearing as tolerated. Please follow-up with orthopedic surgery. They should call you tomorrow if they do not call you you call them. The following attachments cannot be sent through Care Everywhere.Foot Fracture (Zambian)Walking Boot (Zambian)documented in this encounter [employer] Work Phone: 02-23-2021 [...] - BLADDER SCAN - CYSTO.PANENDO Anna Whitaker APRN.CASING WORKER documented in this encounter [facility] 01-31-2021 Hospital Discharge instructions Mayo Yang MD - 01/31/2021 Please return to the emergency Department immediately for new or worsening symptoms or any new concerns. Please follow-up with your primary care doctor in the next 3-5 days. Please call tomorrow to arrange follow-up with gastroenterology for further work-up. The following attachments cannot be sent through Care Everywhere.Diarrhea (Zambian)Nausea and Vomiting (Zambian)documented in this encounter [email or web address] Work Phone: Evaluation note Diagnosis Contusion of right hand including fingers, initial encounter- Primary [facility]* Diagnosis Nausea vomiting and diarrhea- Primary Nausea with vomiting Worms in stool Helminth infection, unspecified documented in this encounter [email or web address] Work Phone: Evaluation note* Diagnosis Recurrent UTI Urinary tract infection, site not specified Urethral pain Other symptoms involving urinary system Cutaneous skin tags Unspecified hypertrophic and atrophic condition of skin [facility] Diagnosis Closed nondisplaced fracture of metatarsal bone of left foot, unspecified metatarsal, initial encounter- Primary documented in this encounter [email or web address] Work Phone: Evaluation note* Diagnosis Closed nondisplaced fracture of metatarsal bone of left foot, unspecified metatarsal, initial encounter- Primary documented in this encounter [facility] Work Phone: Evaluation note* Diagnosis Abscess- Primary Cellulitis and abscess of unspecified site documented in this encounter [facility] note* Diagnosis Pilonidal abscess- Primary Pilonidal cyst with abscess documented in this encounter [facility] note* Diagnosis Opioid use disorder- Primary documented in this encounter [facility] note* Diagnosis Pilonidal abscess Pilonidal cyst with abscess Pilonidal cyst with abscess documented in this encounter [facility] note* Diagnosis Pilonidal cyst- Primary Pilonidal cyst with abscess documented in this encounter [facility] note* Diagnosis Pilonidal cyst- Primary Pilonidal cyst with abscess documented in this encounter [facility] note* Diagnosis Viral upper respiratory tract infection- Primary Acute upper respiratory infections of unspecified site Postoperative examination Follow-up examination, following unspecified surgery documented in this encounter [facility] note* Diagnosis Pilonidal cyst documented in this encounter [facility] note* Diagnosis COVID- Primary Opioid dependence in remission (HCC) Opioid type dependence, in remission documented in this encounter [facility] note* Diagnosis Pilonidal cyst- Primary documented in this encounter [facility] note* Diagnosis Pilonidal cyst- Primary documented in this encounter [facility] note* Diagnosis Acute conjunctivitis of left eye, unspecified acute conjunctivitis type- Primary documented in this encounter [facility] note* Diagnosis Coccydynia- Primary Other disorder of coccyx documented in this encounter [facility] note* Diagnosis Sprain of right wrist, initial encounter- Primary documented in this encounter [facility] note* Diagnosis COVID- Primary Opioid dependence in remission (HCC) Opioid type dependence, in remission Opioid withdrawal (HCC)- Primary Drug withdrawal Mass of left side of neck Opiate dependence, continuous (HCC) Fentanyl dependence (HCC) Mass of left side of neck Severe opioid use disorder (HCC) Polysubstance abuse (CMS/HCC) (HCC) Other, mixed, or unspecified nondependent drug abuse, unspecified [facility]* Diagnosis Burning with urination- Primary Dysuria documented in this [facility] noteNo assessment information availableWLakeHealth [facility] Work Phone: Hospital Discharge instructions* Attachments The following attachments cannot be sent through Care Everywhere. * Contusion: Hand ([place]ian) [facility]: [facility] Discharge instructions* Attachments The following attachments cannot be sent through Care Everywhere. * Common Wrist Injuries Discharge Instructions ([place]ambian) [facility] Attachments The following attachments cannot be sent through Care Everywhere. * COVID-19 Discharge Instructions (Zambian) documented in this [facility]* Attachments The following attachments cannot be sent through Care Everywhere. * Conjunctivitis (Pinkeye) (Zambian) documented in this [facility] for referral (narrative)* Consultation (Routine) - Pending Review Specialty Diagnoses / Procedures Referred By Contact Referred To Contact Gastroenterology / Colon and Rectal Surgery Diagnoses Pilonidal abscess Procedures OR OFFICE/OUTPATIENT [facility] 60-74 MINUTES Taya Hernandez MD [address] [place] [address] [facility] [address] [address] Referral ID Status Reason Start Date Expiration Date Visits Requested Visits Authorized [id number] Pending Review Specialty Services Required 3 03/06/2024 1 1 [facility] for referral (narrative)No reason for referral information availableWLakeHealth [facility] Work Phone: Summary Purpose Family History No Family History Records Found Medical History Relation Name Comments Substance Abuse Maternal Uncle Relation Name Status Comments Father Alive Maternal Uncle Mother Alive Advance Directives No Advanced Directives Records FoundDocuments on File Type Date Recorded Patient Video Player Mechanic Expl anation Advance Directives and Living Will Power of Animal Herder Latest Code Status on File Code Status Date Activated Date Inactivated Comments Full Code 01/25/2017 12:30 AM 02/06/2017 7:44 PM Documents on File Type Date Recorded Patient Video Player Mechanic Expl anation Advance Directives and Living Will Power of Animal Herder Latest Code Status on File Code Status Date Activated Date Inactivated Comments Full Code 01/25/2017 12:30 AM 02/06/2017 7:44 PM Documents on File Type Date Recorded Patient Video Player Mechanic Expl anation ACP-Advance Directive ACP-Power of Animal Herder Latest Code Status on File Code Status Date Activated Date Inactivated Comments Full Code 08/12/2020 1:58 AM 08/15/2020 2:48 PM Full Code 01/25/2017 12:30 AM 02/06/2017 7:44 PM Documents on File Type Date Recorded Patient Video Player Mechanic Expl anation ACP-Advance Directive ACP-Power of Animal Herder Latest Code Status on File Code Status [...] Alcohol - Drug - or Poison Ingestion (Zambian) documented in this encounter Assessments Diagnosis Strep pharyngitis- Primary Streptococcal sore throat Diagnosis Opiate overdose, accidental or unintentional, initial encounter (HCC)- Primary Reason for Referral Status Reason Specialty Diagnoses / Procedures Referred By Contact Referred To Contact Open Specialty Services Required Gastroenterology Diagnoses Nausea vomiting and diarrhea Worms in stool Mayo Yang MD [address] [place] [id number] [facility]astro Ach [address] [facility] [address] [place] [address] Scheduling Instructions [facility] [address] [facility], [address] [place]. [address] Fax: Specialty Diagnoses / Procedures Referred By Contac t Referred To Contact Orthopedic Surgery Diagnoses Closed nondisplaced fracture of metatarsal bone of left foot, unspecified metatarsal, initial encounter Dafne Donovan, NOZZLE TENDER - CASING WORKER [address] [place] [address] Afl S[facility] [place] [address] [address] [facility] [address] [place] [address] Referral ID Status Reason Start Date Expiration Date V isits Requested Visits Authorized [id number] Open Specialty Services Required 04/09/2021 04/09/2022 1 1 Scheduling Instructions [facility] [place] [address] [facility], [address] [place] [address] Additional Source Comments (unrecognized sect ion and content) No Status Records FoundNo Status Records FoundNo Status Records FoundNo Status Records FoundNo Status Records FoundNo Status Records FoundNo Status Records FoundNo Status Records Found INFORMATION SOURCE (unrecogn ized section and content) DATE CREATED AUTHOR [facility]/29/2018 [facility] DATE CREATED AUTHOR AUTHOR'S ORGANIZ ATION 09/21/2020 [facility] DATE CREATED AUTHOR AUTHOR'S ORGANIZ ATION 04/14/2021 [facility] DATE CREATED AUTHOR AUTHOR'S ORGANIZ ATION 04/24/2021 [facility] [employer] DATE CREATED AUTHOR AUTHOR'S ORGANIZ ATION 11/19/2023 [facility] DATE CREATED AUTHOR AUTHOR'S ORGANIZ ATION 07/29/2024 [facility] DATE CREATED AUTHOR AUTHOR'S ORGANIZ ATION 12/17/2024 [facility] [place] DATE CREATED AUTHOR AUTHOR'S ORGANIZ ATION 12/22/2024 [facility] Reason for Visit (unrecogniz ed section and [...] side drainage 03/07/23, pt prescribed Keflex/Flagyl. Referring- [facility] ED OTHER Specialty Diagnoses / Procedures Referred By Jolie matson Referred To Contact Colon and Rectal Surgery Diagnoses Pilonidal abscess Procedures OR OFFICE/OUTPATIENT [facility] 60-74 MINUTES Taya Hernandez MD [address] [place] [address] Shahnaz Hernandez MD [address] [place] [address] Referral ID Status Reason Start Date Expiration Date V isits Requested Visits Authorized [id number] Closed Specialty Services Required 03/07/2023 03/06/2024 1 1 Reason Comments Follow-up Follow-up to re-eval uate pilonidal cyst after 7 day course of Augmentin(eval/rx per [facility]) Discuss scheduling surgery, review Suboxone considerations and post-op pain management plan. OTHER Pt unaccompanied Specialty Diagnoses / Procedures Referred By Jolie matson Referred To Contact Diagnoses Pilonidal cyst with abscess Pilonidal cyst with abscess [L05.01] Procedures OR EXCISION PILONIDAL CYST/SINUS EXTENSIVE PILONIDAL CYSTECTOMY Shahnaz Hernandez MD [address] [place] [address] [facility] Main Or [address] [place] [address] Referral ID Status Reason Start Date Expiration Date Visits Re quested Visits Authorized [id number] 1 1 Reason Comments Post-op Problem States [...] dependence (HCC) Procedures . Jaylen Galloway MD [address] [place] [phone] Phone: tel: fax: [facility] Detox [address] [place] [address] Phone: tel: Referral ID Status Reason Start Date Expiration Date Visits Re quested Visits Authorized [id number] 1 1 Reason Comments Urinary Problem Cloudy [...] 2,000 mg, IntraVENous, Administer over 30 Minutes, Hollow Tile Partition Erector to O.R., On Codi 05/11/23 at 1045, [...] Macedo RN) bupivacaine-EPINEPHrine PF (Marcaine w/EPI) 0.5% -[id number] injection (CANCELED) As needed, Starting on Codi [...] sedation for opioid reversal - MUST notify business continuity strategy director provider immediately after first dose, may give [...] or prosecute any alcohol or drug abuse patient.[facility] the event this information is protected by the Federal Confidentiality of Alcohol and Drug Abuse Patient Records regulations: The Federal rules restrict any use of the information to criminally investigate or prosecute any alcohol or drug abuse patient.[facility] the event this information is protected by the Federal Confidentiality of Alcohol and Drug Abuse Patient Records regulations: The Federal rules restrict any use of the information to criminally investigate or prosecute any alcohol or drug abuse patient.[facility] Hospital[facility] the event this information is protected by the Federal Confidentiality of Alcohol and Drug Abuse Patient Records regulations: The Federal rules restrict any use of the information to criminally investigate or prosecute any alcohol or drug abuse patient.[facility] Care Teams (unrecognized sec tion and content) Vp Director Of Creative Strategy Relationship Specialty Start Date End Date Marcelino Meredith, DO [address] [address] PCP - General Internal Medicine 09/21/20 Vp Director Of Creative Strategy Relationship Specialty Start Date End Date Marcelino Meredith, DO [address] [address] PCP - General Internal Medicine 09/21/20 Vp Director Of Creative Strategy Relationship Specialty Start Date End Date [facility] [address] [place] [address] PCP - General 05/12/22 Vp Director Of Creative Strategy Relationship Specialty Start Date End Date [facility] [address] [place] [address] PCP - General 05/12/22 Vp Director Of Creative Strategy Relationship Specialty Start Date End Date [facility] [address] [place] [address] PCP - General 05/12/22 Vp Director Of Creative Strategy Relationship Specialty Start Date End Date [facility] [address] [place] [address] PCP - General 05/12/22 Vp Director Of Creative Strategy Relationship Specialty Start Date End Date [facility] [address] [place] [address] PCP - General 05/12/22 Vp Director Of Creative Strategy Relationship Specialty Start Date End Date [facility] [address] [place] [address] PCP - General 05/12/22 Vp Director Of Creative Strategy Relationship Specialty Start Date End Date [facility] [address] [place] [address] PCP - General 05/12/22 Vp Director Of Creative Strategy Relationship Specialty Start Date End Date [facility] [address] [place] [address] PCP - General 05/12/22 Vp Director Of Creative Strategy Relationship Specialty Start Date End Date Cesar Bone DO [address] [place] [id number] PCP - General 05/24/23 Vp Director Of Creative Strategy Relationship Specialty Start Date End Date Cesar Bone DO [address] [place] [id number] PCP - General 05/24/23 Vp Director Of Creative Strategy Relationship Specialty Start Date End Date Cesar Bone DO [address] [place] [address] PCP - General 05/24/23 Vp Director Of Creative Strategy Relationship Specialty Start Date End Date Cesar Bone DO [address] [place] [address] PCP - General 05/24/23 Vp Director Of Creative Strategy Relationship Specialty Start Date End Date Cesar Bone DO [address] [place] [address] PCP - General 05/24/23 Vp Director Of Creative Strategy Relationship Specialty Start Date End Date Cesar Bone DO [address] [place] [address] PCP - General 05/24/23 Team Status: Active [...] BE BASED ON THE PRIMARY CLINICAL RECORDS. [facility]. provides no warranty or guarantee of the accuracy or completeness of information in this document.
[2024-12-28 19:58] VITALS: BMI 19.8
[2024-12-28 20:00] VITALS: BP 109/71; PULSE 80; RESP 16; TEMP 36.4; O2SAT 96
[2024-12-29 00:39] VITALS: BP 113/72; PULSE 87; RESP 18; TEMP 36.6; O2SAT 97
[2024-12-29 04:08] VITALS: BP 111/71; PULSE 80; RESP 18; TEMP 36.6; O2SAT 97
--- NOTE | 2024-12-29 07:45 | PN.HOSP_ITS ---
Reason for Visit Chief Complaint: fentanyl withdrawal Subjective Subjective Patient is a 24-year-old gentleman with history of opioid dependence presented to the emergency department with acute opioid withdrawal Objective Data Objective Data Vital Signs: Vital Signs Temp Pulse Resp BP Pulse Ox O2 Del Method 97.9 F 80 18 111/71 97 Room Air 12/29/24 04:08 12/29/24 04:08 12/29/24 04:08 12/29/24 04:08 12/29/24 04:08 12/29/24 04:08 Oxygen Delivery Method Room Air Weight: 70.08 kg Body Mass Index (BMI) 19.8 Intake & Output: Intake and Output for Last 24 Hours 12/27/24 12/28/24 12/29/24 23:59 23:59 23:59 Intake Total 1100 / 1100 Output Total 2 / 2 Balance 1098 / 1098 Lab / Micro Data 12/28/24 15:30 12/28/24 15:30 Labs: Laboratory Results - last 24 hr 12/28/24 15:30: WBC 5.8, RBC 4.39 L, Hgb 13.1, Hct 38.0 L, MCV 86.6, MCH 29.8, MCHC 34.5, RDW Std Deviation 41.1, RDW Coeff of Dannielle 13.2, Plt Count 258, MPV 10.5, Immature Gran % (Auto) 0.200, Neut % (Auto) 46.2 L, Lymph % (Auto) 38.4, M sophia % (Auto) 10.7 H, Eos % (Auto) 3.5, Baso % (Auto) 1.0, Absolute Neuts (auto) 2.7, Absolute Lymphs (auto) 2.22, Nucleated RBC % 0, Sodium 136, Potassium 3.5, Chloride 96 L, Carbon Dioxide 26.6, Anion Gap 13, BUN 7, Creatinine 0.69 L, Estim Creat Clear Calc 164.00, Est GFR (MDRD) Non-Af 131, BUN/Creatinine Ratio 10.4, Glucose 106 H, Calcium 9.3, Urine Opiates Screen NEGATIVE, U Buprenorphine Qual PRESUMPTIVE POSITIVE, Ur Oxycodone Screen NEGATIVE, Urine Methadone Screen NEGATIVE, Urine Fentanyl Screen PRESUMPTIVE POSITIVE, Ur Barbiturates Screen NEGATIVE, Ur Phencyclidine Scrn NEGATIVE, Ur Amphetamines Screen NEGATIVE, U Benzodiazepines Scrn NEGATIVE, Urine Cocaine Screen NEGATIVE, U Cannabinoids Screen NEGATIVE, Ethyl Alcohol < 10.1 Physical Exam Narrative GENERAL: cooperative HEENT: Atraumatic; normocephalic EYES; Anicteric, Normal Conjunctiva NECK; supple, normal thyroid, RESPIRATORY: Diminished to auscultation CARDIOVASCULAR: Regular S1 S2, GI: soft, normoactive bowel sounds, : No Renal angle tenderness; EXTREMITIES: No edema, no clubbing, MUSCULOSKELETAL: no muscle wasting NEURO: Awake; no lateralizing signs. SKIN: No Rash PSYCH; Flat affect Assessment & Plan Assessment/Plan (1) Desire for detoxification: (2) Opiate withdrawal: PLAN: Plan Patient is a 24-year-old gentleman with history of opioid dependence presented to the emergency department with acute opioid withdrawal 1. 1. Acute opioid withdrawal - Patient has been admitted to regular nursing floor, managed buprenorphine taper along with other adjunctive medications for medical stabilization 2. Elevated blood pressure on admission ? Patient blood pressure has stabilized following admission 3. Hypokalemia ? Patient initiated on potassium supplements 4. Tobacco dependence ? Counseled on cessation, offered nicotine patch for tobacco cravings 5. Underweight with BMI of 19.8 ? Consult placed to dietitian 6. DVT prophylaxis ? Low risk, encourage daily ambulation Charges/Coding Visit Charges Inpatient E&M: 09660 Subs Hosp L2
[2024-12-29 08:00] VITALS: BP 115/79; PULSE 78; RESP 16; TEMP 36.7; O2SAT 98
[2024-12-29] MEDS: Potassium Chloride Oral Tablet 20 MEQ PO ×2 (08:53→17:33)
[2024-12-29 14:13] VITALS: BP 122/82; PULSE 88; RESP 16; TEMP 36.7; O2SAT 98
[2024-12-29] MEDS: hydrOXYzine PAM 25 MG Capsule 50 MG PO (17:33)
[2024-12-29 20:17] VITALS: BP 111/54; PULSE 68; RESP 16; TEMP 36.8; O2SAT 100
[2024-12-30] MEDS: hydrOXYzine PAM 25 MG Capsule 50 MG PO ×3 (03:30→21:15)
[2024-12-30 03:33] VITALS: BP 97/66; PULSE 70; RESP 16; TEMP 36.4; O2SAT 100
[2024-12-30 08:55] VITALS: BP 109/76; PULSE 64; RESP 16; TEMP 36.8; O2SAT 98
[2024-12-30] MEDS: Potassium Chloride Oral Tablet 20 MEQ PO ×2 (09:41→15:57)
--- NOTE | 2024-12-30 12:30 | ADDICTION ---
Met with patient to complete RAMP assessments. [facility] relapsed [facility]. He will be returning to [facility] post dc.
--- NOTE | 2024-12-30 14:36 | NURSING ---
STATUS UPDATE GIVEN TO MESFIN DOMINIQUE, SALES SPECIALIST, PER PT OK
[2024-12-30 15:00] VITALS: BP 106/64; PULSE 72; RESP 16; TEMP 36.8; O2SAT 97
--- NOTE | 2024-12-30 16:59 | PN.HOSP_ITS ---
Reason for Visit Chief Complaint: fentanyl withdrawal Objective Data Objective Data Vital Signs: Vital Signs Temp Pulse Resp BP Pulse Ox O2 Del Method 98.3 F 72 16 106/64 97 Room Air 12/30/24 15:00 12/30/24 15:00 12/30/24 15:00 12/30/24 15:00 12/30/24 15:00 12/30/24 15:00 Oxygen Delivery Method Room Air Weight: 154 lb 8 oz Body Mass Index (BMI) 19.8 Intake & Output: Intake and Output for Last 24 Hours 12/28/24 12/29/24 12/30/24 23:59 23:59 23:59 Intake Total 2150 / 2150 Output Total 2 / 2 Balance 2148 / 2148 Lab / Micro Data 12/28/24 15:30 12/28/24 15:30 Physical Exam Narrative Seen and examined. Patient is still sweating. He denies history of chronic hep C, chronic hep B and HIV. Has been using IV fentanyl in the past but currently snorts fentanyl. Vaping machine was found on his bed Physical exam General: Alert, Oriented x3, Cooperative HEENT: Atraumatic, PERRLA, EOMI, Normocephalic. Oral: No Gingival or Mucosal Lesions/ Ulcerations Neck: Supple, No JVD, Negative Carotid Bruits Chest wall/Lungs: Air entry diminished in bilateral lung bases. No crepitation/rhonchi Cardiovascular: Regular rate and rhythm, Normal S1,S2, No M/G/R Abdomen: Bowel Sounds Present, Soft, Non Tender, Non-Distended : No dysuria. No renal angle tenderness. No suprapubic tenderness. Extremities: No edema, Capillary Refill Less than 3 Seconds Skin: No rashes, No breakdown Musculoskeletal: No Tenderness to Palpation of Joints or Extremities Neurological: Cranial nerves II-XII grossly intact, DTR 2+/4. No acute focal neurological deficit. Psych/Mental Status: Flat affect Assessment & Plan Assessment/Plan (1) Desire for detoxification: (2) Opiate withdrawal: PLAN: Plan Patient is a 24-year-old gentleman with history of opioid dependence presented to the emergency department with acute opioid withdrawal 1. Acute opioid withdrawal with history of chronic opioid use and dependence - Patient has been admitted to regular nursing floor, The patient is started on buprenorphine along with other adjunctive medications as needed for medical stabilization as per order set of opioid withdrawal syndrome.Patient also on trazodone, hydroxyzine, gabapentin as needed ordered. Advised quitting opioid use. certified wellness program manager consult. 2. Elevated blood pressure on admission ? Patient blood pressure has stabilized following admission 12/30: Blood pressure is 106/64. 3. Hypokalemia ? Patient initiated on potassium supplements 4. Tobacco dependence ? Counseled on cessation, offered nicotine patch for tobacco cravings 12/30: Vaping was found in his bed. Nursing staff took it from the patient. 5. Underweight with BMI of 19.8 ? Consult placed to dietitian 6. DVT prophylaxis ? Low risk, encourage daily ambulation Charges/Coding Visit Charges Inpatient E&M: 03824 Subs Hosp L2
[2024-12-30 20:50] VITALS: BP 107/70; PULSE 79; RESP 16; TEMP 36.8; O2SAT 98
[2024-12-31 04:48] VITALS: BP 98/65; PULSE 67; RESP 16; TEMP 36.4; O2SAT 96
[2024-12-31] MEDS: Potassium Chloride Oral Tablet 20 MEQ PO (09:13)
[2024-12-31 09:17] VITALS: BP 100/61; PULSE 82; RESP 16; TEMP 37.1; O2SAT 100
--- NOTE | 2024-12-31 10:13 | DCINST_ITS ---
Discharge Instructions DC O2, CPAP, BIPAP needs Home O2 Discharge instructions: No Follow Up Care Test Results: Test results from this visit will be discussed in further detail at your follow- up appointment, if applicable. Discharge Plan Admission Admit Date/Time: 12/28/24 18:35 Attending Provider: Chano Mcqueen Primary Care Provider: Heather Lo Consulting Providers: Marques Devine; Jaden Sanders Discharge Orders/Prescriptions Prescriptions: New nicotine 21 mg/24 hr Patch 24 Hour 21 mg transdermal DAILY 28 Days Qty: 28 0RF Referrals / Follow Up: Heather Lo, DO [Primary Care Provider] - Within 1 Week Disposition Disposition (needs filled in before D/C Order can be placed): Home, Self Care
--- NOTE | 2024-12-31 11:58 | DS.PCM_ITS ---
Providers Date of Admission: 12/28/24 Date of Discharge: 12/31/24 Primary Care Physician: JOHN Vincent, DO Reason For Visit: OPIATE WITHDRAWAL Diagnosis Discharge Diagnosis (1) Desire for detoxification: Status: Acute (2) Opiate withdrawal: Status: Acute Code(s): F11.93 - Opioid use, unspecified with withdrawal Plan Patient is a 24-year-old gentleman with history of opioid dependence presented to the emergency department with acute opioid withdrawal 1. Acute opioid withdrawal with history of chronic opioid use and dependence - Patient has been admitted to regular nursing floor, The patient is started on buprenorphine along with other adjunctive medications as needed for medical stabilization as per order set of opioid withdrawal syndrome.Patient also on trazodone, hydroxyzine, gabapentin as needed ordered. Advised quitting opioid use. clinical nurse manager consult. 12/31: The patient in the fourth day of treatment with buprenorphine. Patient is medically stable for discharge. Follow-up outpatient [facility] rehab. 2. Elevated blood pressure on admission ? Patient blood pressure has stabilized following admission 12/30: Blood pressure is 106/64. 12/31: Blood pressure is normal. No hypotension 3. Hypokalemia ? Patient initiated on potassium supplements Patient had 4 days of potassium supplement. 4. Tobacco dependence ? Counseled on cessation, offered nicotine patch for tobacco cravings 12/30: Vaping was found in his bed. Nursing staff took it from the patient. 12/31: Prescription given for nicotine patch. 5. Underweight with BMI of 19.8 ? Consult placed to dietitian 6. DVT prophylaxis ? Low risk, encourage daily ambulation Discharge medication reconciliation done. Discharge follow-up instructions completed. Discharge process discussed with the patient and all questions were answered to patient's satisfaction. Follow with PCP in 1 to 2 weeks Total time spent, exact 35 minutes on discharge meds reconciliation, examination, coordination of care with nurses and ancillary staff, review of imaging and blood test and discussion with the patient on follow-up instructions. Medications at Discharge Home Medications nicotine 21 mg/24 hr daily transdermal patch 21 mg transdermal DAILY 28 days #28 ea 12/31/24 Physical Exam Narrative Seen and examined. Patient is doing well. He agreed for discharge. Wants to go home. Has been using IV fentanyl in the past but currently snorts fentanyl. Vaping machine was found on his bed Physical exam General: Alert, Oriented x3, Cooperative HEENT: Atraumatic, PERRLA, EOMI, Normocephalic. Oral: No Gingival or Mucosal Lesions/ Ulcerations Neck: Supple, No JVD, Negative Carotid Bruits Chest wall/Lungs: Air entry equal in bilateral lung bases. No crepitation/rhonchi Cardiovascular: Regular rate and rhythm, Normal S1,S2, No M/G/R Abdomen: Bowel Sounds Present, Soft, Non Tender, Non-Distended : No dysuria. No renal angle tenderness. No suprapubic tenderness. Extremities: No edema, Capillary Refill Less than 3 Seconds Skin: No rashes, No breakdown Musculoskeletal: No Tenderness to Palpation of Joints or Extremities Neurological: Cranial nerves II-XII grossly intact, DTR 2+/4. No acute focal neurological deficit. Psych/Mental Status: Flat affect Weight / BMI Weight Weight: 154 lb 8 oz Body Mass Index (BMI) 19.8 ABG / Lab / Microbiology Data 12/28/24 15:30 12/28/24 15:30 D/C Instructions DC O2, CPAP, BIPAP Needs Home O2 Discharge instructions: No Meaningful Use Info Meaningful Use Meaningful Use Diagnoses (Choose all that apply): None applicable Discharge Plan Admission Admit Date/Time: 12/28/24 18:35 Attending Provider: Chano Mcqueen Primary Care Provider: Heather Lo Consulting Providers: Marques Devine; Jaden Sanders Discharge Orders/Prescriptions Prescriptions: New nicotine 21 mg/24 hr Patch 24 Hour 21 mg transdermal DAILY 28 Days Qty: 28 0RF Referrals / Follow Up: Heather Lo, DO [Primary Care Provider] - Within 1 Week Disposition Disposition (needs filled in before D/C Order can be placed): Home, Self Care Charges/Coding Visit Charges Inpatient E&M: 66076 Subs Hosp L2
[2024-12-31 12:35] VITALS: BP 103/63; PULSE 86; RESP 16; TEMP 36.6; O2SAT 95
--- NOTE | 2024-12-31 13:31 | PHA.DC.MR.R ---
[facility] has performed discharge medication reconciliation for this patient. Medication education papers prepared, patient discharged when counseling was attempted. The patient's discharge medication list was reviewed for discrepancies and discrepancies were resolved. Medications at Discharge Home Medications nicotine 21 mg/24 hr daily transdermal patch 21 mg transdermal DAILY 28 days #28 ea 12/31/24
== END 2024-12-31 12:35 | disposition home or self-care (01) | DRG 773 ==
LOC: ED 18:43 → MS3 12-29 07:09
PROVIDERS: Emergency Provider Emergency Medicine; PCP Family Medicine; Visit Provider Internal Medicine
DX: F11.23 Opioid dependence with withdrawal (principal); E87.6 Hypokalemia; F17.210 Nicotine dependence, cigarettes, uncomplicated; F17.290 Nicotine dependence, other tobacco product, uncomplicated; R03.0 Elevated blood-pressure reading, without diagnosis of hypertension; R63.6 Underweight; Z68.1 Body mass index [BMI] 19.9 or less, adult
CPT/HCPCS: 80048; 80307; 82077; 85025; 99221; 99283; 99406; G0378